=== PATIENT | female | born 1965 | race Hispanic/Latino ===

== ENCOUNTER 2019-03-12 04:26 | Observation (INO) | payer OTHER ==
[2019-03-12] MEDS ORDERED: FENTANYL CITR 100 MCG/2 ML ONE ×3 (04:48→07:13)
[2019-03-12] MEDS ORDERED: FAMOTIDINE 20 MG/2 ML VIAL IV ONE (04:48)
[2019-03-12] MEDS ORDERED: ONDANSETRON 4 MG/2 ML VIAL ONE ×2 (04:48→07:13)
[2019-03-12 05:12] LABS: Protime INR 1.07
[2019-03-12 05:14] LABS: Absolute Lymphocytes (CBC) 2.3 K/uL (0.7-4.9); Basophils % 0.4 % (0-1.3); Lymphocytes % 25.3 % (15.3-44.8); RBC Red Blood Cell Count 3.93 M/uL (3.86-4.86)
[2019-03-12 05:38] LABS: ALT/SGPT 29 U/L (12-78); AST/SGOT 14 U/L (15-37); Albumin 4.1 g/dL (3.4-5.0); Alkaline Phosphatase 94 U/L (45-117); BUN Blood Urea Nitrogen 16 mg/dL (7-18); Bicarbonate 20 mmol/L (21-32); Bilirubin Direct 0.1 mg/dL (0-0.2); Bilirubin Total 0.6 mg/dL (0.2-1.0); Glucose Level 133 mg/dL (74-106); Lipase 158 U/L (73-393); Magnesium 2.2 mg/dL (1.8-2.4); NT PRO-BNP 65 pg/mL (<125); Potassium 3.1 mmol/L (3.5-5.1); Protein, Total 8.6 g/dL (6.4-8.2); Sodium Level 138 mmol/L (136-145); Troponin (Emerg Dept Use Only) < 0.02 ng/mL (0.0-0.045)
[2019-03-12] MEDS ORDERED: NS KCL 20MEQ 1,000 ML IV ONE (06:25)
--- NOTE | 2019-03-12 07:12 | ER ---
Nurse's Notes [facility] Name: Ivonne Anderson Age: 53 yrs Sex: Female : 1965 Arrival Date: 03/12/2019 Time: 04:30 Bed 7 Private MD: Heriberto Dial Diagnosis: Abdominal tenderness;Chest pain, unspecified;Type 2 diabetes mellitus;Hypokalemia;Essential (primary) hypertension;Unspecified kidney failure Presentation: 03/12 04:39 Presenting complaint: Patient states: Abdominal pain, pointing to epigastric area, lp1 since yesterday morning, radiating to chest with nausea; Patient states numbness, tingling to arms; Some diarrhea. Transition of care: patient was not received from another setting of care. Onset of symptoms was March 11, 2019. Risk Assessment: Do you want to hurt yourself or someone else? Patient reports no desire to harm self or others. Initial Sepsis Screen: Does the patient meet any 2 criteria? No. Patient's initial sepsis screen is negative. Does the patient have a suspected source of infection? No. Patient's initial sepsis screen is negative. Care prior to arrival: None. 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 - Social history:: Smoking status: Patient/guardian denies using tobacco. - Ebola Screening: : No symptoms or risks identified at this time. Screenin:42 Abuse screen: Denies threats or abuse. Denies injuries from another. Nutritional lp1 screening: No deficits noted. Tuberculosis screening: No symptoms or risk factors identified. Fall Risk None identified. Assessment: 04:44 General: Appears uncomfortable, Behavior is anxious. Pain: Complains of pain in lp1 epigastric area, right upper quadrant and left upper quadrant Pain radiates to chest Pain at worst was 10 out of 10 on a pain scale. Pain began 1 day ago. Neuro: Level of Consciousness is awake, alert, obeys commands, Oriented to person, place, time, situation. Cardiovascular: Patient's skin is warm and dry. Respiratory: Respiratory effort is even. GI: Abdomen is non-distended, Bowel sounds present X 4 quads. Abdomen is tender to palpation X 4 quads. : No signs and/or symptoms were reported regarding the genitourinary system. EENT: No signs and/or symptoms were reported regarding the EENT system. Derm: Skin is pink, warm \T\ dry. Musculoskeletal: No deficits noted. 05:20 Reassessment: Patient completed oral contrast; CT notified. lp1 06:20 Reassessment: Patient states pain continued; Provider notified. lp1 06:20 Pain: Pain currently is 9 out of 10 on a pain scale. lp1 07:30 Reassessment: attempted to call report, nurse not assigned at this time. Will continue jl7 to monitor. Vital Signs: 04:40 BP 180 / 107; Pulse 120; Resp 18; Temp 98.2(O); Pulse Ox 100% on R/A; Weight 61.69 kg; lp1 Height 5 ft. 0 in. (152.40 cm); Pain 10/10; 05:15 BP 140 / 89; Pulse 71; Resp 15; Pulse Ox 99% on R/A; Pain 7/10; lp1 06:00 BP 135 / 89; Pulse 78; Resp 18; Pulse Ox 98% on R/A; lp1 06:30 BP 141 / 89; Pulse 79; Resp 16; Pulse Ox 98% on R/A; Pain 9/10; lp1 07:37 BP 131 / 88; Pulse 82; Resp 16 S; Temp 98.2; Pulse Ox 98% on R/A; Pain 6/10; hb 04:40 Body Mass Index 26.56 (61.69 kg, 152.40 cm) lp1 ED Course: 04:30 Patient arrived in ED. es 04:31 Heriberto Dial MD is Private Physician. es 04:33 Richie Marinelli RN is Primary Nurse. rr5 04:34 Waqas Edwards MD is Attending Physician. flaco 04:40 Triage completed. lp1 04:40 Inserted saline lock: 20 gauge in left antecubital area, using aseptic technique. Blood ds4 collected. 04:42 Arm band placed on. lp1 04:42 Patient has correct armband on for positive identification. Placed in gown. Bed in low lp1 position. monitoring tech on. Pulse ox on. NIBP on. 04:42 Patient maintains SpO2 saturation greater than 95% on room air. lp1 04:55 Ofelia Holly, REBEKAH is Primary Nurse. lp1 05:13 XRAY Chest (1 view) In Process Unspecified. EDMS 06:58 CT completed. Patient tolerated procedure well. Patient taken to ultrasound. vm2 07:00 CT Abd/Pelvis - PO and IV Contrast In Process Unspecified. EDMS 07:08 Man Kaur MD is Hospitalizing Provider. flaco 07:15 US Abdomen Limited In Process Unspecified. EDMS 07:42 No provider procedures requiring assistance completed. Patient admitted, IV remains in sg place. intact, No redness/swelling at site. Administered Medications: 04:56 Drug: fentaNYL (PF) 50 mcg {Note: RASS 2.} Route: IVP; Site: left antecubital; lp1 05:39 Follow up: Response: Pain is decreased; RASS: Alert and Calm (0) lp1 04:56 Drug: Zofran 4 mg Route: IVP; Site: left antecubital; lp1 05:39 Follow up: Response: Nausea is decreased lp1 04:56 Drug: Pepcid 20 mg Route: IVP; Site: left antecubital; lp1 05:40 Follow up: Response: No adverse reaction lp1 06:33 Drug: fentaNYL (PF) 25 mcg {Note: RASS 1.} Route: IVP; Site: left antecubital; lp1 07:10 Follow up: Response: No adverse reaction; Pain is unchanged, physician notified; RASS: sg Restless (+1) 06:34 Drug: NS 0.9% with KCl 20 mEq/L 1000 ml Route: IV; Rate: 125 ml/hr; Site: left lp1 antecubital; 07:50 Follow up: Response: No adverse reaction; IV Status: Infusion continued upon admission sg 07:19 Drug: Zofran 4 mg Route: IVP; Site: left antecubital; sg 07:40 Follow up: Response: No adverse reaction sg 07:20 Drug: fentaNYL (PF) 25 mcg Route: IVP; Site: left antecubital; sg 07:40 Follow up: Response: No adverse reaction; Pain is decreased; RASS: Restless (+1); 08/19 sg Intake: Outcome: 07:11 Decision to Hospitalize by Provider. flaco 07:42 Admitted to Med/surg accompanied by tech, family with patient, via stretcher, room 416, with chart, Report called to Shannon WELCH 07:42 Condition: stable 07:42 Instructed on the need for admit, safety practices, Demonstrated understanding of instructions, follow-up care. 07:50 Patient left the ED. em1 Signatures: Dispatcher [employer] Luis Carlos Troy, RN RN Waqas Palacios MD MD cha Salyer, Christian Arriola em1 Ofelia Holly RN RN lp1 Brad Nunez ds4 Nancy Soliz RN RN hb Leal, Jahala, RN RN jl7 Marcelina Cuevas [facility] Richie Marinelli RN RN rr5
--- NOTE | 2019-03-12 07:12 | EDPHYS ---
Physician Documentation [facility] Name: Ivonne Anderson Age: 53 yrs Sex: Female : 1965 Arrival Date: 03/12/2019 Time: 04:30 Bed 7 Private MD: Heriberto Dial ED Physician Waqas Edwards HPI: 03/12 04:48 This 53 yrs old Female presents to ER via Wheelchair with complaints of Chest flaco Pain, Abdominal Pain, Nausea, Numbness Of Arm, tingling. 04:48 The patient or guardian reports chest pain that is located primarily in the substernal flaco area, epigastric area. Onset: just prior to arrival, this morning. The pain radiates to Associated signs and symptoms: Pertinent positives: abdominal pain. The chest pain is described as a pressure. Duration: The patient or guardian reports a single episode, that is still ongoing. Modifying factors: The symptoms are alleviated by nothing. the symptoms are aggravated by nothing. Severity of pain: At its worst the pain was mild moderate in the emergency department the pain is unchanged. 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 - Social history:: Smoking status: Patient/guardian denies using tobacco. - Ebola Screening: : No symptoms or risks identified at this time. ROS: 04:49 Constitutional: Negative for fever, chills, and weight loss, Eyes: Negative for injury, flaco pain, redness, and discharge, ENT: Negative for injury, pain, and discharge, Neck: Negative for injury, pain, and swelling, Cardiovascular: Negative for chest pain, palpitations, and edema, Respiratory: Negative for shortness of breath, cough, wheezing, and pleuritic chest pain, Back: Negative for injury and pain, : Negative for injury, bleeding, discharge, and swelling, MS/Extremity: Negative for injury and deformity, Skin: Negative for injury, rash, and discoloration, Neuro: Negative for headache, weakness, numbness, tingling, and seizure, Psych: Negative for depression, anxiety, suicide ideation, homicidal ideation, and hallucinations, Allergy/Immunology: Negative for hives, rash, and allergies, Endocrine: Negative for neck swelling, polydipsia, polyuria, polyphagia, and marked weight changes, Hematologic/Lymphatic: Negative for swollen nodes, abnormal bleeding, and unusual bruising. 04:49 Abdomen/GI: Positive for abdominal pain, nausea, of the epigastric area, right upper quadrant, left upper quadrant, right lower quadrant and left lower quadrant. Exam: 04:49 Constitutional: This is a well developed, well nourished patient who is awake, alert, flaco and in no acute distress. Head/Face: Normocephalic, atraumatic. Eyes: Pupils equal round and reactive to light, extra-ocular motions intact. Lids and lashes normal. Conjunctiva and sclera are non-icteric and not injected. Cornea within normal limits. Periorbital areas with no swelling, redness, or edema. ENT: Nares patent. No nasal discharge, no septal abnormalities noted. Tympanic membranes are normal and external auditory canals are clear. Oropharynx with no redness, swelling, or masses, exudates, or evidence of obstruction, uvula midline. Mucous membranes moist. Neck: Trachea midline, no thyromegaly or masses palpated, and no cervical lymphadenopathy. Supple, full range of motion without nuchal rigidity, or vertebral point tenderness. No Meningismus. Chest/axilla: Normal chest wall appearance and motion. Nontender with no deformity. No lesions are appreciated. Cardiovascular: Regular rate and rhythm with a normal S1 and S2. No gallops, murmurs, or rubs. Normal PMI, no JVD. No pulse deficits. Respiratory: Lungs have equal breath sounds bilaterally, clear to auscultation and percussion. No rales, rhonchi or wheezes noted. No increased work of breathing, no retractions or nasal flaring. Back: No spinal tenderness. No costovertebral tenderness. Full range of motion. Female : Normal external genitalia. Skin: Warm, dry with normal turgor. Normal color with no rashes, no lesions, and no evidence of cellulitis. MS/ Extremity: Pulses equal, no cyanosis. Neurovascular intact. Full, normal range of motion. Neuro: Awake and alert, GCS 15, oriented to person, place, time, and situation. Cranial nerves II-XII grossly intact. Motor strength 5/5 in all extremities. Sensory grossly intact. Cerebellar exam normal. Normal gait. Psych: Awake, alert, with orientation to person, place and time. Behavior, mood, and affect are within normal limits. 04:49 Abdomen/GI: Inspection: abdomen appears normal, Bowel sounds: normal, Palpation: mild abdominal tenderness, in the right upper quadrant and left upper quadrant. 05:35 Musculoskeletal/extremity: DVT Exam: No signs of deep vein thrombosis. no pain, no flaco swelling, no tenderness, negative Homans' sign noted on exam, no appreciated bluish discoloration, no erythema, no increased warmth. Vital Signs: 04:40 BP 180 / 107; Pulse 120; Resp 18; Temp 98.2(O); Pulse Ox 100% on R/A; Weight 61.69 kg; lp1 Height 5 ft. 0 in. (152.40 cm); Pain 10/10; 05:15 BP 140 / 89; Pulse 71; Resp 15; Pulse Ox 99% on R/A; Pain 7/10; lp1 06:00 BP 135 / 89; Pulse 78; Resp 18; Pulse Ox 98% on R/A; lp1 06:30 BP 141 / 89; Pulse 79; Resp 16; Pulse Ox 98% on R/A; Pain 9/10; lp1 07:37 BP 131 / 88; Pulse 82; Resp 16 S; Temp 98.2; Pulse Ox 98% on R/A; Pain 6/10; hb 04:40 Body Mass Index 26.56 (61.69 kg, 152.40 cm) lp1 MDM: 04:34 Patient medically screened. [facility] 04:51 Data reviewed: vital signs, nurses notes, lab test result(s), EKG, radiologic studies, [facility] CT scan, plain films. 03/12 04:48 Order name: Basic Metabolic Panel; Complete Time: 05:43 [facility] 03/12 04:48 Order name: CBC with Diff; Complete Time: 05:31 [facility] 03/12 04:48 Order name: LFT's; Complete Time: 05:43 [facility] 03/12 04:48 Order name: Magnesium; Complete Time: 05:43 [facility] 03/12 04:48 Order name: NT PRO-BNP; Complete Time: 05:43 [facility] 03/12 04:48 Order name: PT-INR; Complete Time: 05:31 [facility] 03/12 04:48 Order name: Troponin (emerg Dept Use Only); Complete Time: 05:43 [facility] 03/12 04:48 Order name: XRAY Chest (1 view) [facility] 03/12 04:48 Order name: Lipase; Complete Time: 05:43 [facility] 03/12 04:48 Order name: Urine Culture [facility] 03/12 04:48 Order name: CT Abd/Pelvis - PO and IV Contrast [facility] 03/12 06:17 Order name: US Abdomen Limited [facility] 03/12 06:31 Order name: Urine Dipstick--Ancillary (enter results) ar5 03/12 04:48 Order name: EKG; Complete Time: 04:50 [facility] 03/12 04:48 Order name: Cardiac monitoring; Complete Time: 04:50 [facility] 03/12 04:48 Order name: EKG - Nurse/Tech; Complete Time: 04:50 [facility] 03/12 04:48 Order name: IV Saline Lock; Complete Time: 04:50 [facility] 03/12 04:48 Order name: Labs collected and sent; Complete Time: 04:50 [facility] 03/12 04:48 Order name: O2 Per Protocol; Complete Time: 04:50 [facility] 03/12 04:48 Order name: O2 Sat Monitoring; Complete Time: 04:50 [facility] 03/12 04:48 Order name: Urine Dipstick-Ancillary (obtain specimen); Complete Time: 06:25 [facility] 03/12 06:22 Order name: EKG; Complete Time: 06:22 [facility] 03/12 07:15 Order name: CONS Physician Consult [facility]IL 03/12 06:22 Order name: EKG - Nurse/Tech; Complete Time: 06:34 [facility] Administered Medications: 04:56 Drug: fentaNYL (PF) 50 mcg {Note: RASS 2.} Route: IVP; Site: left antecubital; lp1 05:39 Follow up: Response: Pain is decreased; RASS: Alert and Calm (0) lp1 04:56 Drug: Zofran 4 mg Route: IVP; Site: left antecubital; lp1 05:39 Follow up: Response: Nausea is decreased lp1 04:56 Drug: Pepcid 20 mg Route: IVP; Site: left antecubital; lp1 05:40 Follow up: Response: No adverse reaction lp1 06:33 Drug: fentaNYL (PF) 25 mcg {Note: RASS 1.} Route: IVP; Site: left antecubital; lp1 07:10 Follow up: Response: No adverse reaction; Pain is unchanged, physician notified; RASS: sg Restless (+1) 06:34 Drug: NS 0.9% with KCl 20 mEq/L 1000 ml Route: IV; Rate: 125 ml/hr; Site: left lp1 antecubital; 07:50 Follow up: Response: No adverse reaction; IV Status: Infusion continued upon admission sg 07:19 Drug: Zofran 4 mg Route: IVP; Site: left antecubital; sg 07:40 Follow up: Response: No adverse reaction sg 07:20 Drug: fentaNYL (PF) 25 mcg Route: IVP; Site: left antecubital; sg 07:40 Follow up: Response: No adverse reaction; Pain is decreased; RASS: Restless (+1); 08/19 sg Disposition: 03/12/19 07:11 Hospitalization ordered by Man Kaur for Inpatient Admission. Preliminary diagnosis are Abdominal tenderness, Chest pain, unspecified, Type 2 diabetes mellitus, Hypokalemia, Essential (primary) hypertension, Unspecified kidney failure. - Bed requested for Telemetry/MedSurg (Inpatient). - Status is Inpatient Admission. em1 - Condition is Fair. - Problem is new. - Symptoms have improved. UTI on Admission? No Signatures: Dispatcher [employer] EDMS Praveena Leon RN RN dw Luis Carlos Lino RN RN sg Waqas Edwards MD MD cha Martinez, Eric em1 Ofelia Holly, REBEKAH RN lp1 Corrections: (The following items were deleted from the chart) 07:28 07:11 Hospitalization Ordered by Man Kaur MD for Inpatient Admission. Preliminary dw diagnosis is Abdominal tenderness; Chest pain, unspecified; Type 2 diabetes mellitus; Hypokalemia; Essential (primary) hypertension; Unspecified kidney failure. Bed requested for Telemetry/MedSurg (Inpatient). Status is Inpatient Admission. Condition is Fair. Problem is new. Symptoms have improved. UTI on Admission? No. flaco 07:50 07:28 03/12/2019 07:11 Hospitalization Ordered by Man Kaur MD for Inpatient em1 Admission. Preliminary diagnosis is Abdominal tenderness; Chest pain, unspecified; Type 2 diabetes mellitus; Hypokalemia; Essential (primary) hypertension; Unspecified kidney failure. Bed requested for Telemetry/MedSurg (Inpatient). Status is Inpatient Admission. Condition is Fair. Problem is new. Symptoms have improved. UTI on Admission? No. dw
[2019-03-12] MEDS ORDERED: FENTANYL CITR 100 MCG/2 ML IV PRN (07:19)
--- NOTE | 2019-03-12 07:41 | EKG ---
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
--- NOTE | 2019-03-12 07:56 | RAD REPORT ---
EXAM DESCRIPTION: CT - Abdomen Pelvis W Contrast - 03/12/2019 6:59 am CLINICAL HISTORY: Abdominal pain. COMPARISON: None. TECHNIQUE: Computed axial tomography of the abdomen and pelvis was obtained. 100 cc Isovue-300 is ad ministered intravenously. Oral contrast was given. All CT scans are performed using dose optimization technique as appropriate and may include automated exposure control or mA/KV adjustment according to patient size. FINDINGS: Fatty liver Spleen, pancreas, adrenals and kidneys appear unremarkable. The appendix is normal caliber. There is no evidence of diverticulitis IMPRESSION: No acute abnormality displayed
--- NOTE | 2019-03-12 07:57 | RAD REPORT ---
EXAM DESCRIPTION: US - Abdomen Exam Limited - 03/12/2019 7:13 am CLINICAL HISTORY: Abdominal pain. COMPARISON: None. FINDINGS: The gallbladder wall is not thickened. A gallstone is not seen. The biliary tree is normal caliber. IMPRESSION: Unremarkable gallbladder ultrasound.
[2019-03-12] MEDS ORDERED: ACETAMINOPHEN 325 MG TABLET PO PRN (08:25)
[2019-03-12] MEDS ORDERED: D50W 25 GM/50 ML SYRINGE/VIAL IV PRN (08:25)
[2019-03-12] MEDS ORDERED: ONDANSETRON 4 MG/2 ML VIAL IV PRN (08:25)
[2019-03-12] MEDS ORDERED: GLUCAGON 1 MG/VIAL IM PRN (08:25)
[2019-03-12] MEDS: INSULIN -REGULAR HUMAN 50 UNIT/0.5 ML ML SQ SCH ×4 (08:25→21:00)
--- NOTE | 2019-03-12 08:29 | RAD REPORT ---
EXAM DESCRIPTION: Saad Single View03/12/2019 5:11 am CLINICAL HISTORY: Chest pain COMPARISON: January 2019 FINDINGS: The lungs appear clear of acute infiltrate. The heart is normal size IMPRESSION: No acute abnormalities displayed
[2019-03-12] MEDS ORDERED: FAMOTIDINE 20 MG/2 ML VIAL IV SCH (09:00)
[2019-03-12 09:10] LABS: Potassium 4.1 mmol/L (3.5-5.1); Troponin I < 0.02 ng/mL (0.0-0.045)
[2019-03-12] MEDS ORDERED: FENTANYL CITR 100 MCG/2 ML IV ONE (09:19)
[2019-03-12] MEDS: ASPIRIN EC 81 MG TAB PO SCH (09:38)
[2019-03-12] MEDS: NS KCL 20MEQ 20 MEQ/1,000 ML BAG IV SCH ×2 (09:46→16:51)
[2019-03-12 10:07] VITALS: BMI 26.5
[2019-03-12] MEDS ORDERED: INFLUENZA VACCINE (for 3y+) 0.5 ML DOSE IMVAC ONE (11:00)
--- NOTE | 2019-03-12 11:03 | EKG ---
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
[2019-03-12] MEDS ORDERED: SODIUM CHLORIDE 0.9% 10ML INJ IV PRN (11:41)
[2019-03-12] MEDS ORDERED: NITROGLYCERIN 0.4 MG/TAB SL ONE (11:44)
[2019-03-12] MEDS ORDERED: NITROGLYCERIN 0.4 MG/TAB SL PRN (11:48)
[2019-03-12 11:53] LABS: Urine Appearance CLEAR; Urine Bilirubin NEGATIVE (NEG); Urine Blood TRACE (NEG); Urine Color YELLOW; Urine Glucose 3+ (NEG); Urine Protein NEGATIVE (NEG); Urine Specific Gravity >=1.030 (1.005-1.030); Urine Urobilinogen 0.2 mg/dL (0.2-1.0)
[2019-03-12] MEDS: PANTOPRAZOLE 40 MG INJ IVP SCH (11:54)
[2019-03-12 11:55] LABS: Urine Microscopic Reflex ORDER UMIC
[2019-03-12 12:32] LABS: Urine Bacteria <20 /HPF (<20); Urine Culture Reflex Order NOT NEEDED; Urine RBC <5 /HPF (NONE SEEN)
[2019-03-12] MEDS ORDERED: KETOROLAC 30 MG/ML INJ IV ONE (16:31)
--- NOTE | 2019-03-12 17:42 | P.CNS ---
Date of Consult: 03/12/19 PC: I was asked to see this 53-year-old female regards to her abdominal pain. HPC: Patient denied feel we will yesterday, had an upset stomach. Ate at a [place] buffet. Later on that evening she began to experience severe upper abdominal pain She describes it as going straight through to her back. Up ulcer radiates up into the left side of her chest. Has nausea but no actual vomiting. PMH: Diabetes PSHx: Negative SOC: Allergic to morphine and dulaglutide SYS REVIEW: Prior to this setting with good health. No cough, wheeze, shortness of breath. No chest pain or palpitations. No urinary complaints O/E awake alert uncomfortable vital signs are stable HEENT: Not jaundice Chest: Air movement equal bilaterally ABD: Soft nontender no guarding or rebound LOCO: Intact DATA: Normal white cell count, no evidence of shift. CT scan is essentially normal IMPRESSION: Abdominal pain PLAN: This patient presented with abdominal pain. She says it has subsided somewhat. She is very tense at the moment. I will see were some clear liquids , make her NPO at midnight and reassess her lab work in the morning. She is on IV fluids. She is receiving pain medicine that she says is helping her. She does state that she feels improved this evening compared to when she initially came in. I do not believe that she will require any surgical intervention.
[2019-03-12] MEDS ORDERED: DIAZEPAM 5 MG TABLET PO ONE (18:06)
[2019-03-12] MEDS ORDERED: ATORVASTATIN 40 MG TAB PO SCH (21:00)
--- NOTE | 2019-03-12 22:55 | HP ---
Date of Admission: 03/12/2019 Chief Complaint: Abdominal pain and chest pain. Primary Care Physician: Heriberto Dial M.D. Consultants: Dr. Velásquez with General Surgery. History Of Present Illness: The patient is a 53-year-old female with past medical history of hypertension, diabetes, hyperlipidemia, apparent history of renal insufficiency, who was in her usual state of health until day prior to admission when the patient started having sudden onset of abdominal pain associated with some nausea. No episode of vomiting, but also had some diarrhea. Patient's pain was epigastric, radiating to the back with no alleviating factors, aggravated by food. Patient had a [place] buffet prior to the pain. Patient also now reports pain traveling up to her chest, which is left-sided. Patient became concerned and came into the ER for further evaluation. Her symptoms are constant, moderate, progressively worsening. In the ER, her vital signs showed sinus tachycardia. Blood pressure was significantly elevated at 180/107. She was afebrile. Her white blood cell count was normal. She had low potassium. CT scan of the abdomen did not show any acute abnormalities. Ultrasound of the abdomen was also unremarkable. The patient, however, continued to have pain. She is allergic to morphine. Patient was then referred for admission. Her initial cardiac enzymes and EKG were within normal limits. Patient did have some history of palpitations and has been seen by Cardiology in the past. When seen in the ER, she was awake, alert, and oriented x3, in moderate distress due to pain. Past Medical History: Hypertension, hyperlipidemia, diabetes, prerenal insufficiency. Surgical History: The patient has had a hysterectomy. She has also had a C- section and hernia repair. Allergies: TO MORPHINE AND TRULICITY. Medications: List reviewed. Social History: The patient used to smoke, quit about 6 years ago. Drinks alcohol socially. No illicit drug use. Family History: Patient states that mom has hypertension and diabetes. Review of Systems: Ten-point system reviewed, negative except as per HPI. Physical Examination: Vital Signs: Temperature 98.2, heart rate 120, blood pressure 180/107, respirations 18, O2 100% on room air. General: Awake, alert, oriented x3. Ill-appearing female, in moderate distress due to pain. HEENT: Normocephalic, atraumatic. PERRLA. EOMI. Dry mucous membranes. Oropharynx is clear. Conjunctivae are anicteric. Normal dentition. Neck: Supple. No JVD. Trachea midline. CV: S1, S2. Sinus tachycardia. Peripheral pulses present. No murmurs. RESPIRATORY: Moving air well bilaterally. No wheezing or stridor. No use of accessory muscles. Gastrointestinal: Abdomen is soft. Tenderness to palpation in the epigastric region. Some voluntary guarding is present. No rebound tenderness. No distention. Positive bowel sounds. Extremities: No clubbing, cyanosis, or edema. No calf tenderness. Neuro: Cranial nerves 2 through 12 intact grossly. No focal neurological deficit. Speech is normal. Skin: No rashes. Normal skin turgor. Psych: Mood is anxious. Affect is congruent with mood. Insight and judgment are fair. Laboratory Data: WBC 9.3, H and H 13 and 37, platelets 187, neutrophils 65%. INR 1.07. Sodium 138, potassium 3.1, chloride 105, CO2 20, BUN 16, creatinine 0.95, glucose 133, calcium 9, magnesium 2.2, AST 14, ALT 29, total bilirubin 0.6 , alkaline phosphatase 94. Troponin less than 0.02 x2. Albumin 4.1. Lipase is 158. UA is negative. Imaging Studies: Chest x-ray personally reviewed shows no acute abnormality. EKG shows normal sinus rhythm rate of 67. Ultrasound of the abdomen is unremarkable for gallbladder. CT scan of the abdomen is unremarkable. No acute abnormalities displayed. Appendix is normal caliber. No evidence of diverticulitis. Patient does have fatty liver disease. Assessment And Plan: A 53-year-old female with, 1. Epigastric abdominal pain. Patient has moderate pain and distress, not improved with IV morphine. In fact, the patient had reaction and therefore was switched to fentanyl, unclear etiology, may be related to viral gastroenteritis versus bacterial gastroenteritis. Patient has had episodes of nausea and diarrhea. We will obtain stool studies. CT scan of the abdomen is unremarkable for any acute issues. Ultrasound is also negative. Lipase is normal, doubt pancreatitis. No history of chronic alcohol use or acute binge episode, may also be referred pain from the chest as the patient is diabetic versus gastroesophageal reflux disease and ulcerations. We will start patient on PPI. Initial set of cardiac enzymes x2 have been negative. We will obtain third enzyme. Patient will need to follow up with Cardiology as outpatient. Case discussed with Dr. Connelly, recommends outpatient stress test. 2. Chest pain. Cardiac enzymes x2 negative. We will obtain third set. Serial EKGs. Nitroglycerin p.r.n. Cardiology recommends outpatient followup with stress test. 3. Fatty liver disease, counseled. 4. Hypokalemia, we will replace and monitor. 5. Diabetes mellitus type 2 with hyperglycemia. We will start on sliding scale insulin and monitor blood glucose levels. 6. Mixed hyperlipidemia, continue with statin. 7. History of renal insufficiency. Creatinine is normal. GFR is low. We will continue to monitor creatinine and avoid NSAIDs and nephrotoxins. 8. Deep vein thrombosis prophylaxis with Lovenox and SCDs. Plan: Admit patient to Med-Surg, place as observation. MINDY Voice ID: [id number] HOWIE
[2019-03-13] MEDS: NS KCL 20MEQ 20 MEQ/1,000 ML BAG IV SCH ×2 (00:25→08:25)
[2019-03-13 06:46] LABS: Absolute Lymphocytes (CBC) 1.7 K/uL (0.7-4.9); Basophils % 0.5 % (0-1.3); Hematocrit 33.2 % (36.0-45.0); MPV 8.8 fL (7.6-11.3); RBC Red Blood Cell Count 3.49 M/uL (3.86-4.86)
[2019-03-13] MEDS: INSULIN -REGULAR HUMAN 50 UNIT/0.5 ML ML SQ SCH (07:30)
[2019-03-13 07:46] LABS: Potassium 4.7 mmol/L (3.5-5.1)
[2019-03-13 08:28] VITALS: TEMP 98
[2019-03-13] MEDS: PANTOPRAZOLE 40 MG INJ IVP SCH (08:46)
[2019-03-13] MEDS: ASPIRIN EC 81 MG TAB PO SCH (08:46)
[2019-03-13 08:57] VITALS: O2SAT 98
[2019-03-13] MEDS ORDERED: HOME MED 1 EA UNK (Losartan/Hydrochlorothiazide [Losartan-Hctz 100-12.5 Mg Tab] 1 TAB) PO SCH (09:00)
[2019-03-13] MEDS ORDERED: hydroCHLOROthiazide 12.5 MG CAP PO SCH (09:00)
[2019-03-13] MEDS ORDERED: LOSARTAN POTASSIUM 50 MG TABLET PO SCH (09:00)
[2019-03-13] MEDS ORDERED: INSULIN -REGULAR HUMAN 50 UNIT/0.5 ML ML SQ SCH ×2 (11:30→12:00)
[2019-03-13 12:01] VITALS: BP 112/65
[2019-03-13 13:49] LABS: C.diff Antigen/Toxin Ag neg : Tox neg (NEG : NEG)
--- NOTE | 2019-03-13 22:40 | DS ---
Date of Discharge: 03/13/2019 Consultants: Dr. Velásquez with General Surgery. Procedures: None. Discharge Diagnoses: 1.Acute right upper quadrant and epigastric abdominal pain, resolved. 2.Diarrhea likely viral versus bacterial gastroenteritis, improved. 3.Chest pain. ACS ruled out. Patient will need outpatient cardiac workup. 4.Fatty liver disease, counseled. 5.Hypokalemia, replaced. 6.Diabetes mellitus type 2 with hyperglycemia, stable. 7.Mixed hyperlipidemia. 8.History of renal insufficiency. Hospital Course: Patient is a 53-year-old female, who comes into the hospital for abdominal pain and chest pain. Patient has multiple risk factors including hypertension, hyperlipidemia, diabetes, and has seen Dr. Rivera in the past for palpitations and Holter monitor study. Therefore, cardiac enzy mes were obtained and ACS was ruled out. Her chest pain was likely epigastric, radiating up to the c hest. Did discuss with Dr. Connelly, who recommends outpatient stress test. Regarding patient's abdominal pain was epigastric and right upper quadrant in location radiating to h er back. Patient's CAT scan and abdominal ultrasound were both negative. General Surgery was consul jet. Dr. Velásquez did not recommend any surgical intervention at this time. She will need an outpati ent HIDA scan. Her liver enzymes were within normal limits. No elevation of her bilirubin. There w ere no signs or symptoms of biliary obstruction. Her UA was negative. She did have some diarrhea an d stool studies were sent out, her urine including C difficile. Her urine cultures grew out mixed fl ora. Patient's pain improved significantly. She was able to tolerate a diet. She was no longer hav ing significant pain. No nausea or vomiting. Diarrhea was improving. Patient was then cleared for discharge and sent home in a stable condition. Activity: As tolerated. Medications: As per medication reconciliation list. Followup: Follow up with primary care physician in 2 to 3 days. Follow up with pipe recovery specialist, Dr. Ronald zuniga, who was the patient's primary pipe recovery specialist for outpatient stress test. Establish care with GI in the next 2 to 4 weeks. Return to ER for worsening condition. Diet: George. Physical Examination: General: Awake, alert, oriented x3. No acute distress. CV: S1, S2. Respiratory: Moving air well bilaterally. Gastrointestinal: Abdomen is soft, nontender, nondistended. Positive bowel sounds. Extremities: No clubbing, cyanosis, or edema. Neurologic: Nonfocal. SA/MODL Voice ID: [id number] Report ID: [id number]
--- OUTSIDE RECORDS SUMMARY | 2019-03-21 19:08 | XMS REPORT ---
:1965 [facility] Organization [facility] Address [address] [place] [address] [address] [place] [address] Care Team Providers Name Role Phone Unavailable Unavailable Unavailable Problems This patient has no known problems. Allergies, Adverse Reactions, Alerts This patient has no known allergies or adverse reactions. Medications This patient has no known medications.
== END 2019-03-13 15:31 | disposition home or self-care (01) ==
LOC: ER 04:26 → ERHOLD 07:12 → INTOOBSV 07:12 → 4TH 07:38
PROVIDERS: ADMIT Family Medicine; ATTEND Family Medicine
DX: R10.13 Epigastric pain (principal); I10 Essential (primary) hypertension; E11.9 Type 2 diabetes mellitus without complications; R07.9 Chest pain, unspecified; K76.0 Fatty (change of) liver, not elsewhere classified; E87.6 Hypokalemia; E11.65 Type 2 diabetes mellitus with hyperglycemia; E78.2 Mixed hyperlipidemia; R19.7 Diarrhea, unspecified; R10.11 Right upper quadrant pain; Z23 Encounter for immunization
CPT/HCPCS: 96361; 93005 ×2; 87088; 87045; 85025 ×2; 87086; 80048 ×2; 36415 ×2; 83735; 89055; 87177; 82274; 84132; 85610; 82947 ×5; 80076; 87046; 87209; 87324; 84484 ×3; 83690 ×2; 83631; 83880; 87449; 74177; 71045; 90471; 76705; 96375; 96374; 99285; Q9967; Q2035; C9113 ×2; J3010 ×4; J2405 ×2; G0378 ×3; 81003; 81015

== ENCOUNTER 2021-01-12 01:22 | Emergency (ER) | payer OTHER ==
--- OUTSIDE RECORDS SUMMARY | 2021-01-12 01:26 | XMS REPORT | Continuity of Care Document ---
:1965 Author Organization [facility] t Address [address] [place] [address] Care Team Providers Name Role Phone Heriberto Dial MD Primary Care Physician WARREN SIERRA Attending Clinician Unavailable Dmitriy NEWBY Attending Clinician Doctor Unassigned, Name Attending Clinician Unavailable Payers Payer Name Policy Type Policy Number Effective Date Expiration Date S ource Problems Condition Condition Condition Status Onset Resolution Last Treating Co mments Source Name Details Category Date Date Treatment Clinician Date No known No known Disease Metho di active active st problems problems Hospit a l Allergies, Adverse Reactions, Alerts Allergy Allergy Status Severity Reaction(s) Onset Inactive Treating Comm ents Source Name Type Date Date Clinician morphine DA Active SV 2019-05 [facility] 2-24 Clear 00:00: Guerrero 00 [facility] semaglut DA Active SV 2019-05 [facility] cristino 2- Clear 00:00: Guerrero 00 [facility] Family History Family Member Diagnosis Comments Start Date Stop Date Source Paternal grandmother Hypertension [facility] Natural sister Diabetes [facility] Natural brother Hypertension [facility] Natural father Early [facility] Maternal grandfather [facility] Maternal grandmother Meth [facility] Natural mother Diabetes [facility] Natural mother Stroke [facility] Natural mother Vision loss [facility] Paternal grandfather [facility] Social History Social Habit Start Date Stop Date Quantity Comments Source Tobacco use and 2017-11-06 2017-11-06 Never used [facility] 00:00[facility]00 00:00:00 Hospital Alcohol intake 2017-11-06 2017-11-06 Current drinker [facility] 00:00:00 00:00:00 of alcohol Hospital (finding) Sex Ass[birth year] At [birth year] [facility] 00:00[facility] 00[facility]00 [facility] Smoking Status Start Date Stop Date Source Former smoker 2017-11-06 00:00:00 2017-11-06 00:00:00 [facility] Medications Ordered Filled Start Stop Current Ordering Indication Dosage Frequency Signature Comments Components Source Medication Medication Date Date Medication? Clinician (SIG) Name Name topiramate 0 Yes 25mg Q.5D Take 25 mg M ethodi (TOPAMAX) 6-[address] 25 MG 16:34: (two) Hospita capsule 14 times a l day. JARDIANCE 0 Yes Methodi 10 mg 6-27 st tablet 00:00: Hospita tablet 00 l estradiol 0 Yes 1mg Take 1 mg Met hodi (ESTRACE) 1 6-[address] MG tablet 00:00: Hospita 00 l progesteron 2017-0 Yes 100mg Take 100 M ethodi e 6-[address] (PROMETRIUM 00:00: mouth. Hosp leroy ) 100 MG 00 l capsule estradiol 0 Yes Methodi (ESTRACE) 1 6-22 st MG tablet 00:00: Hospita 00 l atorvastati 20180 Yes 20mg Take 20 mg Methodi n (LIPITOR) 4-[address] 20 MG 00:00: Hospita tablet 00 l losartan 2018-0 Yes 50mg Take 50 mg Met hodi (COZAAR) 50 4-[address] MG tablet 00:00: Hospita 00 l metFORMIN 2018-0 Yes 1000mg Take 1,000 Method[facility] (GLUCOPHAGE 4-[address] ) 1,000 mg 00:00: mouth. Hospi ta tablet 00 l naproxen 2017-0 Yes 500mg Take 500 Meth lanie (NAPROSYN) 4-[address] 500 MG 00:00: mouth. Hospita tablet 00 l Procedures This patient has no known procedures. Plan of Care Planned Activity Planned Date Details Comments Source Future Scheduled Test COVID-19 VACCINE (1) [facility] [code = COVID-19 VACCINE (1)] Future Scheduled Test Screening for malignant [facility] neoplasm of cervix (procedure) [code = 866820748] Future Scheduled Test BREAST CANCER SCREENING [facility] [code = BREAST CANCER SCREENING] Future Scheduled Test COLONOSCOPY SCREENING [facility] [code = COLONOSCOPY SCREENING] Future Scheduled Test SHINGLES VACCINES (#1) [facility] [code = SHINGLES VACCINES (#1)] Future Scheduled Test INFLUENZA VACCINE [code [facility] = INFLUENZA VACCINE] Encounters Start End Encounter Admission Attending Care Care Encounter Source Date/Time Date/Time Type Type Clinicians Facility Department ID 2020-11-21 2020-11-21 Outpatient JAIDA SIERRA [id number] Jaida 13:30:00 13:30:00 EZIO ortega 2020-05-09 2020-05-09 Refill Dmitriy WYERENDIRA [id number] 00:00:00 00:00:00 Braxton Rowley [id number] [place] 4.2.7.2.686 [facility] [id number] [facility] 220 Building 2020-04-28 2020-04-28 Orders Doctor BHARGAV [id number] 00:00:00 00:00:00 Only Unassigned, JOSSELIN [id number] [place] [facility] [id number] [id number] 2020-04-26 2020-04-26 Telephone Dmitriy WYERENDIRA [id number] 00:00:00 00:00:00 Braxton Rowley [id number] [place] 4.2.7.2.686 [facility] [id number] [place] 220 Building Results Test Description Test Time Test Comments Results Result Comments Source GLUCOSE BEDSIDE TESTING 2020-05-07 08:47:00 Test Item Value Reference Range Interpretation Comme nts GLUCOSE BEDSIDE TESTING (test code = GLUBED) 175 mg/dL 70-110 H BASIC METABOLIC [id number] 07:29:00 Test Item Value Reference Range Interpretation Comments SODIUM (test code = NA) 140 mmol/L 134-147 N POTASSIUM (test code = 3.8 mmol/L 3.4-5.0 N K) CHLORIDE (test code = 111 mmol/L 100-108 H CL) CARBON DIOXIDE (test 24 mmol/L 21-32 N code = CO2) ANION GAP (test code = 5.0 GAP calc 4.0-15.0 N GAP) GLUCOSE (test code = 158 MG/DL 70-110 H GLU) BLOOD UREA NITROGEN 17 MG/DL 7-18 N (test code = BUN) GLOMERULAR FILTRATION >=60 max estimate >60 RATE (test code = GFR) estGFR CREATININE (test code = 0.9 MG/DL 0.6-1.0 N CREAT) CALCIUM (test code = CA) 9.0 MG/DL 8.5-10.1 N CBC W/AUTO [id number] 07:06:00 Test Item Value Reference Range Interpretation Comments WHITE BLOOD CELL (test code = 5.9 K/mm3 3.5-11.0 N WBC) RED BLOOD CELL (test code = 4.18 M/mm3 4.70-6.10 L RBC) HEMOGLOBIN (test code = HGB) 13.1 G/DL 10.4-14.9 N HEMATOCRIT (test code = HCT) 39.8 % 31.5-44.1 N MEAN CELL VOLUME (test code = 95.2 Fl 84.5-98.6 N MCV) MEAN CELL HGB (test code = MCH) 31.3 pg 27.0-34.2 N MEAN CELL HGB CONCETRATION 32.9 G/DL 31.5-34.0 N (test code = MCHC) RED CELL DISTRIBUTION WIDTH 13.2 SD 11.5-14.5 N (test code = RDW) PLATELET COUNT (test code = 199 K/mm3 150-450 N PLT) MEAN PLATELET VOLUME (test code 10.20 fL 7.0-10.5 N = MPV) NEUTROPHIL % (test code = NT%) 54.2 % 40-76 N IMMATURE GRANULOCYTE % (test 0.2 % 0.0-5.0 N code = IG%) LYMPHOCYTE % (test code = LY%) 36.4 % 20.5-51.1 N MONOCYTE % (test code = MO%) 6.1 % 1.7-9.3 N EOSINOPHIL % (test code = EO%) 2.6 % 0.0-6.0 N BASOPHIL % (test code = BA%) 0.5 % 0.0-2.0 N NUCLEATED RBC % (test code = 0.0 /100WBC% 0.0-1.0 N NRBC%) NEUTROPHIL # (test code = NT#) 3.2 K/mm3 1.8-7.6 N IMMATURE GRANULOCYTE # (test 0.01 x10 3/uL 0.00-0.03 N code = IG#) LYMPHOCYTE # (test code = LY#) 2.1 K/mm3 0.6-3.2 N MONOCYTE # (test code = MO#) 0.4 K/mm3 0.3-1.1 N EOSINOPHIL # (test code = EO#) 0.2 K/mm3 0.0-0.4 N BASOPHIL # (test code = BA#) 0.0 K/mm3 0.0-0.1 N NUCLEATED RBC # (test code = 0.0 K/mm3 0.0-0.1 N NRBC#) MANUAL DIFF REQUIRED (test code NO DIFF/SCN CRITERIA = MDIFF) GLUCOSE BEDSIDE [id number] 20:57:00 Test Item Value Reference Range Interpretation Comments GLUCOSE BEDSIDE TESTING (test code 208 mg/dL 70-110 H = GLUBED) GLUCOSE BEDSIDE [id number] 16:58:00 Test Item Value Reference Range Interpretation Comments GLUCOSE BEDSIDE TESTING (test code 269 mg/dL 70-110 H = GLUBED) GLUCOSE BEDSIDE [id number] 12:06:00 Test Item Value Reference Range Interpretation Comments GLUCOSE BEDSIDE TESTING (test code 204 mg/dL 70-110 H = GLUBED) GLUCOSE BEDSIDE [id number] 08:48:00 Test Item Value Reference Range Interpretation Comments GLUCOSE BEDSIDE TESTING (test code 148 mg/dL 70-110 H = GLUBED) BASIC METABOLIC [id number] 06:51:00 Test Item Value Reference Range Interpretation Comments SODIUM (test code = NA) 139 mmol/L 134-147 N POTASSIUM (test code = 4.2 mmol/L 3.4-5.0 N K) CHLORIDE (test code = 112 mmol/L 100-108 H CL) CARBON DIOXIDE (test 23 mmol/L 21-32 N code = CO2) ANION GAP (test code = 4.0 GAP calc 4.0-15.0 N GAP) GLUCOSE (test code = 137 MG/DL 70-110 H GLU) BLOOD UREA NITROGEN 16 MG/DL 7-18 N (test code = BUN) GLOMERULAR FILTRATION >=60 max estimate >60 RATE (test code = GFR) estGFR CREATININE (test code = 1.0 MG/DL 0.6-1.0 N CREAT) CALCIUM (test code = CA) 8.7 MG/DL 8.5-10.1 N CBC W/AUTO [id number] 06:30:00 Test Item Value Reference Range Interpretation Comments WHITE BLOOD CELL (test code = 6.3 K/mm3 3.5-11.0 N WBC) RED BLOOD CELL (test code = 3.96 M/mm3 4.70-6.10 L RBC) HEMOGLOBIN (test code = HGB) 12.4 G/DL 10.4-14.9 N HEMATOCRIT (test code = HCT) 37.7 % 31.5-44.1 N MEAN CELL VOLUME (test code = 95.2 Fl 84.5-98.6 N MCV) MEAN CELL HGB (test code = MCH) 31.3 pg 27.0-34.2 N MEAN CELL HGB CONCETRATION 32.9 G/DL 31.5-34.0 N (test code = MCHC) RED CELL DISTRIBUTION WIDTH 13.2 SD 11.5-14.5 N (test code = RDW) PLATELET COUNT (test code = 194 K/mm3 150-450 N PLT) MEAN PLATELET VOLUME (test code 10.20 fL 7.0-10.5 N = MPV) NEUTROPHIL % (test code = NT%) 53.3 % 40-76 IMMATURE GRANULOCYTE % (test 0.5 % 0.0-5.0 N code = IG%) LYMPHOCYTE % (test code = LY%) 37.0 % 20.5-51.1 N MONOCYTE % (test code = MO%) 6.0 % 1.7-9.3 N EOSINOPHIL % (test code = EO%) 2.9 % 0.0-6.0 N BASOPHIL % (test code = BA%) 0.3 % 0.0-2.0 N NUCLEATED RBC % (test code = 0.0 /100WBC% 0.0-1.0 N NRBC%) NEUTROPHIL # (test code = NT#) 3.4 K/mm3 1.8-7.6 N IMMATURE GRANULOCYTE # (test 0.03 x10 3/uL 0.00-0.03 N code = IG#) LYMPHOCYTE # (test code = LY#) 2.3 K/mm3 0.6-3.2 N MONOCYTE # (test code = MO#) 0.4 K/mm3 0.3-1.1 N EOSINOPHIL # (test code = EO#) 0.2 K/mm3 0.0-0.4 N BASOPHIL # (test code = BA#) 0.0 K/mm3 0.0-0.1 N NUCLEATED RBC # (test code = 0.0 K/mm3 0.0-0.1 N NRBC#) MANUAL DIFF REQUIRED (test code NO DIFF/SCN CRITERIA = MDIFF) LACTIC [id number] 23:28:00 Test Item Value Reference Range Interpretation Comments LACTIC ACID (test code = LACT) 1.5 mmol/L 0.4-2.0 N GLUCOSE BEDSIDE [id number] 21:02:00 Test Item Value Reference Range Interpretation Comments GLUCOSE BEDSIDE TESTING (test code 218 mg/dL 70-110 H = GLUBED) LACTIC [id number] 19:06:00 Test Item Value Reference Range Interpretation Comments LACTIC ACID (test code = LACT) 2.2 mmol/L 0.4-2.0 H ARTERIAL BLOOD [id number] 16:22:00 Test Item Value Reference Range Interpretation Comments ARTERIAL BLOOD GAS PH 7.43 pH units 7.35-7.45 N (test code = PHA) ARTERIAL BLOOD GAS PCO2 27 mmHg 35-45 L (test code = PCO2A) ARTERIAL BLOOD GAS PO2 77 mmHg 80-100 L (test code = PO2A) BICARBONATE TOTAL HCO3 17.6 mmol/L 22.0-26.0 L (test code = HCO3) BASE EXCESS (test code = -5.0 mmol/L -3.0-3.0 L SHAHRAM) ABG O2 SATURATION (test 96 % 90-100 N code = SATA) FIO2 (test code = FIO2A) 21 % (calc) 21-100 N ABG VENT MODE (test code Room Air Descript Vent Mode = MODEA) ABG SITE (test code = Right Radial ARTKIT DESCRIPTION SITEA) MODIFIED SALVATORE'S (test Yes Circ.CHK POSITIVE code = MODALL) [id number] 16:22:00 Test Item Value Reference Range Interpretation Comments PaO2/FiO2 (test code = [id number]) mm/Hg >200 ARTERIAL BLOOD [id number] 16:22:00 Test Item Value Reference Range Interpretation Comments ARTERIAL BLOOD GAS PH 7.43 pH units 7.35-7.45 N (test code = PHA) ARTERIAL BLOOD GAS PCO2 27 mmHg 35-45 L (test code = PCO2A) ARTERIAL BLOOD GAS PO2 77 mmHg 80-100 L (test code = PO2A) BICARBONATE TOTAL HCO3 17.6 mmol/L 22.0-26.0 L (test code = HCO3) BASE EXCESS (test code = -5.0 mmol/L -3.0-3.0 L SHAHRAM) ABG O2 SATURATION (test 96 % 90-100 N code = SATA) FIO2 (test code = FIO2A) 21 % (calc) 21-100 N ABG VENT MODE (test code Room Air Descript Vent Mode = MODEA) ABG SITE (test code = Right Radial ARTKIT DESCRIPTION SITEA) MODIFIED SALVATORE'S (test Yes Circ.CHK POSITIVE code = MODALL) [id number] 16:22:00 Test Item Value Reference Range Interpretation Comments PaO2/FiO2 (test code = [id number]) 366.7 mm/Hg >200 GLUCOSE BEDSIDE [id number] 15:47:00 Test Item Value Reference Range Interpretation Comments GLUCOSE BEDSIDE TESTING (test code 185 mg/dL 70-110 H = GLUBED) [id number] 15:22:00 Test Item Value Reference Range Interpretation Comments D-DIMER (test code = DDIMER) 567 ng/mLFEU 215-500 COMPREHENSIVE METABOLIC [id number] 15:22:00 Test Item Value Reference Range Interpretation Comments SODIUM (test code = NA) 134 mmol/L 134-147 N POTASSIUM (test code = K) 4.1 mmol/L 3.4-5.0 N CHLORIDE (test code = CL) 105 mmol/L 100-108 N CARBON DIOXIDE (test code = CO2) 24 mmol/L 21-32 N ANION GAP (test code = GAP) 5.0 GAP calc 4.0-15.0 N GLUCOSE (test code = GLU) 200 MG/DL 70-110 H BLOOD UREA NITROGEN (test code = 13 MG/DL 7-18 N BUN) GLOMERULAR FILTRATION RATE (test 49 estGFR >60 L code = GFR) CREATININE (test code = CREAT) 1.2 MG/DL 0.6-1.0 H TOTAL PROTEIN (test code = PROT) 7.3 G/DL 6.4-8.2 N ALBUMIN (test code = ALB) 3.5 G/DL 3.4-5.0 N GLOBULIN (test code = GLOB) 3.8 GM/dL ALBUMIN/GLOBULIN RATIO (test 0.9 RATIO 1.2-2.2 L code = A/G) CALCIUM (test code = CA) 8.4 MG/DL 8.5-10.1 L BILIRUBIN TOTAL (test code = 0.20 MG/DL 0.2-1.2 N BILT) SGOT/AST (test code = AST) 13 Unit/L 15-37 L SGPT/ALT (test code = ALT) 26 Unit/L 12-78 N ALKALINE PHOSPHATASE TOTAL (test 86 Unit/L 45-117 N code = ALKP) Completed by Nursing: [id number] 15:22:00 Test Item Value Reference Range Interpretation Comments PHOSPHOROUS (test code = PHOS) 2.7 MG/DL 2.5-4.9 N Completed by Nursing: [id number] 15:22:00 Test Item Value Reference Range Interpretation Comments MAGNESIUM (test code = MAG) 2.0 MG/DL 1.8-2.4 N Completed by Nursing: [id number] 15:22:00 Test Item Value Reference Range Interpretation Comments TROPONIN-I (test < 0.015 NG/ML 0.000-0.045 N Negative: </= 0.045 code = TROPI) Positive: >/= 0.046 Correlation wit h serial results, other cardiac markers, and cl inical findings is nec essary to determine the c linical significance of this result. Quantit ative results using d ifferent methodologies s hould not be compared to one another as nume rical results may odilon yby method. Completed by Nursing: NOCBC W/AUTO [id number] 14:54:00 Test Item Value Reference Range Interpretation Comments WHITE BLOOD CELL (test code = 5.1 K/mm3 3.5-11.0 N WBC) RED BLOOD CELL (test code = 4.04 M/mm3 4.70-6.10 L RBC) HEMOGLOBIN (test code = HGB) 12.8 G/DL 10.4-14.9 N HEMATOCRIT (test code = HCT) 38.4 % 31.5-44.1 N MEAN CELL VOLUME (test code = 95.0 Fl 84.5-98.6 N MCV) MEAN CELL HGB (test code = MCH) 31.7 pg 27.0-34.2 N MEAN CELL HGB CONCETRATION 33.3 G/DL 31.5-34.0 N (test code = MCHC) RED CELL DISTRIBUTION WIDTH 13.0 SD 11.5-14.5 N (test code = RDW) PLATELET COUNT (test code = 193 K/mm3 150-450 N PLT) MEAN PLATELET VOLUME (test code 10.30 fL 7.0-10.5 N = MPV) NEUTROPHIL % (test code = NT%) 62.6 % 40-76 IMMATURE GRANULOCYTE % (test 0.4 % 0.0-5.0 N code = IG%) LYMPHOCYTE % (test code = LY%) 28.2 % 20.5-51.1 N MONOCYTE % (test code = MO%) 5.5 % 1.7-9.3 N EOSINOPHIL % (test code = EO%) 2.9 % 0.0-6.0 N BASOPHIL % (test code = BA%) 0.4 % 0.0-2.0 N NUCLEATED RBC % (test code = 0.0 /100WBC% 0.0-1.0 N NRBC%) NEUTROPHIL # (test code = NT#) 3.2 K/mm3 1.8-7.6 N IMMATURE GRANULOCYTE # (test 0.02 x10 3/uL 0.00-0.03 N code = IG#) LYMPHOCYTE # (test code = LY#) 1.4 K/mm3 0.6-3.2 N MONOCYTE # (test code = MO#) 0.3 K/mm3 0.3-1.1 N EOSINOPHIL # (test code = EO#) 0.2 K/mm3 0.0-0.4 N BASOPHIL # (test code = BA#) 0.0 K/mm3 0.0-0.1 N NUCLEATED RBC # (test code = 0.0 K/mm3 0.0-0.1 N NRBC#) MANUAL DIFF REQUIRED (test code NO DIFF/SCN CRITERIA = MDIFF) - CTA CHEST FOR [id number] 14:33:00 [facility] 09/23/1959 Sex: F Name: ABBE CORONADO [facility] : 09/23/1959 Age/S: 60 / F [id number] [address] [place] Unit #: [id number] Loc: [place] [address] Phys: Claudette Asencio Acct: [id number] Dis Date: Status: ADM IN PHONE #: [phone] Exam Date: 05/05/2020 1425 FAX #: Reason: shortness of breath, tachycardia EXAMS: CPT: [id number] [place] [id number] EXAM:CTA CHEST WITH CONTRAST. INDICATION: SHORTNESS OF BREATH, TACHYCARDIA CO MPARISON: None available TECHNIQUE: Axial CTA imaging of the chest was obtained with administration of intravenous contrast. Coronal and sagittal MIP images were submitted for review. IV contrast: 100 mL of Isovue-370 DLP: 325.23 mGy-cm FINDINGS: No filling defect is identified within the pulmonary vasculature. The main pulmonary artery is normal in size. The thoracic aorta and great vessels are normal. The heart size is normal. No pericardial effusion. There is minimal bibasilar atelectasis. No suspicious pulmonary nodules are identified. The trachea and central airways are patent. No mediastinal, hilar, supraclavicular, or axillary adenopathy is identified. The thyroid gland is normal in appearance. The upper abdomen is unremarkable. No acute osseous abnormality of the thoracic spine. IMPRESSION: No pulmonary embolusis identified. Minimal bibasilar atelectasis. LOCATION: B2 This CT exam was performed according to our departmental dose optimization program, which includes automated exposure control, adjustment of the mA and or kV according to patient sizeand/or use of iterative reconstruction technique. at 1433 Reported and signed by: Connie Finley M.D. PAGE 1 Signed Report (CONTINUED) Name: ABBE CORONADO [facility] : 09/23/1959 Age/S: 60 / F [id number] [address] [place] Unit #: [id number]: Mel Gabriel [address] Phys: Claudette Asencio Acct: [id number] Dis Date: Status: ADM IN PHONE #: [phone] Exam Date: 05/05/2020 1425 FAX #: Reason: shortness of breath, tachycardia EXAMS: CPT: [id number] [place] [id number] <Continued> CC: Claudette GARDUNO; Florencio Tejeda MD Technologist:Bryce Moerno, RT(R)(CT); Kri CTDI: DLP: Trnscb Date/Time: 05/05/2020 (143) 16 Orig Print D/T: S: 05/05/2020 (4756) PAGE 2 Signed Report- CT HEAD/BRAIN W/O [id number] 14:23:00 [facility] 09/23/1959 Sex: F Name: ABBE CORONADO [facility] : 09/23/1959 Age/S: 60 / F [id number] [address] [place] Unit #: [id number] Loc: [place] [address] Phys: Claudette Asencio Acct: [id number] Dis Date: Status: ADM IN PHONE #: [phone] Exam Date: 05/05/2020 1410 FAX #: Reason: NUMBNESS EXAMS: CPT: [id number] CT HEAD/BRAIN W/O CONT [id number] EXAM:CT BRAIN WITHOUT CONTRAST INDICATION: NUMBNESS COMPARISON: MRI dated May 04, 2020 TECHNIQUE: Routine axial CT images of the brain were obtained without venous contrast. IV contrast: None DLP: 925.86 mGy-cm FINDINGS: No intra-axial or extra-axial fluid collections were identified. No acute intracranial hemorrhage. There is normal differentiation of the navarro-white matter. The ventricles and sulci are normal in size and shape with no midline shift or mass effect. The basal cisterns are patent. The posterior fossa and 4th ventricle are normal. No calvarial lesions are identified. The paranasal sinuses and mastoid air cells are clear. The orbits and globes are unremarkable. IMPRESSION: No acute intracranial abnormality. No intracranial hemorrhage. LOCATION: B2 This CT exam was performed according to our departmental dose optimization program, which includes automated exposure control, adjustment of the mA and or kV according to patient size and/or use of iterative reconstruction technique. at 1423 Reported and signed by: Connie Finley M.D. CC: Claudette GARDUNO; Florencio Tejeda MD Technologist:Yaritza Valle RT(R)(CT) CTDI: DLP: Trnscb Date/Time: 05/05/2020 (3840) 16 Orig Print D/T: S: 05/05/2020 (9089) PAGE 1 Signed ReportGLUCOSE BEDSIDE [id number] 12:01:00 Test Item Value Reference Range Interpretation Comments GLUCOSE BEDSIDE TESTING (test code 202 mg/dL 70-110 H = GLUBED) GLUCOSE BEDSIDE [id number] 12:01:00 Test Item Value Reference Range Interpretation Comments GLUCOSE BEDSIDE TESTING (test code 155 mg/dL 70-110 H = GLUBED) BASIC METABOLIC [id number] 07:35:00 Test Item Value Reference Range Interpretation Comments SODIUM (test code = NA) 138 mmol/L 134-147 N POTASSIUM (test code = 4.0 mmol/L 3.4-5.0 N K) CHLORIDE (test code = 108 mmol/L 100-108 N CL) CARBON DIOXIDE (test 26 mmol/L 21-32 N code = CO2) ANION GAP (test code = 4.0 GAP calc 4.0-15.0 N GAP) GLUCOSE (test code = 126 MG/DL 70-110 H GLU) BLOOD UREA NITROGEN 10 MG/DL 7-18 N (test code = BUN) GLOMERULAR FILTRATION >=60 max estimate >60 RATE (test code = GFR) estGFR CREATININE (test code = 0.9 MG/DL 0.6-1.0 N CREAT) CALCIUM (test code = CA) 8.7 MG/DL 8.5-10.1 N CBC W/AUTO [id number] 07:28:00 Test Item Value Reference Range Interpretation Comments WHITE BLOOD CELL (test code = 5.7 K/mm3 3.5-11.0 N WBC) RED BLOOD CELL (test code = 4.06 M/mm3 4.70-6.10 L RBC) HEMOGLOBIN (test code = HGB) 12.6 G/DL 10.4-14.9 N HEMATOCRIT (test code = HCT) 38.9 % 31.5-44.1 N MEAN CELL VOLUME (test code = 95.8 Fl 84.5-98.6 N MCV) MEAN CELL HGB (test code = MCH) 31.0 pg 27.0-34.2 N MEAN CELL HGB CONCETRATION 32.4 G/DL 31.5-34.0 N (test code = MCHC) RED CELL DISTRIBUTION WIDTH 13.2 SD 11.5-14.5 N (test code = RDW) PLATELET COUNT (test code = 209 K/mm3 150-450 N PLT) MEAN PLATELET VOLUME (test code 10.40 fL 7.0-10.5 N = MPV) NEUTROPHIL % (test code = NT%) 52.9 % 40-76 IMMATURE GRANULOCYTE % (test 0.3 % 0.0-5.0 N code = IG%) LYMPHOCYTE % (test code = LY%) 36.3 % 20.5-51.1 N MONOCYTE % (test code = MO%) 6.5 % 1.7-9.3 N EOSINOPHIL % (test code = EO%) 3.5 % 0.0-6.0 N BASOPHIL % (test code = BA%) 0.5 % 0.0-2.0 N NUCLEATED RBC % (test code = 0.0 /100WBC% 0.0-1.0 N NRBC%) NEUTROPHIL # (test code = NT#) 3.0 K/mm3 1.8-7.6 N IMMATURE GRANULOCYTE # (test 0.02 x10 3/uL 0.00-0.03 N code = IG#) LYMPHOCYTE # (test code = LY#) 2.1 K/mm3 0.6-3.2 N MONOCYTE # (test code = MO#) 0.4 K/mm3 0.3-1.1 N EOSINOPHIL # (test code = EO#) 0.2 K/mm3 0.0-0.4 N BASOPHIL # (test code = BA#) 0.0 K/mm3 0.0-0.1 N NUCLEATED RBC # (test code = 0.0 K/mm3 0.0-0.1 N NRBC#) MANUAL DIFF REQUIRED (test code NO DIFF/SCN CRITERIA = MDIFF) GLUCOSE BEDSIDE [id number] 20:39:00 Test Item Value Reference Range Interpretation Comments GLUCOSE BEDSIDE TESTING (test code 212 mg/dL 70-110 H = GLUBED) GLUCOSE BEDSIDE [id number] 15:41:00 Test Item Value Reference Range Interpretation Comments GLUCOSE BEDSIDE TESTING (test code 166 mg/dL 70-110 H = GLUBED) CREATINE KINASE (CK)2020-05-04 15:16:00 Test Item Value Reference Range Interpretation Comments CREATINE KINASE (CK) (test code = 94 Unit/L 26-192 N CK) Completed by Nursing: [id number] 15:16:00 Test Item Value Reference Range Interpretation Comments TROPONIN-I (test < 0.015 NG/ML 0.000-0.045 N Negative: </= 0.045 code = TROPI) Positive: >/= 0.046 Correlation wit h serial results, other cardiac markers, and cl inical findings is nec essary to determine the c linical significance of this result. Quantit ative results using d ifferent methodologies s hould not be compared to one another as nume rical results may odilon yby method. Completed by Nursing: NO- CT ANGIO [id number] 14:49:00 [facility] 09/23/1959 Sex: F Name: ABBE CORONADO [facility] : 09/23/1959 Age/S: 60 / F [id number] [address] [place] Unit #: [id number] Loc: [place] [address] Phys: Claudette Asencio Acct: [id number] Dis Date: Status: ADM IN PHONE #: [phone] Exam Date: 05/04/2020 1432 FAX #: Reason: severe headache, bilateral extremity numbness EXAMS: CPT: [id number] CT ANGIO NECK [id number] EXAM:CTA BRAIN EXAM: CTA NECK INDICATION: SEVERE HEADACHE, BILATERAL EXTREMITY NUMBNESS COMPARISON: MRI brain dated May 04, 2020 TECHNIQUE: Rapid acquisition spiral CT images of the brain and neck were obtained between the aortic arch and the cranial vertex during intravenous infusion of iodinated contrast for the purposes of CT angiography. Coronal and sagittal MIP reformatted images of the head and neck were submitted for review. The source images are also presented for interpretation. IV contrast: 100 mL of Isovue-370 DLP: 943.44 mGy-cm FINDINGS: NECK CTA: Aortic arch: Thegreat vessels originate from the aortic arch in the standard configuration. No origin stenosisis identified. The vertebral artery origins are patent bilaterally. Carotid arter ies: The common carotid arteries and cervical internal carotid arteries have normal course, caliber, and contour. The bilateral carotid bifurcations are normal. The external carotid arteries are normal. There is no evidence of vascular injury. Vertebral arteries: The vertebral arteries have a normal course, caliber and contour. The vertebral arteries are codominant. The soft tissues of the neck and other incidental structures are normal. BRAIN CTA: The cervical, petrous, cavernous and supraclinoid internal carotid arteries are widely patent. The middle and anterior cerebral arteries are normal with no focal stenosis. The anterior and posterior communicating arteries are patent. The vertebral arteries are normal. The vertebrobasilar junction and basilar artery are normal. The posterior cerebral and superior cerebellar arteries are patent. Both PICAs are opacified. PAGE 1 Signed Report (CONTINUED) Name[facility] : 09/23/1959 Age/S: 60 / F [id number] [address] [place] Unit #: [id number] Loc: [place] [address] Phys: Claudette Asencio Acct: [id number] Dis Date: Status: ADM IN PHONE #: [phone] Exam Date: 05/04/2020 1432 FAX #: Reason: severe headache, bilateral extremity numbness EXAMS: CPT: [id number] ANGIO NECK 58764 <Continued> There is no aneurysm or vascular malformation. The deep cerebral veins and major venous sinuses are normal. The brain parenchyma and other incidental structures are unremarkable. IMPRESSION: No focal stenosis, branch occlusion, aneurysm or vascular malformation is identified. (All qualitative and quantitative assessments of carotid bifurcation and proximal internal carotid artery stenosis are made referencing the distal internal carotid artery {NASCET criteria}.) LOCATION: B2 This CT exam was performed according to our departmental dose optimization program, which includes automated exposure control, adjustment of the mA and or kV according to patient size and/or use of iterative reconstruction technique. ElectronicallySigned by Stacia Finley on 05/04/2020 at 1449 Reported and signed by: Connie Finley M.D. CC: Claudette GARDUNO; Florencio Tejeda MD Technologist:Radha Herrera, RT(R)(CT)(MRI) CTDI: DLP: Trnscb Date/Time: 05/04/2020 (1449) t16 Orig Print D/T: S: 05/04/2020 (1453) PAGE 2 Signed Report- CT ANGIO [id number] 14:49:00 [facility] 09/23/1959 Sex: F Name: ABBE CORONADO [facility] : 09/23/1959 Age/S: 60 / F [id number] [address] [place] Unit #: [id number] Loc: [place] [address] Phys: Claudette Asencio Acct: [id number] Dis Date: Status: ADM IN PHONE #: [phone] Exam Date: 05/04/2020 2913 FAX #: Reason: severe headache, bilateral extremity numbness EXAMS: CPT: [id number] CT ANGIO HEAD [address] EXAM:CTA BRAIN EXAM: CTA NECK INDICATION: SEVERE HEADACHE, BILATERAL EXTREMITY NUMBNESS COMPARISON: MRI brain dated May 04, 2020 TECHNIQUE: Rapid acquisition spiral CT images of the brain and neck were obtained between the aortic arch and the cranial vertex during intravenous infusion of iodinated contrast for the purposes of CT angiography. Coronal and sagittal MIP reformatted images of the head and neck were submitted for review. The source images are also presented for interpretation. IV contrast: 100 mL of Isovue-370 DLP: 943.44 mGy-cm FINDINGS: NECK CTA: Aortic arch: Thegreat vessels originate from the aortic arch in the standard configuration. No origin stenosisis identified. The vertebral artery origins are patent bilaterally. Carotid arter ies: The common carotid arteries and cervical internal carotid arteries have normal course, caliber, and contour. The bilateral carotid bifurcations are normal. The external carotid arteries are normal. There is no evidence of vascular injury. Vertebral arteries: The vertebral arteries have a normal course, caliber and contour. The vertebral arteries are codominant. The soft tissues of the neck and other incidental structures are normal. BRAIN CTA: The cervical, petrous, cavernous and supraclinoid internal carotid arteries are widely patent. The middle and anterior cerebral arteries are normal with no focal stenosis. The anterior and posterior communicating arteries are patent. The vertebral arteries are normal. The vertebrobasilar junction and basilar artery are normal. The posterior cerebral and superior cerebellar arteries are patent. Both PICAs are opacified. PAGE 1 Signed Report (CONTINUED) Name: ABBE CORONADO : 09/23/1959 Age/S: 60 / F [id number] [address] [place] Unit #: [id number] Loc: [place] [address] Phys: Claudette Asencio Acct: [id number] Dis Date: Status: ADM IN PHONE #: [phone] Exam Date: 05/04/2020 1420 FAX #: Reason: severe headache, bilateral extremity numbness EXAMS: CPT: [id number] ANGIO HEAD 10968 <Continued> There is no aneurysm or vascular malformation. The deep cerebral veins and major venous sinuses are normal. The brain parenchyma and other incidental structures are unremarkable. IMPRESSION: No focal stenosis, branch occlusion, aneurysm or vascular malformation is identified. (All qualitative and quantitative assessments of carotid bifurcation and proximal internal carotid artery stenosis are made referencing the distal internal carotid artery {NASCET criteria}.) LOCATION: B2 This CT exam was performed according to our departmental dose optimization program, which includes automated exposure control, adjustment of the mA and or kV according to patient size and/or use of iterative reconstruction technique. ElectronicallySigned by Stacia Finley on 05/04/2020 at 1449 Reported and signed by: Connie Finley M.D. CC: Claudette GARDUNO; Florencio Tejeda MD Technologist:Radha Herrera, RT(R)(CT)(MRI) CTDI: DLP: Trnscb Date/Time: 05/04/2020 (1449) [id number] Orig Print D/T: S: 05/04/2020 (5764) PAGE 2 Signed Report- MRI BRAIN W WO [id number] 14:20:00 [facility] : 09/23/1959 Sex: F FAX: Claudette Asencio [phone] Camps: PM St: ADM FAX: Florencio Rubio MD Name: ABBE CORONADO [facility] : 09/23/1959 Age/S: 60/F [id number] [address] [place] Unit #: [id number] Loc: [place] [place] [address] Phys: Claudette Asencio Acct: [id number] Dis Date: Status: ADM IN PHONE #: [phone] Exam Date: 05/04/2020 1400 FAX #: Reason: severe headache, bilateral extremity numbness EXAMS: CPT: [id number] MRI BRAIN W WO CONT 50683 B2 - MRI BRAIN W WO CONT HISTORY: severe headache, bilateral extremity numbness TECHNIQUE: Multiplanar multisequence MR images of the brain were obtained before and after intravenous contrast. COMPARISON: None FINDINGS: Scattered hyperintense foci in the frontal white matter on FLAIR and T2-weighted images. There is no mass, mass effect or abnormal extra- axial fluid collection. Diffusion-weighted imagesshow no hyperacute, acute or early subacute infarction. The ventricles are normal in size, shape, and position. There are normal signal voids in the larger intracranial vessels. The paranasal sinuses and mastoid air cells are predominantly clear. The marrow signal pattern is within normal limits. No abnormal brain parenchymal orleptomeningeal enhancement. IMPRESSION: Minimal white matter microvascular disease. No significant intracranial abnormalities. at 1420 Reported and signed by: Jun Mendez M.D. CC: Claudette GARDUNO; Florencio Tejeda MD Technologist: RT Austin(R)(MR) Transcribed Date/Time/By: 05/04/2020 (6180) :[email or web address] Orig Print D/T: S: 05/04/2020 (8852) PAGE 1 Signed [id number] 12:18:00 Test Item Value Reference Range Interpretation Comments D-DIMER (test code = DDIMER) 958 ng/mLFEU 215-500 HH COMPREHENSIVE METABOLIC [id number] 12:11:00 Test Item Value Reference Range Interpretation Comments SODIUM (test code = NA) 137 mmol/L 134-147 N POTASSIUM (test code = 3.7 mmol/L 3.4-5.0 N K) CHLORIDE (test code = 107 mmol/L 100-108 N CL) CARBON DIOXIDE (test 25 mmol/L 21-32 N code = CO2) ANION GAP (test code = 5.0 GAP calc 4.0-15.0 N GAP) GLUCOSE (test code = 134 MG/DL 70-110 H GLU) BLOOD UREA NITROGEN 8 MG/DL 7-18 N (test code = BUN) GLOMERULAR FILTRATION >=60 max estimate >60 RATE (test code = GFR) estGFR CREATININE (test code = 0.9 MG/DL 0.6-1.0 N CREAT) TOTAL PROTEIN (test code 8.0 G/DL 6.4-8.2 N = PROT) ALBUMIN (test code = 3.9 G/DL 3.4-5.0 N ALB) GLOBULIN (test code = 4.1 GM/dL GLOB) ALBUMIN/GLOBULIN RATIO 1.0 RATIO 1.2-2.2 L (test code = A/G) CALCIUM (test code = CA) 8.5 MG/DL 8.5-10.1 N BILIRUBIN TOTAL (test 0.40 MG/DL 0.2-1.2 N code = BILT) SGOT/AST (test code = 11 Unit/L 15-37 L AST) SGPT/ALT (test code = 30 Unit/L 12-78 N ALT) ALKALINE PHOSPHATASE 84 Unit/L 45-117 N TOTAL (test code = ALKP) CREATINE KINASE (CK)2020-05-04 12:11:00 Test Item Value Reference Range Interpretation Comments CREATINE KINASE (CK) (test code = 106 Unit/L 26-192 N CK) NT PRO-BRAIN NATRIURETIC [id number] 12:11:00 Test Item Value Reference Range Interpretation Comments NT PRO-BRAIN NATRIURETIC PEPTI (test 54 PG/ML 0-100 N code = PROBNP) LIPID PROFILE (CORONARY RISK)2020-05-04 12:11:00 Test Item Value Reference Range Interpretation Comments TRIGLYCERIDES (test code = TRIG) 118 MG/DL 0-150 N CHOLESTEROL (test code = CHOL) 134 MG/DL 133-200 N CHOLESTEROL/HDL RATIO (test code = 3.62 RATIO >0 CHOLHDL) HDL CHOLESTEROL (test code = HDL) 37 MG/DL 40-59 L NON-HDL CHOLESTEROL (test code = 97 mg/dL <130 NHDL) LIPOPROTEIN LDL (test code = LDL) 83 MG/DL 0-129 N LDL/HDL (test code = LDL/HDL) 2.24 Ratio 1.48-3.22 Avg N Completed by Nursing: [id number] 12:11:00 Test Item Value Reference Range Interpretation Comments PHOSPHOROUS (test code = PHOS) 2.1 MG/DL 2.5-4.9 L Completed by Nursing: [id number] 12:11:00 Test Item Value Reference Range Interpretation Comments MAGNESIUM (test code = MAG) 2.1 MG/DL 1.8-2.4 N Completed by Nursing: NOTHYROID STIMULATING [id number] 12:11:00 Test Item Value Reference Range Interpretation Comments THYROID STIMULATING HORMONE 4.790 mcIU/ML 0.340-4.820 N (test code = TSH) Completed by Nursing: [id number] 12:11:00 Test Item Value Reference Range Interpretation Comments TROPONIN-I (test < 0.015 NG/ML 0.000-0.045 N Negative: </= 0.045 code = TROPI) Positive: >/= 0.046 Correlation wit h serial results, other cardiac markers, and cl inical findings is nec essary to determine the c linical significance of this result. Quantit ative results using d ifferent methodologies s hould not be compared to one another as nume rical results may odilon yby method. Completed by Nursing: NOGLYCOSYLATED HEMOGLOBIN [id number] 11:55:00 Test Item Value Reference Range Interpretation Comments GLYCOSYLATED HEMOGLOBIN (HA1C) 7.2 % A1C 0.0-5.7 H (test code = GLYHGB) ESTIMATED AVERAGE GLUCOSE (test 160 MG/DLest code = EAG) CBC W/AUTO [id number] 11:38:00 Test Item Value Reference Range Interpretation Comments WHITE BLOOD CELL (test code = 5.7 K/mm3 3.5-11.0 N WBC) RED BLOOD CELL (test code = 3.96 M/mm3 4.70-6.10 L RBC) HEMOGLOBIN (test code = HGB) 12.4 G/DL 10.4-14.9 N HEMATOCRIT (test code = HCT) 37.2 % 31.5-44.1 N MEAN CELL VOLUME (test code = 93.9 Fl 84.5-98.6 N MCV) MEAN CELL HGB (test code = MCH) 31.3 pg 27.0-34.2 N MEAN CELL HGB CONCETRATION 33.3 G/DL 31.5-34.0 N (test code = MCHC) RED CELL DISTRIBUTION WIDTH 13.1 SD 11.5-14.5 N (test code = RDW) PLATELET COUNT (test code = 192 K/mm3 150-450 N PLT) MEAN PLATELET VOLUME (test code 10.00 fL 7.0-10.5 N = MPV) NEUTROPHIL % (test code = NT%) 64.8 % 40-76 N IMMATURE GRANULOCYTE % (test 0.2 % 0.0-5.0 N code = IG%) LYMPHOCYTE % (test code = LY%) 25.9 % 20.5-51.1 N MONOCYTE % (test code = MO%) 6.9 % 1.7-9.3 N EOSINOPHIL % (test code = EO%) 1.8 % 0.0-6.0 N BASOPHIL % (test code = BA%) 0.4 % 0.0-2.0 N NUCLEATED RBC % (test code = 0.0 /100WBC% 0.0-1.0 N NRBC%) NEUTROPHIL # (test code = NT#) 3.7 K/mm3 1.8-7.6 N IMMATURE GRANULOCYTE # (test 0.01 x10 3/uL 0.00-0.03 N code = IG#) LYMPHOCYTE # (test code = LY#) 1.5 K/mm3 0.6-3.2 N MONOCYTE # (test code = MO#) 0.4 K/mm3 0.3-1.1 N EOSINOPHIL # (test code = EO#) 0.1 K/mm3 0.0-0.4 N BASOPHIL # (test code = BA#) 0.0 K/mm3 0.0-0.1 N NUCLEATED RBC # (test code = 0.0 K/mm3 0.0-0.1 N NRBC#) MANUAL DIFF REQUIRED (test code NO DIFF/SCN CRITERIA = MDIFF)
[2021-01-12] MEDS ORDERED: METOPROLOL TARTRATE 5 MG/5 ML INJ IV ONE (03:05)
[2021-01-12 03:10] LABS: Absolute Lymphocytes (CBC) 1.9 K/uL (0.7-4.9); Basophils % 0.7 % (0-1.3); Hematocrit 43.3 % (36.0-45.0); Lymphocytes % 33.8 % (15.3-44.8); MPV 8.5 fL (7.6-11.3); Protime INR 1.01; RBC Red Blood Cell Count 4.65 M/uL (3.86-4.86)
[2021-01-12 03:22] LABS: ALT/SGPT 49 U/L (12-78); AST/SGOT 19 U/L (15-37); Albumin 4.2 g/dL (3.4-5.0); Alkaline Phosphatase 105 U/L (45-117); BUN Blood Urea Nitrogen 22 mg/dL (7-18); Bicarbonate 24 mmol/L (21-32); Bilirubin Direct < 0.1 mg/dL (0-0.2); Bilirubin Total 0.3 mg/dL (0.2-1.0); Glucose Level 151 mg/dL (74-106); Magnesium 2.2 mg/dL (1.8-2.4); NT PRO-BNP 45 pg/mL (<125); Potassium 3.6 mmol/L (3.5-5.1); Protein, Total 8.3 g/dL (6.4-8.2); Sodium Level 140 mmol/L (136-145); Troponin (Emerg Dept Use Only) < 0.02 ng/mL (0.0-0.045)
[2021-01-12] MEDS ORDERED: MEPERIDINE HCL 50 MG/ML ONE (05:38)
[2021-01-12] MEDS ORDERED: PROMETHAZINE INJ 25 MG/ML AMP ONE (05:39)
--- NOTE | 2021-01-12 06:31 | ER ---
Nurse's Notes [facility] Name: Ivonne Anderson Age: 55 yrs Sex: Female : 1965 Arrival Date: 01/12/2021 Time: 01:26 Bed 17 Private MD: Diagnosis: Chest pain. Acute headache. Uncontrolled hypertension and diabetes Presentation: 01/12 02:10 Chief complaint: Patient states: she has had high blood pressure and high blood glucose bb all day with headache and chest pain. Coronavirus screen: At this time, the client does not indicate any symptoms associated with coronavirus-19. Ebola Screen: No symptoms or risks identified at this time. Initial Sepsis Screen: Does the patient meet any 2 criteria? No. Patient's initial sepsis screen is negative. Does the patient have a suspected source of infection? No. Patient's initial sepsis screen is negative. Risk Assessment: Do you want to hurt yourself or someone else? Patient reports no desire to harm self or others. Onset of symptoms was January 11, 2021. 02:10 Method Of Arrival: Ambulatory bb 02:10 Acuity: HANNA 3 bb Triage Assessment: 04:37 General: Appears in no apparent distress. distressed, comfortable. General: Behavior is kc4 calm, cooperative, appropriate for age, Reports feeling ill for 12-24 hours, fatigue for 12-24 hours. Pain: Complains of pain in generalized Quality of pain is described as dull, throbbing, Pain began 1 day ago. Is continuous, Alleviated by nothing. EENT: No deficits noted. Neuro: No deficits noted. Cardiovascular: Reports fatigue, Denies chest pain, diaphoresis, lightheadedness, nausea, palpitations, shortness of breath, syncope, vomiting, Capillary refill is > 3 seconds Pulses are all present. Chest pain is denied. Respiratory: No deficits noted. GI: No deficits noted. : No deficits noted. Derm: No deficits noted. Musculoskeletal: No deficits noted. 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 - Social history:: Smoking status: Patient denies any tobacco usage or history of. Screenin:13 Abuse screen: Denies threats or abuse. Nutritional screening: No deficits noted. kc4 Tuberculosis screening: No symptoms or risk factors identified. Fall Risk None identified. No fall in past 12 months (0 pts). IV access (20 points). Gait- Normal/Bed Rest/Wheelchair (0 pts) Mental Status- Oriented to own ability (0 pts). Assessment: 03:08 General: Appears in no apparent distress. comfortable, Behavior is calm, cooperative, kc4 appropriate for age, Smells of Reports feeling ill for Denies fever, chills. Pain: Complains of pain in generalized Quality of pain is described as dull, throbbing, Pain began 1 day ago. Is continuous, Alleviated by nothing. Aggravated by Noted to be. Neuro: No deficits noted. Cardiovascular: Reports fatigue. 03:08 Cardiovascular: Reports fatigue, Denies chest pain, diaphoresis, lightheadedness, kc4 nausea, palpitations, shortness of breath, syncope, vomiting, Capillary refill is > 3 seconds fingers Patient's skin is warm and dry. Pulses are all present. Rhythm is regular Chest pain is denied. Respiratory: No deficits noted. GI: No deficits noted. : No deficits noted. EENT: No deficits noted. Derm: No deficits noted. Musculoskeletal: No deficits noted. Vital Signs: 02:10 BP 180 / 95; Pulse 111; Resp 18 S; Temp 99.1(O); Pulse Ox 99% on R/A; Weight 66.68 kg bb (R); Height 5 ft. 0 in. (152.40 cm) (R); Pain 7/10; 02:30 BP 177 / 110; Pulse 80; Resp 18; Temp 98.9; Pulse Ox 100% ; kc4 02:56 BP 144 / 98; Pulse 70; Resp 18; Temp 98.8; Pulse Ox 100% ; Pain 0/10; kc4 03:14 BP 131 / 84; Pulse 72; Resp 18; kc4 05:53 BP 138 / 96; Pulse 76; Resp 18; Temp 98.7; Pulse Ox 100% on R/A; Pain 0/10; kc4 02:10 Body Mass Index 28.71 (66.68 kg, 152.40 cm) bb Vitals: 03:13 Cardiac Rhythm Assessment Regular. kc4 Jones Coma Score: 03:13 Eye Response: spontaneous(4). Verbal Response: oriented(5). Motor Response: obeys kc4 commands(6). Total: 15. ED Course: 01:26 Patient arrived in ED. wm 02:11 Triage completed. bb 02:11 Arm band placed on Patient placed in an exam room, on a stretcher, on pulse oximetry. bb 02:14 Woody Daily MD is Attending Physician. pkl 02:19 Judy Campos is Primary Nurse. kc4 02:40 Inserted saline lock: 20 gauge in right antecubital area, using aseptic technique. kc4 03:07 D-Dimer Sent. kc4 03:07 Basic Metabolic Panel Sent. kc4 03:07 CBC with Diff Sent. kc4 03:07 LFT's Sent. kc4 03:07 Magnesium Sent. kc4 03:07 NT PRO-BNP Sent. kc4 03:07 PT-INR Sent. kc4 03:07 Troponin (emerg Dept Use Only) Sent. kc4 03:13 Patient has correct armband on for positive identification. Fall risk band placed. kc4 Placed in gown. Bed in low position. Call light in reach. Side rails up X 1. athletic monitor on. Pulse ox on. NIBP on. 03:13 No provider procedures requiring assistance completed. kc4 04:11 XRAY Chest (1 view) In Process Unspecified. EDMS 05:11 CT Head Brain wo Cont In Process Unspecified. EDMS 05:31 COVID-19 : Document "Date of Symptom Onset" if Symptomatic. Sent. kc4 06:51 IV discontinued, intact, Pressure dressing applied. kc4 Administered Medications: 02:53 Drug: Lopressor (metoprolol) 5 mg Route: IVP; Site: right antecubital; kc4 03:06 Follow up: Response: No adverse reaction; Blood pressure is lowered kc4 03:14 Follow up: BP 131 / 84; Pulse 72 bpm; Resp 18 bpm kc4 05:30 Drug: Phenergan (promethazine) 12.5 mg Route: IVP; Site: right antecubital; kc4 06:13 Follow up: Response: No adverse reaction kc4 05:31 Drug: Demerol (meperidine) 50 mg Route: IVP; Site: right antecubital; kc4 06:13 Follow up: Response: No adverse reaction kc4 Output: 03:13 Urine: 400ml (Voided); Total: 400ml. kc4 Outcome: 06:15 Condition: stable kc4 06:31 Discharge ordered by . pkl 06:50 Discharged to home via wheelchair, with family. kc4 06:51 Discharged to [facility] 06:51 Discharge instructions given to patient, Instructed on discharge instructions, follow up and referral plans. medication usage, Demonstrated understanding of instructions, follow-up care, medications. 06:52 Patient left the ED. kc4 Signatures: Dispatcher [employer] EDMS Woody Daily MD MD pkl Ballard, Brenda, RN RN Lilibeth Richardson Kourtney kc4
--- NOTE | 2021-01-12 06:32 | EDPHYS ---
Physician Documentation [facility] Name: Ivonne Anderson Age: 55 yrs Sex: Female : 1965 Arrival Date: 01/12/2021 Time: 01:26 Bed 17 Private MD: ED Physician Woody Daily HPI: 01/12 02:29 This 55 yrs old Female presents to ER via Ambulatory with complaints of High pkl Blood Pressure, High Blood Sugar. 02:29 The patient or guardian reports chest pain that is located primarily in the substernal pkl area. Onset: today. The pain does not radiate. Associated signs and symptoms: Pertinent positives: headache, Elevated BP and blood sugar. 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 - Social history:: Smoking status: Patient denies any tobacco usage or history of. ROS: 02:29 Eyes: Negative for injury, pain, redness, and discharge, ENT: Negative for injury, pkl pain, and discharge, Neck: Negative for injury, pain, and swelling. 02:29 Cardiovascular: Positive for chest pain. 02:29 Respiratory: Negative for cough, shortness of breath. 02:29 Abdomen/GI: Negative for abdominal pain, nausea, vomiting, and diarrhea. 02:29 Back: Negative for acute changes. 02:29 : Negative for urinary symptoms. 02:29 MS/extremity: Negative for acute changes. 02:29 Skin: Negative for rash. 02:29 Neuro: Positive for headache, of the occipital region. Exam: 02:29 Head/Face: Normocephalic, atraumatic. Eyes: Pupils equal round and reactive to light, pkl extra-ocular motions intact. Lids and lashes normal. Conjunctiva and sclera are non-icteric and not injected. Cornea within normal limits. Periorbital areas with no swelling, redness, or edema. ENT: Nares patent. No nasal discharge, no septal abnormalities noted. Tympanic membranes are normal and external auditory canals are clear. Oropharynx with no redness, swelling, or masses, exudates, or evidence of obstruction, uvula midline. Mucous membranes moist. Neck: Trachea midline, no thyromegaly or masses palpated, and no cervical lymphadenopathy. Supple, full range of motion without nuchal rigidity, or vertebral point tenderness. No Meningismus. Chest/axilla: Normal chest wall appearance and motion. Nontender with no deformity. No lesions are appreciated. 02:29 Cardiovascular: Rate: tachycardic, actual rate is 111 bpm, Rhythm: regular. 02:29 Respiratory: the patient does not display signs of respiratory distress, Respirations: normal, Breath sounds: are clear throughout. 02:29 Abdomen/GI: Bowel sounds: normal, Palpation: abdomen is soft and non-tender, in all quadrants. 02:29 Back: Exam negative for acute changes. 02:29 : Exam negative for acute changes. 02:29 Musculoskeletal/extremity: Exam is negative for acute changes. 02:29 Skin: Exam negative for diaphoresis, rash. 02:29 Neuro: Orientation: is normal, Mentation: is normal, Memory: is normal, Cranial nerves: grossly normal, Cerebellar function: is grossly normal, Motor: is normal, Sensation: is normal, Gait: is steady. Vital Signs: 02:10 BP 180 / 95; Pulse 111; Resp 18 S; Temp 99.1(O); Pulse Ox 99% on R/A; Weight 66.68 kg bb (R); Height 5 ft. 0 in. (152.40 cm) (R); Pain 7/10; 02:30 BP 177 / 110; Pulse 80; Resp 18; Temp 98.9; Pulse Ox 100% ; kc4 02:56 BP 144 / 98; Pulse 70; Resp 18; Temp 98.8; Pulse Ox 100% ; Pain 0/10; kc4 03:14 BP 131 / 84; Pulse 72; Resp 18; kc4 05:53 BP 138 / 96; Pulse 76; Resp 18; Temp 98.7; Pulse Ox 100% on R/A; Pain 0/10; kc4 02:10 Body Mass Index 28.71 (66.68 kg, 152.40 cm) bb Jones Coma Score: 03:13 Eye Response: spontaneous(4). Verbal Response: oriented(5). Motor Response: obeys kc4 commands(6). Total: 15. MDM: 02:15 Patient medically screened. pkl 06:27 Data reviewed: vital signs, nurses notes, lab test result(s), EKG, radiologic studies, pkl CT scan, plain films. ED course: Patient feeling better. Discussed lab, EKG and imaging studies with patient. Advised to follow up with her PCP in 2 to 3 days. to return if necessary. Patient understood instructions. 01/12 02:23 Order name: Basic Metabolic Panel; Complete Time: 03:45 pkl 01/12 02:23 Order name: CBC with Diff; Complete Time: 03:45 pkl 01/12 02:23 Order name: LFT's; Complete Time: 03:45 pkl 01/12 02:23 Order name: Magnesium; Complete Time: 03:45 pkl 01/12 02:23 Order name: NT PRO-BNP; Complete Time: 03:45 pkl 01/12 02:23 Order name: PT-INR; Complete Time: 03:45 pkl 01/12 02:23 Order name: Troponin (emerg Dept Use Only); Complete Time: 03:45 pkl 01/12 02:23 Order name: XRAY Chest (1 view) pkl 01/12 02:23 Order name: D-Dimer; Complete Time: 03:45 pkl 01/12 02:27 Order name: COVID-19 : Document "Date of Symptom Onset" if Symptomatic. pkl 01/12 04:44 Order name: CT Head Brain wo Cont pkl 01/12 05:58 Order name: SARS-COV-2 RT PCR; Complete Time: 06:23 EDMS 01/12 02:23 Order name: Cardiac monitoring; Complete Time: 03:08 pkl 01/12 02:23 Order name: EKG - Nurse/Tech; Complete Time: 04:37 pkl 01/12 02:23 Order name: IV Saline Lock; Complete Time: 03:08 pkl 01/12 02:23 Order name: Labs collected and sent; Complete Time: 03:08 pkl 01/12 02:23 Order name: O2 Per Protocol; Complete Time: 03:08 pkl 01/12 02:23 Order name: O2 Sat Monitoring; Complete Time: 03:08 pkl Administered Medications: 02:53 Drug: Lopressor (metoprolol) 5 mg Route: IVP; Site: right antecubital; kc4 03:06 Follow up: Response: No adverse reaction; Blood pressure is lowered kc4 03:14 Follow up: BP 131 / 84; Pulse 72 bpm; Resp 18 bpm kc4 05:30 Drug: Phenergan (promethazine) 12.5 mg Route: IVP; Site: right antecubital; kc4 06:13 Follow up: Response: No adverse reaction kc4 05:31 Drug: Demerol (meperidine) 50 mg Route: IVP; Site: right antecubital; kc4 06:13 Follow up: Response: No adverse reaction kc4 Disposition Summary: 01/12/21 06:31 Discharge Ordered Location: Home pkl Problem: new pkl Symptoms: have improved pkl Condition: Stable pkl Diagnosis - Chest pain. Acute headache. Uncontrolled hypertension and diabetes pkl Followup: pkl - With: Private Physician - When: 2 - 3 days - Reason: Re-evaluation by your physician Discharge Instructions: - Discharge Summary Sheet pkl Forms: - Medication Reconciliation Form pkl - Thank You Letter pkl - Antibiotic Education pkl - Prescription Opioid Use pkl Signatures: Dispatcher [employer] EDWoody Mahoney MD MD pkl Nithya Guillen RN RN Judy Varma kc4 Corrections: (The following items were deleted from the chart) 02:27 02:27 HEMOGLOBIN A1C+CHEM A1C.LAB.BRZ ordered. EDMS EDMS 02:34 02:27 CORONAVIRUS ordered. EDMS EDMS
[2021-01-12 07:13] VITALS: O2SAT 100
[2021-01-12 07:18] VITALS: BP 138/96; TEMP 98.7
--- NOTE | 2021-01-12 08:30 | RAD REPORT ---
EXAM DESCRIPTION: RAD - Chest Single View - 01/12/2021 4:12 am CLINICAL HISTORY: CHEST PAIN Chest pain. COMPARISON: Chest Single View dated 03/12/2019 FINDINGS: Portable technique limits examination quality. The lungs are grossly clear. The heart is normal in size. No displaced fractures. IMPRESSION: No acute intrathoracic process suspected.
--- NOTE | 2021-01-12 10:24 | RAD REPORT ---
EXAM DESCRIPTION: CT Head/Brain Without Contrast CLINICAL HISTORY: Headache COMPARISON: None. TECHNIQUE: Head/brain axial images acquired without contrast. Coronal and sagittal reformats created . Exam performed according to departmental dose-optimization program which includes automated exposur e control, adjustment of mA and/or kV according to patient size, and/or use of iterative reconstructi on technique. FINDINGS: No midline shift, mass effect, intracranial hemorrhage, or hydrocephalus. Brain parenchyma unremarkable. Partial Empty Sella (likely normal variant). Paranasal sinuses clear. Mastoid air cells clear. No skull fracture or significant skull lesion. IMPRESSION: Unremarkable CT head/brain without contrast. Electronically signed by: Haresh Gastelum MD 01/12/2021 5:20 AM CDT Due to temporary technical issues with the PACS/Fluency reporting system, reports are being signed by the in house radiologist without review as a courtesy to ensure prompt reporting. The interpreting r adiologist is fully responsible for the content of the report.
== END 2021-01-12 06:52 | disposition home or self-care (01) ==
LOC: ER 01:22
DX: R51.9 Headache, unspecified (principal); I10 Essential (primary) hypertension; E11.9 Type 2 diabetes mellitus without complications; E78.5 Hyperlipidemia, unspecified; Z88.0 Allergy status to penicillin; Z88.5 Allergy status to narcotic agent; Z88.8 Allergy status to other drugs, medicaments and biological substances; Z20.822 Contact with and (suspected) exposure to COVID-19
CPT/HCPCS: 85025; 80048; 36415; 83735; 85610; 85379; 80076; 84484; 83880; 70450; 71045; 96375; 96374; 99284; U0003; J2550; J2175

== ENCOUNTER 2022-04-09 10:45 | Inpatient (IN) | payer OTHER ==
--- OUTSIDE RECORDS SUMMARY | 2022-04-09 10:51 | XMS REPORT | Continuity of Care Document ---
:1965 Author Organization [facility] t Address [address] [place] [address] Care Team Providers Name Role Phone Heriberto Dial MD Primary Care Physician [place] Bryan Attending Clinician Unavailable Florencio Tejeda Attending Clinician Unavailable Provider , Not In System Attending Clinician Unavailable Kolton Campa MD Attending Clinician EZIO SIERRA Attending Clinician Unavailable Evaristo Richard MD Attending Clinician KOLTON CAMPA Attending Clinician Unavailable Doctor Unassigned, [place] Attending Clinician Unavailable EVARISTO RICHARD Attending Clinician Unavailable Florencio Tejeda Admitting Clinician Unavailable KNOW, DOES_NOT Admitting Clinician Unavailable Payers Payer Name Policy Type Policy Number Effective Date Expiration Date S ource Problems Condition Condition Condition Status Onset Resolution Last Treating Co mments Source Name Details Category Date Date Treatment Clinician Date Intractabl Intractabl Disease Active U nivers e migraine e migraine 6-22 it y of without without 00:00: [place] aura and aura and 00 Medica l without without Branch status status migrainosu migrainosu s s Fatigue, Fatigue, Disease Active Unive rs unspecifie unspecifie 10-31 it y of d type d type 00:00: [place] [facility] On hormone On hormone Disease Active U nivers replacemen replacemen 09-10 it y of t therapy t therapy 00:[place] [facility] Abnormal Abnormal Disease Active Unive rs uterine uterine 4- ity of bleeding bleeding 00:00: [place] [facility] Type 2 Type 2 Disease Active Univers diabetes diabetes 4 ity of mellitus mellitus 00:00: [place] without without 00 Medical complicati complicati Br anch on, on, without without long-term long-term current current use of use of insulin insulin Hot Hot Disease Active Univers flashes flashes 4- ity of 00:00: [place] [facility] Hx of Hx of Disease Active Univers bilateral bilateral 08-20 ity of oophorecto [place] [facility] [place] Surgical Surgical Disease Active Unive rs menopause menopause 4 ity of 00:00: [place] [facility] No known No known Disease Metho di active active st problems problems Hospit [facility] Allergies, Adverse Reactions, Alerts Allergy Allergy Status Severity Reaction(s) Onset Inactive Treating Comm ents Source Name Type Date Date Clinician Morphine Propensi Active ty to 603 adverse 00:00: reaction 00 to drug morphine DA Active SV 2019-05 [facility] 2-24 Clear 00:00: [place] 00 [facility] semaglut DA Active SV 2019-05 [facility] michael 2-24 Clear 00:00: [place] 00 [facility] morphine DA Active SV ANAPHYLAXIS 2019-05 [facility] 2-24 Clear 00:00: [place] 00 [facility] semaglut DA Active SV ANAPHYLAXIS 2019-05 [facility] michael 2-24 Clear 00:00: [place] 00 [facility] SEMAGLUT DRUG Active Hives 2019-05 Univers MICHAEL INGREDI 2-18 ity of 00:00: [place] [facility] [place] Semaglut Propensi Active Hives 2019-05 Univer s michael ty to 2-18 ity of adverse 00:00: [place] reaction 00 Medical s Branch SITAGLIP DRUG Active High Hives 2017-05 Univers TIN INGREDI 0-08 ity of 00:00: [place] [address] Medical Branch INSULIN DRUG Active High Hives 2017-05 Univers GLARGINE INGREDI 0-08 ity of 00:00: [place] 00 Medical Branch [place] Propensi Active Hives 2017-05 Univer s tin ty to 0-08 ity of adverse 00:00: [place] reaction 00 [facility] Insulin Propensi Active Hives 2017-05 Univers Glargine ty to 0-08 ity of adverse 00:00: [place] reaction 00 [facility] s [place] Family History Family Member Diagnosis Comments Start Date Stop Date Source Natural brother Hypertension [facility] Natural sister Diabetes [facility] Natural father Early [facility] Maternal grandfather [facility] Maternal grandmother [facility] Natural mother Diabetes [facility] Natural mother Stroke [facility] Natural mother Vision loss [facility] Paternal grandfather [facility] Paternal grandmother Hypertension [facility] Social History Social Habit Start Date Stop Date Quantity Comments Source Exposure to Not sure [facility]-CoV-2 [place] [facility] (event) Branch History of Current smoker [facility] tobacco use Tobacco use and 2020-04-28 2020-04-28 Never used Universit y of exposure 00:00:00 00:00:00 [facility] Alcohol intake 2020-04-28 2020-04-28 Current drinker Unive rsity of 00:00:00 00:00:00 of alcohol [facility] (finding) [place] Alcohol Comment 2017-08-20 2017-08-20 occ Universit y of 00:00:00 00:00:00 [facility] Sex [birth year] Universit y of 00:00:00 00:00:00 [facility] Smoking Status Start Date Stop Date Source Never smoker [facility] Ex-smoker 2017-11-06 00:00:00 2017-11-06 00:00:00 [facility] Medications Ordered Filled Start Stop Current Ordering Indication Dosage Frequency Signature Comments Components Source Medication Medication Date Date Medication? Clinician (SIG) Name Name INSTILL 5 No DROPS INTO 8-22 LEFT EAR 00:00: TWICE 00 DAILY. INSTILL 5 2021-0 No DROPS INTO 8-22 LEFT EAR 00:00: TWICE 00 DAILY. INSTILL 5 2021-0 No 3 DROPS INTO 8-16 LEFT EAR 00:00: TWICE 00 DAILY. TAKE 1 2021- No 10 TABLET BY 8-16 MOUTH ONCE 00:00: DAILY AT 00 BEDTIME INSTILL 5 2022-0 No 3 DROPS INTO 8-16 LEFT EAR 00:00: TWICE 00 DAILY. TAKE 1 2022-0 No 10 TABLET BY 8-16 MOUTH ONCE 00:00: DAILY AT 00 BEDTIME INSTILL 5 2022-0 No 3 DROPS INTO 8-16 LEFT EAR 00:00: TWICE 00 DAILY. TAKE 1 2022-0 No TABLET BY 8-16 MOUTH ONCE 00:00: DAILY AT 00 BEDTIME TAKE 1 2022-0 No 10 TABLET BY 8-15 MOUTH ONCE 00:00: DAILY AT 00 BEDTIME TAKE 1 2022-0 No 10 TABLET BY 8-15 MOUTH ONCE 00:00: DAILY AT 00 BEDTIME TAKE 1 2022-0 No 10 TABLET BY 8-15 MOUTH ONCE 00:00: DAILY AT 00 BEDTIME TAKE 1 2022-0 No 200 TABLET 8-11 TWICE 00:00: DAILY. 00 &lt 2022-0 No 10 8 00:00: 00 &lt 2022-0 No 100 8 00:00: 00 TAKE 1 2022-0 No TABLET BY 8-11 MOUTH ONCE 00:00: DAILY 00 TAKE 1 2022-0 No 200 TABLET 8- TWICE 00:00: DAILY. 00 &lt 2022-0 No 10 8 00:00: 00 &lt 2022-0 No 100 8 00:00: 00 TAKE 1 2022-0 No TABLET BY 8-11 MOUTH ONCE 00:00: DAILY 00 TAKE 1 2022-0 No 200 TABLET 8- TWICE 00:00: DAILY. 00 &lt 2022-0 No 10 8 00:00: 00 &lt 2022-0 No 100 12-20 00:00: 00 TAKE 1 2022-0 No TABLET BY 8-11 MOUTH ONCE 00:00: DAILY 00 TAKE 1 2022-0 No 200 TABLET 8- TWICE 00:00: DAILY. 00 &lt 2022-0 No 10 12-20 00:00: 00 &lt 2022-0 No 100 8 00:00: 00 TAKE 1 2022-0 No TABLET BY 8-11 MOUTH ONCE 00:00: DAILY 00 &lt 2022-0 No 5 8 00:00: 00 TAKE 1 2022-0 No TABLET BY 8-10 MOUTH EVERY 00:00: DAY WITH A 00 MEAL FOR 90 DAYS &lt 2022-0 No 5 8-10 00:00: 00 TAKE 1 2022-0 No TABLET BY 8-10 MOUTH EVERY 00:00: DAY WITH A 00 MEAL FOR 90 DAYS &lt 2022-0 No 5 8-10 00:00: 00 TAKE 1 2022-0 No TABLET BY 8-10 MOUTH EVERY 00:00: DAY WITH A 00 MEAL FOR 90 DAYS &lt 2022-0 No 5 8-10 00:00: 00 TAKE 1 2022-0 No TABLET BY 8-10 MOUTH EVERY 00:00: DAY WITH A 00 MEAL FOR 90 DAYS &lt 2022-0 No 7-28 00:00: 00 &lt 2022-0 No 7-28 00:00: 00 &lt 2022-0 No 7-28 00:00: 00 &lt 2022-0 No 7-28 00:00: 00 &lt 2022-0 No 7-28 00:00: 00 &lt 2022-0 No 7-28 00:00: 00 &lt 2022-0 No 7-28 00:00: 00 &lt 2022-0 No 7-28 00:00: 00 &lt 2022-0 No 7-28 00:00: 00 &lt 2022-0 No 7-28 00:00: 00 PLEASE SEE 2-0 No ATTACHED 7-11 FOR 00:00: DETAILED 00 DIRECTIONS TAKE 1 2022-0 No TABLET BY 7-11 MOUTH ONCE 00:00: DAILY IN 00 THE MORNING ON AN EMPTY STOMACH PLEASE SEE 2-0 No ATTACHED 7-11 FOR 00:00: DETAILED 00 DIRECTIONS TAKE 1 2022-0 No TABLET BY 7-11 MOUTH ONCE 00:00: DAILY IN 00 THE MORNING ON AN EMPTY STOMACH PLEASE SEE 2-0 No ATTACHED 7-11 FOR 00:00: DETAILED 00 DIRECTIONS TAKE 1 2022-0 No TABLET BY 7-11 MOUTH ONCE 00:00: DAILY IN 00 THE MORNING ON AN EMPTY STOMACH PLEASE SEE 2-0 No ATTACHED 7-11 FOR 00:00: DETAILED 00 DIRECTIONS TAKE 1 2022-0 No TABLET BY 7-11 MOUTH ONCE 00:00: DAILY IN 00 THE MORNING ON AN EMPTY STOMACH PLEASE SEE 2-0 No ATTACHED 7-11 FOR 00:00: DETAILED 00 DIRECTIONS TAKE 1 2022-0 No TABLET BY 7-11 MOUTH ONCE 00:00: DAILY IN 00 THE MORNING ON AN EMPTY STOMACH Dose 2022-0 No Unknown 6 00:00: 00 Dose 2022-0 No Unknown 10-15 00:00: 00 Dose 2022-0 No Unknown 10-15 00:00: 00 Dose 2022-0 No Unknown 6 00:00: 00 Dose 2022-0 No Unknown 10-15 00:00: 00 TAKE 1 2022-0 No TABLET BY 6-03 MOUTH ONCE 00:00: DAILY AT 00 BEDTIME TAKE 1 2022-0 No TABLET BY 6-03 MOUTH ONCE 00:00: DAILY IN 00 THE MORNING ON AN EMPTY STOMACH TAKE 1 2022-0 No TABLET BY 6-03 MOUTH ONCE 00:00: DAILY IN 00 THE MORNING ON AN EMPTY STOMACH glyburide 5 2-0 No 1mg mg-metformi 6-03 n 500 mg 00:00: tablet 00 amlodipine 2022-0 No 1mg 10 mg 6-03 tablet 00:00: 00 PLEASE SEE 2022-0 No ATTACHED 6- FOR 00:00: DETAILED 00 DIRECTIONS TAKE 1 2-0 No TABLET BY 6-03 MOUTH WITH 00:00: BREAKFAST 00 OR THE MAIN MEAL OF THE DAY TWICE A DAY &lt 2022-0 No 6- 00:00: 00 &lt 2022-0 No 6-03 00:00: 00 TAKE 1 2022-0 No TABLET BY 6-03 MOUTH ONCE 00:00: DAILY AT 00 BEDTIME TAKE 1 2022-0 No TABLET BY 6-03 MOUTH ONCE 00:00: DAILY IN 00 THE MORNING ON AN EMPTY STOMACH glyburide 5 2-0 No 1mg mg-metformi 6-03 n 500 mg 00:00: tablet 00 amlodipine 2022-0 No 1mg 10 mg 6-03 tablet 00:00: 00 PLEASE SEE 2022-0 No ATTACHED 6-03 FOR 00:00: DETAILED 00 DIRECTIONS TAKE 1 2022-0 No TABLET BY 6-03 MOUTH WITH 00:00: BREAKFAST 00 OR THE MAIN MEAL OF THE DAY TWICE A DAY &lt 2022-0 No 6-03 00:00: 00 &lt 2022-0 No 6-03 00:00: 00 TAKE 1 2022-0 No TABLET BY 6-03 MOUTH ONCE 00:00: DAILY AT 00 BEDTIME TAKE 1 2022-0 No TABLET BY 6-03 MOUTH ONCE 00:00: DAILY IN 00 THE MORNING ON AN EMPTY STOMACH glyburide 5 2-0 No 1mg mg-metformi 6-03 n 500 mg 00:00: tablet 00 glyburide 5 2-0 No 1mg mg-metformi 6-03 n 500 mg 00:00: tablet 00 amlodipine 2022-0 No 1mg 10 mg 6-03 tablet 00:00: 00 amlodipine 2022-0 No 1mg 10 mg 6-03 tablet 00:00: 00 PLEASE SEE 2-0 No ATTACHED 6-03 FOR 00:00: DETAILED 00 DIRECTIONS TAKE 1 2021-0 No TABLET BY 6-03 MOUTH WITH 00:00: BREAKFAST 00 OR THE MAIN MEAL OF THE DAY TWICE A DAY &lt 2-0 No 6- 00:00: 00 &lt 2022-0 No 6-03 00:00: 00 TAKE 1 2021-0 No TABLET BY 6-03 MOUTH ONCE 00:00: DAILY AT 00 BEDTIME TAKE 1 2021-0 No TABLET BY 6-03 MOUTH ONCE 00:00: DAILY IN 00 THE MORNING ON AN EMPTY STOMACH PLEASE SEE 2021-0 No ATTACHED 6- FOR 00:00: DETAILED 00 DIRECTIONS TAKE 1 2021-0 No TABLET BY 6-03 MOUTH WITH 00:00: BREAKFAST 00 OR THE MAIN MEAL OF THE DAY TWICE A DAY &lt 2021-0 No 6- 00:00: 00 &lt 2-0 No 6-03 00:00: 00 glyburide 5 2-0 No 1mg mg-metformi 6-03 n 500 mg 00:00: tablet 00 amlodipine 2-0 No 1mg 10 mg 6-03 tablet 00:00: 00 PLEASE SEE 2021-0 No ATTACHED 6-03 FOR 00:00: DETAILED 00 DIRECTIONS TAKE 1 2021-0 No TABLET BY 6-03 MOUTH WITH 00:00: BREAKFAST 00 OR THE MAIN MEAL OF THE DAY TWICE A DAY &lt 2-0 No 6-03 00:00: 00 &lt 2022-0 No 6-03 00:00: 00 TAKE 1 2-0 No TABLET BY 6-03 MOUTH ONCE 00:00: DAILY AT 00 BEDTIME FREESTYLE 1-0 Yes [id number] APPLY 1 U nivers SHANI 2 7-23 PATCH TO ity of SENSOR Kit 00:00: SKIN EVERY [place] 00 14 DAYS Medical Branch Lancets Yes Use as Univers (MICROLET 1-05 directed, ity o f LANCET) 00:00: TID, [facility] 00 DX:E11.40 Medical Branch Lancets Yes Use as Univers (MICROLET 1-05 directed, ity o f LANCET) 00:00: TID, [facility] 00 DX:E11.40 [facility] Branch blood sugar 2019-05 Yes USE 1 Unive rs diagnostic 2-29 STRIP TO ity o f (FREESTYLE 00:00: CHECK [place] LITE 00 GLUCOSE Medical STRIPS) THREE Branch strip TIMES DAILY. DX:E11.40 blood sugar 2019-05 Yes USE 1 Unive rs diagnostic 2-29 STRIP TO ity o f (FREESTYLE 00:00: CHECK [place] LITE 00 GLUCOSE Medical STRIPS) THREE Branch strip TIMES DAILY. DX:E11.40 blood sugar 2019-05 Yes USE 1 Unive rs diagnostic 2-29 STRIP TO ity o f (FREESTYLE 00:00: CHECK [place] LITE 00 GLUCOSE Medical STRIPS) THREE Branch strip TIMES DAILY. DX:E11.40 amLODIPine 2019-05 Yes [id number] 5mg Take 5 mg Univers 5 mg tablet 2-18 by mouth ity of 21:03: daily. [address] amLODIPine 2019-05 Yes [id number] 5mg Take 5 mg Univers 5 mg tablet 2-18 by mouth ity of 21:03: daily. [address] amLODIPine 2019-05 Yes [id number] 5mg Take 5 mg Univers 5 mg tablet 2-18 by mouth ity of 21:03: daily. [address] amLODIPine 2019-05 Yes [id number] 5mg Take 5 mg Univers 5 mg tablet 2-18 by mouth ity of 21:03: daily. [address] amLODIPine 2019-05 Yes [id number] 5mg Take 5 mg Univers 5 mg tablet 2-18 by mouth ity of 21:03: daily. [address] amLODIPine 2019-05 Yes [id number] 5mg Take 5 mg Univers 5 mg tablet 2-18 by mouth ity of 21:03: daily. [address] glyBURIDE 5 2019-05 2020- No 5mg Take 5 mg Univers mg tablet 2-18 12-18 by mouth ity o f 21:02: 00:00 daily with [place] 39 :00 breakfast. Medical Branch glyBURIDE 5 2019-05 2020- No 5mg Take 5 mg Univers mg tablet 2-18 12-18 by mouth ity o f 21:02: 00:00 daily with [place] 39 :00 breakfast. Medical Branch glyBURIDE 5 2019-05 Yes [id number] 5mg Take 1 Univers mg tablet 2-18 tablet by ity o f 00:00: mouth 2 00 (two) Medical times Branch daily with meals. metFORMIN 2019-05 Yes [id number] 500mg Take 1 U nivers 500 mg 2-18 tablet by ity of tablet 00:00: mouth 3 00 (three) Medical times Branch daily before meals. flash 2019-05 Yes [id number] 1{each} 1 Each 3 U nivers glucose 2-18 (three) ity of scanning 00:00: times [place] reader 00 daily Medical (FREESTYLE before Branch SHANI 2 meals. READER) [facility] flash 2019-05 Yes [id number] 1{each} 1 Each Uni vers glucose 2-18 every 14 ity of sensor 00:00: (fourteen) [place] (FREESTYLE 00 days. Medical SHANI 2 Branch SENSOR) Kit glyBURIDE 5 2019-05 Yes [id number] 5mg Take 1 Univers mg tablet 2-18 tablet by ity o f 00:00: mouth 2 (two) Medical times Branch daily with meals. metFORMIN 2019-05 Yes [id number] 500mg Take 1 U nivers 500 mg 2-18 tablet by ity of tablet 00:00: mouth 3 (three) Medical times Branch daily before meals. flash 2019-05 Yes [id number] 1{each} 1 Each 3 U nivers glucose 2-18 (three) ity of scanning 00:00: times [place] reader 00 daily Medical (FREESTYLE before Branch SHANI 2 meals. READER) [facility] flash 2019-05 Yes [id number] 1{each} 1 Each Uni vers glucose 2-18 every 14 ity of sensor 00:00: (fourteen) [place] (FREESTYLE 00 days. Medical SHANI 2 Branch SENSOR) Kit glyBURIDE 5 2019-05 Yes [id number] 5mg Take 1 Univers mg tablet 2-18 tablet by ity o f 00:00: mouth 2 (two) Medical times Branch daily with meals. metFORMIN 2019-05 Yes [id number] 500mg Take 1 U nivers 500 mg 2-18 tablet by ity of tablet 00:00: mouth 3 00 (three) Medical times Branch daily before meals. flash 2019-05 Yes [id number] 1{each} 1 Each 3 U nivers glucose 2-18 (three) ity of scanning 00:00: times [place] reader 00 daily Medical (FREESTYLE before Branch SHANI 2 meals. READER) [facility] flash 2019-05 Yes [id number] 1{each} 1 Each Uni vers glucose 2-18 every 14 ity of sensor 00:00: (fourteen) [place] (FREESTYLE 00 days. Medical SHANI 2 Branch SENSOR) Kit glyBURIDE 5 2019-05 Yes [id number] 5mg Take 1 Univers mg tablet 2-18 tablet by ity o f 00:00: mouth 2 (two) Medical times Branch daily with meals. metFORMIN 2019-05 Yes [id number] 500mg Take 1 U nivers 500 mg 2-18 tablet by ity of tablet 00:00: mouth 3 (three) Medical times Branch daily before meals. flash 2019-05 Yes [id number] 1{each} 1 Each 3 U nivers glucose 2-18 (three) ity of scanning 00:00: times [place] reader 00 daily Medical (FREESTYLE before Branch SHANI 2 meals. READER) [facility] glyBURIDE 5 2019-05 Yes [id number] 5mg Take 1 Univers mg tablet 2-18 tablet by ity o f 00:00: mouth 2 00 (two) Medical times Branch daily with meals. metFORMIN 2019-05 Yes [id number] 500mg Take 1 U nivers 500 mg 2-18 tablet by ity of tablet 00:00: mouth 3 (three) Medical times Branch daily before meals. flash 2019-05 Yes [id number] 1{each} 1 Each 3 U nivers glucose 2-18 (three) ity of scanning 00:00: times [place] reader 00 daily Medical (FREESTYLE before Branch SHANI 2 meals. READER) [facility] flash 2019-05 Yes [id number] 1{each} 1 Each Uni vers glucose 2-18 every 14 ity of sensor 00:00: (fourteen) [place] (FREESTYLE 00 days. Medical SHANI 2 Branch SENSOR) Kit glyBURIDE 5 2019-05 Yes [id number] 5mg Take 1 Univers mg tablet 2-18 tablet by ity o f 00:00: mouth 2 (two) Medical times Branch daily with meals. metFORMIN 2019-05 Yes [id number] 500mg Take 1 U nivers 500 mg 2-18 tablet by ity of tablet 00:00: mouth 3 (three) Medical times Branch daily before meals. flash 2019-05 Yes [id number] 1{each} 1 Each 3 U nivers glucose 2-18 (three) ity of scanning 00:00: times [place] reader 00 daily Medical (FREESTYLE before Branch SHANI 2 meals. READER) Misc flash 2019-05 Yes [id number] 1{each} 1 Each Uni vers glucose 2-18 every 14 ity of sensor 00:00: (fourteen) [place] (FREESTYLE 00 days. Medical SHANI 2 Branch SENSOR) Kit flash 2019-05- No [id number] 1{each} 1 Each Un madhu glucose 2-18 07-23 every 14 ity of sensor 00:00: 00:00 (fourteen) [place] (FREEST[place] 00 :00 days. Medical SHANI 2 Branch SENSOR) Kit blood sugar 2018-05 Yes USE 1 Unive rs diagnostic 2-03 STRIP TO ity o f (FREESTYLE 00:00: CHECK [place] LITE 00 GLUCOSE Medical STRIPS) THREE Branch strip TIMES DAILY. DX: E11.40, E11.65 blood sugar 2018-05 Yes USE 1 Unive rs diagnostic 2-03 STRIP TO ity o f (FREESTYLE 00:00: CHECK [place] LITE 00 GLUCOSE Medical STRIPS) THREE Branch strip TIMES DAILY. DX: E11.40, E11.65 blood sugar 2018-05 2020- No USE 1 Univ ers diagnostic 2-03 12-29 STRIP TO ity of (FREESTYLE 00:00: 00:00 CHECK [place] LITE 00 :00 GLUCOSE Medical STRIPS) THREE Branch strip TIMES DAILY. DX: E11.40, E11.65 blood sugar 2018-05 2020- No USE 1 Univ ers diagnostic 2-03 12-29 STRIP TO ity of (FREESTYLE 00:00: 00:00 CHECK [place] LITE 00 :00 GLUCOSE Medical STRIPS) THREE Branch strip TIMES DAILY. DX: E11.40, E11.65 blood sugar 2018-05 2020- No USE 1 Univ ers diagnostic 2-03 12-29 STRIP TO ity of (FREESTYLE 00:00: 00:00 CHECK [place] LITE 00 :00 GLUCOSE Medical STRIPS) THREE Branch strip TIMES DAILY. DX: E11.40, E11.65 amoxicillin 2018- Yes [id number] 500mg Take 1 Univers 500 mg 3-13 capsule by ity of capsule 00:00: mouth 3 [place] 00 (three) Medical times Branch daily. amoxicillin 2018- Yes [id number] 500mg Take 1 Univers 500 mg 3-13 capsule by ity of capsule 00:00: mouth 3 (three) Medical times Branch daily. amoxicillin 2020- No [id number] 500mg Take 1 Univers 500 mg 3-13 12-18 capsule by ity of capsule 00:00: 00:00 mouth 3 [place] 00 :00 (three) Medical times Branch daily. amoxicillin 2020- No [id number] 500mg Take 1 Univers 500 mg 3-13 12-18 capsule by ity of capsule 00:00: 00:00 mouth 3 [place] 00 :00 (three) Medical times Branch daily. dulaglutide Yes [id number] .75mg inject Univers (TRULICITY) 2-25 0.75 mg ity o f 0.75 mg/0.5 00:00: under the [place] mL PnIj 00 skin Medical weekly. Branch flash Yes [id number] 1{each} 1 Each Uni vers glucose 2-25 daily. ity of scanning 00:00: [place] reader 00 Medical (FREESTYLE Branch SHANI 14 DAY READER) Misc flash Yes [id number] 1{each} 1 Each Uni vers glucose 2-25 every 14 ity of sensor 00:00: () [place] (FREESTYLE 00 . Medical SHANI 14 Branch DAY SENSOR) Kit dulaglutide Yes [id number] .75mg inject Univers (TRULICITY) 2-25 0.75 mg ity o f 0.75 mg/0.5 00:00: under the [place] mL PnIj 00 skin Medical weekly. Branch flash Yes [id number] 1{each} 1 Each Uni vers glucose 2-25 daily. ity of scanning 00:00: [place] reader 00 Medical (FREESTYLE Branch SHANI 14 DAY READER) Misc flash Yes [id number] 1{each} 1 Each Uni vers glucose 2-25 every 14 ity of sensor 00:00: (fourteen) [place] (FREESTYLE 00 days. Medical SHANI 14 Branch DAY SENSOR) Kit dulaglutide 2020- No [id number] .75mg inject Univers (TRULICITY) 2-25 12-18 0.75 mg ity of 0.75 mg/0.5 00:00: 00:00 under the [place] mL PnIj 00 :00 skin Medical weekly. Branch flash 2020- No [id number] 1{each} 1 Each Un madhu glucose 2-25 12-18 daily. ity of scanning 00:00: 00:00 [place] reader 00 :00 Medical (FREESTYLE Branch SHANI 14 DAY READER) Misc flash 2020- No [id number] 1{each} 1 Each Un madhu glucose 2-25 12-18 every 14 ity of sensor 00:00: 00:00 ([place]teen[place] (FREEST[place] 00 :00 days. Medical SHANI 14 Branch SENSOR) Kit dulaglutide 2019- No [id number] .75mg inject Univers (TRULICITY) 2-25 12-18 0.75 mg ity of 0.75 mg/0.5 00:00: 00:00 under the [place] mL PnIj 00 :00 skin Medical weekly. Branch flash 2020- No [id number] 1{each} 1 Each Un madhu glucose 2-25 12-18 daily. ity of scanning 00:00: 00:00 [place] reader 00 :00 Medical (FREESTYLE Branch SHANI 14 DAY READER) Misc flash 2020- No [id number] 1{each} 1 Each Un madhu glucose 2-25 12-18 every 14 ity of sensor 00:00: 00:00 (fourteen[place] (FREESTYLE 00 :00 days. Medical SHANI 14 Branch DAY SENSOR) Kit Blood-Gluco 2017- Yes Use as Univ ers se Meter 0-18 directed, ity of (CONTOUR 00:00: TID, [place] METER) Misc 00 DX:E11.9 [facility] Blood-Gluco 2017- Yes Use as Univ ers se Meter 0-18 directed, ity of (CONTOUR 00:00: TID, [place] METER) Misc 00 DX:E11.9 [facility] Blood-Gluco 2017- Yes Use as Univ ers se Meter 0-18 directed, ity of (CONTOUR 00:00: TID, [place] METER) Misc 00 DX:E11.9 Medi meg Branch Blood-Gluco 2018- Yes Use as Univ ers se Meter 0-18 directed, ity of (CONTOUR 00:00: TID, [place] METER) Misc 00 DX:E11.9 Medi meg Branch Lancets 2018- Yes Use as Univers (MICROLET 0-18 directed, ity o f LANCET) 00:00: TID, [place] Misc 00 DX:E11.9 Medical Branch Blood-Gluco 2018- Yes Use as Univ ers se Meter 0-18 directed, ity of (CONTOUR 00:00: TID, [place] METER) Mis 00 DX:E11.9 Medi meg Branch Lancets 2018- Yes Use as Univers (MICROLET 0-18 directed, ity o f LANCET) 00:00: [facility]ID, [place] [facility] 00 DX:E11.9 Medical Branch Blood-Gluco 2018- Yes Use as Univ ers se Meter 0-18 directed, ity of (CONTOUR 00:00: TID, [place] METER) [facility] 00 DX:E11.9 Medi meg Branch Lancets 2018- Yes Use as Univers (MICROLET 0-18 directed, ity o f LANCET) 00:00: TID, [place] [facility] 00 DX:E11.9 Medical Branch Blood-Gluco 2018- Yes Use as Univ ers se Meter 0-18 directed, ity of (CONTOUR 00:00: TID, [place] METER) [facility] 00 DX:E11.9 Medi meg Branch Blood-Gluco 2018- Yes Use as Univ ers se Meter 0-18 directed, ity of (CONTOUR 00:00: TID, [place] METER) [facility] 00 DX:E11.9 Medi meg Branch Lancets 2018-2020- No Use as Univers (MICROLET 0-18 01-05 directed, ity of LANCET) 00:00: 00:00 TID, [place] Misc 00 :00 DX:E11.9 Medical Branch Lancets 2018-2020- No Use as Univers (MICROLET 0-18 01-05 directed, ity of LANCET) 00:00: 00:00 TID, [place] Misc 00 :00 DX:E11.9 Medical Branch Lancets 2018-2020- No Use as Univers (MICROLET 0-18 01-05 directed, ity of LANCET) 00:00: 00:00 TID, [place] Misc 00 :00 DX:E11.9 Medical Branch atorvastati 2017-05 Yes 40mg Take 1 Univ ers n 40 mg 0-09 tablet by ity of tablet 00:00: mouth at [place] [address] bedtime. Medical Branch atorvastati 2017-05 Yes 40mg Take 1 Univ ers n 40 mg 0-09 tablet by ity of tablet 00:00: mouth at [place] [address] bedtime. Medical Branch atorvastati 2017-05 Yes 40mg Take 1 Univ ers n 40 mg 0-09 tablet by ity of tablet 00:00: mouth at [place] [address] bedtime. Medical Branch atorvastati 2017-05 Yes 40mg Take 1 Univ ers n 40 mg 0-09 tablet by ity of tablet 00:00: mouth at [place] [address] bedtime. Medical Branch atorvastati 2017-05 Yes 40mg Take 1 Univ ers n 40 mg 0-09 tablet by ity of tablet 00:00: mouth at [place] [address] bedtime. Medical Branch atorvastati 2017-05 Yes 40mg Take 1 Univ ers n 40 mg 0-09 tablet by ity of tablet 00:00: mouth at [place] [address] bedtime. Medical Branch atorvastati 2017-05 Yes 40mg Take 1 Univ ers n 40 mg 0-09 tablet by ity of tablet 00:00: mouth at [place] [address] bedtime. Medical Branch atorvastati 2017-05 Yes 40mg Take 1 Univ ers n 40 mg 0-09 tablet by ity of tablet 00:00: mouth at [place] [address] bedtime. Medical Branch metFORMIN 2017-05 Yes [id number] 500mg Take 1 U nivers 500 mg 0-08 tablet by ity of tablet 00:00: mouth 3 [place] 00 (three) Medical times Branch daily before meals. metFORMIN 2017-05 Yes [id number] 500mg Take 1 U nivers 500 mg 0-08 tablet by ity of tablet 00:00: mouth 3 [place] 00 (three) Medical times Branch daily before meals. metFORMIN 2017-05- No [id number] 500mg Take 1 Univers 500 mg 0-08 12-18 tablet by ity of tablet 00:00: 00:00 mouth 3 [place] 00 :00 (three) Medical times Branch daily before meals. metFORMIN 2017-05- No [id number] 500mg Take 1 Univers 500 mg 0-08 12-18 tablet by ity of tablet 00:00: 00:00 mouth 3 [place] 00 :00 (three) Medical times Branch daily before meals. estradiol 2 Yes [id number] 1mg Take 0.5 Univers mg tablet 9-19 tablets by ity of 00:00: mouth [place] 00 daily. Medical Branch estradiol 2 Yes [id number] 1mg Take 0.5 Univers mg tablet 9-19 tablets by ity of 00:00: mouth [place] 00 daily. Medical Branch estradiol 2 2020- No [id number] 1mg Take 0.5 Univers mg tablet 9-19 12-18 tablets by ity of 00:00: 00:00 mouth [place] 00 :00 daily. Medical Branch estradiol 2 2019- No [id number] 1mg Take 0.5 Univers mg tablet 9-19 12-18 tablets by ity of 00:00: 00:00 mouth [place] 00 :00 daily. Medical Branch Insulin Yes [id number] Use as Uni vers [place], 8 directed ity of Disposable, 00:00: [place] (JONATHAN PEN 00 Medical NEEDLE) 32 Branch gauge x 5/32" Ndle Insulin Yes [id number] Use as Uni vers [place], 8 directed ity of Disposable, 00:00: [place] (JONATHAN PEN 00 Medical NEEDLE) 32 Branch gauge x 5/32" Ndle Insulin Yes [id number] Use as Uni vers [place], 8 directed ity of Disposable, 00:00: [place] (JONATHAN PEN 00 Medical NEEDLE) 32 Branch gauge x 5/32" Ndle Insulin 2017- Yes [id number] Use as Uni vers [place], 8 directed ity of Disposable, 00:00: [place] (JONATHAN PEN 00 Medical NEEDLE) 32 Branch gauge x 5/32" Ndle gabapentin 2017- Yes [id number] 100mg Take 1 Univers 100 mg 8-27 capsule by ity of capsule 00:00: mouth at [place] [address] bedtime. Medical Branch Insulin Yes [id number] Use as Uni vers [place], 827 directed ity of Disposable, 00:00: [place] (JONATHAN PEN 00 Medical NEEDLE) 32 Branch gauge x 5/32" Ndle gabapentin 2017- Yes [id number] 100mg Take 1 Univers 100 mg 8-27 capsule by ity of capsule 00:00: mouth at [place] 00 bedtime. Medical Branch Insulin Yes [id number] Use as Uni vers [place], 827 directed ity of Disposable, 00:00: [place] (JONATHAN PEN 00 Medical NEEDLE) 32 Branch gauge x 5/32" Ndle Insulin Yes [id number] Use as Uni vers [place], 8 directed ity of Disposable, 00:00: [place] (JONATHAN PEN 00 Medical NEEDLE) 32 Branch gauge x 5/32" Ndle Insulin Yes [id number] Use as Uni vers [place], 8 directed ity of Disposable, 00:00: [place] (JONATHAN PEN 00 Medical NEEDLE) 32 Branch gauge x 5/32" Ndle gabapentin 2020- No [id number] 100mg Take 1 Univers 100 mg 8- 12-18 capsule by ity of capsule 00:00: 00:00 mouth at [place] 00 :00 bedtime. Medical Branch gabapentin 2020- No [id number] 100mg Take 1 Univers 100 mg 8- 12-18 capsule by ity of capsule 00:00: 00:00 mouth at [place] 00 :00 bedtime. Medical Branch topiramate 2017- Yes 25mg Q.5D Take 25 mg M ethodi (TOPAMAX) 6-[address] 25 MG 16:34: (two) Hospita capsule 14 times a l day. topiramate Yes 25mg Q.5D Take 25 mg M ethodi (TOPAMAX) 6-[address] 25 MG 11:34: (two) Hospita capsule 14 times a l day. JARDIANCE Yes Methodi 10 mg 6-27 st tablet 00:00: Hospita tablet 00 l JARDIANCE Yes Methodi 10 mg 6-27 st tablet 00:00: Hospita tablet 00 l estradiol Yes 1mg Take 1 mg Met hodi (ESTRACE) 1 6-[address] MG tablet 00:00: Hospita 00 l progesteron Yes 100mg Take 100 M ethodi e 6-[address] (PROMETRIUM 00:00: mouth. [facility]osp [facility] ) 100 MG 00 l capsule progesteron Yes [id number] 100mg Take 1 Univers e 100 mg 6-22 capsule by ity o f capsule 00:00: mouth [place] 00 daily. Medical Branch progesteron Yes [id number] 100mg Take 1 Univers e 100 mg 6-22 capsule by ity o f capsule 00:00: mouth [place] 00 daily. Medical Branch estradiol 2018-0 Yes Methodi (ESTRACE) 1 6-22 st MG tablet 00:00: Hospita 00 l estradiol 2018-0 Yes 1mg Take 1 mg Met hodi (ESTRACE) 1 6-[address] MG tablet 00:00: Hospita 00 l progesteron 2018-0 Yes 100mg Take 100 M ethodi e 6-[address] (PROMETRIUM 00:00: mouth. [facility]osp [facility] ) 100 MG 00 l capsule estradiol 0 Yes Methodi (ESTRACE) 1 6-22 st MG tablet 00:00: Hospita 00 l progesteron [id number] 2020- No [id number] 100mg Take 1 Univers e 100 mg 6-22 12-18 capsule by ity of capsule 00:00: 00:00 mouth [place] 00 :00 daily. Medical Branch progesteron 2017-0 2020- No [id number] 100mg Take 1 Univers e 100 mg 6-22 12-18 capsule by ity of capsule 00:00: 00:00 mouth [place] 00 :00 daily. Medical Branch losartan 50 2018-0 Yes [id number] 50mg Take 1 Univers mg tablet 4-30 tablet by ity o f 00:00: mouth [place] 00 daily. Medical Branch losartan 50 2018-0 Yes [id number] 50mg Take 1 Univers mg tablet 4-30 tablet by ity o f 00:00: mouth [place] 00 daily. Medical Branch atorvastati 2018-0 Yes 20mg Take 20 mg Methodi n (LIPITOR) 4-[address] 20 MG 00:00: Hospita tablet 00 l losartan 2018-0 Yes 50mg Take 50 mg Met hodi (COZAAR) 50 4-[address] MG tablet 00:00: Hospita 00 l metFORMIN 2018-0 Yes 1000mg Take 1,000 Methodi (GLUCOPHAGE 4-[address] ) 1,000 mg 00:00: mouth. Hospi ta tablet 00 l atorvastati 20180 Yes 20mg Take [...] 00:00: mouth. Hospi ta tablet 00 l losartan 50 0 2020- No [id number] 50mg Take 1 Univers mg tablet 4-30 12-18 tablet by ity of 00:00: 00:00 mouth [place] 00 :00 daily. [facility] Branch losartan 50 0 2020- No [id number] 50mg Take 1 Univers mg tablet 4-30 12-18 tablet by ity of 00:00: 00:00 mouth [place] 00 :00 daily. [facility] Branch naproxen 0 Yes 500mg Take 500 Meth lanie (NAPROSYN) 4-[address] 500 MG 00:00: mouth. Hospita tablet 00 l naproxen 0 Yes 500mg Take 500 Meth lanie (NAPROSYN) 4-[address] 500 MG 00:00: mouth. Hospita tablet 00 l Immunizations Ordered Filled Immunization Date Status Comments [facility] Immunization Name Name Tdap 2021-12-25 Completed 00:00:00 SHINGRIX VACCINE 2021-12-25 Completed 00:00:00 Tdap 2021-12-25 Completed 00:00:00 SHINGRIX VACCINE 2021-12-25 Completed 00:00:00 Tdap 2021-12-25 Completed 00:00:00 SHINGRIX VACCINE 2021-12-25 Completed 00:00:00 SARS-COV-2 COVID-19 2020-07-13 Completed Unive ity of PFIZER VACCINE 00:00:00 [facility] Influenza Virus 2020-04-14 Completed Universit y of Vaccine 00:00:00 [facility] Influenza Virus 2020-04-14 Completed Universit y of Vaccine 00:00:00 [facility] Influenza Virus 2020-04-14 Completed Universit y of Vaccine 00:00:00 [facility] Influenza Virus 2020-04-14 Completed Universit y of Vaccine 00:00:00 [facility] Influenza Virus 2020-04-14 Completed Universit y of Vaccine 00:00:00 [facility] Influenza Virus 2020-04-14 Completed Universit y of Vaccine 00:00:00 [facility] Influenza Virus 2018-07-06 Completed Universit y of Vaccine Quad IM 3+ 00:00:00 [facility] Influenza Virus 2018-07-06 Completed Universit y of Vaccine Quad IM 3+ 00:00:00 [facility] Influenza Virus 2018-07-06 Completed Universit y of Vaccine Quad IM 3+ 00:00:00 [facility] Influenza Virus 2018-07-06 Completed Universit y of Vaccine Quad IM 3+ 00:00:00 [facility] Influenza Virus 2018-07-06 Completed Universit y of Vaccine Quad IM 3+ 00:00:00 [facility] Influenza Virus 2018-07-06 Completed Universit y of Vaccine Quad IM 3+ 00:00:00 [facility] Influenza Virus 2018-07-06 Completed Universit y of Vaccine Quad IM 3+ 00:00:00 [facility] Influenza Virus 2018-07-06 Completed Universit y of Vaccine Quad IM 3+ 00:00:00 [facility] Vital Signs Vital Name Observation Time Observation Value Comments Source Systolic blood 2020-04-28 19:59:00 145 mm[Hg] Univer sity of pressure [facility] Diastolic blood 2020-04-28 19:59:00 92 mm[Hg] Unive rsity of pressure [facility] Heart rate 2020-04-28 19:59:00 105 /min [facility] Respiratory rate 2020-04-28 19:59:00 18 /min [facility] Body height 2020-04-28 19:59:00 152.4 cm [facility] Body weight 2020-04-28 19:59:00 65.59 kg [facility] BMI 2020-04-28 19:59:00 28.24 kg/m2 [facility] Oxygen saturation in 2020-04-28 19:59:00 97 /min [facility] Arterial blood by [facility] Pulse oximetry Branch BP Systolic 2022-04-03 08:03:00 120 mm[Hg] BP Diastolic 2022-04-03 08:03:00 91 mm[Hg] Weight Measured 2022-04-03 08:03:00 153.60 pounds Height Measured 2022-04-03 08:03:00 60.00 inches Body Temperature 2022-04-03 08:03:00 97.40 degrees Heart Rate 2022-04-03 08:03:00 75.00 /min Respiratory Rate 2022-04-03 08:03:00 20.00 /min BP Systolic 2021-12-31 15:08:00 120 mm[Hg] BP Diastolic 2021-12-31 15:08:00 84 mm[Hg] Weight Measured 2021-12-31 15:08:00 155.40 pounds Height Measured 2021-12-31 15:08:00 60.00 inches Body Temperature 2021-12-31 15:08:00 97.70 degrees Heart Rate 2021-12-31 15:08:00 88.00 /min Respiratory Rate 2021-12-31 15:08:00 BP Systolic 2021-12-25 08:12:00 132 mm[Hg] BP Diastolic 2021-12-25 08:12:00 82 mm[Hg] Weight Measured 2021-12-25 08:12:00 157.40 pounds Height Measured 2021-12-25 08:12:00 60.00 inches Body Temperature 2021-12-25 08:12:00 97.60 degrees Heart Rate 2021-12-25 08:12:00 70.00 /min Respiratory Rate 2021-12-25 08:12:00 BP Systolic 2021-12-20 16:13:00 130 mm[Hg] BP Diastolic 2021-12-20 16:13:00 89 mm[Hg] Weight Measured 2021-12-20 16:13:00 154.60 pounds Height Measured 2021-12-20 16:13:00 60.00 inches Body Temperature 2021-12-20 16:13:00 97.70 degrees Heart Rate 2021-12-20 16:13:00 86.00 /min Respiratory Rate 2021-12-20 16:13:00 BP Systolic 2021-12-06 14:47:00 137 mm[Hg] BP Diastolic 2021-12-06 14:47:00 93 mm[Hg] Weight Measured 2021-12-06 14:47:00 158.60 pounds Height Measured 2021-12-06 14:47:00 60.00 inches Body Temperature 2021-12-06 14:47:00 98.40 degrees Heart Rate 2021-12-06 14:47:00 74.00 /min Respiratory Rate 2021-12-06 14:47:00 21.00 /min BP Systolic 2021-10-12 09:01:00 143 mm[Hg] BP Diastolic 2021-10-12 09:01:00 85 mm[Hg] Weight Measured 2021-10-12 09:01:00 151.60 pounds Height Measured 2021-10-12 09:01:00 60.00 inches Body Temperature 2021-10-12 09:01:00 98.40 degrees Heart Rate 2021-10-12 09:01:00 73.00 /min Respiratory Rate 2021-10-12 09:01:00 21.00 /min BP Systolic 2021-10-12 08:24:00 143 mm[Hg] BP Diastolic 2021-10-12 08:24:00 85 mm[Hg] Weight Measured 2021-10-12 08:24:00 151.60 pounds Height Measured 2021-10-12 08:24:00 60.00 inches Body Temperature 2021-10-12 08:24:00 98.40 degrees Heart Rate 2021-10-12 08:24:00 73.00 /min Respiratory Rate 2021-10-12 08:24:00 21.00 /min Procedures Procedure Date / Time Performed Performing Clinician [facility] ASSIGNMENT OF BENEFITS 2020-04-28 19:27:34 Doctor Unassigned, No [facility] POCT HEMOGLOBIN A1C 2020-04-28 00:00:00 Kolton Campa [facility] Plan of Care Planned Activity Planned Date Details Comments Source Future Scheduled 2022-03-17 HEPATITIS B VACCINES Met [facility] Test 02:08:49 (1 of 3 - 3-dose series) [code = HEPATITIS B VACCINES (1 of 3 - 3-dose series)] Future Scheduled 2022-03-17 COVID-19 VACCINE (#1) [facility] Test 02:08:49 [code = COVID-19 VACCINE (#1)] Future Scheduled 2022-03-17 Screening for [facility] Test 02:08:49 malignant neoplasm of cervix (procedure) [code = 234960584] Future Scheduled 2022-03-17 BREAST CANCER [facility] Test 02:08:49 SCREENING [code = BREAST CANCER SCREENING] Future Scheduled 2022-03-17 COLONOSCOPY SCREENING [facility] Test 02:08:49 [code = COLONOSCOPY SCREENING] Future Scheduled 2022-03-17 SHINGLES VACCINES ([facility] 02:08:49 of 2) [code = SHINGLES VACCINES (1 of 2)] Future Scheduled 2022-03-17 INFLUENZA [facility]ACCINE [facility] 02:08:49 [code = INFLUENZA VACCINE] Future Scheduled COVID-19 VACCINE (1) [facility] [code = COVID-19 VACCINE (1)] Future Scheduled Screening for [facility] Test malignant neoplasm of cervix (procedure) [code = 331986130] Future Scheduled BREAST CANCER [facility] Test SCREENING [code = BREAST CANCER SCREENING] Future Scheduled COLONOSCOPY SCREENING [facility] Test [code = COLONOSCOPY SCREENING] Future Scheduled SH[facility]LES [facility]ACCINES [facility] (#1) [code = SHINGLES VACCINES (#1)] Future Scheduled INFLUENZA VACCINE [facility] [code = INFLUENZA VACCINE] Goal Plan of Care Note [code = 51033-9] Goal Plan of Care Note [code = 13003-8] Goal Plan of Care Note [code = 41150-0] Goal Plan of Care Note [code = 26418-3] Goal Plan of Care Note [code = 87071-2] Goal Plan of Care Note [code = 15253-2] Goal Plan of Care Note [code = 02744-5] Goal Plan of Care Note [code = 22135-4] Goal Plan of Care Note [code = 96782-1] Goal Plan of Care Note [code = 62131-7] Goal Plan of Care Note [code = 21934-5] Goal Plan of Care Note [code = 09229-2] Goal Plan of Care Note [code = 22832-7] Goal Plan of Care Note [code = 99476-0] Goal Plan of Care Note [code = 34490-2] Goal Plan of Care Note [code = 43656-5] Goal Plan of Care Note [code = 97160-8] Goal Plan of Care Note [code = 34194-5] Goal Plan of Care Note [code = 16485-9] Goal Plan of Care Note [code = 26145-1] Goal Plan of Care Note [code = 38615-9] Goal Plan of Care Note [code = 75034-4] Goal Plan of Care Note [code = 57951-6] Goal Plan of Care Note [code = 80684-3] Goal Plan of Care Note [code = 84029-9] Goal Plan of Care Note [code = 50550-4] Goal Plan of Care Note [code = 07135-5] Goal Plan of Care Note [code = 85916-2] Goal Plan of Care Note [code = 14159-2] Goal Plan of Care Note [code = 24932-8] Goal Plan of Care Note [code = 48613-0] Goal Plan of Care Note [code = 34002-0] Goal Plan of Care Note [code = 26654-1] Goal Plan of Care Note [code = 59396-8] Goal Plan of Care Note [code = 27225-4] Goal Plan of Care Note [code = 69254-2] Goal Plan of Care Note [code = 43820-9] Goal Plan of Care Note [code = 58672-6] Goal Plan of Care Note [code = 81762-5] Goal Plan of Care Note [code = 25116-2] Goal Plan of Care Note [code = 74745-6] Goal Plan of Care Note [code = 46256-3] Goal Plan of Care Note [code = 92016-0] Goal Plan of Care Note [code = 10455-7] Goal Plan of Care Note [code = 11922-9] Goal Plan of Care Note [code = 19042-4] Goal Plan of Care Note [code = 01419-2] Goal Plan of Care Note [code = 12401-6] Goal Plan of Care Note [code = 75940-2] Goal Plan of Care Note [code = 80245-7] Goal Plan of Care Note [code = 16646-2] Goal Plan of Care Note [code = 75077-3] Goal Plan of Care Note [code = 44916-7] Goal Plan of Care Note [code = 83674-8] Goal Plan of Care Note [code = 03119-5] Goal Plan of Care Note [code = 33815-3] Goal Plan of Care Note [code = 27301-4] Goal Plan of Care Note [code = 94939-3] Goal Plan of Care Note [code = 82635-7] Goal Plan of Care Note [code = 90533-4] Goal Plan of Care Note [code = 25299-4] Goal Plan of Care Note [code = 23669-5] Goal Plan of Care Note [code = 28529-8] Goal Plan of Care Note [code = 67997-6] Goal Plan of Care Note [code = 63156-7] Goal Plan of Care Note [code = 55489-3] Goal Plan of Care Note [code = 26285-3] Goal Plan of Care Note [code = 15117-1] Goal Plan of Care Note [code = 20159-0] Goal Plan of Care Note [code = 46350-2] Goal Plan of Care Note [code = 44127-9] Goal Plan of Care Note [code = 86697-6] Goal Plan of Care Note [code = 03642-1] Goal Plan of Care Note [code = 86715-1] Goal Plan of Care Note [code = 68161-5] Goal Plan of Care Note [code = 94440-2] Goal Plan of Care Note [code = 11454-9] Goal Plan of Care Note [code = 03488-9] Goal Plan of Care Note [code = 43952-5] Goal Plan of Care Note [code = 81418-6] Goal Plan of Care Note [code = 32662-8] Goal Plan of Care Note [code = 00658-6] Goal Plan of Care Note [code = 83989-6] Goal Plan of Care Note [code = 61480-4] Goal Plan of Care Note [code = 94957-3] Goal Plan of Care Note [code = 02930-4] Goal Plan of Care Note [code = 72771-4] Goal Plan of Care Note [code = 55277-1] Goal Plan of Care Note [code = 74498-4] Goal Plan of Care Note [code = 46610-8] Goal Plan of Care Note [code = 08459-8] Goal Plan of Care Note [code = 60644-8] Encounters Start End Encounter Admission Attending Care Care Encounter Source Date/Time Date/Time Type Type Clinicians Facility Department ID 2021-12-19 [facility] [place] [id number] Common 10:57:02 [facility] 2021-06-06 [facility] [place] [facility] [id number] 2 Common 14:38:55 [facility] 2021-06-06 Outpatient [place] BryanLC [facility] [id number] 2 Common 14:17:23 [id number] [facility] 2021-06-06 Outpatient [place] Bryan STANUPAM [facility] [id number] 2 Common 14:04:09 [id number] [facility] 2020-05-06 Inpatient JORDAN SimpsonPM INTE.02 [id number] [facility] 19:38:00 Oladipo 25 [facility] 2022-04-03 2022-04-03 Outpatient SFA SFA [id number] Bharat 08:00:49 08:00:49 [id number] F Magdy 2022-04-03 2022-04-03 Outpatient wl0sgry1- [id number] 6ozgb0-1 00:00:00 00:00:00 Visit 1142-48cc 142-48cc-b -a00b-f29 29e-x47646 [id number] 2021-12-31 2021-12-31 Outpatient [id number] [id number] 00:00:00 00:00:00 Visit 78i3-6p9v 4h8-2m3w-4 -8359-79a 359-79adb6 ew35pfff8 5ffdd5 2021-12-27 2021-12-27 Transcribe Provider, 1.2.840.1 [id number] Methodi 00:00:00 00:00:00 Orders [place] [address].1.[address] [facility] 3.430.2.7 Hospit a .3.615585 l .8 2021-12-25 2021-12-25 Outpatient [id number] 00:00:00 00:00:00 Visit 9ms2-18j1 da4-40c9-9 -7g37-qz5 c51-ku8u5x w9lo3k281 u0c488 2021-12-20 2021-12-20 Outpatient [id number] 00:00:00 00:00:00 Visit c938-75o8 690-43e5-b -kl77-5mt e90-3dqr34 g63hisy43 ceed60 2021-12-06 2021-12-06 Outpatient [id number]- [id number] 62oxn2-2 00:00:00 00:00:00 Visit 4y09-69pl a81-88bh-l -cn9q-5w6 w4g-1f6340 [id number] [id number] 2020-12-01 2020-12-01 [facility] 1.2.015.826 [id number] Univers 00:00:00 00:00:00 Kolton Rowley 350.1.13.10 i ty [place] [phone] Mt dic[address] 2020-11-21 2020-11-21 Outpatient JAIDA SIERRA [id number] Jaida 13:30:00 13:30:00 EZIO oretga 2020-08-03 2020-08-03 Outpatient [facility] [id number] Univers 15:00:00 15:00:00 [facility] 2020-07-13 2020-07-13 Outpatient [facility] [id number] Univers 16:10:00 16:10:00 [facility] 2020-05-16 2020-05-16 [facility] [id number] Univers 00:00:00 00:00:00 Kolton Row[place] 350.1.13.10 [place] [phone] [address] 2020-05-09 2020-05-09 Reffrancois [facility] 1.2.840.114 [id number] Univers 00:00:00 00:00:00 Evaristo Rowley 350.1.13.10 [place] [phone] Mt dical [address] 2020-05-09 2020-05-09 Reffrancois [facility] 1.2.840.114 [id number] 00 00:00:00 00:00:00 Evaristo Rowley [id number] [place] 4.2.7.2.686 Professio [phone] [facility] 220 [facility] 2020-05-08 2020-05-08 Telephone [facility] 1.2.840.114 [id number] [facility] 00:00:00 00:00:00 Kolton [facility] [id number] it y of [place] 4.2.7.2.686 Noah as Professio [phone] Mt dical [facility] 044 [place] Office [facility] One 2020-05-04 2020-05-04 Outpatient MK Tejeda LABO [id number] [facility] 23:41:00 23:41:00 Oladipo 40 [facility] 2020-04-28 2020-04-28 [facility] [id number] [id number] [facility] 13:28:27 15:11:34 Visit Kolton Mason Amrik 350.1.13.10 i ty [place] [phone] Mt dical [facility] 220 [facility] 2020-04-28 2020-04-28 [facility] [id number] Univers 13:30:00 13:30:00 [place] [facility] 2020-04-28 2020-04-28 Orders Doctor BHARGAV 1.2.840.114 [id number] Univers 00:00:00 00:00:00 Only Unassigned, JOSSELIN 350.1.13.10 ity of [facility] 4.2.7.2.686 Noah as [phone] [address] 2020-04-28 2020-04-28 Orders Doctor DURANT 1.2.840.114 [id number] 00:00:00 00:00:00 Only Unassigned, JOSSELIN 350.1.13.10 [facility] 4.2.7.2.686 [phone] [facility] 2020-04-26 2020-04-26 Telephone [facility] [id number] Univers 00:00:00 00:00:00 Evaristo Amrik 350.1.13.10 i [place] [phone] Mt dical [facility] 220 [facility] 2020-04-26 2020-04-26 Telephone [facility] [id number] 00:00:00 00:00:00 Evaristo Rowley 350.1.13.10 [place] 4.2.7.2.686 Professio [phone] [address] 2019-12-29 2019-12-29 [facility] [id number] Univers 15:30:00 [facility]:30:[facility]-10-[facility] 2019-10-[address] [facility] [id number] Univers 13:30:00 13:30:00 [facility] Results Test Description Test Time Test Comments Results Result Comments Source VAGINAL PATHOGENS DNA PANEL 2022-01-01 14:45:16 Test Item Value Reference Range Interpretation Comme nts SYD SPECIES (test code = NEGATIVE NEGATIVE ) G. VAGINALIS (test code = POSITIVE NEGATIVE A ) T. VAGINALIS (test code = NEGATIVE NEGATIVE U NLESS OTHERWISE INDICATED, ALL ) TESTING PERFORM ED ATCLINICAL PATHOLOGY [facility]. [address] [place] [address] LABORATORY DIRE CTOR: MEHDI HARDWICK M.D. CLIA NUMBER [id number] [facility] [place] [id number] VAGINAL PATHOGENS DNA [id number] 00:00:00 Test Item Value Reference Range Interpretation Comments SYD SPECIES (test code = ) NEGATIVE G. VAGINALIS (test code = ) POSITIVE T. VAGINALIS (test code = ) NEGATIVE VAGINAL PATHOGENS DNA [id number] 00:00:00 Test Item Value Reference Range Interpretation Comments SYD SPECIES (test code = ) NEGATIVE G. VAGINALIS (test code = 78696) POSITIVE T. VAGINALIS (test code = 04532) NEGATIVE VAGINAL PATHOGENS DNA [id number] 10:29:25 Test Item Value Reference Range Interpretation Comments SYD SPECIES TEST NOT PERFORMED NEGATIVE NO SP ECIMEN (test code = ) RECEIVED FOR TESTING. CHARGE S DELETED. G. VAGINALIS (test TEST NOT PERFORMED NEGATIVE N O SPECIMEN code = ) RECEIVED FOR TESTING. CHARGE S DELETED. T. VAGINALIS (test TEST NOT PERFORMED NEGATIVE NO SPECIMEN code = 45764) RECEIVED FOR TESTING. CHARGE S DELETED. HEMOGLOBIN [id number] 05:36:58 Test Item Value Reference Range Interpretation Comments HEMOGLOBIN A1c (test 7.2 % 4.2-5.6 H [employer] AN DIABETES code = 77984) ASSOCIATION IDELINES FOR HGB A1C: PREDIABETES/INC REASED RISK . . . . . . . 5.7 -6.4% DIAGNOSIS OF DI ABETES . . . . . . . . . >=6 .5% WITH CONFIRMATION OR APPROPRIATE SYMPTOMS NOTE: ASSAY MAY BE AFFECTED BY HEMOGLOBINOPATH IES (SICKLE CELL ANEMIA, S- C DISEASE, OTHERS) OR GINO FICIALLY LOWERED BY DECR EASED RED CELL SURVIVAL ( HEMOLYTIC ANEMIAS, BLOOD LOSS, ETC.). CONSIDER ALTERN ATE TESTING OR LABORATORY C ONSULTATION. TSH, THIRD [id number] 05:29:05 Test Item Value Reference Range Interpretation Comments TSH, THIRD GENERATION (test code 2.930 UIU/ML 0.400-4.100 = 2821) CBC W/AUTO DIFF WITH [id number] 05:22:43 Test Item Value Reference Range Interpretation Comments WBC (test code = 5.3 K/UL 3.5-11.0 1001) RBC (test code = 4.15 M/UL 3.80-5.40 1002) HEMOGLOBIN (test 13.5 G/DL 11.5-15.5 code = 1003) HEMATOCRIT (test 39.6 % 34.0-45.0 code = 1004) MCV (test code = 95.4 fL 80.0-99.0 1005) MCH (test code = 32.5 PG 25.0-33.0 1006) MCHC (test code = 34.1 G/DL 31.0-36.0 1007) RDW (test code = 13.6 % 11.5-15.0 1038) NEUTROPHILS (test 54.3 % code = 1008) LYMPHOCYTES (test 34.9 % code = 1010) MONOCYTES (test code 7.7 % = 1011) EOSINOPHILS (test 2.3 % code = 1012) BASOPHILS (test code 0.6 % = 1013) IMMATURE 0.2 % GRANULOCYTES (test code = 1036) NUCLEATED RBCS (test 0.0 /100 See_Comment [Autom ated message] code = 1065) WBC'S The system [employer] generated this result transmitted ref erence range: 0.0. The reference range was not used to int erpret this result as normal/abnormal . PLATELET COUNT (test 205 K/UL 130-400 code = 1015) ABSOLUTE NEUTROPHILS 2.88 K/UL 1.50-7.50 (test code = 1066) ABSOLUTE LYMPHOCYTES 1.85 K/UL 1.00-4.00 (test code = 1067) ABSOLUTE MONOCYTES 0.41 K/UL 0.20-1.00 (test code = 1068) ABSOLUTE EOSINOPHILS 0.12 K/UL 0.00-0.50 (test code = 1040) ABSOLUTE BASOPHILS 0.03 K/UL 0.00-0.20 (test code = 1069) ABS IMMATURE 0.01 K/UL 0.00-0.10 GRANULOCYTES (test code = 1020) ABS NUCLEATED RBCS 0.00 K/UL 0.00-0.11 UNLESS O THERWISE (test code = 58822) INDICATE D, ALL TESTING PERFORM ED [facility]IES[place]. [address] [place] [id number] [place] [address] DIRECTOR: MEHDI HARDWICK M.D. CLIA NUMBER [id number] CAP ACCREDITATION N O. [id number] COMPREHENSIVE METABOLIC [id number] 04:13:37 Test Item Value Reference Range Interpretation Comments GLUCOSE (test code = 151 MG/DL 70-99 H 2216) BUN (test code = 16 MG/DL 6-20 2207) CREATININE (test 0.84 MG/DL 0.60-1.30 code = 2214) eGFR (2020 CKD-EPI) 83 ML/MIN/1.73 >60 (test code = 41803) CALC BUN/CREAT (test 19 RATIO 6-28 code = 2235) SODIUM (test code = 140 MEQ/L 448-052 5368) POTASSIUM (test code 4.7 MEQ/L 3.5-5.4 = 2227) CHLORIDE (test code 104 MEQ/L 95-107 = 221) CARBON DIOXIDE (test 23 MEQ/L 19-31 code = 2206) CALCIUM (test code = 9.3 MG/DL 8.5-10.5 2208) PROTEIN, TOTAL (test 7.1 G/DL 6.1-8.3 code = 2229) ALBUMIN (test code = 4.5 G/DL 3.5-5.2 2200) CALC GLOBULIN (test 2.6 G/DL 1.9-3.7 code = 2240) CALC A/G RATIO (test 1.7 RATIO 1.0-2.6 code = 2234) BILIRUBIN, TOTAL 0.3 MG/DL See_Comment [Automated message] (test code = 2207) The syste m which generated this result transmit jet reference range : <=1.2. The refe rence range was not u sed to interpret th is result as normal/abnormal . ALKALINE PHOSPHATASE 71 U/L 40-133 (test code = 2204) AST (test code = 15 U/L 9-40 2217) ALT (test code = 16 U/L 5-40 2218) LIPID [id number] 04:13:37 Test Item Value Reference Range Interpretation Comments CHOLESTEROL (test 177 MG/DL <200 code = 2210) TRIGLYCERIDES (test 179 MG/DL <150 H code = 2232) HDL CHOLESTEROL (test 36 MG/DL >39 L code = 2220) CALC LDL CHOL (test 111 MG/DL <100 H NOTE: C ALCULATED LDL code = 2237) IS BASED ON TANYA-WILLINGH[place] METHOD WHICHINCLUDES ADJUSTABLE TRIGLYCERIDE:VL DL CHOLESTEROL RAT IO.THIS FACTOR VARIES B Y MEASURED TRIGLY CERIDE AND NON-HDLCHOL ESTEROL CONCENTRATIONS WITH INCREASED CALCU LATED LDL SEENIN HIGH ER TRIGLYCERIDE OR LOWER NON-HDL SPECIME NS. FOR MOREINFORMATION , SEE CLIENT ANNOUNCE MENT AT [email or web address] [email or web address] RATIO LDL/HDL 3.08 RATIO <3.22 (test code = 2238) COMPREHENSIVE METABOLIC [id number] 00:00:00 Test Item Value Reference Range Interpretation Comments GLUCOSE (test code = 2217) 151 MG/DL BUN (test code = 2208) 16 MG/DL CREATININE (test code = 2214) 0.84 MG/DL eGFR (2020 CKD-EPI) (test code 83 ML/MIN/1.73 = 55518) CALC BUN/CREAT (test code = 19 RATIO 2235) SODIUM (test code = 2231) 140 MEQ/L POTASSIUM (test code = 2228) 4.7 MEQ/L CHLORIDE (test code = 2215) 104 MEQ/L CARBON DIOXIDE (test code = 23 MEQ/L 2206) CALCIUM (test code = 2209) 9.3 MG/DL PROTEIN, TOTAL (test code = 7.1 G/DL 2229) ALBUMIN (test code = 2201) 4.5 G/DL CALC GLOBULIN (test code = 2.6 G/DL 2240) CALC A/G RATIO (test code = 1.7 RATIO 2234) BILIRUBIN, TOTAL (test code = 0.3 MG/DL 2206) ALKALINE PHOSPHATASE (test 71 U/L code = 2204) AST (test code = 2218) 15 U/L ALT (test code = 2219) 16 U/L COMPREHENSIVE METABOLIC [id number] 00:00:00 Test Item Value Reference Range Interpretation Comments GLUCOSE (test code = 2217) 151 MG/DL BUN (test code = 2208) 16 MG/DL CREATININE (test code = 2214) 0.84 MG/DL eGFR (2020 CKD-EPI) (test code 83 ML/MIN/1.73 = 17013) CALC BUN/CREAT (test code = 19 RATIO 2235) SODIUM (test code = 2231) 140 MEQ/L POTASSIUM (test code = 2228) 4.7 MEQ/L CHLORIDE (test code = 2215) 104 MEQ/L CARBON DIOXIDE (test code = 23 MEQ/L 2206) CALCIUM (test code = 2209) 9.3 MG/DL PROTEIN, TOTAL (test code = 7.1 G/DL 9) ALBUMIN (test code = 2201) 4.5 G/DL CALC GLOBULIN (test code = 2.6 G/DL 2240) CALC A/G RATIO (test code = 1.7 RATIO 2234) BILIRUBIN, TOTAL (test code = 0.3 MG/DL 7) ALKALINE PHOSPHATASE (test 71 U/L code = 2204) AST (test code = 2218) 15 U/L ALT (test code = 2219) 16 U/L VAGINAL PATHOGENS DNA [id number] 00:00:00 Test Item Value Reference Range Interpretation Comments SYD SPECIES (test code TEST NOT PERFORMED = ) G. VAGINALIS (test code = TEST NOT PERFORMED ) T. VAGINALIS (test code = TEST NOT PERFORMED ) VAGINAL PATHOGENS DNA [id number] 00:00:00 Test Item Value Reference Range Interpretation Comments SYD SPECIES (test code TEST NOT PERFORMED = ) G. VAGINALIS (test code = TEST NOT PERFORMED ) T. VAGINALIS (test code = TEST NOT PERFORMED ) LIPID [id number] 00:00:00 Test Item Value Reference Range Interpretation Comments CHOLESTEROL (test code = 2210) 177 MG/DL TRIGLYCERIDES (test code = 2232) 179 MG/DL HDL CHOLESTEROL (test code = 2220) 36 MG/DL CALC LDL CHOL (test code = 2237) 111 MG/DL RISK RATIO LDL/HDL (test code = 3.08 RATIO 2238) LIPID [id number] 00:00:00 Test Item Value Reference Range Interpretation Comments CHOLESTEROL (test code = 2210) 177 MG/DL TRIGLYCERIDES (test code = 2232) 179 MG/DL HDL CHOLESTEROL (test code = 2220) 36 MG/DL CALC LDL CHOL (test code = 2237) 111 MG/DL RISK RATIO LDL/HDL (test code = 3.08 RATIO 2238) TSH, THIRD [id number] 00:00:00 Test Item Value Reference Range Interpretation Comments TSH, THIRD GENERATION (test code 2.930 UIU/ML = 2821) TSH, THIRD [id number] 00:00:00 Test Item Value Reference Range Interpretation Comments TSH, THIRD GENERATION (test code 2.930 UIU/ML = 2821) TSH, THIRD [id number] 00:00:00 Test Item Value Reference Range Interpretation Comments TSH, THIRD GENERATION (test code 2.930 UIU/ML = 2821) HEMOGLOBIN [id number] 00:00:00 Test Item Value Reference Range Interpretation Comments HEMOGLOBIN A1c (test code = 34327) 7.2 % HEMOGLOBIN [id number] 00:00:00 Test Item Value Reference Range Interpretation Comments HEMOGLOBIN A1c (test code = 29294) 7.2 % HEMOGLOBIN [id number] 00:00:00 Test Item Value Reference Range Interpretation Comments HEMOGLOBIN A1c (test code = 30537) 7.2 % CBC W/AUTO [id number] 00:00:00 Test Item Value Reference Range Interpretation Comments WBC (test code = 1001) 5.3 K/UL RBC (test code = 1002) 4.15 M/UL HEMOGLOBIN (test code = 1003) 13.5 G/DL HEMATOCRIT (test code = 1004) 39.6 % MCV (test code = 1005) 95.4 fL MCH (test code = 1006) 32.5 PG MCHC (test code = 1007) 34.1 G/DL RDW (test code = 1038) 13.6 % NEUTROPHILS (test code = 1008) 54.3 % LYMPHOCYTES (test code = 1010) 34.9 % MONOCYTES (test code = 1011) 7.7 % EOSINOPHILS (test code = 1012) 2.3 % BASOPHILS (test code = 1013) 0.6 % IMMATURE GRANULOCYTES (test 0.2 % code = 1036) NUCLEATED RBCS (test code = 0.0 /100WBC'S 1065) PLATELET COUNT (test code = 205 K/UL 1015) ABSOLUTE NEUTROPHILS (test code 2.88 K/UL = 1066) ABSOLUTE LYMPHOCYTES (test code 1.85 K/UL = 1067) ABSOLUTE MONOCYTES (test code = 0.41 K/UL 1068) ABSOLUTE EOSINOPHILS (test code 0.12 K/UL = 1040) ABSOLUTE BASOPHILS (test code = 0.03 K/UL 1069) ABS IMMATURE GRANULOCYTES (test 0.01 K/UL code = 1020) ABS NUCLEATED RBCS (test code = 0.00 K/UL 63529) CBC W/AUTO [id number] 00:00:00 Test Item Value Reference Range Interpretation Comments WBC (test code = 1001) 5.3 K/UL RBC (test code = 1002) 4.15 M/UL HEMOGLOBIN (test code = 1003) 13.5 G/DL HEMATOCRIT (test code = 1004) 39.6 % MCV (test code = 1005) 95.4 fL MCH (test code = 1006) 32.5 PG MCHC (test code = 1007) 34.1 G/DL RDW (test code = 1038) 13.6 % NEUTROPHILS (test code = 1008) 54.3 % LYMPHOCYTES (test code = 1010) 34.9 % MONOCYTES (test code = 1011) 7.7 % EOSINOPHILS (test code = 1012) 2.3 % BASOPHILS (test code = 1013) 0.6 % IMMATURE GRANULOCYTES (test 0.2 % code = 1036) NUCLEATED RBCS (test code = 0.0 /100WBC'S 1065) PLATELET COUNT (test code = 205 K/UL 1015) ABSOLUTE NEUTROPHILS (test code 2.88 K/UL = 1066) ABSOLUTE LYMPHOCYTES (test code 1.85 K/UL = 1067) ABSOLUTE MONOCYTES (test code = 0.41 K/UL 1068) ABSOLUTE EOSINOPHILS (test code 0.12 K/UL = 1040) ABSOLUTE BASOPHILS (test code = 0.03 K/UL 1069) ABS IMMATURE GRANULOCYTES (test 0.01 K/UL code = 1020) ABS NUCLEATED RBCS (test code = 0.00 K/UL 85923) CBC W/AUTO [id number] 00:00:00 Test Item Value Reference Range Interpretation Comments WBC (test code = 1001) 5.3 K/UL RBC (test code = 1002) 4.15 M/UL HEMOGLOBIN (test code = 1003) 13.5 G/DL HEMATOCRIT (test code = 1004) 39.6 % MCV (test code = 1005) 95.4 fL MCH (test code = 1006) 32.5 PG MCHC (test code = 1007) 34.1 G/DL RDW (test code = 1038) 13.6 % NEUTROPHILS (test code = 1008) 54.3 % LYMPHOCYTES (test code = 1010) 34.9 % MONOCYTES (test code = 1011) 7.7 % EOSINOPHILS (test code = 1012) 2.3 % BASOPHILS (test code = 1013) 0.6 % IMMATURE GRANULOCYTES (test 0.2 % code = 1036) NUCLEATED RBCS (test code = 0.0 /100WBC'S 1065) PLATELET COUNT (test code = 205 K/UL 1015) ABSOLUTE NEUTROPHILS (test code 2.88 K/UL = 1066) ABSOLUTE LYMPHOCYTES (test code 1.85 K/UL = 1067) ABSOLUTE MONOCYTES (test code = 0.41 K/UL 1068) ABSOLUTE EOSINOPHILS (test code 0.12 K/UL = 1040) ABSOLUTE BASOPHILS (test code = 0.03 K/UL 1069) ABS IMMATURE GRANULOCYTES (test 0.01 K/UL code = 1020) ABS NUCLEATED RBCS (test code = 0.00 K/UL 88431) VAGINAL PATHOGENS DNA [id number] 00:00:00 Test Item Value Reference Range Interpretation Comments SYD SPECIES (test code TEST NOT PERFORMED = ) G. VAGINALIS (test code = TEST NOT PERFORMED ) T. VAGINALIS (test code = TEST NOT PERFORMED ) COMPREHENSIVE METABOLIC [id number] 00:00:00 Test Item Value Reference Range Interpretation Comments GLUCOSE (test code = 2217) 151 MG/DL BUN (test code = 2208) 16 MG/DL CREATININE (test code = 2214) 0.84 MG/DL eGFR (2020 CKD-EPI) (test code 83 ML/MIN/1.73 = 29281) CALC BUN/CREAT (test code = 19 RATIO 2235) SODIUM (test code = 2231) 140 MEQ/L POTASSIUM (test code = 2228) 4.7 MEQ/L CHLORIDE (test code = 2215) 104 MEQ/L CARBON DIOXIDE (test code = 23 MEQ/L 2205) CALCIUM (test code = 2209) 9.3 MG/DL PROTEIN, TOTAL (test code = 7.1 G/DL 2228) ALBUMIN (test code = 2201) 4.5 G/DL CALC GLOBULIN (test code = 2.6 G/DL 2240) CALC A/G RATIO (test code = 1.7 RATIO 2234) BILIRUBIN, TOTAL (test code = 0.3 MG/DL 2206) ALKALINE PHOSPHATASE (test 71 U/L code = 2204) AST (test code = 2218) 15 U/L ALT (test code = 2219) 16 U/L VAGINAL PATHOGENS DNA [id number] 00:00:00 Test Item Value Reference Range Interpretation Comments SYD SPECIES (test code TEST NOT PERFORMED = ) G. VAGINALIS (test code = TEST NOT PERFORMED ) T. VAGINALIS (test code = TEST NOT PERFORMED ) COMPREHENSIVE METABOLIC [id number] 00:00:00 Test Item Value Reference Range Interpretation Comments GLUCOSE (test code = 2217) 151 MG/DL BUN (test code = 2208) 16 MG/DL CREATININE (test code = 2214) 0.84 MG/DL eGFR (2020 CKD-EPI) (test code 83 ML/MIN/1.73 = 11583) CALC BUN/CREAT (test code = 19 RATIO 2235) SODIUM (test code = 2231) 140 MEQ/L POTASSIUM (test code = 2228) 4.7 MEQ/L CHLORIDE (test code = 2215) 104 MEQ/L CARBON DIOXIDE (test code = 23 MEQ/L 2205) CALCIUM (test code = 2209) 9.3 MG/DL PROTEIN, TOTAL (test code = 7.1 G/DL 2228) ALBUMIN (test code = 2201) 4.5 G/DL CALC GLOBULIN (test code = 2.6 G/DL 2240) CALC A/G RATIO (test code = 1.7 RATIO 2234) BILIRUBIN, TOTAL (test code = 0.3 MG/DL 2206) ALKALINE PHOSPHATASE (test 71 U/L code = 2204) AST (test code = 2218) 15 U/L ALT (test code = 2219) 16 U/L LIPID [id number] 00:00:00 Test Item Value Reference Range Interpretation Comments CHOLESTEROL (test code = 2210) 177 MG/DL TRIGLYCERIDES (test code = 2232) 179 MG/DL HDL CHOLESTEROL (test code = 2220) 36 MG/DL CALC LDL CHOL (test code = 2237) 111 MG/DL RISK RATIO LDL/HDL (test code = 3.08 RATIO 2238) LIPID [id number] 00:00:00 Test Item Value Reference Range Interpretation Comments CHOLESTEROL (test code = 2210) 177 MG/DL TRIGLYCERIDES (test code = 2232) 179 MG/DL HDL CHOLESTEROL (test code = 2220) 36 MG/DL CALC LDL CHOL (test code = 2237) 111 MG/DL RISK RATIO LDL/HDL (test code = 3.08 RATIO 2238) TSH, THIRD [id number] 00:00:00 Test Item Value Reference Range Interpretation Comments TSH, THIRD GENERATION (test code 2.930 UIU/ML = 2821) TSH, THIRD [id number] 00:00:00 Test Item Value Reference Range Interpretation Comments TSH, THIRD GENERATION (test code 2.930 UIU/ML = 2821) TSH, THIRD [id number] 00:00:00 Test Item Value Reference Range Interpretation Comments TSH, THIRD GENERATION (test code 2.930 UIU/ML = 2821) HEMOGLOBIN [id number] 00:00:00 Test Item Value Reference Range Interpretation Comments HEMOGLOBIN A1c (test code = 86151) 7.2 % HEMOGLOBIN [id number] 00:00:00 Test Item Value Reference Range Interpretation Comments HEMOGLOBIN A1c (test code = 79683) 7.2 % HEMOGLOBIN [id number] 00:00:00 Test Item Value Reference Range Interpretation Comments HEMOGLOBIN A1c (test code = 25937) 7.2 % CBC W/AUTO [id number] 00:00:00 Test Item Value Reference Range Interpretation Comments WBC (test code = 1001) 5.3 K/UL RBC (test code = 1002) 4.15 M/UL HEMOGLOBIN (test code = 1003) 13.5 G/DL HEMATOCRIT (test code = 1004) 39.6 % MCV (test code = 1005) 95.4 fL MCH (test code = 1006) 32.5 PG MCHC (test code = 1007) 34.1 G/DL RDW (test code = 1038) 13.6 % NEUTROPHILS (test code = 1008) 54.3 % LYMPHOCYTES (test code = 1010) 34.9 % MONOCYTES (test code = 1011) 7.7 % EOSINOPHILS (test code = 1012) 2.3 % BASOPHILS (test code = 1013) 0.6 % IMMATURE GRANULOCYTES (test 0.2 % code = 1036) NUCLEATED RBCS (test code = 0.0 /100WBC'S 1065) PLATELET COUNT (test code = 205 K/UL 1015) ABSOLUTE NEUTROPHILS (test code 2.88 K/UL = 1066) ABSOLUTE LYMPHOCYTES (test code 1.85 K/UL = 1067) ABSOLUTE MONOCYTES (test code = 0.41 K/UL 1068) ABSOLUTE EOSINOPHILS (test code 0.12 K/UL = 1040) ABSOLUTE BASOPHILS (test code = 0.03 K/UL 1069) ABS IMMATURE GRANULOCYTES (test 0.01 K/UL code = 1020) ABS NUCLEATED RBCS (test code = 0.00 K/UL 08815) CBC W/AUTO [id number] 00:00:00 Test Item Value Reference Range Interpretation Comments WBC (test code = 1001) 5.3 K/UL RBC (test code = 1002) 4.15 M/UL HEMOGLOBIN (test code = 1003) 13.5 G/DL HEMATOCRIT (test code = 1004) 39.6 % MCV (test code = 1005) 95.4 fL MCH (test code = 1006) 32.5 PG MCHC (test code = 1007) 34.1 G/DL RDW (test code = 1038) 13.6 % NEUTROPHILS (test code = 1008) 54.3 % LYMPHOCYTES (test code = 1010) 34.9 % MONOCYTES (test code = 1011) 7.7 % EOSINOPHILS (test code = 1012) 2.3 % BASOPHILS (test code = 1013) 0.6 % IMMATURE GRANULOCYTES (test 0.2 % code = 1036) NUCLEATED RBCS (test code = 0.0 /100WBC'S 1065) PLATELET COUNT (test code = 205 K/UL 1015) ABSOLUTE NEUTROPHILS (test code 2.88 K/UL = 1066) ABSOLUTE LYMPHOCYTES (test code 1.85 K/UL = 1067) ABSOLUTE MONOCYTES (test code = 0.41 K/UL 1068) ABSOLUTE EOSINOPHILS (test code 0.12 K/UL = 1040) ABSOLUTE BASOPHILS (test code = 0.03 K/UL 1069) ABS IMMATURE GRANULOCYTES (test 0.01 K/UL code = 1020) ABS NUCLEATED RBCS (test code = 0.00 K/UL 94052) CBC W/AUTO [id number] 00:00:00 Test Item Value Reference Range Interpretation Comments WBC (test code = 1001) 5.3 K/UL RBC (test code = 1002) 4.15 M/UL HEMOGLOBIN (test code = 1003) 13.5 G/DL HEMATOCRIT (test code = 1004) 39.6 % MCV (test code = 1005) 95.4 fL MCH (test code = 1006) 32.5 PG MCHC (test code = 1007) 34.1 G/DL RDW (test code = 1038) 13.6 % NEUTROPHILS (test code = 1008) 54.3 % LYMPHOCYTES (test code = 1010) 34.9 % MONOCYTES (test code = 1011) 7.7 % EOSINOPHILS (test code = 1012) 2.3 % BASOPHILS (test code = 1013) 0.6 % IMMATURE GRANULOCYTES (test 0.2 % code = 1036) NUCLEATED RBCS (test code = 0.0 /100WBC'S 1065) PLATELET COUNT (test code = 205 K/UL 1015) ABSOLUTE NEUTROPHILS (test code 2.88 K/UL = 1066) ABSOLUTE LYMPHOCYTES (test code 1.85 K/UL = 1067) ABSOLUTE MONOCYTES (test code = 0.41 K/UL 1068) ABSOLUTE EOSINOPHILS (test code 0.12 K/UL = 1040) ABSOLUTE BASOPHILS (test code = 0.03 K/UL 1069) ABS IMMATURE GRANULOCYTES (test 0.01 K/UL code = 1020) ABS NUCLEATED RBCS (test code = 0.00 K/UL 31224) PAP TEST, THINPREP, [id number] 09:17:47 Test Item Value Reference Range Interpretation Comments SOURCE: (test Cervical/Endo code = 8001) cervical SLIDES: (test 1 code = 8011) LMP: (test code = 09/09/2021 8021) SPECIMEN (NOTE) Satisfactory f or ADEQUACY: (test evaluation. Endocervical code = 44929) cells/transfor mation zone component present. INTERPRETATION: NILM/NO (test code = EPITH. --------- 30625) ABNORMALITY;S -------- EE BELOW NEGATIVE FO R INTRAEPITHELIAL LESION OR MALIGNANCY ( NILM) --------- --------- --------- - OTHER COMMENTS: (NOTE) Partially ob scuring (test code = inflammation is present. 8081) TEST ENGINEERING INTERN: Joey (test code = DENILSON Miranda( 8101) CP) IAC LOCATION: (test (NOTE) Specimens pr ocessed and code = 88480) interpreted at [facility], [address] [place] [address], , CLIA: [id number] CPT: (test code = (NOTE) 63402 UNL ESS OTHERWISE 8140) INDICATED, COMP UTER AIDED AND CYTOTECHNOLOGIS T SCREENING PERFO RMED. The Pap test is a s creening test with an in herent, but low probabi lity of error. Your pat ient should be remin ded to consult you imm ediately if she experien sanju any suspicious sign s or symptoms, regar dless of her Pap test re sult. An alternate repor t format containing imag es or consolidated pr ior Pap history is noman chaudahri as applicable. HPV HIGH RISK WITH GENOTYPE, [id number] 09:09:37 Test Item Value Reference Range Interpretation Comments HPV HIGH RISK INTERP NEGATIVE NEGATIVE (test code = 49286) HPV 16 (test code = NEGATIVE 43476) HPV 18 (test code = NEGATIVE 23890) HPV, HR, OTHER NEGATIVE Testing meth odology is GENOTYPES (test code real-ti me PCR utilizing = 34251) hydrolysis prob es with the [employer] 4800 system. The marilyn t individually de tects genotypes 16 an d 18, as well as the oth er 12 high risk types (31,33,35,39,45 ,51,52,56 ,58,59,66,68). The expected result is negative. A neg ative result does not rule out the presence of HPV not included in the genotype set, a low leve l of infection or sp ecimen sampling error. UNLESS OTHERWISE INDIC ATED, ALL TESTING PERFORM ED AT[facility]ICAL PATH [facility], [facility]. [address] [place] [id number] [address] DIRE CTOR: MEHDI GUERIN M.D. CLIA NUMBER [id number] [place] [id number] CT/NG, TMA, [id number] 07:43:15 Test Item Value Reference Range Interpretation Comments GONORRHEA, TMA NEGATIVE NEGATIVE Assay method ology is (test code = nucleic acid am plification 99743) by transcriptio n mediated amplification ( TMA) utilizing the A ptima Combo 2 Assay. CHLAMYDIA, TMA NEGATIVE NEGATIVE Assay method ology is (test code = nucleic acid am plification 99522) by transcriptio n mediated amplification ( TMA) utilizing the A ptima Combo 2 Assay. GC AND CHLAMYDIA AMPLIFIED, [id number] 00:00:00 Test Item Value Reference Range Interpretation Comments GONORRHEA, TMA (test code = 95282) NEGATIVE CHLAMYDIA, TMA (test code = 80396) NEGATIVE GC AND CHLAMYDIA AMPLIFIED, [id number] 00:00:00 Test Item Value Reference Range Interpretation Comments GONORRHEA, TMA (test code = 80220) NEGATIVE CHLAMYDIA, TMA (test code = 15306) NEGATIVE PAP TEST, THINPREP, [id number] 00:00:00 Test Item Value Reference Range Interpretation Comments SOURCE: (test code = Cervical/Endocervical 8001) SLIDES: (test code = 1 8011) LMP: (test code = 8021) 09/09/2021 SPECIMEN ADEQUACY: (test (NOTE) code = 97817) INTERPRETATION: (test NILM/NO EPITH. code = 90291) ABNORMALITY;SEE BELOW OTHER COMMENTS: (test (NOTE) code = 8081) TEST ENGINEERING INTERN: (test Malek code = 8101) RuthCT(ASCP) IAC LOCATION: (test code = (NOTE) 28556) CPT: (test code = 8140) (NOTE) PAP TEST, THINPREP, [id number] 00:00:00 Test Item Value Reference Range Interpretation Comments SOURCE: (test code = Cervical/Endocervical 8001) SLIDES: (test code = 1 8011) LMP: (test code = 8021) 09/09/2021 SPECIMEN ADEQUACY: (test (NOTE) code = 69009) INTERPRETATION: (test NILM/NO EPITH. code = 92249) ABNORMALITY;SEE BELOW OTHER COMMENTS: (test (NOTE) code = 8081) TEST ENGINEERING INTERN: (test Malek code = 8101) RuthCT(ASCP) IAC LOCATION: (test code = (NOTE) 89295) CPT: (test code = 8140) (NOTE) HPV HIGH RISK WITH GENOTYPE, [id number] 00:00:00 Test Item Value Reference Range Interpretation Comments HPV HIGH RISK INTERP (test code = NEGATIVE 83162) HPV 16 (test code = 62841) NEGATIVE HPV 18 (test code = 34009) NEGATIVE HPV, HR, OTHER GENOTYPES (test code NEGATIVE = 56483) HPV HIGH RISK WITH GENOTYPE, [id number] 00:00:00 Test Item Value Reference Range Interpretation Comments HPV HIGH RISK INTERP (test code = NEGATIVE 54350) HPV 16 (test code = 14519) NEGATIVE HPV 18 (test code = 80074) NEGATIVE HPV, HR, OTHER GENOTYPES (test code NEGATIVE = 96953) GC AND CHLAMYDIA AMPLIFIED, [id number] 00:00:00 Test Item Value Reference Range Interpretation Comments GONORRHEA, TMA (test code = 75636) NEGATIVE CHLAMYDIA, TMA (test code = 06826) NEGATIVE GC AND CHLAMYDIA AMPLIFIED, [id number] 00:00:00 Test Item Value Reference Range Interpretation Comments GONORRHEA, TMA (test code = 11032) NEGATIVE CHLAMYDIA, TMA (test code = 39597) NEGATIVE PAP TEST, THINPREP, [id number] 00:00:00 Test Item Value Reference Range Interpretation Comments SOURCE: (test code = Cervical/Endocervical 8001) SLIDES: (test code = 1 8011) LMP: (test code = 8021) 09/09/2021 SPECIMEN ADEQUACY: (test (NOTE) code = 51848) INTERPRETATION: (test NILM/NO EPITH. code = 03765) ABNORMALITY;SEE BELOW OTHER COMMENTS: (test (NOTE) code = 8081) TEST ENGINEERING INTERN: (test Malek code = 8101) RosemarieDENILSON(ASCP) IAC LOCATION: (test code = (NOTE) 92808) CPT: (test code = 8140) (NOTE) PAP TEST, THINPREP, [id number] 00:00:00 Test Item Value Reference Range Interpretation Comments SOURCE: (test code = Cervical/Endocervical 8001) SLIDES: (test code = 1 8011) LMP: (test code = 8021) 09/09/2021 SPECIMEN ADEQUACY: (test (NOTE) code = 87720) INTERPRETATION: (test NILM/NO EPITH. code = 19643) ABNORMALITY;SEE BELOW OTHER COMMENTS: (test (NOTE) code = 8081) TEST ENGINEERING INTERN: (test Malek code = 8101) DENILSON Miranda(ASCP) IAC LOCATION: (test code = (NOTE) 87488) CPT: (test code = 8140) (NOTE) HPV HIGH RISK WITH GENOTYPE, [id number] 00:00:00 Test Item Value Reference Range Interpretation Comments HPV HIGH RISK INTERP (test code = NEGATIVE 60723) HPV 16 (test code = 28402) NEGATIVE HPV 18 (test code = 79985) NEGATIVE HPV, HR, OTHER GENOTYPES (test code NEGATIVE = 87345) HPV HIGH RISK WITH GENOTYPE, [id number] 00:00:00 Test Item Value Reference Range Interpretation Comments HPV HIGH RISK INTERP (test code = NEGATIVE 46526) HPV 16 (test code = 42399) NEGATIVE HPV 18 (test code = 64020) NEGATIVE HPV, HR, OTHER GENOTYPES (test code NEGATIVE = 37569) GC AND CHLAMYDIA AMPLIFIED, [id number] 00:00:00 Test Item Value Reference Range Interpretation Comments GONORRHEA, TMA (test code = 89132) NEGATIVE CHLAMYDIA, TMA (test code = 65782) NEGATIVE GC AND CHLAMYDIA AMPLIFIED, [id number] 00:00:00 Test Item Value Reference Range Interpretation Comments GONORRHEA, TMA (test code = [address]) NEGATIVE CHLAMYDIA, TMA (test code = 03238) NEGATIVE PAP TEST, THINPREP, [id number] 00:00:00 Test Item Value Reference Range Interpretation Comments SOURCE: (test code = Cervical/Endocervical 8001) SLIDES: (test code = 1 8011) LMP: (test code = 8021) 09/09/2021 SPECIMEN ADEQUACY: (test (NOTE) code = 94149) INTERPRETATION: (test NILM/NO EPITH. code = 13818) ABNORMALITY;SEE BELOW OTHER COMMENTS: (test (NOTE) code = 8081) TEST ENGINEERING INTERN: (test Malek code = 8101) RuthCT(ASCP) IAC LOCATION: (test code = (NOTE) 63810) CPT: (test code = 8140) (NOTE) PAP TEST, THINPREP, [id number] 00:00:00 Test Item Value Reference Range Interpretation Comments SOURCE: (test code = Cervical/Endocervical 8001) SLIDES: (test code = 1 8011) LMP: (test code = 8021) 09/09/2021 SPECIMEN ADEQUACY: (test (NOTE) code = 64483) INTERPRETATION: (test NILM/NO EPITH. code = 95215) ABNORMALITY;SEE BELOW OTHER COMMENTS: (test (NOTE) code = 8081) TEST ENGINEERING INTERN: (test Malek code = 8101) Karinyechristin,CT(ASCP) IAC LOCATION: (test code = (NOTE) 21914) CPT: (test code = 8140) (NOTE) HPV HIGH RISK WITH GENOTYPE, [id number] 00:00:00 Test Item Value Reference Range Interpretation Comments HPV HIGH RISK INTERP (test code = NEGATIVE 85472) HPV 16 (test code = 08557) NEGATIVE HPV 18 (test code = 11886) NEGATIVE HPV, HR, OTHER GENOTYPES (test code NEGATIVE = 22908) HPV HIGH RISK WITH GENOTYPE, [id number] 00:00:00 Test Item Value Reference Range Interpretation Comments HPV HIGH RISK INTERP (test code = NEGATIVE 66451) HPV 16 (test code = 52503) NEGATIVE HPV 18 (test code = 04500) NEGATIVE HPV, HR, OTHER GENOTYPES (test code NEGATIVE = 82861) [id number] 22:56:31 Test Item Value Reference Range Interpretation Comments RPR RESULT (test NON-REACTIVE NON-REACTIVE code = 3501) RPR TITER (test NOT INDIC. NOT INDIC. UNLESS OTHE RWISE code = 3500) TITER INDICATED, ALL TESTING PERFORMED [facility] [address] [place] [address] 4 LABORATORY DIRE CTOR: MEHDI GUERIN M.D. CLIA NUMBER [id number] [facility] [id number] 00:00:00 Test Item Value Reference Range Interpretation Comments RPR RESULT (test code = NON-REACTIVE 3501) RPR TITER (test code = 3500) NOT INDIC. TITER [id number] 00:00:00 Test Item Value Reference Range Interpretation Comments RPR RESULT (test code = NON-REACTIVE 3501) RPR TITER (test code = 3500) NOT INDIC. TITER [id number] 00:00:00 Test Item Value Reference Range Interpretation Comments RPR RESULT (test code = NON-REACTIVE 3501) RPR TITER (test code = 3500) NOT INDIC. TITER [id number] 00:00:00 Test Item Value Reference Range Interpretation Comments RPR RESULT (test code = NON-REACTIVE 3501) RPR TITER (test code = 3500) NOT INDIC. TITER [id number] 00:00:00 Test Item Value Reference Range Interpretation Comments RPR RESULT (test code = NON-REACTIVE 3501) RPR TITER (test code = 3500) NOT INDIC. TITER [id number] 00:00:00 Test Item Value Reference Range Interpretation Comments RPR RESULT (test code = NON-REACTIVE 3501) RPR TITER (test code = 3500) NOT INDIC. TITER HIV 1/2 4TH GEN, RFLX [id number] 06:04:15 Test Item Value Reference Range Interpretation Comments HIV 1/2 4TH GEN, RFLX CONF (test NON-REACTIVE NON-REACTIVE code = 3514) HEPATITIS PANEL, [id number] 06:04:15 Test Item Value Reference Range Interpretation Comments HEPATITIS A IgM (test NON-REACTIVE NON-REACTIVE code = 29797) HEPATITIS B CORE IgM NON-REACTIVE NON-REACTIVE (test code = 4644) HEPATITIS B SURF AG NON-REACTIVE NON-REACTIVE (test code = 2739) HEPATITIS C ANTIBODY NON-REACTIVE NON-REACTIVE (test code = 4675) INTERPRETATION (NOTE) Hepatitis A HEPATITIS A: (test code sero logy shows no = 2552) evidence of acu te hepatitis A. INTERPRETATION (NOTE) Hepatitis B HEPATITIS B: (test code sero logy shows no = 16171) evidence of acu te hepatitis B and no indication of exposure to hepatitis B vir us in the previous ashley eight months. INTERPRETATION (NOTE) Hepatitis C HEPATITIS C: (test code sero logy shows no = 36226) evidence of exposure to hepatitisC viru s at this time. I t can take up to 12 months after exposure tothe hepatitis C vir us for antibodies to become detectab le in the blood in certain patient s. HIV 1/2 4TH GEN, RFLX [id number] 00:00:00 Test Item Value Reference Range Interpretation Comments HIV 1/2 4TH GEN, RFLX CONF (test NON-REACTIVE code = 3514) HIV 1/2 4TH GEN, RFLX [id number] 00:00:00 Test Item Value Reference Range Interpretation Comments HIV 1/2 4TH GEN, RFLX CONF (test NON-REACTIVE code = 3514) ACUTE HEPATITIS [id number] 00:00:00 Test Item Value Reference Range Interpretation Comments HEPATITIS A IgM (test code = NON-REACTIVE 96176) HEPATITIS B CORE IgM (test code NON-REACTIVE = 4644) HEPATITIS B SURF AG (test code = NON-REACTIVE 2739) HEPATITIS C ANTIBODY (test code NON-REACTIVE = 4675) INTERPRETATION HEPATITIS A: (NOTE) (test code = 2552) INTERPRETATION HEPATITIS B: (NOTE) (test code = 75659) INTERPRETATION HEPATITIS C: (NOTE) (test code = 69408) ACUTE HEPATITIS [id number] 00:00:00 Test Item Value Reference Range Interpretation Comments HEPATITIS A IgM (test code = NON-REACTIVE 58690) HEPATITIS B CORE IgM (test code NON-REACTIVE = 4644) HEPATITIS B SURF AG (test code = NON-REACTIVE 2739) HEPATITIS C ANTIBODY (test code NON-REACTIVE = 4675) INTERPRETATION HEPATITIS A: (NOTE) (test code = 2552) INTERPRETATION HEPATITIS B: (NOTE) (test code = 20013) INTERPRETATION HEPATITIS C: (NOTE) (test code = 11965) HIV 1/2 4TH GEN, RFLX [id number] 00:00:00 Test Item Value Reference Range Interpretation Comments HIV 1/2 4TH GEN, RFLX CONF (test NON-REACTIVE code = 3514) HIV 1/2 4TH GEN, RFLX [id number] 00:00:00 Test Item Value Reference Range Interpretation Comments HIV 1/2 4TH GEN, RFLX CONF (test NON-REACTIVE code = 3514) ACUTE HEPATITIS [id number] 00:00:00 Test Item Value Reference Range Interpretation Comments HEPATITIS A IgM (test code = NON-REACTIVE 52972) HEPATITIS B CORE IgM (test code NON-REACTIVE = 4644) HEPATITIS B SURF AG (test code = NON-REACTIVE 2739) HEPATITIS C ANTIBODY (test code NON-REACTIVE = 4675) INTERPRETATION HEPATITIS A: (NOTE) (test code = 2552) INTERPRETATION HEPATITIS B: (NOTE) (test code = 30167) INTERPRETATION HEPATITIS C: (NOTE) (test code = 45697) ACUTE HEPATITIS [id number] 00:00:00 Test Item Value Reference Range Interpretation Comments HEPATITIS A IgM (test code = NON-REACTIVE 71149) HEPATITIS B CORE IgM (test code NON-REACTIVE = 4644) HEPATITIS B SURF AG (test code = NON-REACTIVE 2739) HEPATITIS C ANTIBODY (test code NON-REACTIVE = 4675) INTERPRETATION HEPATITIS A: (NOTE) (test code = 2552) INTERPRETATION HEPATITIS B: (NOTE) (test code = 56149) INTERPRETATION HEPATITIS C: (NOTE) (test code = 70653) GLUCOSE BEDSIDE [id number] 08:47:00 Test Item Value Reference Range Interpretation Comments GLUCOSE BEDSIDE TESTING (test code 175 mg/dL 70-110 H = GLUBED) BASIC METABOLIC [id number] 07:29:00 Test Item Value Reference Range Interpretation [...] CA) 9.0 MG/DL 8.5-10.1 N CBC W/AUTO [id number] 07:06:00 Test Item Value Reference Range Interpretation [...] NO DIFF/SCN CRITERIA = MDIFF) GLUCOSE BEDSIDE [id number] 20:57:00 Test Item Value Reference Range Interpretation Comments GLUCOSE BEDSIDE TESTING (test code 208 mg/dL 70-110 H = GLUBED) GLUCOSE BEDSIDE [id number] 16:58:00 Test Item Value Reference Range Interpretation Comments GLUCOSE BEDSIDE TESTING (test code 269 mg/dL 70-110 H = GLUBED) GLUCOSE BEDSIDE [id number] 12:06:00 Test Item Value Reference Range Interpretation Comments GLUCOSE BEDSIDE TESTING (test code 204 mg/dL 70-110 H = GLUBED) GLUCOSE BEDSIDE [id number] 08:48:00 Test Item Value Reference Range Interpretation Comments GLUCOSE BEDSIDE TESTING (test code 148 mg/dL 70-110 H = GLUBED) BASIC METABOLIC [id number] 06:51:00 Test Item Value Reference Range Interpretation [...] CA) 8.7 MG/DL 8.5-10.1 N CBC W/AUTO [id number] 06:30:00 Test Item Value Reference Range Interpretation [...] code NO DIFF/SCN CRITERIA = MDIFF) LACTIC [id number] 23:28:00 Test Item Value Reference Range Interpretation Comments LACTIC ACID (test code = LACT) 1.5 mmol/L 0.4-2.0 N GLUCOSE BEDSIDE [id number] 21:02:00 Test Item Value Reference Range Interpretation Comments GLUCOSE BEDSIDE TESTING (test code 218 mg/dL 70-110 H = GLUBED) LACTIC [id number] 19:06:00 Test Item Value Reference Range Interpretation Comments LACTIC ACID (test code = LACT) 2.2 mmol/L 0.4-2.0 H ARTERIAL BLOOD [id number] 16:22:00 Test Item Value Reference Range Interpretation [...] (test Yes Circ.CHK POSITIVE code = MODALL) PaO2/[id number] 16:22:00 Test Item Value Reference Range Interpretation Comments PaO2/FiO2 (test code = PRD0GEW8) mm/Hg >200 ARTERIAL BLOOD [id number] 16:22:00 Test Item Value Reference Range Interpretation [...] (test Yes Circ.CHK POSITIVE code = MODALL) PaO2/[id number] 16:22:00 Test Item Value Reference Range Interpretation Comments PaO2/FiO2 (test code = BFK0NVI8) 366.7 mm/Hg >200 GLUCOSE BEDSIDE [id number] 15:47:00 Test Item Value Reference Range Interpretation Comments GLUCOSE BEDSIDE TESTING (test code 185 mg/dL 70-110 H = GLUBED) [id number] 15:22:00 Test Item Value Reference Range Interpretation Comments D-DIMER (test code = DDIMER) 567 ng/mLFEU 215-500 HH COMPREHENSIVE METABOLIC [id number] 15:22:00 Test Item Value Reference Range Interpretation [...] N code = ALKP) Completed by Nursing: [id number] 15:22:00 Test Item Value Reference Range Interpretation Comments PHOSPHOROUS (test code = PHOS) 2.7 MG/DL 2.5-4.9 N Completed by Nursing: [id number] 15:22:00 Test Item Value Reference Range Interpretation Comments MAGNESIUM (test code = MAG) 2.0 MG/DL 1.8-2.4 N Completed by Nursing: [id number] 15:22:00 Test Item Value Reference Range Interpretation [...] yby method. Completed by Nursing: NOCBC W/AUTO [id number] 14:54:00 Test Item Value Reference Range Interpretation [...] CRITERIA = MDIFF) - CTA CHEST FOR [id number] 14:33:00 [facility] 09/23/1959 Sex: F Name: ABBE CORONADO [facility] : 09/23/1959 Age/S: 60 / F [id number] [address] [address] [place] Unit #: [id number] Loc: [place] [address] Phys: Claudette Asencio Acct: [id number] Dis Date: Status: ADM IN PHONE #: [phone] Exam Date: 05/05/2020 1425 FAX #: Reason: shortness of breath, tachycardia EXAMS: CPT: [id number] [address] EXAM: CTA CHEST WITH CONTRAST. INDICATION: SHORTNESS OF BREATH, TACHYCARDIA COMPARISON: None available TECHNIQUE: Axial CTA imaging of the chest was obtained with administrationof intravenous contrast. Coronal and sagittal MIP images were submitted for review. IV contrast: 100mL of Isovue-370 DLP: 325.23 mGy-cm FINDINGS: No [...] of the thoracic spine. IMPRESSION: No pulmonary embolus is identified. Minimal bibasilar atelectasis. LOCATION: B2 This CT exam was performed according to our departmental dose optimization program, which includes automated exposure control, adjustment of the mA and or kV according to patient size and/or use of iterative reconstruction technique. at 1433 Reported and signed by: Connie Finley M.D. PAGE 1 Signed Report (CONTINUED) Name: ABBE CORONADO [facility] : 09/23/1959 Age/S: 60 / F [id number] [address] [place] Unit #: [id number] Loc: [place] [address] Phys: Claudette Asencio Acct: [id number] Dis Date: Status: ADM IN PHONE #: [phone] Exam Date: 05/05/2020 1425 FAX #: Reason: shortness of breath, tachycardia EXAMS: CPT: [id number] [place] [address] (Continued) CC: Claudette GARDUNO; Florecnio Tejeda MD Technologist:Bryce Moreno, RT(R)(CT); Adam CTDI: DLP: Trnscb Date/Time: 05/05/2020 (1433) [email or web address] Orig Print D/T: S: 05/05/2020 (1436) PAGE 2 Signed Report- CT HEAD/BRAIN W/O CONT 2020-05-05 14:23:00 [facility] 09/23/1959 Sex: F Name: ABBE CORONADO [place] : 09/23/1959 Age/S: 60 / F [address] [address] [place] [address] [place] Unit #: [id number] Loc: [place] [address] Phys: Claudette Asencio Acct: [id number] Dis Date: Status: ADM IN PHONE #: [phone] Exam Date: 05/05/2020 1410 FAX #: Reason: NUMBNESS EXAMS: CPT: [id number] CT HEAD/BRAIN W/O [id number] EXAM: CT BRAIN WITHOUT CONTRAST INDICATION: NUMBNESS COMPARISON: MRI [...] of iterative reconstruction technique. at 1423 Reported andsigned by: Connie Finley M.D. CC: Claudette GARDUNO; Florencio Tejeda MD Technologist:Yaritza Valle RT(R)(CT) CTDI: DLP: Trnscb Date/Time: 05/05/2020 (1423) 16 Orig Print D/T: S: 05/05/2020 (2907) PAGE 1 Signed Report GLUCOSE BEDSIDE [id number] 12:01:00 Test Item Value Reference Range Interpretation Comments GLUCOSE BEDSIDE TESTING (test code 202 mg/dL 70-110 H = GLUBED) GLUCOSE BEDSIDE [id number] 12:01:00 Test Item Value Reference Range Interpretation Comments GLUCOSE BEDSIDE TESTING (test code 155 mg/dL 70-110 H = GLUBED) BASIC METABOLIC [id number] 07:35:00 Test Item Value Reference Range Interpretation [...] CA) 8.7 MG/DL 8.5-10.1 N CBC W/AUTO [id number] 07:28:00 Test Item Value Reference Range Interpretation [...] NO DIFF/SCN CRITERIA = MDIFF) GLUCOSE BEDSIDE [id number] 20:39:00 Test Item Value Reference Range Interpretation Comments GLUCOSE BEDSIDE TESTING (test code 212 mg/dL 70-110 H = GLUBED) GLUCOSE BEDSIDE [id number] 15:41:00 Test Item Value Reference Range Interpretation Comments GLUCOSE BEDSIDE TESTING (test code 166 mg/dL 70-110 H = GLUBED) CREATINE KINASE (CK)2020-05-04 15:16:00 Test Item Value Reference Range Interpretation Comments CREATINE KINASE (CK) (test code = 94 Unit/L 26-192 N CK) Completed by Nursing: [id number] 15:16:00 Test Item Value Reference Range Interpretation [...] method. Completed by Nursing: NO- CT ANGIO [id number] 14:49:00 [facility] 09/23/1959 Sex: F Name: ABBE CORONADO [facility] : 09/23/1959 Age/S: 60 / F [address] [address] [place] Unit #: [id number] Loc: [place] [address] Phys: Claudette Asencio PA Acct: [id number] Dis Date: Status: ADM IN PHONE #: [phone] Exam Date: 05/04/2020 1432 FAX #: Reason: severe headache, bilateral extremity numbness EXAMS: CPT: [id number] CT ANGIO NECK [address]322 EXAM: CTA BRAIN EXAM: CTA NECK INDICATION: SEVERE HEADACHE, BILATERAL EXTREMITY NUMBNESS COMPARISON: MRI brain dated May 04, 2020 TECHNIQUE: Rapid acquisition spiral CT images of the brain and neck were obtained between the aortic arch and the cranial vertex duringintravenous infusion of iodinated contrast for the purposes of CT angiography. Coronal and sagittal MIP reformatted images of the head and neck were submitted for review. The source images are also presented for interpretation. IV contrast: 100 mL of Isovue-370 DLP: 943.44 mGy-cm FINDINGS: NECK CTA: Aortic arch: The great vessels originate from the aortic arch in the standard configuration. No originstenosis is identified. The vertebral artery origins are patent bilaterally. Carotid arteries: The common carotid arteries and cervical internal [...] PAGE 1 Signed Report (CONTINUED) Name: ABBE SWAIN : 09/23/1959 Age/S: 60 / F [address] [address] [place] Unit #: [id number] Loc: [place] [address] Phys: Claudette Asencio Acct: [id number] Dis Date: Status: ADM IN PHONE #: [phone] Exam Date: 05/04/2020 1432 FAX #: Reason: severe headache, bilateral extremity numbness EXAMS: CPT: [id number] CT ANGIO NECK 15315 (Continued) There is no aneurysm or vascular malformation. [...] and/or use of iterative reconstruction technique. at 1449 Reported and signed by: Connie Finley M.D. CC: Claudette GARDUNO; Florencio Tejeda MD Technologist:Radha Herrera, RT(R)(CT)(MRI) CTDI: DLP: Trnscb Date/Time: 05/04/2020 (1449) 16 Orig Print D/T: S: 05/04/2020 (1451) PAGE 2 Signed Report- CT ANGIO [id number] 14:49:00 [facility] 09/23/1959 Sex: F Name: ABBE CORONADO [facility] : 09/23/1959 Age/S: 60 / F [address] [address] [place] Unit #: [id number] Loc: [place] [address] Phys: Claudette Asencio Acct: [id number] Dis Date: Status: ADM IN PHONE #: [phone] Exam Date: 05/04/2020 1425 FAX #: Reason: severe headache, bilateral extremity numbness EXAMS: CPT: [id number] CT ANGIO HEAD [address]408 EXAM: CTA BRAIN EXAM: CTA NECK INDICATION: SEVERE HEADACHE, BILATERAL EXTREMITY NUMBNESS COMPARISON: MRI brain dated May 04, 2020 TECHNIQUE: Rapid acquisition spiral CT images of the brain and neck were obtained between the aortic arch and the cranial vertex during intravenous infusion of iodinated contrast for the purposes of CT angiography. Coronal and sagittalMIP reformatted images of the head and neck were submitted for review. The source images are also presented for interpretation. IV contrast: 100 mL of Isovue-370 DLP: 943.44 mGy-cm FINDINGS: NECK CTA: Aortic arch: The great vessels originate from the aortic arch in the standard configuration. No origin stenosis is identified. The vertebral artery origins are patent bilaterally. Carotid arteries: The common carotid arteries and cervical internal carotid arteries have normal course, caliber, and contour. The bilateral carotid bifurcations are normal. The external carotid arteries are normal. There isno evidence of vascular injury. Vertebral arteries: The vertebral arteries have a normal course, caliber and contour. The vertebral arteries are codominant. The soft tissues of the neck and other incidental structures are normal. BRAIN CTA: The cervical, petrous, cavernous and supraclinoid internal carotid arteries are widely patent. The middle and anterior cerebral arteries are normal with no focalstenosis. The anterior and posterior communicating arteries are patent. The vertebral arteries are normal. The vertebrobasilar junction and basilar artery are normal. The posterior cerebral and superior cerebellar arteries are patent. Both PICAs are opacified. PAGE 1 Signed Report (CONTINUED) Name: ABBE CORONADO : 09/23/1959 Age/S: 60 / F [address] [address] [place] Unit #: [id number] Loc: [place] [address] Phys: Claudette Asencio Acct: [id number] Dis Date: Status: ADM IN PHONE #: [phone] Exam Date: 05/04/2020 1423 FAX #: Reason: severe headache, bilateral extremity numbness EXAMS: CPT: [id number] CT ANGIO HEAD [address]887 (Continued) There is no aneurysm or vascular malformation. [...] and/or use of iterative reconstruction technique. at 1449 Reported and signed by: Connie Finley M.D. CC: Claudette GARDUNO; Florencio Tejeda MD Technologist:Radha Herrera, RT(R)(CT)(MRI) CTDI: DLP: Trnscb Date/Time: 05/04/2020 (1449) [email or web address] Orig Print D/T: S: 05/04/2020 (5181) PAGE 2 Signed Report- MRI BRAIN W WO [id number] 14:20:00 [facility] 09/23/1959 Sex: F FAX: Claudette Asencio [phone] Camps: PM St: ADM FAX: Florencio Rubio MD Name: ABBE CORONADO [facility] : 09/23/1959 Age/S: 60/F [address] [address] [place] Unit #: [id number] Loc: L.[place] [place] [address] Phys: Claudette Asencio Acct: [id number] Dis Date: Status: ADM IN PHONE #: [phone] Exam Date: 05/04/2020 1400 FAX #: Reason: severe headache, bilateral extremity numbness EXAMS: CPT: [id number] MRI BRAIN W WO CONT 17081 B2 - MRI BRAIN W WO CONT HISTORY: severe headache, bilateral extremity numbness TECHNIQUE: Multiplanar multisequence MR images of the brain were obtained before and after intravenous contrast. COMPARISON: None FINDINGS: Scattered hyperintense foci in the frontal white matter on FLAIR and T2-weighted images. There is no mass, mass effect or abnormal extra-axial fluid collection. Diffusion-weighted images show no hyperacute, acute or early subacute infarction. The ventricles are normal in size, shape, and position. There are normal signal voids in the larger intracranial vessels. The paranasal sinuses and mastoid air cells are predominantly clear. The marrow signal pattern is within normal limits. No a bnormal brain parenchymal or leptomeningeal enhancement. IMPRESSION: Minimal white matter microvascular disease. No significant intracranial abnormalities. Electronically Signed by Stacia Marc 05/04/2020 at 1420 Reported and signed by: Jun Mendez M.D. CC: Claudette GARDUNO; Florencio Tejeda MD Technologist: Asa Lora RT(R)(MR) Transcribed Date/Time/By: 05/04/2020 (4910) :[email or web address] Orig Print D/T: S: 05/04/2020 (4191) PAGE 1 Signed Report [id number] 12:18:00 Test Item Value Reference Range Interpretation Comments D-DIMER (test code = DDIMER) 958 ng/mLFEU 215-500 HH COMPREHENSIVE METABOLIC [id number] 12:11:00 Test Item Value Reference Range Interpretation [...] Unit/L 26-192 N CK) NT PRO-BRAIN NATRIURETIC [id number] 12:11:00 Test Item Value Reference Range Interpretation [...] Ratio 1.48-3.22 Avg N Completed by Nursing: [id number] 12:11:00 Test Item Value Reference Range Interpretation Comments PHOSPHOROUS (test code = PHOS) 2.1 MG/DL 2.5-4.9 L Completed by Nursing: [id number] 12:11:00 Test Item Value Reference Range Interpretation Comments MAGNESIUM (test code = MAG) 2.1 MG/DL 1.8-2.4 N Completed by Nursing: NOTHYROID STIMULATING [id number] 12:11:00 Test Item Value Reference Range Interpretation Comments THYROID STIMULATING HORMONE 4.790 mcIU/ML 0.340-4.820 N (test code = TSH) Completed by Nursing: [id number] 12:11:00 Test Item Value Reference Range Interpretation [...] yby method. Completed by Nursing: NOGLYCOSYLATED HEMOGLOBIN [id number] 11:55:00 Test Item Value Reference Range Interpretation Comments GLYCOSYLATED HEMOGLOBIN (HA1C) 7.2 % A1C 0.0-5.7 H (test code = GLYHGB) ESTIMATED AVERAGE GLUCOSE (test 160 MG/DLest code = EAG) CBC W/AUTO [id number] 11:38:00 Test Item Value Reference Range Interpretation [...] (test code NO DIFF/SCN CRITERIA = MDIFF) POCT HEMOGLOBIN A1C [id number] 18:00:00 Test Item Value Reference Range Interpretation Comments POCT HBA1C (test code = 4548-4) 7.4 % 4-6 A Lab Interpretation (test code = Abnormal 08574-9) [facility] [id number] 18:00:00 Test Item Value Reference Range Interpretation Comments POCT HBA1C (test code = 4548-4) 7.4 % 4-6 A Lab Interpretation (test code = Abnormal 30886-0) [facility]
[2022-04-09] MEDS ORDERED: MAGNES/ALUMIN/SIMET 30ML UCUP ONE (11:15)
[2022-04-09] MEDS ORDERED: LIDOCAINE VISCOUS 2% SOLN 15 ML UDC ONE (11:15)
[2022-04-09 11:21] LABS: Absolute Lymphocytes (CBC) 1.1 K/uL (0.7-4.9); Hematocrit 41.3 % (36.0-45.0); Lymphocytes % 22.3 % (15.3-44.8); MCV 95.1 fL (80-100); MPV 8.3 fL (7.6-11.3); RBC Red Blood Cell Count 4.35 M/uL (3.86-4.86)
[2022-04-09 11:31] LABS: Protime INR 1.05
[2022-04-09 11:48] LABS: ALT/SGPT 29 U/L (12-78); AST/SGOT 13 U/L (15-37); Albumin 3.7 g/dL (3.4-5.0); Alkaline Phosphatase 78 U/L (45-117); BUN Blood Urea Nitrogen 17 mg/dL (7-18); Bicarbonate 23 mmol/L (21-32); Bilirubin Total 0.4 mg/dL (0.2-1.0); Glomerular Filtration Rate 62 ml/min (=/>90); Glucose Level 315 mg/dL (74-106); Magnesium 2.2 mg/dL (1.8-2.4); NT PRO-BNP 197 pg/mL (<125); Potassium 3.2 mmol/L (3.5-5.1); Protein, Total 7.7 g/dL (6.4-8.2); Sodium Level 133 mmol/L (136-145)
[2022-04-09 11:49] LABS: Bilirubin Direct < 0.1 mg/dL (0-0.2)
--- NOTE | 2022-04-09 11:49 | RAD REPORT ---
EXAM DESCRIPTION: RAD - Chest Single View - 04/09/2022 11:28 am CLINICAL HISTORY: CHEST PAIN COMPARISON: Portable 01/12/2021 TECHNIQUE: AP portable chest image was obtained 04/09/2022 11:28 am . FINDINGS: Lung volumes are low. No peripheral mass, consolidation or failure finding. Heart and vasc ulature are normal. No measurable pleural effusion and no pneumothorax. No acute bony abnormality see n. No acute aortic findings suspected. No significant change from comparison study. IMPRESSION: Limited portable study without acute cardiopulmonary finding.
[2022-04-09 11:51] LABS: Troponin High Sensitivity 127.5 pg/mL (<58.9)
[2022-04-09] MEDS ORDERED: ASPIRIN 81 MG CHEWABLE TABLET ONE (11:54)
[2022-04-09 11:58] LABS: SARS-COV-2 RT PCR NEGATIVE (NEGATIVE)
--- NOTE | 2022-04-09 11:58 | ER ---
[facility] Name: Ivonne Anderson Age: 56 yrs Sex: Female : 1965 Arrival Date: 04/09/2022 Time: 10:46 Bed 13 Private MD: Diagnosis: Non ST elevation ND Presentation: 04/09 10:51 Chief complaint: Patient states: Chest pain that began last night that radiates to Left vg1 arm and SANDRO side of Jaw. States SOB, dizziness, severe headache, and blurred vision. Coronavirus screen: Vaccine status: Patient reports receiving the 2nd dose of the covid vaccine. Client denies travel out of the [place] in the last 14 days. Ebola Screen: Patient negative for fever greater than or equal to 101.5 degrees Fahrenheit, and additional compatible Ebola Virus Disease symptoms. Initial Sepsis Screen: Does the patient meet any 2 criteria? No. Patient's initial sepsis screen is negative. Does the patient have a suspected source of infection? No. Patient's initial sepsis screen is negative. Risk Assessment: Do you want to hurt yourself or someone else? Patient reports no desire to harm self or others. Onset of symptoms was April 08, 2022. 10:51 Method Of Arrival: Ambulatory vg1 10:51 Acuity: HANNA 2 vg1 Triage Assessment: 10:53 General: Appears uncomfortable, Behavior is cooperative. Pain: Complains of pain in vg1 chest and head Pain currently is 10 out of 10 on a pain scale. Pain began 1 day ago. Neuro: Level of Consciousness is awake, alert, obeys commands, Oriented to person, place, time, situation, Reports blurred vision dizziness, headache. Cardiovascular: Patient's skin is warm and dry. 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 - Social history:: Smoking status: Patient denies any tobacco usage or history of. Screenin:28 Abuse screen: Denies threats or abuse. Denies injuries from another. Nutritional tp1 screening: No deficits noted. Tuberculosis screening: No symptoms or risk factors identified. Fall Risk None identified. Assessment: 11:00 General: Appears in no apparent distress. uncomfortable, Behavior is cooperative, tp1 anxious. Pain: Complains of pain in chest Pain radiates to left arm and jaw Pain currently is 10 out of 10 on a pain scale. Quality of pain is described as sharp, Pain began 1 day ago. Neuro: Level of Consciousness is awake, alert, obeys commands, Oriented to person, place, time, situation, Reports blurred vision headache. Neuro: Reports dizziness. Cardiovascular: Reports diaphoresis, Capillary refill < 3 seconds in bilateral fingers Patient's skin is warm and dry. Respiratory: Reports shortness of breath Airway is patent Respiratory effort is even, unlabored, Denies pain with respiration. GI: Abdomen is obese. : No signs and/or symptoms were reported regarding the genitourinary system. EENT: Reports burning pain in throat. Derm: Skin is pink, warm \T\ dry. Musculoskeletal: Circulation, motion, and sensation intact. 11:51 Reassessment: SHAAN Penn notified of critical lab value- troponin. ss 12:00 Reassessment: Patient appears in no apparent distress at this time. No changes from tp1 previously documented assessment. Patient and/or family updated on plan of care and expected duration. Pain level reassessed. Patient is alert, oriented x 3, equal unlabored respirations, skin warm/dry/pink. Continues to CO chest pain and headache. states throat feels better. provider notified. 12:50 Reassessment: Patient appears in no apparent distress at this time. Patient is alert, tp1 oriented x 3, equal unlabored respirations, skin warm/dry/pink. states chest pain has decreased slightly. 13:30 Reassessment: Patient appears in no apparent distress at this time. No changes from tp1 previously documented assessment. Patient is alert, oriented x 3, equal unlabored respirations, skin warm/dry/pink. 14:45 Reassessment: Report given to Maricruz WELCH. tp1 Vital Signs: 10:51 BP 159 / 95; Pulse 125; Resp 22; Temp 99.0; Pulse Ox 100% on R/A; Weight 69.4 kg; vg1 Height 5 ft. 0 in. (152.40 cm); Pain 10/10; 11:28 BP 140 / 92; Pulse 101; Resp 24; Pulse Ox 99% on R/A; tp1 11:35 BP 125 / 87; Pulse 87; Resp 18; Pulse Ox 98% on R/A; tp1 12:10 BP 130 / 95; Pulse 109; Resp 15; Pulse Ox 100% ; tp1 13:03 BP 144 / 90; Pulse 77; Resp 18; Pulse Ox 100% on R/A; tp1 14:45 BP 144 / 93; Pulse 77; Resp 14; Pulse Ox 100% ; tp1 10:51 Body Mass Index 29.88 (69.40 kg, 152.40 cm) vg1 ED Course: 10:46 Patient arrived in ED. mr 10:51 Fili Steward PA is PHCP. jmm 10:51 Keven Mendez MD is Attending Physician. jmm 10:53 Triage completed. vg1 10:53 Arm band placed on. vg1 11:00 Patient has correct armband on for positive identification. Bed in low position. Call tp1 light in reach. Side rails up X 1. Client placed on continuous cardiac and pulse oximetry monitoring. NIBP monitoring applied. 11:06 No provider procedures requiring assistance completed. EKG done. Inserted saline lock: tp1 20 gauge in right antecubital area, using aseptic technique. Blood collected. Patient maintains SpO2 saturation greater than 95% on room air. 11:27 Ivana Hernandez, RN is Primary Nurse. tp1 11:30 XRAY Chest (1 view) In Process Unspecified. EDMS 11:57 Giovanny Murcia MD is Hospitalizing Provider. m 14:46 Patient admitted, IV remains in place. tp1 Administered Medications: 11:18 Drug: GI Cocktail without - (Maalox Suspension 30 ml, Lidocaine Liquid 2 % 15 tp1 ml) Route: PO; 12:12 Follow up: Response: Pain is decreased tp1 11:55 Drug: Aspirin Chewable Tablet 324 mg Route: PO; tp1 12:50 Follow up: Response: Pain is decreased tp1 12:08 Drug: Nitroglycerin 0.4 mg Route: Sublingual; tp1 12:51 Follow up: Response: Pain is decreased tp1 12:08 Drug: NS 0.9% 500 ml Route: IV; Rate: bolus; Site: right antecubital; tp1 12:51 Follow up: IV Status: Completed infusion; IV Intake: 500ml tp1 Medication: 11:32 VIS not applicable for this client. tp1 Intake: 12:51 IV: 500ml; Total: 500ml. tp1 Outcome: 11:58 Decision to Hospitalize by Provider. 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 tp1 14:46 Condition: good 14:46 Discharge instructions given to patient, Instructed on the need for admit, Demonstrated understanding of instructions. 15:03 Patient left the ED. tp1 Signatures: Dispatcher [employer] EDMS Fili Steward PA PA jmm Howard, Kimberli mr Mena Neal, RN RN ss Marcelina Lugo RN RN vg1 Ivana Hernandez RN RN tp1
--- NOTE | 2022-04-09 11:58 | EDPHYS ---
Physician Documentation [facility] Name: Ivonne Anderson Age: 56 yrs Sex: Female : 1965 Arrival Date: 04/09/2022 Time: 10:46 Bed 13 Private MD: ED Physician Keven Mendez HPI: 04/09 10:52 This 56 yrs old Female presents to ER via Ambulatory with complaints of Chest jmm Pain, Arm Pain, Headache. 10:52 The patient or guardian reports chest pain that is located primarily in the substernal jmm area. Onset: gradually, last night. The pain radiates to jaw. Associated signs and symptoms: Pertinent positives: dizziness, lightheadedness. The chest pain is described as burning. Duration: The patient or guardian reports a single episode, that is still ongoing. This is a 56 year old female with a history of dm, hlp, htn that presents to the ED with complaints of substernal chest pain which the patient stated began last night. Patient states pain intensified this morning with radiation into her jaw and left arm. Denies history of CAD. . 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 - Social history:: Smoking status: Patient denies any tobacco usage or history of. ROS: 10:52 Constitutional: Negative for fever, chills, and weight loss. jmm 10:52 Cardiovascular: Positive for chest pain. 10:52 Neuro: Positive for dizziness, headache. 10:52 All other systems are negative. Exam: 10:52 Head/Face: atraumatic. Eyes: EOMI, no conjunctival erythema appreciated ENT: Moist jmm Mucus Membranes Neck: Trachea midline, Supple Chest/axilla: Normal chest wall appearance and motion. Cardiovascular: Regular rate and rhythm. No edema appreciated Respiratory: Normal respirations, no respiratory distress appreciated Abdomen/GI: Non distended Back: Normal ROM 10:52 Constitutional: The patient appears in no acute distress, alert, awake. 10:52 Skin: Appearance: Color: normal in color. 10:52 Neuro: Motor: is normal. 10:52 Psych: Behavior/mood is pleasant, cooperative, anxious. Vital Signs: 10:51 BP 159 / 95; Pulse 125; Resp 22; Temp 99.0; Pulse Ox 100% on R/A; Weight 69.4 kg; vg1 Height 5 ft. 0 in. (152.40 cm); Pain 10/10; 11:28 BP 140 / 92; Pulse 101; Resp 24; Pulse Ox 99% on R/A; tp1 11:35 BP 125 / 87; Pulse 87; Resp 18; Pulse Ox 98% on R/A; tp1 12:10 BP 130 / 95; Pulse 109; Resp 15; Pulse Ox 100% ; tp1 13:03 BP 144 / 90; Pulse 77; Resp 18; Pulse Ox 100% on R/A; tp1 14:45 BP 144 / 93; Pulse 77; Resp 14; Pulse Ox 100% ; tp1 10:51 Body Mass Index 29.88 (69.40 kg, 152.40 cm) vg1 MDM: 10:56 Patient medically screened. [facility] 11:57 Data reviewed: vital signs, nurses notes. Counseling: I had a detailed discussion with tila the patient and/or guardian regarding: the historical points, exam findings, and any diagnostic results supporting the discharge/admit diagnosis, lab results, the need for further work-up and treatment in the hospital. ED course: I discussed the patient with Paula whom accepted the patient to Dr. Murcia's service. . 04/09 10:52 Order name: Basic Metabolic Panel; Complete Time: 11:53 [facility] 04/09 10:52 Order name: CBC with Diff; Complete Time: 11:35 [facility] 04/09 10:52 Order name: LFT's; Complete Time: 11:53 [facility] 04/09 10:52 Order name: Magnesium; Complete Time: 11:53 [facility] 04/09 10:52 Order name: NT PRO-BNP; Complete Time: 11:53 [facility] 04/09 10:52 Order name: PT-INR; Complete Time: 11:35 [facility] 04/09 10:52 Order name: Troponin HS; Complete Time: 11:53 [facility] 04/09 10:52 Order name: COVID-19/FLU A+B; Complete Time: 11:59 [facility] 04/09 10:54 Order name: TSH; Complete Time: 11:53 [facility] 04/09 10:54 Order name: D-Dimer; Complete Time: 11:44 [facility] 04/09 13:24 Order name: Lipid Profile; Complete Time: 13:25 [facility] 04/09 13:24 Order name: Hemoglobin A1c; Complete Time: 13:25 [facility] 04/09 13:31 Order name: Phosphorus; Complete Time: 13:36 [facility] 04/09 13:31 Order name: NT PRO-BNP; Complete Time: 13:36 [facility] 04/09 10:52 Order name: XRAY Chest (1 view); Complete Time: 11:50 [facility] 04/09 10:52 Order name: EKG; Complete Time: 10:53 [facility] 04/09 10:52 Order name: Cardiac monitoring; Complete Time: 11:13 [facility] 04/09 10:52 Order name: EKG - Nurse/Tech; Complete Time: 11:13 [facility] 04/09 10:52 Order name: IV Saline Lock; Complete Time: 11:13 [facility] 04/09 10:52 Order name: Labs collected and sent; Complete Time: 11:13 [facility] 04/09 10:52 Order name: O2 Per Protocol; Complete Time: 11:13 [facility] 04/09 13:06 Order name: CT Head Brain wo Cont [facility] 04/09 13:31 Order name: T4 Free; Complete Time: 13:36 [facility] 04/09 13:31 Order name: Magnesium; Complete Time: 13:36 [facility] 04/09 13:31 Order name: Thyroid Stimulating Hormone; Complete Time: 13:36 [facility] 04/09 13:51 Order name: CT; Complete Time: 13:52 [facility] 04/09 10:52 Order name: O2 Sat Monitoring; Complete Time: 11:13 [facility] Administered Medications: 11:18 Drug: GI Cocktail without - (Maalox Suspension 30 ml, Lidocaine Liquid 2 % 15 tp1 ml) Route: PO; 12:12 Follow up: Response: Pain is decreased tp1 11:55 Drug: Aspirin Chewable Tablet 324 mg Route: PO; tp1 12:50 Follow up: Response: Pain is decreased tp1 12:08 Drug: Nitroglycerin 0.4 mg Route: Sublingual; tp1 12:51 Follow up: Response: Pain is decreased tp1 12:08 Drug: NS 0.9% 500 ml Route: IV; Rate: bolus; Site: right antecubital; tp1 12:51 Follow up: IV Status: Completed infusion; IV Intake: 500ml tp1 Disposition: 18:03 I agree with the assessment and plan of care. Attestation: The patient's history, exam [id number] findings, diagnostics, and a summary of any interventions or procedures was reviewed in detail with Fili GARDUNO. Disposition Summary: 04/09/22 11:58 Hospitalization Ordered Hospitalization Status: Inpatient Admission [facility] Provider: Giovanny Murcia Location: Telemetry/MedSurg (Inpatient) [facility] Condition: Stable [facility] Problem: new [facility] Symptoms: are unchanged [facility] Bed/Room Type: Standard [facility] Room Assignment: 204(04/09/22 14:37) bd Diagnosis - Non ST elevation AL [facility] Forms: - Medication Reconciliation Form [facility] - SBAR form [facility] Signatures: Dispatcher [employer] EDMS Shirley Jones Joel, PA PA jmm Garcia, Victoria, RN RN vg1 Ivana Hernandez RN RN tp1 Keven Mendez MD MD [id number] Corrections: (The following items were deleted from the chart) 13:25 10:52 This is a 56 year old female with a history of dm, hlp, htn that presents to the [facility] ED with complaints of substernal chest pain which the patient stated began last night. Patient states pain intensified this morning with radiation into her jaw. Denies history of CAD. . [facility] 14:37 11:58 [facility] bd
[2022-04-09] MEDS ORDERED: NITROGLYCERIN 0.4 MG/TAB SL ONE ×2 (12:02→12:04)
[2022-04-09] MEDS ORDERED: NA CHLORIDE 0.9% 500 ML ONE ×2 (12:04→15:10)
[2022-04-09] MEDS ORDERED: ACETAMINOPHEN 325 MG TABLET PO PRN (12:33)
[2022-04-09] MEDS ORDERED: HYDROCODONE/APAP 5/325 MG TAB PO PRN (12:33)
[2022-04-09] MEDS ORDERED: POTASSIUM CL SA 10 MEQ TAB PO ONE (12:39)
[2022-04-09] MEDS ORDERED: ONDANSETRON 4 MG/2 ML VIAL IV PRN (12:42)
[2022-04-09] MEDS ORDERED: LABETALOL 20 MG/4ML SYRINGE IV PRN (12:44)
--- NOTE | 2022-04-09 12:49 | P.HP ---
Certification for Inpatient Patient admitted to: Inpatient With expected LOS: >2 Midnights Patient will require the following post-hospital care: None Practitioner: I am a practitioner with admitting privileges, knowledge of patient current condition, hospital course, and medical plan of care. Services: Services provided to patient in accordance with Admission requirements found in Title 42 Section 412.3 of the Code of Federal Regulations Patient History Date of Service: 04/09/22 Reason for admission: Chest pain History of Present Illness: Patient is a 56-year-old female with a past medical history significant for DM 2, hypertension, osteoarthritis who presents with complaint of chest pain that has been ongoing for the past 2 days. Patient reported that she initially started having a burning sensation in the throat area for the past 3 days and 2 days later patient started experiencing pain in the substernal chest area. Patient reported that yesterday pain started radiating to all over her chest wall as well as to her back, neck, jaw bilateral cheeks as well as her left arm. Patient rated chest pain as 10/10 in severity and described pain as pressure in quality. Patient also reported numbness to left arm and bilateral cheeks. Patient reported associated signs and symptoms of diaphoresis, shortness of breath, dizziness, lightheadedness and blurry vision. Patient denies any other signs and symptoms. Symptoms are aggravated or relieved by nothing. Patient decided to present to the hospital due to worsening symptoms. 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 - Social History Smoking Status: Former smoker Alcohol use: Yes CD- Drugs: No Caffeine use: Yes Place of Residence: Home Review of Systems General: Sweats Eyes: Other (Blurry vision.) ENT: Throat Pain Respiratory: Shortness of Breath Cardiovascular: Chest Pain, Light Headedness, Other (Dizziness.) Gastrointestinal: Unremarkable Genitourinary: Unremarkable Musculoskeletal: Neck Pain, Arm Pain, Back Pain, Other (Jaw pain, bilatera cheeks ) Integumentary: Unremarkable Neurological: Other (Dizziness.) Lymphatics: Unremarkable Physical Examination - Physical Exam General: Alert, Oriented x3, Cooperative, Mild distress HEENT: Atraumatic, PERRLA, Mucous membr. moist/pink, EOMI, Sclerae nonicteric Neck: Supple, 2+ carotid pulse no bruit, No LAD, Without JVD or thyroid abnormality Respiratory: Clear to auscultation bilaterally, Normal air movement Cardiovascular: No edema, Normal S1 S2 Capillary refill: <2 Seconds Gastrointestinal: Normal bowel sounds, No tenderness Musculoskeletal: No clubbing, No swelling, No tenderness Integumentary: No rashes, No breakdown, No significant lesion, No tendern ess/swelling Neurological: Normal gait, Normal speech, Normal strength at 5/5 x4 extr, Normal tone, Normal affect Lymphatics: No axilla or inguinal lymphadenopathy - Studies Laboratory Data (last 24 hrs) 04/09/22 11:07: PT 11.5, INR 1.05 04/09/22 11:07: WBC 4.80, Hgb 13.7, Hct 41.3, Plt Count 198 04/09/22 11:07: Sodium 133 L, Potassium 3.2 L, BUN 17, Creatinine 1.07, Glucose 315 H, Magnesium 2.2, Total Bilirubin 0.4, AST 13 L, ALT 29, Alkaline Phosphatase 78 Assessment and Plan - Plan -- NSTEMI. Serial troponins elevated. We will continue to trend troponin levels. Cardiology consulted. Echocardiogram pending to assess LV\valvular function and wall motion. Telemetry to monitor for any significant arrhythmia. We will await further recommendation from coding quality coordinator. -- DM2. BS monitoring with sliding scale insulin. --Hypertension. Poorly controlled. Continue home medications and labetalol as needed. -- Osteoarthritis. We will manage pain with current pain medication regimen. -- Class I obesity. Likely secondary to excess calories intake. Patient counseled on weight reduction, diet and exercise therapy. -- CKD 2. Stable. We will continue to monitor renal functions. --Hypokalemia. Replete as needed. --DVT prophylaxis with heparin subQ. Discharge Plan: Home Plan to discharge in: Greater than 2 days - Advance Directives Does patient have a Living Will: No Does patient have a Durable POA for Healthcare: No - Code Status/Comfort Care Code Status Assessed: Yes Physician Review: Patient Assessed, Agree with Above Assessment and Plan Critical Care: No
[2022-04-09 13:31] LABS: Magnesium 2.3 mg/dL (1.8-2.4); Thyroid Stimulating Hormone 2.51 uIU/mL (0.360-3.740)
--- NOTE | 2022-04-09 13:50 | RAD REPORT ---
EXAM DESCRIPTION: CT - Head Brain Wo Cont - 04/09/2022 1:45 pm CLINICAL HISTORY: dizziness, headache Headache, hypertension COMPARISON: Head Brain Wo Cont dated 01/12/2021 TECHNIQUE: All CT scans are performed using dose optimization technique as appropriate and may inclu de automated exposure control or mA/KV adjustment according to patient size. FINDINGS: No intracranial hemorrhage, hydrocephalus or extra-axial fluid collection.No areas of brai n edema or evidence of midline shift. The paranasal sinuses and mastoids are clear. The calvarium is intact. IMPRESSION: No acute intracranial abnormality.
[2022-04-09] MEDS ORDERED: HEPA 1000U/500MLS 1,000 UNIT/500 ML BAG IV ONE ×2 (14:41→16:04)
[2022-04-09] MEDS ORDERED: LIDOCAINE 1% 20 ML MDV ONE ×2 (14:41→16:37)
[2022-04-09] MEDS ORDERED: FENTANYL CITR 100 MCG/2 ML ONE ×3 (14:42→16:43)
[2022-04-09] MEDS ORDERED: HEPARIN 5000 UNIT/ML 1 ML VIAL ONE (14:42)
[2022-04-09] MEDS ORDERED: VERAPAMIL HCL 10 MG/4 ML VIAL IV ONE (14:42)
[2022-04-09] MEDS ORDERED: CLOPIDOGREL 75 MG TABLET ONE (14:42)
[2022-04-09] MEDS ORDERED: MIDAZOLAM HCL 2 MG/2 ML INJ ONE ×2 (14:42→16:26)
[2022-04-09] MEDS ORDERED: HEPARIN 10,000 UNIT/10 ML VIAL IV ONE (14:42)
[2022-04-09] MEDS ORDERED: TICAGRELOR 90 MG TABLET PO ONE (14:43)
[2022-04-09] MEDS ORDERED: ATROPINE SULF 1 MG/10 ML SYR IV ONE (14:43)
[2022-04-09 15:10] VITALS: TEMP 99
[2022-04-09 15:13] VITALS: BP 144/93
[2022-04-09] MEDS ORDERED: REGADENOSON 0.4 MG/5 ML SYR IV ONE (15:35)
--- NOTE | 2022-04-09 15:39 | CON ---
Date of Consultation: 04/09/2022 Reason For Consultation: Chest pain. History Of Present Illness: This is a 56-year-old female with past medical history of type 2 diabete s, hypertension, dyslipidemia, presented to the emergency room with chest pain, started earlier today , left side, pressure like, radiates to the left shoulder, jaw and left upper extremity, comes and go es along with nausea. No diaphoresis. No vomiting. The patient is not known to have any history of cardiac disease. First troponin was slightly elevated. Past Medical History: As outlined above in HPI. Medications: Refer to reconciliation sheet for detailed list. Allergies: MORPHINE AND DILAUDID. Family History: No premature coronary artery disease or cancer. Social History: She does not smoke or drink. Does not use any drugs. Review of Systems: All systems reviewed and they were negative except what mentioned in HPI. Physical Examination: Vital Signs: Reviewed. Head and Neck: Pupils are equal, reactive to light. Intact eye movements. No JVD. No cervical lym phadenopathy. Neck is supple. Thyroid is not enlarged. Lungs: Clear to auscultation bilaterally. No rhonchi, wheezing, or crackles. No accessory muscle u se. Heart: Regular rate and rhythm. No extra sounds. Abdomen: Soft, nontender. Bowel sounds positive. No organomegaly. No masses or hernia. No rigidi ty or rebound. Extremities: No edema, clubbing, or cyanosis. Intact pulses. Skin: No rash. Neurologic: Alert, awake, oriented x3. No acute focal deficits appreciated. Investigations: BUN 17, creatinine 1.07. Troponin 127. NT-proBNP is 197. Her LDL cholesterol is 8 8 and hemoglobin is 13.7. EKG without acute specific abnormalities. Assessment And Recommendations: 1.Non-ST elevation myocardial infarction, typical chest pain with positive troponin. The patient di d not have any food except a very small breakfast at 7 o'clock in the morning. Keep her n.p.o. We w ill take her urgently to the cardiac catheterization laboratory and plan for coronary angiogram and p ercutaneous coronary intervention if indicated. For chest pain, can use nitroglycerin patch 1 inch e very 8 hours as needed. 2.Dyslipidemia. Continue statin. 3.Hypertension. Blood pressure is controlled. Continue current medications. SR/MODL Voice ID: [id number] Report ID: [id number]
[2022-04-09] MEDS ORDERED: METOPROLOL TARTRATE 5 MG/5 ML INJ IV ONE (15:44)
[2022-04-09] MEDS ORDERED: ONDANSETRON 4 MG/2 ML VIAL ONE ×2 (15:48→17:40)
[2022-04-09 16:15] VITALS: O2SAT 98
[2022-04-09] MEDS ORDERED: NA CHLORIDE 0.9% 1,000 ML ONE ×2 (16:42→17:03)
[2022-04-09] MEDS ORDERED: NOREPINEPHRINE BITARTRATE/D5W 4 MG/250 ML BAG IV ONE (16:45)
[2022-04-09] MEDS ORDERED: NALOXONE 0.4 MG/ML VIAL ONE (16:52)
[2022-04-09] MEDS ORDERED: EPINEPHrine 1 MG/10 ML SYR ONE (16:53)
[2022-04-09] MEDS ORDERED: HEPA 1000U/500MLS 2,000 UNIT/1,000 ML BAG IV ONE (17:25)
[2022-04-09] MEDS ORDERED: GLUCAGON 1 MG/VIAL IM PRN (18:11)
[2022-04-09] MEDS ORDERED: D50W 25 GM/50 ML SYRINGE IV PRN (18:11)
[2022-04-09] MEDS ORDERED: DEXTROSE 10%-WATER 125 ML IV PRN (18:16)
[2022-04-09] MEDS ORDERED: HEPARIN 5000 UNIT/ML 1 ML VIAL SQ SCH (21:00)
[2022-04-09] MEDS ORDERED: INSULIN -REGULAR HUMAN 50 UNIT/0.5 ML ML SQ SCH (21:00)
[2022-04-09] MEDS ORDERED: ATORVASTATIN 40 MG TAB PO SCH (21:00)
[2022-04-10] MEDS ORDERED: ASPIRIN 81 MG CHEWABLE TABLET PO SCH (09:00)
[2022-04-10] MEDS ORDERED: HOME MED 1 EA UNK (Losartan/Hydrochlorothiazide [Losartan-Hctz 100-12.5 Mg Tab] 1 EACH Tab PO SCH (09:00)
[2022-04-10] MEDS ORDERED: hydroCHLOROthiazide 12.5 MG CAP PO SCH (09:00)
[2022-04-10] MEDS ORDERED: LOSARTAN POTASSIUM 50 MG TABLET PO SCH (09:00)
--- NOTE | 2022-04-10 15:33 | CON ---
Date of Consultation: 04/09/2022 This report is based on my interaction during the process of transferring this patient to a higher level of care. The patient is a 56-year-old female, who was undergoing an emergency cath procedure in the engineering lab technician. Patient had a coronary artery perforation during the procedure. A balloon was inflated to keep the perforation sealed but the patient had a moderate pericardial effusion on Ultrasound. Rapid Response was called. Pericardiocentesis was performed with minimal success. The ER doctors and house sitter were present with Dr. Licona in the [facility]. There had been 4 attempts to transfer the patient to [facility], [facility], [facility]. All were unsuccessful. Dr. Licona spoke with a CV doctor at [facility], Dr. Echeverria, who accepted the patient and we were awaiting administrative approval. When I got there, our facility was on hold with [facility]. EMS had just arrived. The patient was clinically awake and not intubated at this time. Patient had slight hypotension and tachycardia at this time, it was determined that the best course of action is to get the patient to a higher level of care as soon as possible because time is of the essence in this clinical scenario. The patient is on Brilinta as well as heparin and risk of bleeding was high. So, the patient was placed in the ambulance on route to [facility]. The credit control administrator finally came to the phone. I spoke with the credit control administrator directly. He was a doctor, a cardiothoracic surgeon and I believe his last name was Ryan. We spoke in detail. He stated that their hospital was at capacity and they did not have room for our patient. I explained to him in detail that we have no way of taking care of this patient over here. We tried for other hospitals and were denied by all of the other hospitals. Dr. Licona had spoken to Dr. Echeverria. Dr. Echeverria was going to meet the patient in the ER. After further discussion with the credit control administrator, he stated that he would not turn the patient away, but he would say clearly that the hospital was at capacity. At this point, all the documents--MOT, Test results, notes and labs were faxed over to the [facility] Hospital. Our nurse gave report to the accepting nurse in the [facility] ER. I was notified by Dr. Bailey as soon as the patient arrived at [facility]. The patient was admitted without any incidence and underwent emergency surgery. Then, I was contacted by Dr. Licona. He had followed the ambulance to [facility]. After the surgery was done, the patient was in critical, but stable condition. /JULIETA Voice ID: [id number] Report ID: [id number]
--- NOTE | 2022-04-10 16:28 | EKG ---
Test Date: 2022-04-09 Test Time: 11:02:48 English As A Second Language Instructor: ISAI MEASUREMENT RESULTS: Intervals: Rate: 103 ME: 126 QRSD: 84 QT: 358 QTc: 468 [place]: P: 58 ME: 126 QRS: 85 T: 58 INTERPRETIVE STATEMENTS: Sinus tachycardia Nonspecific ST abnormality Abnormal ECG Compared to ECG 03/12/2019 06:24:49 ST (T wave) deviation now present Sinus rhythm no longer present Electronically Signed On 04-10-22 16:23:14 ELECTRICAL AND ELECTRONIC ASSEMBLER by Oscar Rivera
--- NOTE | 2022-04-11 23:02 | OP ---
Date of Procedure: 04/09/2022 Surgeon: CHRISTEL MENDEZ Procedures Performed: 1.Selective coronary angiogram. 2.Fractional flow reserve of the mid left anterior descending, which was positive at 0.78. 3.Percutaneous coronary intervention of the diagonal 1 branch with severe stenosis, which is the cul prit. I used 2.5 x 38 mm Synergy drug-eluting stent. Indication: Non-ST elevation myocardial infarction. Access: 1.Right femoral artery 6-Indian closed with manual pressure. 2.Right radial artery 6-Indian closed with TR band. Complication: Perforation of the diagonal 1 branch with cardiac tamponade status post pericardiocent esis. Indication: Non-ST elevation myocardial infarction. Description Of Procedure: After risks, benefits, and alternatives were explained, patient agreed to proceed and signed informed consent. The patient was brought into the cardiac catheterization labora tory and prepped and draped in usual sterile fashion. Then I accessed right radial artery using pedi atric micropuncture and placed 6-Indian Slender sheath and took a 5-Indian [place] 4 catheter into aort ic root and engaged the left main and right coronary artery, and took standard views. However, she h ad significant spasm of radial artery, so I obtained an access to the right femoral artery and placed 6-Indian Cha[place] sheath using ultrasound guidance and fluoroscopy and then I took a 6-Indian EBU 3. 5 guide into the aortic root, engaged left main and took an FFR wire into the aortic root and pressur es were equalized. I gave systemic heparin to assure ACT level above 250 and she was loaded with 180 mg of Brilinta and then the pressure wire was advanced into the LAD, placed distally, and FFR was ob tained and it was positive at 0.78 and pullback did not show any drift. Then, I took a Runthrough wi re into the diagonal 1 branch. Lesions were pre-dilated successfully and then placed a 2.5 x 38 mm S ynergy drug-eluting stent. The distal edge of the stent collapsed so I dilated that with an NC ballo on and used a 2.75 balloon to low pressure; however, postdilation a perforation happened and did prol onged balloon inflation at the site of perforation, but the pericardial effusion happened quickly and the patient had tamponade features. A pericardiocentesis was done and I was able to aspirate a smal l amount of blood; however, due to the lack of presence of pericardiocentesis tray and a large needle and large catheter, I could not do an efficient pericardiocentesis. At this point, after prolonged inflation of the balloon in the diagonal branch, the perforation is sealed. The patient was hemodyna mically stable enough for a transfer. I then called CT surgeon at [facility] after we w ere turned down by the [facility] and transferred the patient urgently and I went with the patient to perform pericardial window. Air ambulance was dispatched; however, helicopter was not abl e to fly due to weather. So I put the patient in ground ambulance and went with the patient to [facility] for an immediate surgical intervention and Surgery Team was waiting. Upon arrival , the patient was taken to the OR and as soon as pericardial window was performed by CT surgery over there, the blood pressure went up to 180s and then opened the perforation again. I had to do a cedeno otomy and then patching the diagonal branch. At the end of the procedure, patient had a normal eject ion fraction. Findings: 1.Left main is large and normal. 2.LAD: Proximal segment is normal. In the mid segment, there is diffuse 70% stenosis and then mid- to-distal also 70% to 80% diffuse stenosis. FFR positive 0.78 and this will be treated later. 3.Severe diagonal branch stenosis above 90%, which is the culprit for the WA, status post PCI as abo ve with a complication as noted above. 4.Left circumflex: Moderate size and with luminal regularities. 5.RCA: Large and dominant with 50% stenosis of proximal and then mid 60% and distal 40%, and then l uminal irregularities of the PDA and PLB. Conclusion: 1.Severe coronary artery disease involving diagonal 1 branch, which was the culprit, status post PCI . 2.Severe mid LAD stenosis by FFR 0.78. 3.Moderate disease of the RCA. Plan: Transferred immediately and emergently to [facility] for pericardial window and p atching of the diagonal branch and then we will plan to treat the LAD at a later time with PCI at a [facility] level of care facility. SR/MODL Voice ID: [id number] Report ID: [id number]
== END 2022-04-09 17:45 | disposition short-term general hospital (02) | DRG 247 ==
LOC: ER 10:45 → ERHOLD 12:23
PROVIDERS: ADMIT Hospitalist; ATTEND Hospitalist
PROC: 027034Z Dilation of Coronary Artery, One Artery with Drug-eluting Intraluminal Device, Percutaneous Approach (ICD-10-PCS; principal; 2022-04-09)
PROC: 4A023N7 Measurement of Cardiac Sampling and Pressure, Left Heart, Percutaneous Approach (ICD-10-PCS; 2022-04-09)
PROC: B2111ZZ Fluoroscopy of Multiple Coronary Arteries using Low Osmolar Contrast (ICD-10-PCS; 2022-04-09)
DX: I21.4 Non-ST elevation (NSTEMI) myocardial infarction (principal); E78.5 Hyperlipidemia, unspecified; E87.6 Hypokalemia; I95.9 Hypotension, unspecified; I12.9 Hypertensive chronic kidney disease with stage 1 through stage 4 chronic kidney disease, or unspecified chronic kidney disease; N18.2 Chronic kidney disease, stage 2 (mild); E11.22 Type 2 diabetes mellitus with diabetic chronic kidney disease; M19.90 Unspecified osteoarthritis, unspecified site; E66.09 Other obesity due to excess calories; R00.0 Tachycardia, unspecified; Z88.5 Allergy status to narcotic agent; Z88.0 Allergy status to penicillin; Z79.4 Long term (current) use of insulin; Z68.29 Body mass index [BMI] 29.0-29.9, adult; Z90.710 Acquired absence of both cervix and uterus; Z87.891 Personal history of nicotine dependence; Z20.822 Contact with and (suspected) exposure to COVID-19
CPT/HCPCS: 0240U; 36415; 70450; 71045; 76937; 80048; 80061; 80076; 82947; 83036; 83735; 83880; 84100; 84439; 84443; 84484; 85025; 85379; 85610; 92928; 93005; 93458; 93571; 96360; 99285; C1725; C1893; J0171; J0461; J1644; J2250; J2310; J2370; J2405; J2785; J3010; J7030; J7040; J7060; P9016; Q9967

== ENCOUNTER 2022-04-27 12:23 | Emergency (ER) | payer OTHER ==
--- OUTSIDE RECORDS SUMMARY | 2022-04-27 12:39 | XMS REPORT | Continuity of Care Document ---
:1965 Author Organization [facility] t Address [address] [place] [address] [address] [place] [address] Care Team Providers Name Role Phone Heriberto Dial MD Primary Care Physician Marko Pena MD Attending Clinician [phone] [place] Bryan Attending Clinician Unavailable Florencio Tejeda Attending Clinician Unavailable Meredith Zamarripa Attending Clinician Unavailable Provider , Not In System Attending Clinician Unavailable Kolton Campa MD Attending Clinician EZIO SIERRA Attending Clinician Unavailable Evaristo Richard MD Attending Clinician KOLTON CAMPA Attending Clinician Unavailable Doctor Unassigned, [place] Attending Clinician Unavailable EVARISTO RICHARD Attending Clinician Unavailable Nikhil Oladinoah Admitting Clinician Unavailable Meredith Zamarripa Admitting Clinician Unavailable KNOW, DOES_NOT Admitting Clinician Unavailable Payers Payer Name Policy Type Policy Number Effective Date Expiration Date S ource Problems Condition Condition Condition Status Onset Resolution Last Treating Co mments Source Name Details Category Date Date Treatment Clinician Date Intractabl Intractabl Disease Active U nivers e migraine e migraine 10-31 it y of without without 00:00: [place] aura and aura and 00 Medica l without without Branch status status migrainosu migrainosu s s Fatigue, Fatigue, Disease Active Unive rs unspecifie unspecifie 10-31 it y of d type d type 00:00: [place] [facility] On hormone On hormone Disease Active U nivers replacemen replacemen 09-10 it y of t therapy t therapy 00:00: [place] [facility] Abnormal Abnormal Disease Active Unive rs uterine uterine - ity of bleeding bleeding 00:00: [place] [facility] Type 2 Type 2 Disease Active Univers diabetes diabetes 11 ity of mellitus mellitus 00:00: [place] without without 00 Medical complicati complicati Br anch on, on, without without long-term long-term current current use of use of insulin insulin Hot Hot Disease Active Univers flashes flashes -11 ity of 00:00: [place] [facility] Branch Hx of Hx of Disease Active Univers bilateral bilateral 11 ity of oophorecto o[place]o [place] [facility] Surgical Surgical Disease Active Unive rs menopause menopause - ity of 00:00: [place] [facility] Branch No known No known Disease Metho di active active st problems problems Hospit a l Allergies, Adverse Reactions, Alerts Allergy Allergy Status Severity Reaction(s) Onset Inactive Treating Comm ents Source Name Type Date Date Clinician Penicill DA Active U UNKNOWN 2021-05 [facility] ins 06-09 Clear 00:00: [place] 00 [facility] morphine DA Active U UNKNOWN 2021-05 [facility] 06-09 Clear 00:00: [place] 00 [facility] dulaglut DA Active U UNKNOWN 2021-05 [facility] cristino 06-09 Clear 00:00: [place] 00 [facility] Morphine Propensi Active ty to 6-03 adverse 00:00: reaction 00 to drug morphine DA Active SV 2020- [facility] 2-24 Clear 00:00: [place] 00 [facility] semaglut DA Active SV 2020- [facility] cristino 2-24 Clear 00:00: [place] 00 [facility] morphine DA Active SV ANAPHYLAXIS 2020- [facility] 2-24 Clear 00:00: [place] 00 [facility] semaglut DA Active SV ANAPHYLAXIS 2020- [facility] cristino 2-24 Clear 00:00: [place] 00 [facility] SEMAGLUT DRUG Active Hives 2020- Univers CRISTINO INGREDI 2-18 ity of 00:00: [place] 00 [facility] Semaglut Propensi Active Hives 2019- Univer s cristino ty to 2-18 ity of adverse 00:00: [place] reaction 00 [facility] SITAGLIP DRUG Active High Hives 2018- Univers TIN INGREDI 0-08 ity of 00:00: [place] 00 [facility] INSULIN DRUG Active High Hives 2018- Univers GLARGINE INGREDI 0-08 ity of 00:00: [place] 00 [facility] Sitag[place] Propensi Active Hives 2018- Univer s tin ty to 0-08 ity of adverse 00:00: [place] reaction 00 [facility] Insulin Propensi Active Hives 2018- Univers Glargine ty to 0-08 ity of adverse 00:00: [place] reaction 00 [facility] Family History Family Member Diagnosis Comments Start Date Stop Date Source Natural mother Vision loss [facility] Natural mother Diabetes [facility] Natural mother Stroke [facility] Paternal grandfather [facility] Paternal grandmother Hypertension [facility] Natural sister Diabetes [facility] Natural brother Hypertension [facility] Natural father Early [facility] Maternal grandfather [facility] Maternal grandmother [facility] Social History Social Habit Start Date Stop Date Quantity Comments Source Exposure to Not sure [facility] SARS-CoV-2 [place] [facility] (event) Branch History of Current smoker [facility] tobacco use Tobacco use and 2020-04-28 2020-04-28 Never used Universit y of exposure 00:00:00 00:00:00 [facility] Branch Alcohol intake 2017-11-06 2017-11-06 Current drinker [facility] 00:00:00 00:00:00 of alcohol (finding) Alcohol Comment 2017-08-20 2017-08-20 occ Universit y of 00:00:00 00:00:00 [facility] Sex [birth year] [facility] 00:00:00 00:00:00 Smoking Status Start Date Stop Date Source Never smoker [facility] Ex-smoker 2017-11-06 00:00:00 2017-11-06 00:00:00 [facility] Medications Ordered Filled Start Stop Current Ordering Indication Dosage Frequency Signature Comments Components Source Medication Medication Date Date Medication? Clinician (SIG) Name Name TAKE 2021-05 No TABLET 2-15 DAILY. 00:00: 00 TAKE 2021-05 No TABLET 2-15 DAILY. 00:00: 00 TAKE 2021-05 No TABLET 2-15 TWICE 00:00: DAILY. 00 Dose 2021-05 No Unknown 2-15 00:00: 00 GLYBURIDE-M 2021-05 No ETFORMIN 2-15 5-500 MG 00:00: 00 Dose 2021-05 No Unknown 2-15 00:00: 00 Dose 2021-05 No Unknown 2-15 00:00: 00 Dose 2021-05 No Unknown 2-15 00:00: 00 Dose 2021-05 No Unknown 2-15 00:00: 00 Dose 2021-05 No Unknown 2-15 00:00: 00 TAKE 2021-05 No TABLET BY 2-15 MOUTH EVERY 00:00: DAY WITH A 00 MEAL FOR 90 DAYS Dose 2021-05 No Unknown 2-15 00:00: 00 Dose 2021-05 No Unknown 2-15 00:00: 00 PLEASE SEE 2021-05 No ATTACHED 2-15 FOR 00:00: DETAILED 00 DIRECTIONS TAKE 2021-05 No CAPSULE BY 2-15 MOUTH ONCE 00:00: A WEEK 00 TAKE 2021-05 No CAPSULE BY 2-15 MOUTH EVERY 00:00: DAY 00 Dose 2021-05 No Unknown 2-15 00:00: 00 Dose 2021-05 No Unknown 2-15 00:00: 00 Dose 2021-05 No Unknown 2-15 00:00: 00 Dose 2021-05 No Unknown 2-15 00:00: 00 TAKE 2021-05 No TABLET BY 2-15 MOUTH EVERY 00:00: DAY 00 TAKE 2021-05 No TABLET BY 2-15 MOUTH EVERY 00:00: DAY 00 Dose 2022-1 No Unknown 2-15 00:00: 00 TAKE 1 2-1 No TABLET BY 2-15 MOUTH TWICE 00:00: A DAY 00 TAKE 1 2021-1 No TABLET BY 2-15 MOUTH ONCE 00:00: DAILY IN 00 THE MORNING ON AN EMPTY STOMACH TAKE 1 2021-1 No TABLET BY 2-15 MOUTH ONCE 00:00: DAILY IN 00 THE MORNING ON AN EMPTY STOMACH EVA 100 2021-1 No MG TABLET 2-15 00:00: 00 Dose 2021-1 No Unknown 2-15 00:00: 00 Dose 2-1 No Unknown 2-15 00:00: 00 INSTILL 5 2-0 No DROPS INTO 8-22 LEFT EAR 00:00: TWICE 00 DAILY. INSTILL 5 2022-0 No DROPS INTO 8-22 LEFT EAR 00:00: TWICE 00 DAILY. INSTILL 5 2022-0 No DROPS INTO 8-22 LEFT EAR 00:00: TWICE 00 DAILY. INSTILL 5 2-0 No 3 DROPS INTO 8-16 LEFT EAR 00:00: TWICE 00 DAILY. TAKE 1 2021-0 No 10 TABLET BY 8-16 MOUTH ONCE 00:00: DAILY AT 00 BEDTIME INSTILL 5 2022-0 No 3 DROPS INTO 8-16 LEFT EAR 00:00: TWICE 00 DAILY. TAKE 1 2-0 No TABLET BY 8-16 MOUTH ONCE 00:00: DAILY AT 00 BEDTIME INSTILL 5 2022-0 No 3 DROPS INTO 8-16 LEFT EAR 00:00: TWICE 00 DAILY. TAKE 1 2-0 No TABLET BY 8-16 MOUTH ONCE 00:00: DAILY AT 00 BEDTIME INSTILL 5 2022-0 No 3 DROPS INTO 8-16 LEFT EAR 00:00: TWICE 00 DAILY. TAKE 1 2-0 No 10 TABLET BY 8-16 MOUTH ONCE 00:00: DAILY AT 00 BEDTIME TAKE 1 2-0 No 10 TABLET BY 8-15 MOUTH ONCE 00:00: DAILY AT 00 BEDTIME TAKE 1 2022-0 No 10 TABLET BY 8-15 MOUTH ONCE 00:00: DAILY AT 00 BEDTIME TAKE 1 2-0 No 10 TABLET BY 8-15 MOUTH ONCE 00:00: DAILY AT 00 BEDTIME TAKE 1 2-0 No 10 TABLET BY 8-15 MOUTH ONCE 00:00: DAILY AT 00 BEDTIME TAKE 1 2-0 No 200 TABLET 8-11 TWICE 00:00: DAILY. [...] 00 TAKE 1 2022-0 No 200 TABLET 8 TWICE 00:00: DAILY. 00 &lt 2022-0 No 10 12-20 00:00: 00 &lt 2022-0 No 100 12-20 00:00: 00 TAKE 1 2022-0 No TABLET BY 8-11 MOUTH ONCE 00:00: DAILY 00 TAKE 1 2022-0 No 200 TABLET 8 TWICE 00:00: DAILY. 00 &lt 2022-0 No 10 12-20 00:00: 00 &lt 2022-0 No 100 12-20 00:00: 00 TAKE 1 2022-0 No TABLET BY 8-11 MOUTH ONCE 00:00: DAILY 00 TAKE 1 2022-0 No 200 TABLET 12-20 TWICE 00:00: DAILY. 00 &lt 2022-0 No 10 12-20 00:00: 00 &lt 2022-0 No 100 12-20 00:00: 00 TAKE 1 2022-0 No TABLET BY 8-11 MOUTH ONCE 00:00: DAILY 00 &lt 2022-0 No 5 12-19 00:00: 00 TAKE 1 2022-0 No TABLET BY 8-10 MOUTH EVERY 00:00: DAY WITH A 00 MEAL FOR 90 DAYS &lt 2022-0 No 5 8 00:00: 00 TAKE 1 2022-0 No TABLET BY 8-10 MOUTH EVERY 00:00: DAY WITH A 00 MEAL FOR 90 DAYS &lt 2022-0 No 5 8 00:00: 00 TAKE 1 2022-0 No TABLET BY 8-10 MOUTH EVERY 00:00: DAY WITH A 00 MEAL FOR 90 DAYS &lt 2022-0 No 5 8 00:00: 00 [...] 2022-0 No 7-28 00:00: 00 PLEASE SEE 2022-0 No ATTACHED 7-11 FOR 00:00: DETAILED 00 [...] 6 00:00: 00 Dose 2022-0 No Unknown 6 00:00: 00 Dose 2022-0 No Unknown 6 00:00: 00 Dose 2022-0 No Unknown 6 00:00: 00 Dose 2022-0 No Unknown 6 [...] EMPTY STOMACH TAKE 1 2022-0 No TABLET 6-03 TWICE 00:00: DAILY. 00 Dose 2022-0 No Unknown 6- 00:00: 00 PLEASE SEE 2022-0 No ATTACHED [...] MORNING ON AN EMPTY STOMACH glyburide 5 2022-0 No 1mg mg-metformi 6-03 n 500 mg 00:00: tablet 00 glyburide 5 2022-0 No 1mg mg-metformi 6-03 n 500 mg [...] MORNING ON AN EMPTY STOMACH PLEASE SEE 2022-0 No ATTACHED 6- FOR 00:00: DETAILED 00 DIRECTIONS TAKE 1 2022-0 No TABLET BY 6-03 MOUTH WITH 00:00: BREAKFAST 00 OR THE MAIN MEAL OF THE DAY TWICE A DAY &lt 2022-0 No 6-03 00:00: 00 &lt 2022-0 No 6-03 00:00: 00 glyburide 5 0 No 1mg mg-metformi - n 500 mg 00:00: tablet 00 amlodipine No 1mg 10 mg 10-12 tablet 00:00: 00 PLEASE SEE 2021-0 No ATTACHED 6- FOR 00:00: DETAILED 00 DIRECTIONS TAKE 1 2021-0 No TABLET BY 6-03 MOUTH WITH 00:00: BREAKFAST 00 OR THE MAIN MEAL OF THE DAY TWICE A DAY &lt 2021-0 No 6-03 00:00: 00 &lt 2021-0 No 6-03 00:00: 00 TAKE 1 0 No TABLET BY 6-03 MOUTH ONCE 00:00: DAILY AT 00 BEDTIME FREESTYLE Yes [id number] APPLY 1 U nivers SHANI 2 7-23 PATCH TO ity of SENSOR Kit 00:00: SKIN EVERY [place] 00 14 DAYS Medical Branch Lancets Yes Use as Univers (MICROLET 1-05 directed, ity o f LANCET) [facility] Branch Lancets Yes Use as Univers (MICROLET 1-05 directed, ity o f LANCET) 00:00: TID, [facility] 00 DX:E11.40 [facility] blood sugar 2019-05 Yes USE 1 Unive [...] strip TIMES DAILY. DX:E11.40 amLODIPine 2019-05 Yes [id number] 5mg Take 5 mg Univers 5 mg tablet 2-18 by mouth ity of 21:03: daily. [address] amLODIPine 2019-05 Yes [id number] 5mg Take 5 mg Univers 5 mg tablet 2-18 by mouth ity of 21:03: daily. [place] 06 Medical Branch amLODIPine 2019-05 Yes [id number] 5mg Take 5 mg Univers 5 mg tablet 2-18 by mouth ity of 21:03: daily. [place] [address] Medical Branch amLODIPine 2019-05 Yes [id number] 5mg Take 5 mg Univers 5 mg tablet 2-18 by mouth ity of 21:03: daily. [place] [address] Medical Branch amLODIPine 2019-05 Yes [id number] 5mg Take 5 mg Univers 5 mg tablet 2-18 by mouth ity of 21:03: daily. [place] [address] Medical Branch amLODIPine 2019-05 Yes [id number] 5mg Take 5 mg Univers 5 mg tablet 2-18 by mouth ity of 21:03: daily. [place] [address] Medical Branch glyBURIDE 5 2019-05 2020- No 5mg Take 5 mg Univers mg tablet 2-18 12-18 by mouth ity o f 21:02: 00:00 daily with [place] 39 :00 breakfast. Medical Branch glyBURIDE 5 2019-05 2020- No 5mg Take 5 mg Univers mg tablet 2-18 12-18 by mouth ity o f 21:02: 00:00 daily with [place] 39 :00 breakfast. Medical Branch glyBURIDE 5 2019-05 Yes [id number] 5mg Take 1 Univers mg tablet 2-18 tablet by ity o f 00:00: mouth 2 (two) Medical times Branch daily with meals. metFORMIN 2019-05 Yes [id number] 500mg Take 1 U nivers 500 mg 2-18 tablet by ity of tablet 00:00: mouth 3 (three) Medical times Branch daily before meals. flash 2019-05 Yes [id number] 1{each} 1 Each 3 U nivers glucose 2-18 (three) ity of scanning 00:00: times [place] reader 00 daily Medical (FREESTYLE before Branch SHANI 2 meals. READER) Misc flash 2019-05 Yes [id number] 1{each} 1 Each Uni vers glucose 2-18 every 14 ity of sensor 00:00: (fourteen) [place] (FREESTYLE 00 days. Medical SHANI 2 Branch SENSOR) Kit glyBURIDE 5 2019-05 Yes [id number] 5mg Take 1 Univers mg tablet 2-18 tablet by ity o f 00:00: mouth 2 00 (two) Medical times Branch daily with meals. metFORMIN 2019-05 Yes [id number] 500mg Take 1 U nivers 500 mg 2-18 tablet by ity of tablet 00:00: mouth 3 (three) Medical times Branch daily before meals. flash 2019-05 Yes [id number] 1{each} 1 Each 3 U nivers glucose 2-18 (three) ity of scanning 00:00: times [place] reader 00 daily Medical (FREESTYLE before Branch SHANI 2 meals. READER) [facility] flash 2019-05 Yes [id number] 1{each} 1 Each Uni vers glucose 2-18 every 14 ity of sensor 00:00: (fourteen) [place] (FREESTYLE 00 days. Medical SHANI 2 Branch SENSOR) Kit glyBURIDE 5 2019-05 Yes [id number] 5mg Take 1 Univers mg tablet 2-18 tablet by ity o f 00:00: mouth 2 (two) Medical times Branch daily with meals. metFORMIN 2019-05 Yes [id number] 500mg Take 1 U nivers 500 mg 2-18 tablet by ity of tablet 00:00: mouth 3 (three) Medical times Branch daily before meals. flash 2019-05 Yes [id number] 1{each} 1 Each 3 U nivers glucose 2-18 (three) ity of scanning 00:00: times [place] reader 00 daily Medical (FREESTYLE before Branch SHANI 2 meals. READER) [facility] flash 2019-05 Yes [id number] 1{each} 1 Each Uni vers glucose 2-18 every 14 ity of sensor 00:00: (fourteen) [place] (FREESTYLE 00 days. Medical SHANI 2 Branch SENSOR) Kit glyBURIDE 5 2019-05 Yes [id number] 5mg Take 1 Univers mg tablet 2-18 tablet by ity o f 00:00: mouth 2 (two) Medical times Branch daily with meals. metFORMIN 2019-05 Yes [id number] 500mg Take 1 U nivers 500 mg 2-18 tablet by ity of tablet 00:00: mouth 3 (three) Medical times Branch daily before meals. flash 2019-05 Yes [id number] 1{each} 1 Each 3 U nivers glucose 2-18 (three) ity of scanning 00:00: times [place] reader 00 daily Medical (FREESTYLE before Branch SHANI 2 meals. READER) [facility] glyBURIDE 5 2019-05 Yes [id number] 5mg Take 1 Univers mg tablet 2-18 tablet by ity o f 00:00: mouth 2 (two) Medical times Branch daily with meals. metFORMIN 2019-05 Yes [id number] 500mg Take 1 U nivers 500 mg 2-18 tablet by ity of tablet 00:00: mouth 3 00 (three) Medical times Branch daily before meals. flash 2019-05 Yes [id number] 1{each} 1 Each 3 U nivers glucose 2-18 (three) ity of scanning 00:00: times [place] reader 00 daily Medical (FREESTYLE before Branch SHANI 2 meals. READER) [facility] flash 2019-05 Yes [id number] 1{each} 1 Each Uni vers glucose 2-18 every 14 ity of sensor 00:00: (fourteen) [place] (FREESTYLE 00 days. Medical SHANI 2 Branch SENSOR) Kit glyBURIDE 5 2019-05 Yes [id number] 5mg Take 1 Univers mg tablet 2-18 tablet by ity o f 00:00: mouth 2 00 (two) Medical times Branch daily with meals. metFORMIN 2019-05 Yes [id number] 500mg Take 1 U nivers 500 mg 2-18 tablet by ity of tablet 00:00: mouth 3 (three) Medical times Branch daily before meals. flash 2019-05 Yes [id number] 1{each} 1 Each 3 U nivers glucose 2-18 (three) ity of scanning 00:00: times [place] reader 00 daily Medical (FREESTYLE before Branch SHANI 2 meals. READER) [facility] flash 2019-05 Yes [id number] 1{each} 1 Each Uni vers glucose 2-18 every 14 ity of sensor 00:00: (fourteen) [place] (FREESTYLE 00 days. Medical SHANI 2 Branch SENSOR) Kit flash 2019-05- No [id number] 1{each} 1 Each Un madhu glucose 2-18 [...] 2020- No USE 1 Univ ers diagnostic 2-05-09 STRIP TO ity of (FREESTYLE 00:00: 00:00 CHECK [place] LITE 00 :00 GLUCOSE Medical STRIPS) THREE Branch strip TIMES DAILY. DX: E11.40, E11.65 blood sugar 2018-05 2020- No USE 1 Univ ers diagnostic 2-05-09 STRIP TO ity of (FREESTYLE 00:00: 00:00 CHECK [place] LITE 00 :00 GLUCOSE Medical STRIPS) THREE Branch strip TIMES DAILY. DX: E11.40, E11.65 blood sugar 2018-05 2020- No USE 1 Univ ers diagnostic 2-05-09 STRIP TO ity of (FREESTYLE 00:00: 00:00 CHECK [place] LITE 00 :00 GLUCOSE Medical STRIPS) THREE Branch strip TIMES DAILY. DX: E11.40, E11.65 amoxicillin 2018- Yes [id number] 500mg Take 1 Univers 500 mg 3-13 capsule by ity of capsule 00:00: mouth 3 [place] 00 (three) Medical times Branch daily. amoxicillin Yes [id number] 500mg Take 1 Univers 500 mg 3-13 capsule by ity of capsule 00:00: mouth 3 [place] 00 (three) Medical times Branch daily. amoxicillin 2020- No [id number] 500mg Take 1 Univers 500 mg 3-13 12-18 capsule by ity of capsule 00:00: 00:00 mouth 3 [place] 00 :00 (three) Medical times Branch daily. amoxicillin 2020- No [id number] 500mg Take 1 Univers 500 mg 3-13 12-18 capsule by ity of capsule 00:00: 00:00 mouth 3 [place] 00 :00 (three) Medical times Branch daily. dulaglutide Yes [id number] .75mg inject Univers (TRULICITY) 2-25 0.75 mg ity o f 0.75 mg/0.5 00:00: under the [place] mL PnIj 00 skin Medical weekly. Branch flash 2018- Yes [id number] 1{each} 1 Each Uni vers glucose 2-25 daily. ity of scanning 00:00: [place] reader 00 Medical (FREESTYLE Branch SHANI 14 DAY READER) Misc flash 2018- Yes [id number] 1{each} 1 Each Uni vers glucose 2-25 every 14 ity of sensor 00:00: (fourteen) [place] (FREESTYLE 00 days. Medical SHANI 14 Branch DAY SENSOR) Kit dulaglutide Yes [id number] .75mg inject Univers (TRULICITY) 2-25 0.75 mg ity o f 0.75 mg/0.5 00:00: under the [place] mL PnIj 00 skin Medical weekly. Branch flash 2019- Yes [id number] 1{each} 1 Each Uni vers glucose 2-25 daily. ity of scanning 00:00: [place] reader 00 Medical (FREESTYLE Branch SHANI 14 DAY READER) Misc flash 2018- Yes [id number] 1{each} 1 Each Uni vers glucose 2-25 every 14 ity of sensor 00:00: (fourteen) [place] (FREESTYLE 00 days. Medical SHANI 14 Branch DAY SENSOR) Kit dulaglutide 2020- No [id number] .75mg inject Univers (TRULICITY) 2-25 12-18 0.75 mg ity of 0.75 mg/0.5 00:00: 00:00 under the [place] mL PnIj 00 :00 skin Medical weekly. Branch flash 2018- 2020- No [id number] 1{each} 1 Each Un madhu glucose 2-25 12-18 daily. ity of scanning 00:00: 00:00 [place] reader 00 :00 Medical (FREESTYLE Branch SHANI 14 DAY READER) Misc flash 2018- 2020- No [id number] 1{each} 1 Each Un madhu glucose 2-25 12-18 every 14 ity of sensor 00:00: 00:00 (fourteen[place] (FREEST[place] 00 :00 days. Medical SHANI 14 Branch DAY SENSOR) Kit dulaglutide 2020- No [id number] .75mg inject Univers (TRULICITY) 2-25 12-18 0.75 mg ity of 0.75 mg/0.5 00:00: 00:00 under the [place] mL PnIj 00 :00 skin Medical weekly. Branch flash 2019- 2020- No [id number] 1{each} 1 Each Un madhu glucose 2-25 12-18 daily. ity of scanning 00:00: 00:00 [place] reader 00 :00 Medical (FREESTYLE Branch SHANI 14 DAY READER) Misc flash 2018- 2020- No [id number] 1{each} 1 Each Un madhu glucose 2-25 12-18 every 14 ity of sensor 00:00: 00:00 (fourteen) [place] (FREESTYLE 00 :00 days. Medical SHANI 14 Branch DAY SENSOR) Kit Blood-Gluco 2017-05 Yes Use as Univ ers se Meter 0-18 directed, ity of (CONTOUR 00:00: TID, [place] METER) Misc 00 DX:E11.9 Medi meg Branch Blood-Gluco 2017-05 Yes Use as Univ ers se Meter 0-18 directed, ity of (CONTOUR 00:00: TID, [place] METER) Misc 00 DX:E11.9 Medi meg Branch Blood-Gluco 2017-05 Yes Use as Univ ers se Meter 0-18 directed, ity of (CONTOUR 00:00: TID, [place] METER) Misc 00 DX:E11.9 Medi meg Branch Blood-Gluco 2017-05 Yes Use as Univ ers se Meter 0-18 directed, ity of (CONTOUR 00:00: TID, [place] METER) Misc 00 DX:E11.9 Medi meg Branch Lancets 2017-05 Yes Use as Univers (MICROLET 0-18 directed, ity o f LANCET) 00:00: TID, [place] Misc 00 DX:E11.9 Medical Branch Blood-Gluco 2017-05 Yes Use as Univ ers se Meter 0-18 directed, ity of (CONTOUR 00:00: TID, [place] METER) Misc 00 DX:E11.9 Medi meg Branch Lancets 2018- Yes Use as Univers (MICROLET 0-18 directed, ity o f LANCET) 00:00: TID, [place] Misc 00 DX:E11.9 Medical Branch Blood-Gluco 2017-05 Yes Use as Univ ers se Meter 0-18 directed, ity of (CONTOUR 00:00: TID, [place] METER) Misc 00 DX:E11.9 Medi meg Branch Lancets 2018- Yes Use as Univers (MICROLET 0-18 directed, ity o f LANCET) 00:00: TID, [place] Misc 00 DX:E11.9 Medical Branch Blood-Gluco 2017-05 Yes Use as Univ ers se Meter 0-18 directed, ity of (CONTOUR 00:00: TID, [place] METER) Misc 00 DX:E11.9 Medi meg Branch Blood-Gluco 2017-05 Yes Use as Univ ers se Meter 0-18 directed, ity of (CONTOUR 00:00: TID, [place] METER) Misc 00 DX:E11.9 Medi meg Branch Lancets 2017-05- No Use as Univers (MICROLET 0-18 01-05 directed, ity of LANCET) 00:00: 00:00 TID, [place] Misc 00 :00 DX:E11.9 Medical Branch Lancets 2017-05- No Use as Univers (MICROLET 0-18 01-05 directed, ity of LANCET) 00:00: 00:00 TID, [place] Misc 00 :00 DX:E11.9 Medical Branch Lancets 2017-05- No Use as Univers (MICROLET 0-18 01-05 directed, ity of LANCET) 00:00: 00:00 TID, [place] Misc 00 :00 DX:E11.9 Medical Branch atorvastati 2017-05 Yes 40mg Take 1 Univ ers n 40 mg 0-09 tablet by ity of tablet 00:00: mouth at [place] [address] bedtime. Medical Branch atorvastati 2017-05 Yes 40mg Take 1 Univ ers n 40 mg 0-09 tablet by ity of tablet 00:00: mouth at [place] [address] bedtime. Medical Branch atorvastati 2017-05 Yes 40mg Take 1 Univ ers n 40 mg 0-09 tablet by ity of tablet 00:00: mouth at [place] [address] bedtime. Medical Branch atorvastati 2017-05 Yes 40mg Take 1 Univ ers n 40 mg 0-09 tablet by ity of tablet 00:00: mouth at [place] [address] bedtime. Medical Branch atorvastati 2017-05 Yes 40mg Take 1 Univ ers n 40 mg 0-09 tablet by ity of tablet 00:00: mouth at [place] [address] bedtime. Medical Branch atorvastati 2017-05 Yes 40mg Take 1 Univ ers n 40 mg 0-09 tablet by ity of tablet 00:00: mouth at [place] 00 bedtime. Medical Branch atorvastati 2017-05 Yes 40mg Take 1 Univ ers n 40 mg 0-09 tablet by ity of tablet 00:00: mouth at [place] [address] bedtime. Medical Branch atorvastati 2017-05 Yes 40mg Take 1 Univ ers n 40 mg 0-09 tablet by ity of tablet 00:00: mouth at [place] [address] bedtime. Medical Branch metFORMIN 2017-05 Yes [id number] 500mg Take 1 U nivers 500 mg 0-08 tablet by ity of tablet 00:00: mouth 3 [place] 00 (three) Medical times Branch daily before meals. metFORMIN 2017-05 Yes [id number] 500mg Take 1 U nivers 500 mg 0-08 tablet by ity of tablet 00:00: mouth 3 [place] 00 (three) Medical times Branch daily before meals. metFORMIN 2017-05- No [id number] 500mg Take 1 Univers 500 mg 0-08 12-18 tablet by ity of tablet 00:00: 00:00 mouth 3 [place] 00 :00 (three) Medical times Branch daily before meals. metFORMIN 2017-05- No [id number] 500mg Take 1 Univers 500 mg 0-08 12-18 tablet by ity of tablet 00:00: 00:00 mouth 3 [place] 00 :00 (three) Medical times Branch daily before meals. estradiol 2 Yes [id number] 1mg Take 0.5 Univers mg tablet 9-19 tablets by ity of 00:00: mouth [place] 00 daily. Medical Branch estradiol 2 Yes [id number] 1mg Take 0.5 Univers mg tablet 9-19 tablets by ity of 00:00: mouth [place] 00 daily. [facility] Branch estradiol 2 2020- No [id number] 1mg Take 0.5 Univers mg tablet 9-19 12-18 tablets by ity of 00:00: 00:00 mouth [place] 00 :00 daily. [facility] Branch estradiol 2 2020- No [id number] 1mg Take 0.5 Univers mg tablet 9-19 12-18 tablets by ity of 00:00: 00:00 mouth [place] 00 :00 daily. Medical Branch Insulin Yes [id number] Use as Uni vers [place], 8-27 directed ity of Disposable, 00:00: [place] (JONATHAN PEN 00 Medical NEEDLE) 32 Branch gauge x 5/32" Ndle Insulin Yes [id number] Use as Uni vers [place], 8-27 directed ity of Disposable, 00:00: [place] (JONATHAN PEN 00 Medical NEEDLE) 32 Branch gauge x 5/32" Ndle Insulin Yes [id number] Use as [facility] vers [place], 8-27 directed ity of Disposable, 00:00: [place] (JONATHAN PEN 00 Medical NEEDLE) 32 Branch gauge x 5/32" Ndle Insulin 2017-0 Yes [id number] Use as [facility] [place], 8-27 directed ity of Disposable, 00:00: [place] (JONATHAN PEN 00 Medical NEEDLE) 32 Branch gauge x 5/32" Ndle gabapentin 2018-0 Yes [id number] 100mg Take 1 Univers 100 mg 8-27 capsule by ity of capsule 00:00: mouth at [place] 00 bedtime. Medical Branch Insulin 2018-0 Yes [id number] Use as Uni vers [place], 8- directed ity of Disposable, 00:00: [place] (JONATHAN PEN 00 Medical NEEDLE) 32 Branch gauge x 5/32" Ndle gabapentin 2018-0 Yes [id number] 100mg Take 1 Univers 100 mg 8-27 capsule by ity of capsule 00:00: mouth at [place] 00 bedtime. Medical Branch Insulin 2017-0 Yes [id number] Use as [facility] [place], 8 directed ity of Disposable, 00:00: [place] (JONATHAN PEN 00 Medical NEEDLE) 32 Branch gauge x 5/32" Ndle Insulin 2018-0 Yes [id number] Use as [facility] [place], 8 directed ity of Disposable, 00:00: [place] (JONATHAN PEN 00 Medical NEEDLE) 32 Branch gauge x 5/32" Ndle Insulin 2018-0 Yes [id number] Use as [facility] [place], 8- directed ity of Disposable, 00:00: [place] (JONATHAN PEN 00 Medical NEEDLE) 32 Branch gauge x 5/32" Ndle gabapentin 2018-0 2020- No [id number] 100mg Take 1 Univers 100 mg 8-27 12-18 capsule by ity of capsule 00:00: 00:00 mouth at [place] 00 :00 bedtime. Medical Branch gabapentin 2018-0 2020- No [id number] 100mg Take 1 Univers 100 mg 8-27 12-18 capsule by ity of capsule 00:00: 00:00 mouth at [place] 00 :00 bedtime. Medical Branch topiramate 2018-0 Yes 25mg Q.5D Take 25 mg M ethodi (TOPAMAX) 6-[address] 25 MG 16:34: (two) Hospita capsule 14 times a l day. topiramate 2018-0 Yes 25mg Q.5D Take 25 mg M ethodi (TOPAMAX) 6-[address] 25 MG 11:34: (two) Hospita capsule 14 times a l day. topiramate 2018-0 Yes 25mg Q.5D Take 25 mg M ethodi (TOPAMAX) 6-[address] 25 MG 11:34: (two) Hospita capsule 14 times a l day. topiramate 2018-0 Yes 25mg Q.5D Take 25 mg M ethodi (TOPAMAX) 6-[address] 25 MG 11:34: (two) Hospita capsule 14 times a l day. JARDIANCE 2018-0 Yes Methodi 10 mg 6-27 st tablet 00:00: Hospita tablet 00 l JARDIANCE 2018-0 Yes Methodi 10 mg 6-27 st tablet 00:00: Hospita tablet 00 l JARDIANCE 2018-0 Yes Methodi 10 mg 6-27 st tablet 00:00: Hospita tablet 00 l JARDIANCE 2018-0 Yes Methodi 10 mg 6-27 st tablet 00:00: Hospita tablet 00 l estradiol 2018-0 Yes 1mg Take 1 mg Met hodi (ESTRACE) 1 6-[address] MG tablet 00:00: Hospita 00 l progesteron 2018-0 Yes 100mg Take 100 M ethodi e 6-[address] (PROMETRIUM 00:00: mouth. [facility]osp [facility] ) 100 MG 00 l capsule estradiol 2018-0 Yes Methodi (ESTRACE) 1 6-22 st MG tablet 00:00: Hospita 00 l progesteron 2018-0 Yes [id number] 100mg Take 1 Univers e 100 mg 6-22 capsule by ity o f capsule 00:00: mouth [place] 00 daily. Medical Branch progesteron 2018-0 Yes [id number] 100mg Take 1 Univers e 100 mg 6-22 capsule by ity o f capsule 00:00: mouth [place] 00 daily. Medical Branch estradiol 2018-0 Yes 1mg Take 1 mg Met hodi (ESTRACE) 1 6-[address] MG tablet 00:00: Hospita 00 l progesteron 2018-0 Yes 100mg Take 100 M ethodi e 6-[address] (PROMETRIUM 00:00: mouth. [facility]osp [facility] ) 100 MG 00 l capsule estradiol 2018-0 Yes Methodi (ESTRACE) 1 6-22 st MG tablet 00:00: Hospita 00 l estradiol 2018-0 Yes 1mg Take 1 mg Met hodi (ESTRACE) 1 6-[address] MG tablet 00:00: Hospita 00 l progesteron 2018-0 Yes 100mg Take 100 M ethodi e 6-[address] (PROMETRIUM 00:00: mouth. [facility]osp [facility] ) 100 MG 00 l capsule estradiol 2018-0 Yes Methodi (ESTRACE) 1 6-22 st MG tablet 00:00: Hospita 00 l estradiol 2018-0 Yes 1mg Take 1 mg Met hodi (ESTRACE) 1 6-[address] MG tablet 00:00: Hospita 00 l progesteron 2018-0 Yes 100mg Take 100 M ethodi e 6-[address] (PROMETRIUM 00:00: mouth. [facility] ) 100 MG 00 l capsule estradiol 2018-0 Yes Methodi (ESTRACE) 1 6-22 st MG tablet 00:00: Hospita 00 l progesteron 20180 2020- No [id number] 100mg Take 1 Univers e 100 mg 6-22 12-18 capsule by ity of capsule 00:00: 00:00 mouth [place] 00 :00 daily. Medical Branch progesteron 2018-0 2020- No [id number] 100mg Take 1 Univers e 100 mg 6-22 12-18 capsule by ity of capsule 00:00: 00:00 mouth [place] 00 :00 daily. Medical Branch atorvastati 2018-0 Yes 20mg [...] Hospi ta tablet 00 l losartan 50 2018-0 Yes [id number] 50mg Take 1 Univers mg tablet 4-30 tablet by ity o f 00:00: mouth [place] 00 daily. Medical Branch losartan 50 2018-0 Yes [id number] 50mg Take 1 Univers mg tablet 4-30 [...] mouth. Hospi ta tablet 00 l atorvastati 2018-0 Yes 20mg Take 20 mg [...] mouth. Hospi ta tablet 00 l atorvastati 2018-0 Yes 20mg Take 20 mg [...] Hospi ta tablet 00 l losartan 50 2018-0 2020- No [id number] 50mg Take 1 Univers mg tablet 4-30 12-18 tablet by ity of 00:00: 00:00 mouth [place] 00 :00 daily. Medical Branch losartan 50 2018-0 2020- No [id number] 50mg Take 1 Univers mg tablet 4-30 12-18 tablet by ity of 00:00: 00:00 mouth [place] 00 :00 daily. Medical Branch naproxen 2018-0 Yes 500mg Take 500 Meth lanie (NAPROSYN) 4-[address] 500 MG 00:00: mouth. Hospita tablet 00 l naproxen 2018-0 Yes 500mg Take 500 Meth lanie (NAPROSYN) 4-[address] 500 MG 00:00: mouth. Hospita tablet 00 l naproxen 2018-0 Yes 500mg Take 500 Meth lanie (NAPROSYN) 4-[address] 500 MG 00:00: mouth. Hospita tablet 00 l naproxen 2018-0 Yes 500mg Take 500 Meth lanie (NAPROSYN) 4-[address] 500 MG 00:00: mouth. Hospita tablet 00 l Immunizations Ordered Filled Immunization Date Status Comments [facility] e Immunization Name Name Tdap 2021-12-25 Completed 00:00:00 SHINGRIX VACCINE 2021-12-25 Completed 00:00:00 Tdap 2021-12-25 Completed 00:00:00 SHINGRIX VACCINE 2021-12-25 Completed 00:00:00 Tdap 2021-12-25 Completed 00:00:00 SHINGRIX VACCINE 2021-12-25 Completed 00:00:00 Tdap 2021-12-25 Completed 00:00:00 SHINGRIX VACCINE 2021-12-25 Completed 00:00:00 SARS-COV-2 COVID-19 2020-07-13 Completed Unive rsity of PFIZER VACCINE 00:00:00 [facility] Influenza Virus 2020-04-14 Completed Universit y of Vaccine 00:00:00 [facility] Influenza Virus 2020-04-14 Completed Universit y of Vaccine 00:00:00 [facility] Influenza Virus 2020-04-14 Completed Universit y of Vaccine 00:00:00 [facility] Influenza Virus 2020-04-14 Completed Universit y of Vaccine 00:00:00 [facility] Influenza Virus 2020-04-14 Completed Universit y of Vaccine 00:00:00 [facility] Influenza Virus 2020-04-14 Completed Universit y of Vaccine 00:00:00 [facility] Influenza Virus 2018-07-06 Completed Universit y of Vaccine Quad IM 3+ 00:00:00 [facility] Influenza Virus 2018-07-06 Completed Universit y of Vaccine Quad IM 3+ 00:00:00 [facility] Influenza Virus 2018-07-06 Completed Universit y of Vaccine Quad IM 3+ 00:00:00 [facility] Influenza Virus 2018-07-06 Completed Universit y of Vaccine Quad IM 3+ 00:00:00 [facility] Influenza Virus 2018-07-06 Completed Universit y of Vaccine Quad IM 3+ 00:00:00 [facility] Influenza Virus 2018-07-06 Completed Universit y of Vaccine Quad IM 3+ 00:00:00 [facility] Influenza Virus 2018-07-06 Completed Universit y of Vaccine Quad IM 3+ 00:00:00 [facility] Influenza Virus 2018-07-06 Completed Universit y of Vaccine Quad IM 3+ 00:00:00 [facility] Vital Signs Vital Name Observation Time Observation Value Comments Source Systolic blood 2020-04-28 19:59:00 145 mm[Hg] Univer sity of pressure [facility] Diastolic blood 2020-04-28 19:59:00 92 mm[Hg] Unive rsity of pressure [facility] Heart rate 2020-04-28 19:59:00 105 /min Universi ty of [facility] Respiratory rate 2020-04-28 19:59:00 18 /min Univ ersity of [facility] Body height 2020-04-28 19:59:00 152.4 cm Universi ty [facility] Body weight 2020-04-28 19:59:00 65.59 kg Universi ty [facility] BMI 2020-04-28 19:59:00 28.24 kg/m2 Universi ty [facility] Oxygen saturation in 2020-04-28 19:59:00 97 /min [facility] Arterial blood by [facility] Pulse oximetry Branch BP Systolic 2022-04-25 17:03:00 107 mm[Hg] BP Diastolic 2022-04-25 17:03:00 72 mm[Hg] Weight Measured 2022-04-25 17:03:00 149.80 pounds Height Measured 2022-04-25 17:03:00 60.00 inches Body Temperature 2022-04-25 17:03:00 97.30 degrees Heart Rate 2022-04-25 17:03:00 97.00 /min Respiratory Rate 2022-04-25 17:03:00 26.00 /min BP Systolic 2022-04-03 08:03:00 120 mm[Hg] BP [...] Procedure Date / Time Performed Performing Clinician Sour e [id number] 2022-04-11 00:00:00 ALDMO [facility] [id number] 2022-04-11 00:00:00 ALDMO [facility] [id number] 2022-04-11 00:00:00 ALDMO [facility] [id number] 2022-04-11 00:00:00 HYDSH [facility] [id number] 2022-04-11 00:00:00 [facility] [id number] 2022-04-10 00:00:00 CHAAB.01 [facility] [id number] 2022-04-10 00:00:00 CHAAB.01 [facility] [id number] 2022-04-10 00:00:00 CHAAB.01 [facility] ASSIGNMENT OF BENEFITS 2020-04-28 19:27:34 Doctor Unassigned, No [facility] POCT HEMOGLOBIN A1C 2020-04-28 00:00:00 Kolton [facility] [place] TEST Medical Branch Plan of Care Planned Activity Planned Date Details Comments Source Future Scheduled 2022-04-09 HEPATITIS B VACCINES Met [facility] Test 17:44:29 (1 of 3 - 3-dose series) [code = HEPATITIS B VACCINES (1 of 3 - 3-dose series)] Future Scheduled 2022-04-09 COVID-19 VACCINE (#1) [facility] Test 17:44:29 [code = COVID-19 VACCINE (#1)] Future Scheduled 2022-04-09 Screening for [facility] Test 17:44:29 malignant neoplasm of cervix (procedure) [code = 733571639] Future Scheduled 2022-04-09 BREAST CANCER [facility] Test 17:44:29 SCREENING [code = BREAST CANCER SCREENING] Future Scheduled 2022-04-[address] [facility] Test 17:44:29 [code = COLONOSCOPY SCREENING] Future Scheduled 2022-04-09 SHINGLES VACCINES (1 Met [facility] Test 17:44:29 of 2) [code = SHINGLES VACCINES (1 of 2)] Future Scheduled 2022-04-09 INFLUENZA VACCINE [facility] Test 17:44:29 [code = INFLUENZA VACCINE] Future Scheduled 2022-04-09 HEPATITIS B VACCINES Met [facility] Test 17:44:29 (1 of 3 - 3-dose series) [code = HEPATITIS B VACCINES (1 of 3 - 3-dose series)] Future Scheduled 2022-04-09 COVID-19 VACCINE (#1) [facility] Test 17:44:29 [code = COVID-19 VACCINE (#1)] Future Scheduled 2022-04-09 Screening for [facility] Test 17:44:29 malignant neoplasm of cervix (procedure) [code = 438394395] Future Scheduled 2022-04-09 BREAST CANCER [facility] Test 17:44:29 SCREENING [code = BREAST CANCER SCREENING] Future Scheduled 2022-04-[address] [facility] Test 17:44:29 [code = COLONOSCOPY SCREENING] Future Scheduled 2022-04-09 SHINGLES VACCINES (1 Met [facility] Test 17:44:29 of 2) [code = SHINGLES VACCINES (1 of 2)] Future Scheduled 2022-04-09 INFLUENZA VACCINE [facility] Test 17:44:29 [code = INFLUENZA VACCINE] Future Scheduled 2022-03-17 HEPATITIS B VACCINES Met [facility] Hospital Test 02:08:49 (1 of 3 - 3-dose series) [code = HEPATITIS B VACCINES (1 of 3 - 3-dose series)] Future Scheduled 2022-03-17 COVID-19 VACCINE (#1) Me [facility] Test 02:08:49 [code = COVID-19 VACCINE (#1)] Future Scheduled 2022-03-17 Screening for [facility] Hospital Test 02:08:49 malignant neoplasm of cervix (procedure) [code = 753997006] Future Scheduled 2022-03-17 BREAST CANCER [facility] Hospital Test 02:08:49 SCREENING [code = BREAST CANCER SCREENING] Future Scheduled 2022-03-[address] [facility] Test 02:08:49 [code = COLONOSCOPY SCREENING] Future Scheduled 2022-03-17 SHINGLES VACCINES (1 Met [facility] Test 02:08:49 of 2) [code = SHINGLES VACCINES (1 of 2)] Future Scheduled 2022-03-17 INFLUENZA VACCINE [facility] Test 02:08:49 [code = INFLUENZA VACCINE] Future Scheduled COVID-19 VACCINE (1) Met [facility] Hospital Test [code = COVID-19 VACCINE (1)] Future Scheduled Screening for [facility] Hospital Test malignant neoplasm of cervix (procedure) [code = [id number]] Future Scheduled BREAST CANCER [facility] Hospital Test SCREENING [code = BREAST CANCER SCREENING] Future Scheduled COLONOSCOPY SCREENING [facility] Test [code = COLONOSCOPY SCREENING] Future Scheduled SHINGLES VACCINES Method [facility] Hospital Test (#1) [code = SHINGLES VACCINES (#1)] Future Scheduled INFLUENZA VACCINE [facility] Test [code = INFLUENZA VACCINE] Goal Plan of Care Note [code = 12860-0] Goal Plan of Care Note [code = 05934-9] Goal Plan of Care Note [code = 07213-4] Goal Plan of Care Note [code = 96430-7] Goal Plan of Care Note [code = 57502-2] Goal Plan of Care Note [code = 28911-3] Goal Plan of Care Note [code = 92757-4] Goal Plan of Care Note [code = 57539-8] Goal Plan of Care Note [code = 52179-7] Goal Plan of Care Note [code = 57589-9] Goal Plan of Care Note [code = 63161-0] Goal Plan of Care Note [code = 44334-2] Goal Plan of Care Note [code = 03058-2] Goal Plan of Care Note [code = 02178-2] Goal Plan of Care Note [code = 59747-0] Goal Plan of Care Note [code = 68311-1] Goal Plan of Care Note [code = 12219-7] Goal Plan of Care Note [code = 29859-0] Goal Plan of Care Note [code = 87224-0] Goal Plan of Care Note [code = 41834-4] Goal Plan of Care Note [code = 71538-9] Goal Plan of Care Note [code = 67691-7] Goal Plan of Care Note [code = 76726-0] Goal Plan of Care Note [code = 43529-3] Goal Plan of Care Note [code = 59939-7] Goal Plan of Care Note [code = 21182-7] Goal Plan of Care Note [code = 64524-0] Goal Plan of Care Note [code = 28815-8] Goal Plan of Care Note [code = 67979-3] Goal Plan of Care Note [code = 37337-7] Goal Plan of Care Note [code = 62754-0] Goal Plan of Care Note [code = 15667-1] Goal Plan of Care Note [code = 20390-0] Goal Plan of Care Note [code = 45514-9] Goal Plan of Care Note [code = 04630-9] Goal Plan of Care Note [code = 71854-0] Goal Plan of Care Note [code = 81372-4] Goal Plan of Care Note [code = 34849-1] Goal Plan of Care Note [code = 53536-9] Goal Plan of Care Note [code = 56804-7] Goal Plan of Care Note [code = 54833-4] Goal Plan of Care Note [code = 63844-5] Goal Plan of Care Note [code = 94008-4] Goal Plan of Care Note [code = 18828-1] Goal Plan of Care Note [code = 86923-0] Goal Plan of Care Note [code = 76353-3] Goal Plan of Care Note [code = 17167-9] Goal Plan of Care Note [code = 23337-3] Goal Plan of Care Note [code = 84342-3] Goal Plan of Care Note [code = 37351-7] Goal Plan of Care Note [code = 36671-3] Goal Plan of Care Note [code = 97700-4] Goal Plan of Care Note [code = 52972-2] Goal Plan of Care Note [code = 99247-6] Goal Plan of Care Note [code = 03941-7] Goal Plan of Care Note [code = 36155-6] Goal Plan of Care Note [code = 92845-3] Goal Plan of Care Note [code = 74332-0] Goal Plan of Care Note [code = 12935-5] Goal Plan of Care Note [code = 99421-9] Goal Plan of Care Note [code = 81734-2] Goal Plan of Care Note [code = 12878-6] Goal Plan of Care Note [code = 74490-0] Goal Plan of Care Note [code = 62164-4] Goal Plan of Care Note [code = 50332-0] Goal Plan of Care Note [code = 98966-6] Goal Plan of Care Note [code = 51248-7] Goal Plan of Care Note [code = 78804-4] Goal Plan of Care Note [code = 18660-8] Goal Plan of Care Note [code = 98018-7] Goal Plan of Care Note [code = 02460-4] Goal Plan of Care Note [code = 01890-7] Goal Plan of Care Note [code = 18815-4] Goal Plan of Care Note [code = 66253-7] Goal Plan of Care Note [code = 09132-6] Goal Plan of Care Note [code = 17219-1] Goal Plan of Care Note [code = 69319-1] Goal Plan of Care Note [code = 51481-4] Goal Plan of Care Note [code = 57964-6] Goal Plan of Care Note [code = 69569-1] Goal Plan of Care Note [code = 56484-3] Goal Plan of Care Note [code = 74847-0] Goal Plan of Care Note [code = 93363-8] Goal Plan of Care Note [code = 23252-5] Goal Plan of Care Note [code = 00056-6] Goal Plan of Care Note [code = 46253-8] Goal Plan of Care Note [code = 06034-4] Goal Plan of Care Note [code = 07715-7] Goal Plan of Care Note [code = 84755-3] Goal Plan of Care Note [code = 42035-0] Goal Plan of Care Note [code = 91631-9] Goal Plan of Care Note [code = 69014-9] Goal Plan of Care Note [code = 77493-7] Goal Plan of Care Note [code = 20361-2] Goal Plan of Care Note [code = 48406-5] Goal Plan of Care Note [code = 52054-6] Goal Plan of Care Note [code = 72156-2] Goal Plan of Care Note [code = 77441-8] Goal Plan of Care Note [code = 26135-9] Goal Plan of Care Note [code = 10216-9] Goal Plan of Care Note [code = 66888-0] Goal Plan of Care Note [code = 66366-9] Goal Plan of Care Note [code = 09213-6] Goal Plan of Care Note [code = 88687-3] Goal Plan of Care Note [code = 25362-6] Goal Plan of Care Note [code = 52663-1] Goal Plan of Care Note [code = 49052-8] Goal Plan of Care Note [code = 36838-3] Goal Plan of Care Note [code = 65048-8] Goal Plan of Care Note [code = 66376-2] Goal Plan of Care Note [code = 28532-9] Goal Plan of Care Note [code = 79136-3] Goal Plan of Care Note [code = 56009-1] Goal Plan of Care Note [code = 50063-1] Goal Plan of Care Note [code = 86628-4] Goal Plan of Care Note [code = 72790-0] Goal Plan of Care Note [code = 97070-3] Goal Plan of Care Note [code = 04572-6] Goal Plan of Care Note [code = 65759-8] Goal Plan of Care Note [code = 31254-9] Encounters Start End Encounter Admission Attending Care Care Encounter Source Date/Time Date/Time Type Type Clinicians Facility Department ID 2022-04-09 [facility] 1.2.840.1 [id number] Methodi 00:00:00 Encounter Marko 52192.1.1 623 Alejandro 3.430.2.7 Hospit a .3.106791 l .8 2022-04-09 [facility], .2.840.1 [id number] Methodi 00:00:00 Encounter Marko 96115.1.[address] [place] 3.430.2.7 Hospit a .3.702098 l .8 2021-12-19 Outpatient Bryan, Na STLMLC STLMLC 794215-11 2 Common 10:57:02 [facility] 2021-06-06 Outpatient Bryan, Na STLMLC STLC 180189-12 2 Common 14:38:55 [facility] 2021-06-06 Outpatient Bryan, Na STLMLC STLC [id number] 2 Common 14:17:23 [id number] [facility] 2021-06-06 Outpatient Bryan, Na STLMLC STLC [id number] 2 Common 14:04:09 [id number] [facility] 2020-05-06 Inpatient UR Nikhil, JORDANPM INTE.02 [id number] [facility] 19:38:[address] [place] [address] 2022-04-25 2022-04-25 Outpatient [facility] [id number] Bharat 16:55:40 16:55:40 [id number] [facility] 2022-04-25 2022-04-25 Outpatient [id number]- [id number] hdm5wg-9 00:00:00 00:00:00 Visit 1bfe-4917 bfe-4917-8 -827d-11d 27d-11d7bd [id number] [id number] 2022-04-09 2022-04-17 Inpatient EM Marilou, JORDANCL INTE.02 [id number] [facility] 19:06:00 18:33:00 Alaina 36 [facility] 2022-04-03 2022-04-03 Outpatient [facility] [id number] Bharat 08:00:49 08:00:49 [id number] F Magdy 2022-04-03 2022-04-03 Outpatient ir4npka6- [id number] 00:00:00 00:00:00 Visit 1142-48cc 142-48cc-b -i10h-f89 29e-z89590 [id number] 19445i 2021-12-31 2021-12-31 Outpatient [id number]- [id number] 1ky785-7 00:00:00 00:00:00 Visit 53j3-1b9j 7s1-5c5d-0 -8359-79a 359-79adb6 il66wkny7 5ffdd5 2021-12-27 2021-12-27 Transcribe Provider, 1.2.840.1 [id number] Methodi 00:00:00 00:00:00 Orders Not In [address]34.1.[address] [facility] 3.430.2.7 Hospit a .3.280041 l .8 2021-12-27 2021-12-27 Transcribe Provider, 1.2.840.1 [id number] Methodi 00:00:00 00:00:00 Orders Not In 96900.1.[address] 3.430.2.7 Hospit a .3.228899 l .8 2021-12-25 2021-12-25 Outpatient [id number] 00:00:00 00:00:00 Visit 1gi4-34d6 da4-40c9-9 -1e28-ww6 s31-ul5y3b z1be0l901 y5u407 2021-12-20 2021-12-20 Outpatient [id number] f1 [id number] 00:00:00 00:00:00 Visit j482-22d7 690-43e5-b -yr42-8mp y80-9pvh10 o25idgk03 ceed60 2021-12-06 2021-12-06 Outpatient [id number]- [id number] 40cdu4-8 00:00:00 00:00:00 Visit 6i57-17re s89-52st-k -ji5w-0m2 e1x-4m3986 [id number] [id number] 2020-12-01 2020-12-01 CANDIE Gerard 1.2.812.954 [id number] Univers 00:00:00 00:00:00 Kolton Rowley 350.1.13.10 [phone] [address] 2020-11-21 2020-11-21 Outpatient JENNA SIERRASEY JAIDA [id number] Jaida 13:30:00 13:30:00 EZIO kacey ortega 2020-08-03 2020-08-03 Outpatient [facility] [id number] Univers 15:00:00 15:00:00 ity [facility] 2020-07-13 2020-07-13 Outpatient [facility] [id number] Univers 16:10:00 16:10:00 [facility] 2020-05-16 2020-05-[address] [facility] 1.2.660.357 [id number] Univers 00:00:00 00:00:00 Kolton Rowley 350.1.13.10 [place] [phone] [address] 2020-05-09 2020-05-[address] [facility] 1.2.840.114 [id number] Univers 00:00:00 00:00:00 Evaristo [place] 350.1.13.10 [place] [phone] [address] 2020-05-09 2020-05-[address] [facility] 1.2.840.114 [id number] 00:00:00 00:00:00 Rovertojovani [place] 350.1.13.10 [place] 4.2.7.2.686 Professio [phone] [address] 2020-05-08 2020-05-08 Telephone [facility] 1.2.840.114 [id number] Univers 00:00:00 00:00:00 Kolton Mason [facility] 350.1.13.10 it y of [place] 4.2.7.2.686 Noah as Professio [phone] Ar dical nal [address] [place] [address] 2020-05-04 2020-05-04 Outpatient MK Tejeda [id number] [facility] 23:41:00 23:41:00 Oladipo 40 [facility] 2020-04-28 2020-04-28 Office [facility] 1.2.795.024 [id number] Univers 13:28:27 15:11:34 Visit Kolton Rowley 350.1.13.10 [place] [phone] Ar dical nal [address] [facility] 2020-04-28 2020-04-28 [facility] [id number] Univers 13:30:00 13:30:00 [place] [facility] 2020-04-28 2020-04-28 Orders Doctor BHARGAV 1.2.840.114 [id number] Univers 00:00:00 00:00:00 Only Unassigned, JOSSELIN 350.1.13.10 ity of [place] [facility] 4.2.7.2.686 Noah as [phone] [address] 2020-04-28 2020-04-28 Orders Doctor BHARGAV 1.2.840.114 [id number] 00:00:00 00:00:00 Only Unassigned, JOSSELIN 350.1.13.10 [place] [facility] 4.2.7.2.686 [id number] [id number] 2020-04-26 2020-04-26 Telephone [facility] 1.2.864.567 [id number] Univers 00:00:00 00:00:00 Evaristo Row[place] 350.1.13.10 [place] [phone] Ar dical nal 220 [facility] 2020-04-26 2020-04-26 [facility] [id number] [id number] 00:00:00 00:00:00 Evaristo [place] [id number] [place] [id number] Professio [phone] [facility] 220 [facility] 2019-12-29 2019-12-29 Outpatient R DMITRIY [facility] [id number] Univers 15:30:00 15:30:00 [facility] 2019-10-20 2019-10-20 Outpatient R DMITRIY [facility] [id number] [facility] 13:30:00 13:30:00 [facility] Results Test Description Test Time Test Comments Results Result Comments Source GLUCOSE BEDSIDE 2022-04-17 17:48:00 Test Item Value Reference Range Interpretation Comme nts GLUCOSE BEDSIDE (test code = 145 MG/DL 70-110 H Performed by certified 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 [facility]) [facility] THYROID STIMULATING [id number] 15:09:00 Test Item Value Reference Range Interpretation Comments THYROID STIMULATING 6.96 0.42-5.47 H Results in HORMONE (test code = TSH) mi lli-International Units/mL GLUCOSE [id number] 11:23:00 Test Item Value Reference Range Interpretation Comments GLUCOSE BEDSIDE (test 264 MG/DL 70-110 H Perfor med by certified code = GLUBED) 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 [facility] GLUCOSE [id number] 09:07:00 Test Item Value Reference Range Interpretation Comments GLUCOSE BEDSIDE (test 193 MG/DL 70-110 H Perfor med by certified code = GLUBED) 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 [facility] CBC W/AUTO [id number] 04:27:00 Test Item Value Reference Range Interpretation Comments WHITE BLOOD CELL 7.5 x10 3/uL 4.5-11.0 N (test code = WBC) RED BLOOD CELL (test 4.05 x10 6/uL 3.54-5.02 N code = RBC) HEMOGLOBIN (test code 11.9 g/dL 11.0-15.0 N = HGB) HEMATOCRIT (test code 34.9 % 33.0-45.0 N = HCT) MEAN CELL VOLUME 86.2 fL 81.0-99.0 (test code = MCV) MEAN CELL HGB (test 29.4 pg 27.0-33.0 N code = MCH) MEAN CELL HGB 34.1 g/dL 33.0-37.0 N CONCETRATION (test code = MCHC) RED CELL DISTRIBUTION 15.7 % 11.5-14.5 H WIDTH CV (test code = RDW) RED CELL DISTRIBUTION 48.7 fL 37.0-54.0 N WIDTH SD (test code = RDW-SD) PLATELET COUNT (test 197 x10 3/uL 150-400 N code = PLT) MEAN PLATELET VOLUME 10.1 fL 7.0-9.0 H (test code = MPV) NEUTROPHIL % (test 58.5 % 56.0-77.0 N code = NT%) LYMPHOCYTE % (test 28.5 % 14.0-32.0 N code = LY%) NEUTROPHIL # (test 4.39 x10 3/uL 2.0-7.6 N code = NT#) LYMPHOCYTE # (test 2.14 x10 3/uL 1.0-3.8 N code = LY#) MANUAL DIFF REQUIRED NO SLIDE R EVIEWED, (test code = MDIFF) CONSISTE NT WITH AUTO DIFF. IMMATURE GRANULOCYTE 2.3 % 0.0-2.0 H % (test code = IG%) MONOCYTE % (test code 6.7 % 4.8-9.0 N = MO%) EOSINOPHIL % (test 3.6 % 0.3-3.7 N code = EO%) BASOPHIL % (test code 0.4 % 0.0-2.0 N = BA%) NUCLEATED RBC % (test 0.0 % 0-0 N code = NRBC%) IMMATURE GRANULOCYTE 0.17 x10 3/uL 0.00-0.03 H # (test code = IG#) MONOCYTE # (test code 0.50 x10 3/uL 0.1-0.8 N = MO#) EOSINOPHIL # (test 0.27 x10 3/uL 0.0-0.2 H code = EO#) BASOPHIL # (test code 0.03 x10 3/uL 0.0-0.2 N = BA#) NUCLEATED RBC # (test 0.00 x10 3/uL 0.0-0.1 N code = NRBC#) BASIC METABOLIC [id number] 03:52:00 Test Item Value Reference Range Interpretation Comments SODIUM (test code = 134 mEq/L 134-147 N NA) POTASSIUM (test code 3.9 mEq/L 3.4-5.0 N = K) CHLORIDE (test code 107 mEq/L 100-108 N = CL) CARBON DIOXIDE (test 21 mEq/l 21-33 N code = CO2) ANION GAP (test code 10 0-20 N = GAP) GLUCOSE (test code = 167 mg/dL 70-110 H GLU) BLOOD UREA NITROGEN 11 mg/dL 7-18 N (test code = BUN) GLOMERULAR 106.6 90-95 H The Glomerular FILTRATION RATE Filtration R ate is a (test code = GFR) calculated parameterbased on serum Creatinine, pat ient age and sex. GFR va luesless than 60 mL/min/ 1.73 square meters a re indicative ofCh ronic Kidney Disease. Values less than 15 mL/min/1.73squa re meters indicate Kidney failure. The calculation forGFR is based on the CKD-EPI (2020) calculat ion. This formulais race indifferent and is the recommended for jerel for GFRby the [facility] on for Adults.The GFR will not calculate if th e sex is unknown or if thepatient's ag e is <18 years. CREATININE (test 0.6 mg/dL 0.6-1.3 N code = CREAT) CALCIUM (test code = 8.2 mg/dL 8.0-10.5 N CA) [id number] 03:52:00 Test Item Value Reference Range Interpretation Comments MAGNESIUM (test code = MAG) 1.90 mg/dL 1.80-2.40 N GLUCOSE [id number] 20:36:00 Test Item Value Reference Range Interpretation Comments GLUCOSE BEDSIDE (test 105 MG/DL 70-110 N Perfor med by certified code = GLUBED) 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 [facility] GLUCOSE [id number] 17:06:00 Test Item Value Reference Range Interpretation Comments GLUCOSE BEDSIDE (test 173 MG/DL 70-110 H Perfor med by certified code = GLUBED) 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 [facility] POC ARTERIAL BLOOD [id number] 15:13:00 Test Item Value Reference Range Interpretation Comments POC ARTERIAL BLOOD GAS PH (test 7.506 7.35-7.45 HH code = POCPHA) POC ARTERIAL BLOOD GAS PCO2 (test 23.1 mmHg 35.0-45 LL code = [id number]) POC TCO2 ARTERIAL (test code = 19.0 POCTCO2) POC ARTERIAL BLOOD GAS PO2 (test 72.4 mmHg 80-100.0 L code = NGMJW1P) POC HCO3 ARTERIAL (test code = 18.3 MMOL/L 22.0-26.0 L QFHWCQ2R) POC BASE EXCESS (test code = -4.8 MMOL/L -4.0-4.0 L POCBEA) POC O2 SATURATION (test code = 96.2 % 90-100 N POCO2S) ABG DELIVERY (test code = GRAEME) Room Air ABG SITE (test code = SITEA) L Radial SALVATORE'S TEST (test code = ALLENS) Positive BASIC METABOLIC [id number] 15:13:00 Test Item Value Reference Range Interpretation Comments SODIUM (test code = NA/ABG) 135 mmol/L 134-147 N POTASSIUM (test code = K/ABG) 3.8 mmol/L 3.4-5.0 N CHLORIDE (test code = CL/ABG) 103 mmol/L 100-108 N CREATININE ABG (test code = 0.6 mg/dL 0.6-1.0 N CREAABG) POC IONIZED CALCIUM (test code = 1.13 MMOL/L 1.12-1.32 N POCCA) POC GLUCOSE (test code = POCGLU) 216 MG/DL 70-110 H HEMOGLOBIN [id number] 15:13:00 Test Item Value Reference Range Interpretation Comments HEMOGLOBIN ABG (test code = 11.2 G/DL 11.0-15.0 N HGB/ABG) [id number] 15:13:00 Test Item Value Reference Range Interpretation Comments HEMATOCRIT (test code = HCT/ABG) 33 % 33.0-45.0 N POC LACTIC [id number] 15:13:00 Test Item Value Reference Range Interpretation Comments POC LACTIC ACID (test code = 1.4 mmol/l 0.9-1.7 N POCLAC) GLUCOSE [id number] 14:42:00 Test Item Value Reference Range Interpretation Comments GLUCOSE BEDSIDE (test 193 MG/DL 70-110 H Perfor med by certified code = GLUBED) 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 [facility] GLUCOSE [id number] 12:18:00 Test Item Value Reference Range Interpretation Comments GLUCOSE BEDSIDE (test 231 MG/DL 70-110 H Perfor med by certified code = GLUBED) 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 [facility] GLUCOSE [id number] 11:42:00 Test Item Value Reference Range Interpretation Comments GLUCOSE BEDSIDE (test 175 MG/DL 70-110 H Perfor med by certified code = GLUBED) 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 [facility] BASIC METABOLIC [id number] 06:14:00 Test Item Value Reference Range Interpretation Comments SODIUM (test code = 137 mEq/L 134-147 N NA) POTASSIUM (test code 3.9 mEq/L 3.4-5.0 N = K) CHLORIDE (test code 106 mEq/L 100-108 N = CL) CARBON DIOXIDE (test 21 mEq/l 21-33 N code = CO2) ANION GAP (test code 14 0-20 N = GAP) GLUCOSE (test code = 161 mg/dL 70-110 H GLU) BLOOD UREA NITROGEN 14 mg/dL 7-18 N (test code = BUN) GLOMERULAR 102.7 90-95 H The Glomerular FILTRATION RATE Filtration R ate is a (test code = GFR) calculated parameterbased on serum Creatinine, pat ient age and sex. GFR va luesless than 60 mL/min/ 1.73 square meters a re indicative ofCh ronic Kidney Disease. Values less than 15 mL/min/1.73squa re meters indicate Kidney failure. The calculation forGFR is based on the CKD-EPI (2020) calculat ion. This formulais race indifferent and is the recommended for jerel for GFRby the Nat nal Kidney Foundati on for Adults.The GFR will not calculate if th e sex is unknown or if thepatient's ag e is <18 years. CREATININE (test 0.7 mg/dL 0.6-1.3 N code = CREAT) CALCIUM (test code = 8.3 mg/dL 8.0-10.5 N CA) [id number] 06:14:00 Test Item Value Reference Range Interpretation Comments PHOSPHOROUS (test code = PHOS) 2.7 MG/DL 2.5-4.9 N [id number] 06:14:00 Test Item Value Reference Range Interpretation Comments MAGNESIUM (test code = MAG) 2.04 mg/dL 1.80-2.40 N CALCIUM [id number] 06:14:00 Test Item Value Reference Range Interpretation Comments CALCIUM IONIZED (test code = HOLLI) 1.12 MMOL/L 1.09-1.30 N CBC W/AUTO [id number] 06:07:00 Test Item Value Reference Range Interpretation Comments WHITE BLOOD CELL 5.7 x10 3/uL 4.5-11.0 N (test code = WBC) RED BLOOD CELL (test 4.74 x10 6/uL 3.54-5.02 N code = RBC) HEMOGLOBIN (test code 13.9 g/dL 11.0-15.0 N = HGB) HEMATOCRIT (test code 43.6 % 33.0-45.0 = HCT) MEAN CELL VOLUME 92.0 fL 81.0-99.0 (test code = MCV) MEAN CELL HGB (test 29.3 pg 27.0-33.0 N code = MCH) MEAN CELL HGB 31.9 g/dL 33.0-37.0 L CONCETRATION (test code = MCHC) RED CELL DISTRIBUTION 16.3 % 11.5-14.5 H WIDTH CV (test code = RDW) RED CELL DISTRIBUTION 54.6 fL 37.0-54.0 H WIDTH SD (test code = RDW-SD) PLATELET COUNT (test 150 x10 3/uL 150-400 N code = PLT) MEAN PLATELET VOLUME 10.2 fL 7.0-9.0 H (test code = MPV) NEUTROPHIL % (test 57.7 % 56.0-77.0 N code = NT%) LYMPHOCYTE % (test 27.9 % 14.0-32.0 N code = LY%) NEUTROPHIL # (test 3.29 x10 3/uL 2.0-7.6 N code = NT#) LYMPHOCYTE # (test 1.59 x10 3/uL 1.0-3.8 N code = LY#) MANUAL DIFF REQUIRED NO SLIDE R EVIEWED, (test code = MDIFF) CONSISTE NT WITH AUTO DIFF. IMMATURE GRANULOCYTE 1.8 % 0.0-2.0 N % (test code = IG%) MONOCYTE % (test code 7.2 % 4.8-9.0 N = MO%) EOSINOPHIL % (test 4.0 % 0.3-3.7 H code = EO%) BASOPHIL % (test code 1.4 % 0.0-2.0 N = BA%) NUCLEATED RBC % (test 0.0 % 0-0 N code = NRBC%) IMMATURE GRANULOCYTE 0.10 x10 3/uL 0.00-0.03 H # (test code = IG#) MONOCYTE # (test code 0.41 x10 3/uL 0.1-0.8 N = MO#) EOSINOPHIL # (test 0.23 x10 3/uL 0.0-0.2 H code = EO#) BASOPHIL # (test code 0.08 x10 3/uL 0.0-0.2 N = BA#) NUCLEATED RBC # (test 0.00 x10 3/uL 0.0-0.1 N code = NRBC#) - XR CHEST 1 [id number] 00:00:00 [facility] 1965 Sex: F FAX: Latricia Gonzales [place]: St: ADM FAX: Meredith Pozo [phone] FAX: Yakov Nagy Name: ISAIAHBRENDAABBE [facility] : 1965 Age/S: 56/F [address] [place] [address] Unit #: [id number] Loc: G.[address] [place] [address] Phys: Latricia Stanton APRNNP Acct: [id number] Dis Date: Status: ADM IN PHONE #: [phone] Exam Date: 04/16/2022 0809 FAX #: [phone] Reason: POST OP EXAMS: CPT CODE: [id number] XR CHEST 1 V [id number] PROCEDURE INFORMATION: Exam: XR Chest Exam date and time: 04/16/2022 8:09 AM Age: 56 years old Clinical indication: Other: Post op TECHNIQUE: Imaging protocol: Radiologic exam of the chest. Views: 1 view. COMPARISON: CR XR CHEST 1V 04/15/2022 5:35 AM FINDINGS: Lungs: Low lung volumes. Stable bilateral perihilar opacities and left basilar consolidative opacity. Pleural spaces: No pneumothorax. Small bilateral pleural effusions. Heart/Mediastinum: Cardiomediastinal silhouette is stable. Bones/joints: There are sternotomy wires. IMPRESSION: Stable findings. at 1107 Reported and signed by: Yady Bianchi M.D. CC: Latricia Stanton; Meredith Zamarripa MD; Yakov Poon MD Technologist: RT Avery(Yesi) Trnscrd Date/Time/By: 04/16/2022 (110) : By: [email or web address] Orig Print D/T: S: 04/16/2022 (110) PAGE 1 Signed ReportGLUCOSE [id number] 20:52:00 Test Item Value Reference Range Interpretation Comments GLUCOSE BEDSIDE (test 239 MG/DL 70-110 H Perfor med by certified code = GLUBED) 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 [facility] GLUCOSE [id number] 17:56:00 Test Item Value Reference Range Interpretation Comments GLUCOSE BEDSIDE (test 146 MG/DL 70-110 H Perfor med by certified code = GLUBED) 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 [facility] POC IONIZED [id number] 14:21:00 Test Item Value Reference Range Interpretation Comments POC IONIZED CALCIUM (test code = 1.05 MMOL/L 1.12-1.32 L POCCA) GLUCOSE [id number] 14:13:00 Test Item Value Reference Range Interpretation Comments GLUCOSE BEDSIDE (test 168 MG/DL 70-110 H Perfor med by certified code = GLUBED) 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 [facility] [id number] 13:12:00 Test Item Value Reference Range Interpretation Comments PHOSPHOROUS (test code = PHOS) 2.6 MG/DL 2.5-4.9 N TROP-I HIGH [id number] 05:38:00 Test Item Value Reference Range Interpretation Comments TROP-I HIGH 564 ng/L 0-34 HH CAUTION: Units of the SENSITIVITY (test current te st methodology code = TROPIHS) (ng/L) diffe rfrom the prior test meth odology (ng/mL) by a fa ctor of 1000. 99t h Percentile Uppe r Reference Limit (URL): Fe males: 34 ng/LMales: 54 n g/L In order to distin guish acute elevations of h igh sensitivitytrop onin from other clinical conditions, the FourthUnive rsal Definition of M yocardial Infarction stressesclinica l assessment and the demonstration o f a rise and/orfall in s erial troponin result s above the URL. These resu lts were obtained using Siemens Atellica IM TnI Hreagent. Results from di fferent methodologies s hould not becompared to o ne another as quantitative results and URLs mayvar y by method. BASIC METABOLIC [id number] 05:38:00 Test Item Value Reference Range Interpretation Comments SODIUM (test code = 136 mEq/L 134-147 N NA) POTASSIUM (test code 3.5 mEq/L 3.4-5.0 N = K) CHLORIDE (test code 104 mEq/L 100-108 N = CL) CARBON DIOXIDE (test 23 mEq/l 21-33 N code = CO2) ANION GAP (test code 13 0-20 N = GAP) GLUCOSE (test code = 142 mg/dL 70-110 H GLU) BLOOD UREA NITROGEN 14 mg/dL 7-18 (test code = BUN) GLOMERULAR 102.7 90-95 H The Glomerular FILTRATION RATE Filtration R ate is a (test code = GFR) calculated parameterbased on serum Creatinine, pat ient age and sex. GFR va luesless than 60 mL/min/ 1.73 square meters a re indicative ofCh ronic Kidney Disease. Values less than 15 mL/min/1.73squa re meters indicate Kidney failure. The calculation forGFR is based on the CKD-EPI (2020) calculat ion. This formulais race indifferent and is the recommended for jerel for GFRby the [facility] Kidney Foundati on for Adults.The GFR will not calculate if th e sex is unknown or if thepatient's ag e is <18 years. CREATININE (test 0.7 mg/dL 0.6-1.3 N code = CREAT) CALCIUM (test code = 8.4 mg/dL 8.0-10.5 N CA) [id number] 05:38:00 Test Item Value Reference Range Interpretation Comments MAGNESIUM (test code = MAG) 2.01 mg/dL 1.80-2.40 N CBC W/AUTO [id number] 05:20:00 Test Item Value Reference Range Interpretation Comments WHITE BLOOD CELL (test code = 6.0 x10 3/uL 4.5-11.0 N WBC) RED BLOOD CELL (test code = 4.17 x10 6/uL 3.54-5.02 N RBC) HEMOGLOBIN (test code = HGB) 12.3 g/dL 11.0-15.0 N HEMATOCRIT (test code = HCT) 36.0 % 33.0-45.0 N MEAN CELL VOLUME (test code = 86.3 fL 81.0-99.0 N MCV) MEAN CELL HGB (test code = MCH) 29.5 pg 27.0-33.0 N MEAN CELL HGB CONCETRATION 34.2 g/dL 33.0-37.0 N (test code = MCHC) RED CELL DISTRIBUTION WIDTH CV 16.2 % 11.5-14.5 H (test code = RDW) RED CELL DISTRIBUTION WIDTH SD 50.4 fL 37.0-54.0 N (test code = RDW-SD) PLATELET COUNT (test code = 146 x10 3/uL 150-400 L PLT) MEAN PLATELET VOLUME (test code 10.2 fL 7.0-9.0 H = MPV) NEUTROPHIL % (test code = NT%) 66.1 % 56.0-77.0 N IMMATURE GRANULOCYTE % (test 1.5 % 0.0-2.0 N code = IG%) LYMPHOCYTE % (test code = LY%) 19.9 % 14.0-32.0 N MONOCYTE % (test code = MO%) 8.2 % 4.8-9.0 N EOSINOPHIL % (test code = EO%) 4.0 % 0.3-3.7 H BASOPHIL % (test code = BA%) 0.3 % 0.0-2.0 N NUCLEATED RBC % (test code = 0.0 % 0-0 N NRBC%) NEUTROPHIL # (test code = NT#) 3.95 x10 3/uL 2.0-7.6 N IMMATURE GRANULOCYTE # (test 0.09 x10 3/uL 0.00-0.03 H code = IG#) LYMPHOCYTE # (test code = LY#) 1.19 x10 3/uL 1.0-3.8 N MONOCYTE # (test code = MO#) 0.49 x10 3/uL 0.1-0.8 N EOSINOPHIL # (test code = EO#) 0.24 x10 3/uL 0.0-0.2 H BASOPHIL # (test code = BA#) 0.02 x10 3/uL 0.0-0.2 N NUCLEATED RBC # (test code = 0.00 x10 3/uL 0.0-0.1 N NRBC#) MANUAL DIFF REQUIRED (test code NO = MDIFF) - XR CHEST 1 [id number] 00:00:00 [facility] : 1965 Sex: F FAX: Meredith Pozo [phone] [place]: St: [facility] FAX: Yakov Nagy Name: [facility]ONADO [facility] 1965 Age/S: 56/F [address] [place] [address] Unit #: [id number] Loc: G.[address] [place] [address] Phys: Meredith Zamarripa MD Acct: [id number] Dis Date: Status: ADM IN PHONE #: [phone] Exam Date: 04/15/2022726 FAX #: [phone] Reason: Cardiac Surgery Post Op EXAMS: CPT CODE: [id number] XRCHEST 1 V [id number] PROCEDURE INFORMATION: Exam: XR Chest Exam date and time: 04/15/2022 5:35 AM Age: 56 years old Clinical indication: Other: Cardiac surgery post op TECHNIQUE: Imaging protocol: Radiologicexam of the chest. Views: 1 view. COMPARISON: CR XR CHEST 1V 04/14/2022 5:29 AM FINDINGS: Lungs: Patchy hazy consolidation in the left lung base similar to prior study. No other focal infiltrates within the lungs and no edema. Decreased lung volumes. Pleural spaces: Unremarkable. No pleural effusion. No pneumothorax. Heart/Mediastinum: See "Bones/joints" finding. Bones/joints: Patient is status post median sternotomy. Enlarged cardiac silhouette and mediastinal structures are stable. Degenerative changes are seen about the thoracic spine. IMPRESSION: Patchy hazy consolidation in the left lung base similar to prior study. No other focal infiltrates within the lungs and no edema. at 0836 Reported and signed by: Jamal Anderson M.D. CC: Meredith Zamarripa MD; Yakov Poon MD Technologist: Xiomara Snyder, RT(R) Trnscrd Date/Time/By: 04/15/2022 (0836) : By: [email or web address] Orig Print D/T: S: 04/15/2022 (0836) PAGE 1 Signed ReportGLUCOSE [id number] 20:35:00 Test Item Value Reference Range Interpretation Comments GLUCOSE BEDSIDE (test 202 MG/DL 70-110 H Perfor med by certified code = GLUBED) 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 [facility] GLUCOSE [id number] 17:15:00 Test Item Value Reference Range Interpretation Comments GLUCOSE BEDSIDE (test 198 MG/DL 70-110 H Perfor med by certified code = GLUBED) 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 [facility] LIPOPROTEIN [id number] 13:40:00 Test Item Value Reference Range Interpretation Comments LIPOPROTEIN LDL 59.9 mg/dL 0-100 N <100 OPTIMAL 100-129 NEAR (test code = LDL) OPTIMAL/AB OVE [id number] HIGH>OB=981 CHARIS Y HIGH*Guidelines provided by the National Cholesterol EducationProgra m Adult Treatment Panel III TROP-I HIGH [id number] 13:20:00 Test Item Value Reference Range Interpretation Comments TROP-I HIGH 684 ng/L 0-34 HH Critical result called to SENSITIVITY (test ALICE GONG RNby code = TROPIHS) [id number] at 1315 04/14/22Nurse r ead back result and tech confirmed it's correct? Y ESCAUTION: Units of the cu rrent test methodology (ng /L) differfrom the prior test methodology (ng /mL) by a factor of 1000. 99t h Percentile Uppe r Reference Limit (URL): Fe males: 34 ng/LMales: 54 n g/L In order to distin guish acute elevations of h igh sensitivitytrop onin from other clinical conditions, the FourthUnive rsal Definition of M yocardial Infarction stressesclinica l assessment and the demonstration o f a rise and/orfall in s erial troponin result s above the URL. These resu lts were obtained using Siemens Atellica IM TnI Hreagent. Results from di fferent methodologies s hould not becompared to o ne another as quantitative results and URLs mayvar y by method. GLUCOSE [id number] 12:13:00 Test Item Value Reference Range Interpretation Comments GLUCOSE BEDSIDE (test 208 MG/DL 70-110 H Perfor med by certified code = GLUBED) 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 [facility] POC ARTERIAL BLOOD [id number] 10:45:00 Test Item Value Reference Range Interpretation Comments POC ARTERIAL BLOOD GAS PH (test 7.458 7.35-7.45 H code = POCPHA) POC ARTERIAL BLOOD GAS PCO2 (test 25.0 mmHg 35.0-45 LL code = [id number]) POC TCO2 ARTERIAL (test code = 18.4 POCTCO2) POC ARTERIAL BLOOD GAS PO2 (test 131.9 mmHg 80-100.0 H code = ECUXC2B) POC HCO3 ARTERIAL (test code = 17.7 MMOL/L 22.0-26.0 LL [id number]) POC BASE EXCESS (test code = -6.2 MMOL/L -4.0-4.0 L POCBEA) POC O2 SATURATION (test code = 99.2 % 90-100 N POCO2S) ABG DELIVERY (test code = GRAEME) CPAP ABG SITE (test code = SITEA) Art Line BASIC METABOLIC [id number] 05:14:00 Test Item Value Reference Range Interpretation Comments SODIUM (test code = 136 mEq/L 134-147 N NA) POTASSIUM (test code 3.8 mEq/L 3.4-5.0 = K) CHLORIDE (test code 106 mEq/L 100-108 N = CL) CARBON DIOXIDE (test 19 mEq/l 21-33 L code = CO2) ANION GAP (test code 15 0-20 N = GAP) GLUCOSE (test code = 142 mg/dL 70-110 H GLU) BLOOD UREA NITROGEN 20 mg/dL 7-18 H (test code = BUN) GLOMERULAR 102.7 90-95 H The Glomerular FILTRATION RATE Filtration R ate is a (test code = GFR) calculated parameterbased on serum Creatinine, pat ient age and sex. GFR va luesless than 60 mL/min/ 1.73 square meters a re indicative ofCh ronic Kidney Disease. Values less than 15 mL/min/1.73squa re meters indicate Kidney failure. The calculation forGFR is based on the CKD-EPI (2020) calculat ion. This formulais race indifferent and is the recommended for jerel for GFRby the Natio nal Kidney Foundati on for Adults.The GFR will not calculate if th e sex is unknown or if thepatient's ag e is <18 years. CREATININE (test 0.7 mg/dL 0.6-1.3 N code = CREAT) CALCIUM (test code = 8.6 mg/dL 8.0-10.5 N CA) [id number] 05:14:00 Test Item Value Reference Range Interpretation Comments MAGNESIUM (test code = MAG) 2.06 mg/dL 1.80-2.40 N CBC W/AUTO [id number] 04:59:00 Test Item Value Reference Range Interpretation Comments WHITE BLOOD CELL (test code = 7.7 x10 3/uL 4.5-11.0 N WBC) RED BLOOD CELL (test code = 4.01 x10 6/uL 3.54-5.02 N RBC) HEMOGLOBIN (test code = HGB) 11.9 g/dL 11.0-15.0 N HEMATOCRIT (test code = HCT) 34.1 % 33.0-45.0 N MEAN CELL VOLUME (test code = 85.0 fL 81.0-99.0 N MCV) MEAN CELL HGB (test code = MCH) 29.7 pg 27.0-33.0 N MEAN CELL HGB CONCETRATION 34.9 g/dL 33.0-37.0 N (test code = MCHC) RED CELL DISTRIBUTION WIDTH CV 16.1 % 11.5-14.5 H (test code = RDW) RED CELL DISTRIBUTION WIDTH SD 49.2 fL 37.0-54.0 N (test code = RDW-SD) PLATELET COUNT (test code = 124 x10 3/uL 150-400 L PLT) MEAN PLATELET VOLUME (test code 9.9 fL 7.0-9.0 H = MPV) NEUTROPHIL % (test code = NT%) 74.4 % 56.0-77.0 N IMMATURE GRANULOCYTE % (test 1.0 % 0.0-2.0 N code = IG%) LYMPHOCYTE % (test code = LY%) 11.6 % 14.0-32.0 L MONOCYTE % (test code = MO%) 9.1 % 4.8-9.0 H EOSINOPHIL % (test code = EO%) 3.6 % 0.3-3.7 N BASOPHIL % (test code = BA%) 0.3 % 0.0-2.0 N NUCLEATED RBC % (test code = 0.0 % 0-0 N NRBC%) NEUTROPHIL # (test code = NT#) 5.72 x10 3/uL 2.0-7.6 N IMMATURE GRANULOCYTE # (test 0.08 x10 3/uL 0.00-0.03 H code = IG#) LYMPHOCYTE # (test code = LY#) 0.89 x10 3/uL 1.0-3.8 L MONOCYTE # (test code = MO#) 0.70 x10 3/uL 0.1-0.8 N EOSINOPHIL # (test code = EO#) 0.28 x10 3/uL 0.0-0.2 H BASOPHIL # (test code = BA#) 0.02 x10 3/uL 0.0-0.2 N NUCLEATED RBC # (test code = 0.00 x10 3/uL 0.0-0.1 N NRBC#) MANUAL DIFF REQUIRED (test code NO = MDIFF) POC ARTERIAL BLOOD [id number] 04:32:00 Test Item Value Reference Range Interpretation Comments POC ARTERIAL BLOOD GAS PH (test 7.441 7.35-7.45 N code = POCPHA) POC ARTERIAL BLOOD GAS PCO2 29.7 mmHg 35.0-45 LL (test code = [id number]) POC TCO2 ARTERIAL (test code = 21.1 POCTCO2) POC ARTERIAL BLOOD GAS PO2 (test 72.7 mmHg 80-100.0 L code = [id number]) POC HCO3 ARTERIAL (test code = 20.2 MMOL/L 22.0-26.0 L [id number]) POC BASE EXCESS (test code = -3.9 MMOL/L -4.0-4.0 N POCBEA) POC O2 SATURATION (test code = 95.1 % 90-100 N POCO2S) FIO2 (test code = FIO2A) 70 % PaO2/FiO2 (test code = [id number]) 103.85 mm/Hg ABG VENT RESP RATE (test code = 24 /MIN RRA) ABG TEMPERATURE (test code = 99 F TEMPA) ABG SITE (test code = SITEA) Art Line BASIC METABOLIC [id number] 04:32:00 Test Item Value Reference Range Interpretation Comments SODIUM (test code = NA/ABG) 135 mmol/L 134-147 N POTASSIUM (test code = K/ABG) 3.7 mmol/L 3.4-5.0 N CHLORIDE (test code = CL/ABG) 105 mmol/L 100-108 N CREATININE ABG (test code = 0.6 mg/dL 0.6-1.0 CREAABG) POC IONIZED CALCIUM (test code = 1.17 MMOL/L 1.12-1.32 N POCCA) POC GLUCOSE (test code = POCGLU) 150 MG/DL 70-110 H HEMOGLOBIN [id number] 04:32:00 Test Item Value Reference Range Interpretation Comments HEMOGLOBIN ABG (test code = 12.5 G/DL 11.0-15.0 N HGB/ABG) [id number] 04:32:00 Test Item Value Reference Range Interpretation Comments HEMATOCRIT (test code = HCT/ABG) 37 % 33.0-45.0 N POC LACTIC [id number] 04:32:00 Test Item Value Reference Range Interpretation Comments POC LACTIC ACID (test code = 0.8 mmol/l 0.9-1.7 L POCLAC) - XR CHEST 1 [id number] 00:00:00 [facility] : 1965 Sex: F FAX: Meredith Pozo [phone] [place]: St: [facility] FAX: Yakov Nagy Name: ABBE CORONADO [facility] [place] : 1965 Age/S: 56/F [address] [place] [address] Blvd Unit #: [id number] Loc: [place] [address] Phys:Meredith Zamarripa MD Acct: [id number] Dis Date: Status: ADM IN PHONE #: [phone] Exam Date:04/14/2022 0632 FAX #: [phone] Reason: Cardiac Surgery Post Op EXAMS: CPT CODE: [id number] XR CHEST 1 V 40341 PROCEDURE INFORMATION: Exam: XR Chest Exam date and time: 04/14/2022 5:29 AM Age: 56 years old Clinical indication: Other: Cardiac surgery post op TECHNIQUE: Imaging protocol: Radiologic exam of the chest. Views: 1 view. COMPARISON: CR XR CHEST 1V 04/13/2022 6:40 AM FINDINGS: Lungs: Bilateral lung opacities have improved. Pleural spaces: No pneumothorax. No large pleural effusion. Heart/Mediastinum: The heart size is stable. Bones/joints: Stable. IMPRESSION: Improved appearance of the lungs. at 0831 Reported and signed by:Boubacar Soliz M.D. CC: Meredith Zamarripa MD; Yakov Poon MD Technologist: Melvin Henao, RT(R); Catrachita Torres RT(R) Trnscrd Date/Time/By: 04/14/2022 (830) : By: [email or web address] Orig Print D/T: S: 04/14/2022 (31) PAGE 1 Signed ReportUA RFLX MICR CULT IF [id number] 21:55:00 Test Item Value Reference Range Interpretation Comments UA COLOR (test code = COLU) YELLOW YEL/STRAW UA APPEARANCE (test code = SL CLOUDY CLEAR APPU) UA GLUCOSE DIPSTICK (test code 2+ NEGATIVE A = DGLUU) UA BILIRUBIN DIPSTICK (test NEGATIVE NEGATIVE code = BILU) UA KETONE DIPSTICK (test code = TRACE NEGATIVE A KETU) UA SPECIFIC GRAVITY (test code 1.021 1.005-1.030 N = SGU) UA BLOOD DIPSTICK (test code = 3+ NEGATIVE A SANDRINE) UA PH DIPSTICK (test code = 5.0 5.0-7.0 N ASHLEY) UA PROTEIN DIPSTICK (test code 2+ NEGATIVE A = PROU) UA UROBILINIOGEN DIPSTICK (test 2.0 mg/dL 0.2-1.0 A code = URO) UA NITRITE DIPSTICK (test code NEGATIVE NEGATIVE = BISMARK) UA LEUKOCYTE ESTERASE DIPSTICK 2+ NEGATIVE A (test code = LEUU) UA WBC (test code = WBCU) 10-20 WBC/HPF 0-3 A UA RBC (test code = RBCU) >50 RBC/HPF 0-3 A UA WBC NO REFLEX (test code = 10-20 WBC/HPF 0-3 A WBCUCL) UA BACTERIA (test code = BACU) TRACE /HPF NONE SEEN UA SQUAMOUS CELLS (test code = 0-5 /HPF NONE SEEN SQU) UA MUCUS (test code = MUCU) 1+ /LPF NONE SEEN Cath type: Temporary/indwellingIN date: 04/09/22IN time: 2124Elapse time: 87 Hrs 29 MinsIndication for culture: RiskForSepsis-no oth srcSpecimen Description: BLADDER URINEGLUCOSE [id number] 21:31:00 Test Item Value Reference Range Interpretation Comments GLUCOSE BEDSIDE (test 232 MG/DL 70-110 H Perfor med by certified code = GLUBED) 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 [facility] GLUCOSE [id number] 19:57:00 Test Item Value Reference Range Interpretation Comments GLUCOSE BEDSIDE (test 224 MG/DL 70-110 H Perfor med by certified code = GLUBED) 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 [facility] GLUCOSE [id number] 17:31:00 Test Item Value Reference Range Interpretation Comments GLUCOSE BEDSIDE (test 198 MG/DL 70-110 H Perfor med by certified code = GLUBED) 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 [facility] POC ARTERIAL BLOOD [id number] 14:18:00 Test Item Value Reference Range Interpretation Comments POC ARTERIAL BLOOD GAS PH (test 7.433 7.35-7.45 N code = POCPHA) POC ARTERIAL BLOOD GAS PCO2 25.8 mmHg 35.0-45 LL (test code = ZLDHRY2Z) POC TCO2 ARTERIAL (test code = 18.1 POCTCO2) POC ARTERIAL BLOOD GAS PO2 (test 69.7 mmHg 80-100.0 L code = OOKWL9J) POC HCO3 ARTERIAL (test code = 17.3 MMOL/L 22.0-26.0 LL VQEVUL1A) POC BASE EXCESS (test code = -7.0 MMOL/L -4.0-4.0 L POCBEA) POC O2 SATURATION (test code = 94.9 % 90-100 N POCO2S) FIO2 (test code = FIO2A) 64 % PaO2/FiO2 (test code = [id number]) 108.90 mm/Hg ABG DELIVERY (test code = GRAEME) HFNC ABG TEMPERATURE (test code = 98 F TEMPA) ABG SITE (test code = SITEA) Art Line SALVATORE'S TEST (test code = N/A ALLENS) BASIC METABOLIC [id number] 14:18:00 Test Item Value Reference Range Interpretation Comments SODIUM (test code = NA/ABG) 135 mmol/L 134-147 N POTASSIUM (test code = K/ABG) 4.2 mmol/L 3.4-5.0 N CHLORIDE (test code = CL/ABG) 104 mmol/L 100-108 N CREATININE ABG (test code = 0.9 mg/dL 0.6-1.0 N CREAABG) POC IONIZED CALCIUM (test code = 1.20 MMOL/L 1.12-1.32 N POCCA) POC GLUCOSE (test code = POCGLU) 199 MG/DL 70-110 H HEMOGLOBIN [id number] 14:18:00 Test Item Value Reference Range Interpretation Comments HEMOGLOBIN ABG (test code = 13.6 G/DL 11.0-15.0 N HGB/ABG) [id number] 14:18:00 Test Item Value Reference Range Interpretation Comments HEMATOCRIT (test code = HCT/ABG) 40 % 33.0-45.0 N POC LACTIC [id number] 14:18:00 Test Item Value Reference Range Interpretation Comments POC LACTIC ACID (test code = 1.1 mmol/l 0.9-1.7 N POCLAC) POC ARTERIAL BLOOD [id number] 12:52:00 Test Item Value Reference Range Interpretation Comments POC ARTERIAL BLOOD GAS PH (test 7.420 7.35-7.45 N code = POCPHA) POC ARTERIAL BLOOD GAS PCO2 19.7 mmHg 35.0-45 LL (test code = DDKSFG2L) POC TCO2 ARTERIAL (test code = 13.5 POCTCO2) POC ARTERIAL BLOOD GAS PO2 (test 83.1 mmHg 80-100.0 N code = NDBEI9N) POC HCO3 ARTERIAL (test code = 12.8 MMOL/L 22.0-26.0 LL VEKWQV5D) POC BASE EXCESS (test code = -11.7 MMOL/L -4.0-4.0 L POCBEA) POC O2 SATURATION (test code = 96.9 % 90-100 N POCO2S) FIO2 (test code = FIO2A) 60 % PaO2/FiO2 (test code = FIW9PAR3) 138.50 mm/Hg ABG DELIVERY (test code = GRAEME) HFNC ABG TEMPERATURE (test code = 98 F TEMPA) ABG SITE (test code = SITEA) Art Line SALVATORE'S TEST (test code = N/A ALLENS) BASIC METABOLIC [id number] 12:52:00 Test Item Value Reference Range Interpretation Comments SODIUM (test code = NA/ABG) 132 mmol/L 134-147 L POTASSIUM (test code = K/ABG) 4.3 mmol/L 3.4-5.0 N CHLORIDE (test code = CL/ABG) 107 mmol/L 100-108 N CREATININE ABG (test code = 0.8 mg/dL 0.6-1.0 N CREAABG) POC IONIZED CALCIUM (test code = 1.19 MMOL/L 1.12-1.32 N POCCA) POC GLUCOSE (test code = POCGLU) 226 MG/DL 70-110 H HEMOGLOBIN [id number] 12:52:00 Test Item Value Reference Range Interpretation Comments HEMOGLOBIN ABG (test code = 13.2 G/DL 11.0-15.0 N HGB/ABG) [id number] 12:52:00 Test Item Value Reference Range Interpretation Comments HEMATOCRIT (test code = HCT/ABG) 39 % 33.0-45.0 N POC LACTIC [id number] 12:52:00 Test Item Value Reference Range Interpretation Comments POC LACTIC ACID (test code = 1.5 mmol/l 0.9-1.7 N POCLAC) GLUCOSE [id number] 11:45:00 Test Item Value Reference Range Interpretation Comments GLUCOSE BEDSIDE (test 209 MG/DL 70-110 H [facility] med by certified code = GLUBED) 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 [facility] BASIC METABOLIC [id number] 05:21:00 Test Item Value Reference Range Interpretation Comments SODIUM (test code = 134 mEq/L 134-147 N NA) POTASSIUM (test code 4.8 mEq/L 3.4-5.0 = K) CHLORIDE (test code 106 mEq/L 100-108 N = CL) CARBON DIOXIDE (test 17 mEq/l 21-33 L code = CO2) ANION GAP (test code 16 0-20 N = GAP) GLUCOSE (test code = 144 mg/dL 70-110 H GLU) BLOOD UREA NITROGEN 12 mg/dL 7-18 N (test code = BUN) GLOMERULAR 76.0 90-95 L The Glomerular FILTRATION RATE Filtration R ate is a (test code = GFR) calculated parameterbased on serum Creatinine, pat ient age and sex. GFR va luesless than 60 mL/min/ 1.73 square meters a re indicative ofCh ronic Kidney Disease. Values less than 15 mL/min/1.73squa re meters indicate Kidney failure. The calculation forGFR is based on the CKD-EPI (2020) calculat ion. This formulais race indifferent and is the recommended for jerel for GFRby the [facility] Kidney Foundati on for Adults.The GFR will not calculate if th e sex is unknown or if thepatient's ag e is <18 years. CREATININE (test 0.9 mg/dL 0.6-1.3 code = CREAT) CALCIUM (test code = 8.8 mg/dL 8.0-10.5 N CA) [id number] 05:21:00 Test Item Value Reference Range Interpretation Comments MAGNESIUM (test code = MAG) 2.25 mg/dL 1.80-2.40 CALCIUM [id number] 05:16:00 Test Item Value Reference Range Interpretation Comments CALCIUM IONIZED (test code = HOLLI) 1.13 MMOL/L 1.09-1.30 N CBC W/AUTO [id number] 04:48:00 Test Item Value Reference Range Interpretation Comments WHITE BLOOD CELL (test code = 9.3 x10 3/uL 4.5-11.0 N WBC) RED BLOOD CELL (test code = 4.10 x10 6/uL 3.54-5.02 N RBC) HEMOGLOBIN (test code = HGB) 12.2 g/dL 11.0-15.0 N HEMATOCRIT (test code = HCT) 35.7 % 33.0-45.0 N MEAN CELL VOLUME (test code = 87.1 fL 81.0-99.0 N MCV) MEAN CELL HGB (test code = MCH) 29.8 pg 27.0-33.0 N MEAN CELL HGB CONCETRATION 34.2 g/dL 33.0-37.0 N (test code = MCHC) RED CELL DISTRIBUTION WIDTH CV 16.6 % 11.5-14.5 H (test code = RDW) RED CELL DISTRIBUTION WIDTH SD 51.1 fL 37.0-54.0 N (test code = RDW-SD) PLATELET COUNT (test code = 126 x10 3/uL 150-400 L PLT) MEAN PLATELET VOLUME (test code 10.3 fL 7.0-9.0 H = MPV) NEUTROPHIL % (test code = NT%) 81.9 % 56.0-77.0 H IMMATURE GRANULOCYTE % (test 0.6 % 0.0-2.0 N code = IG%) LYMPHOCYTE % (test code = LY%) 8.5 % 14.0-32.0 L MONOCYTE % (test code = MO%) 7.3 % 4.8-9.0 N EOSINOPHIL % (test code = EO%) 1.4 % 0.3-3.7 N BASOPHIL % (test code = BA%) 0.3 % 0.0-2.0 N NUCLEATED RBC % (test code = 0.2 % 0-0 H NRBC%) NEUTROPHIL # (test code = NT#) 7.59 x10 3/uL 2.0-7.6 N IMMATURE GRANULOCYTE # (test 0.06 x10 3/uL 0.00-0.03 H code = IG#) LYMPHOCYTE # (test code = LY#) 0.79 x10 3/uL 1.0-3.8 L MONOCYTE # (test code = MO#) 0.68 x10 3/uL 0.1-0.8 N EOSINOPHIL # (test code = EO#) 0.13 x10 3/uL 0.0-0.2 N BASOPHIL # (test code = BA#) 0.03 x10 3/uL 0.0-0.2 N NUCLEATED RBC # (test code = 0.02 x10 3/uL 0.0-0.1 N NRBC#) MANUAL DIFF REQUIRED (test code NO = MDIFF) POC ARTERIAL BLOOD [id number] 04:15:00 Test Item Value Reference Range Interpretation Comments POC ARTERIAL BLOOD GAS PH (test 7.429 7.35-7.45 N code = POCPHA) POC ARTERIAL BLOOD GAS PCO2 24.5 mmHg 35.0-45 LL (test code = [id number]) POC TCO2 ARTERIAL (test code = 17.0 POCTCO2) POC ARTERIAL BLOOD GAS PO2 (test 125.7 mmHg 80-100.0 H code = EPKOW7E) POC HCO3 ARTERIAL (test code = 16.2 MMOL/L 22.0-26.0 LL OUQALP6J) POC BASE EXCESS (test code = -8.1 MMOL/L -4.0-4.0 L POCBEA) POC O2 SATURATION (test code = 99.0 % 90-100 N POCO2S) FIO2 (test code = FIO2A) 80 % PaO2/FiO2 (test code = EAA0LLO1) 157.12 mm/Hg ABG DELIVERY (test code = GRAEME) HFNC ABG VENT RESP RATE (test code = 26 /MIN RRA) ABG TEMPERATURE (test code = 98.6 F TEMPA) ABG SITE (test code = SITEA) L Fem SALVATORE'S TEST (test code = N/A ALLENS) BASIC METABOLIC [id number] 04:15:00 Test Item Value Reference Range Interpretation Comments SODIUM (test code = NA/ABG) 133 mmol/L 134-147 L POTASSIUM (test code = K/ABG) 4.7 mmol/L 3.4-5.0 N CHLORIDE (test code = CL/ABG) 106 mmol/L 100-108 N CREATININE ABG (test code = 0.9 mg/dL 0.6-1.0 CREAABG) POC IONIZED CALCIUM (test code = 1.15 MMOL/L 1.12-1.32 N POCCA) POC GLUCOSE (test code = POCGLU) 153 MG/DL 70-110 H HEMOGLOBIN [id number] 04:15:00 Test Item Value Reference Range Interpretation Comments HEMOGLOBIN ABG (test code = 13.0 G/DL 11.0-15.0 N HGB/ABG) [id number] 04:15:00 Test Item Value Reference Range Interpretation Comments HEMATOCRIT (test code = HCT/ABG) 38 % 33.0-45.0 N POC LACTIC [id number] 04:15:00 Test Item Value Reference Range Interpretation Comments POC LACTIC ACID (test code = 1.0 mmol/l 0.9-1.7 N POCLAC) - XR CHEST 1 [id number] 00:00:00 [facility] 1965 Sex: F FAX: Meredith Pozo [phone] [place]: St: ADM FAX: Yakov Nagy Name: ABBE CROONADO [facility] : 1965 Age/S: 56/F [address] [place] [address] Unit #: [id number] Loc: G.6434 [place] [address] Phys: Meredith Zamarripa MD Acct: [id number] Dis Date: Status: ADM IN PHONE #: [phone] Exam Date: 04/13/2022 0740 FAX #: [phone] Reason: Cardiac Surgery Post Op EXAMS: CPT CODE: [id number] XRCHEST 1 V [id number] PROCEDURE INFORMATION: Exam: XR Chest Exam date and time: 04/13/2022 6:40 AM Age: 56 years old Clinical indication: Other: Cardiac surgery post op TECHNIQUE: Imaging protocol: Radiologicexam of the chest. Views: 1 view. COMPARISON: CR XR CHEST 1V 04/12/2022 6:16 AM FINDINGS: Tubes, catheters and devices: Stable right IJ central line. Lungs: Bilateral lung opacities have mildly improved. Pleural spaces: No pleural effusion. No pneumothorax. Heart/Mediastinum: Stable heart size. Bones/joints: Stable. Median sternotomy wires. IMPRESSION: Mildly improved lung opacities. ElectronicallySigned by Stacia Gudino on 04/13/2022 at 0931 Reported and signed by: Bharat Gudino M.D. CC: Meredith Zamarripa MD; Yakov Poon MD Technologist: Catrachita Torres, RT(R); Bell Hoffman RT(R) Trnscrd Date/Time/By: 04/13/2022 (31) : By: [email or web address] Orig Print D/T: S: 04/13/2022 (32) PAGE 1 Signed ReportGLUCOSE [id number] 21:21:00 Test Item Value Reference Range Interpretation Comments GLUCOSE BEDSIDE (test 143 MG/DL 70-110 H [facility] med by certified code = GLUBED) 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 [facility] POC ARTERIAL BLOOD [id number] 16:44:00 Test Item Value Reference Range Interpretation Comments POC ARTERIAL BLOOD GAS PH (test 7.464 7.35-7.45 H code = POCPHA) POC ARTERIAL BLOOD GAS PCO2 (test 24.7 mmHg 35.0-45 LL code = FHHDRR4U) POC TCO2 ARTERIAL (test code = 18.5 POCTCO2) POC ARTERIAL BLOOD GAS PO2 (test 73.1 mmHg 80-100.0 L code = RMVLX3V) POC HCO3 ARTERIAL (test code = 17.8 MMOL/L 22.0-26.0 LL WXKEEJ1C) POC BASE EXCESS (test code = -6.1 MMOL/L -4.0-4.0 L POCBEA) POC O2 SATURATION (test code = 95.9 % 90-100 N POCO2S) FIO2 (test code = FIO2A) 80 % PaO2/FiO2 (test code = GBO5HOF7) 91.37 mm/Hg ABG DELIVERY (test code = GRAEME) HFNC ABG TEMPERATURE (test code = 98 F TEMPA) ABG SITE (test code = SITEA) Art Line SALVATORE'S TEST (test code = ALLENS) N/A BASIC METABOLIC [id number] 16:44:00 Test Item Value Reference Range Interpretation Comments SODIUM (test code = NA/ABG) 136 mmol/L 134-147 N POTASSIUM (test code = K/ABG) 3.1 mmol/L 3.4-5.0 L CHLORIDE (test code = CL/ABG) 103 mmol/L 100-108 N CREATININE ABG (test code = 0.7 mg/dL 0.6-1.0 N CREAABG) POC IONIZED CALCIUM (test code = 1.01 MMOL/L 1.12-1.32 L POCCA) POC GLUCOSE (test code = POCGLU) 145 MG/DL 70-110 H HEMOGLOBIN [id number] 16:44:00 Test Item Value Reference Range Interpretation Comments HEMOGLOBIN ABG (test code = 12.8 G/DL 11.0-15.0 N HGB/ABG) [id number] 16:44:00 Test Item Value Reference Range Interpretation Comments HEMATOCRIT (test code = HCT/ABG) 38 % 33.0-45.0 N POC LACTIC [id number] 16:44:00 Test Item Value Reference Range Interpretation Comments POC LACTIC ACID (test code = 1.0 mmol/l 0.9-1.7 N POCLAC) GLUCOSE [id number] 16:31:00 Test Item Value Reference Range Interpretation Comments GLUCOSE BEDSIDE (test 235 MG/DL 70-110 H Perfor med by certified code = GLUBED) 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 [facility] BASIC METABOLIC [id number] 16:30:00 Test Item Value Reference Range Interpretation Comments SODIUM (test code = 134 mEq/L 134-147 N NA) POTASSIUM (test code 3.4 mEq/L 3.4-5.0 N = K) CHLORIDE (test code 104 mEq/L 100-108 N = CL) CARBON DIOXIDE (test 20 mEq/l 21-33 L code = CO2) ANION GAP (test code 13 0-20 N = GAP) GLUCOSE (test code = 142 mg/dL 70-110 H GLU) BLOOD UREA NITROGEN 11 mg/dL 7-18 N (test code = BUN) GLOMERULAR 106.6 90-95 H The Glomerular FILTRATION RATE Filtration R ate is a (test code = GFR) calculated parameterbased on serum Creatinine, pat ient age and sex. GFR va luesless than 60 mL/min/ 1.73 square meters a re indicative ofCh ronic Kidney Disease. Values less than 15 mL/min/1.73squa re meters indicate Kidney failure. The calculatio n forGFR is based on the CKD-EPI (2020) calculat ion. This formulais race indifferent and is the recommended for jerel for GFRby the Natio nal Kidney Foundati on for Adults.The GFR will not calculate if th e sex is unknown or if thepatient's ag e is <18 years. CREATININE (test 0.6 mg/dL 0.6-1.3 N code = CREAT) CALCIUM (test code = 8.1 mg/dL 8.0-10.5 N CA) POC ARTERIAL BLOOD [id number] 11:43:00 Test Item Value Reference Range Interpretation Comments POC ARTERIAL BLOOD GAS PH (test 7.477 7.35-7.45 H code = POCPHA) POC ARTERIAL BLOOD GAS PCO2 (test 28.6 mmHg 35.0-45 LL code = LWASFK1H) POC TCO2 ARTERIAL (test code = 22.1 POCTCO2) POC ARTERIAL BLOOD GAS PO2 (test 68.3 mmHg 80-100.0 L code = UGETE1V) POC HCO3 ARTERIAL (test code = 21.2 MMOL/L 22.0-26.0 L JSYAIJ3B) POC BASE EXCESS (test code = -2.4 MMOL/L -4.0-4.0 N POCBEA) POC O2 SATURATION (test code = 95.2 % 90-100 N POCO2S) FIO2 (test code = FIO2A) 80 % PaO2/FiO2 (test code = ASD3KUN0) 85.37 mm/Hg ABG DELIVERY (test code = GRAEME) HFNC ABG TEMPERATURE (test code = 98 F TEMPA) ABG SITE (test code = SITEA) Art Line SALVATORE'S TEST (test code = ALLENS) N/A BASIC METABOLIC [id number] 11:43:00 Test Item Value Reference Range Interpretation Comments SODIUM (test code = NA/ABG) 134 mmol/L 134-147 N POTASSIUM (test code = K/ABG) 3.7 mmol/L 3.4-5.0 N CHLORIDE (test code = CL/ABG) 100 mmol/L 100-108 N CREATININE ABG (test code = 0.6 mg/dL 0.6-1.0 N CREAABG) POC IONIZED CALCIUM (test code = 1.04 MMOL/L 1.12-1.32 L POCCA) POC GLUCOSE (test code = POCGLU) 227 MG/DL 70-110 H HEMOGLOBIN [id number] 11:43:00 Test Item Value Reference Range Interpretation Comments HEMOGLOBIN ABG (test code = 11.4 G/DL 11.0-15.0 N HGB/ABG) [id number] 11:43:00 Test Item Value Reference Range Interpretation Comments HEMATOCRIT (test code = HCT/ABG) 34 % 33.0-45.0 N POC LACTIC [id number] 11:43:00 Test Item Value Reference Range Interpretation Comments POC LACTIC ACID (test code = 1.5 mmol/l 0.9-1.7 N POCLAC) POC ARTERIAL BLOOD [id number] 07:54:00 Test Item Value Reference Range Interpretation Comments POC ARTERIAL BLOOD GAS PH (test 7.459 7.35-7.45 H code = POCPHA) POC ARTERIAL BLOOD GAS PCO2 31.5 mmHg 35.0-45 L (test code = AVVGBW1W) POC TCO2 ARTERIAL (test code = 23.3 POCTCO2) POC ARTERIAL BLOOD GAS PO2 (test 123.5 mmHg 80-100.0 H code = GKONX7L) POC HCO3 ARTERIAL (test code = 22.3 MMOL/L 22.0-26.0 N XPMIIQ7V) POC BASE EXCESS (test code = -1.5 MMOL/L -4.0-4.0 N POCBEA) POC O2 SATURATION (test code = 99.0 % 90-100 N POCO2S) FIO2 (test code = FIO2A) 80 % PaO2/FiO2 (test code = MSN8ERQ2) 154.37 mm/Hg ABG DELIVERY (test code = GRAEME) BiPAP ABG VENT MODE (test code = CPAP/PS MODEA) ABG TEMPERATURE (test code = 98.9 F TEMPA) ABG SITE (test code = SITEA) Art Line BASIC METABOLIC [id number] 07:54:00 Test Item Value Reference Range Interpretation Comments SODIUM (test code = NA/ABG) 139 mmol/L 134-147 N POTASSIUM (test code = K/ABG) 3.6 mmol/L 3.4-5.0 N CHLORIDE (test code = CL/ABG) 104 mmol/L 100-108 N CREATININE ABG (test code = 0.6 mg/dL 0.6-1.0 CREAABG) POC IONIZED CALCIUM (test code = 1.05 MMOL/L 1.12-1.32 L POCCA) POC GLUCOSE (test code = POCGLU) 152 MG/DL 70-110 H HEMOGLOBIN [id number] 07:54:00 Test Item Value Reference Range Interpretation Comments HEMOGLOBIN ABG (test code = 11.4 G/DL 11.0-15.0 N HGB/ABG) [id number] 07:54:00 Test Item Value Reference Range Interpretation Comments HEMATOCRIT (test code = HCT/ABG) 34 % 33.0-45.0 N POC LACTIC [id number] 07:54:00 Test Item Value Reference Range Interpretation Comments POC LACTIC ACID (test code = 1.2 mmol/l 0.9-1.7 N POCLAC) BASIC METABOLIC [id number] 04:33:00 Test Item Value Reference Range Interpretation Comments SODIUM (test code = 138 mEq/L 134-147 N NA) POTASSIUM (test code 3.7 mEq/L 3.4-5.0 N = K) CHLORIDE (test code 102 mEq/L 100-108 N = CL) CARBON DIOXIDE (test 25 mEq/l 21-33 N code = CO2) ANION GAP (test code 14 0-20 N = GAP) GLUCOSE (test code = 155 mg/dL 70-110 H GLU) BLOOD UREA NITROGEN 14 mg/dL 7-18 N (test code = BUN) GLOMERULAR 102.7 90-95 H The Glomerular FILTRATION RATE Filtration R ate is a (test code = GFR) calculated parameterbased on serum Creatinine, pat ient age and sex. GFR va luesless than 60 mL/min/ 1.73 square meters a re indicative ofCh ronic Kidney Disease. Values less than 15 mL/min/1.73squa re meters indicate Kidney failure. The calculation forGFR is based on the CKD-EPI (2020) calculat ion. This formulais race indifferent and is the recommended for jerel for GFRby the Natio nal Kidney Foundati on for Adults.The GFR will not calculate if th e sex is unknown or if thepatient's ag e is <18 years. CREATININE (test 0.7 mg/dL 0.6-1.3 N code = CREAT) CALCIUM (test code = 8.1 mg/dL 8.0-10.5 N CA) COMMENTS: POD #1HEPATIC FUNCTION [id number] 04:33:00 Test Item Value Reference Range Interpretation Comments TOTAL PROTEIN (test code = PROT) 6.5 g/dL 6.4-8.2 N ALBUMIN (test code = ALB) 3.60 g/dL 3.4-5.0 N BILIRUBIN TOTAL (test code = BILT) 1.20 mg/dL 0.0-1.0 H BILIRUBIN DIRECT (test code = 0.40 MG/DL 0.0-0.30 H BILD) BILIRUBIN INDIRECT (test code = 0.80 MG/DL BILIND) SGOT/AST (test code = AST) 32 IUnit/L 15-37 N SGPT/ALT (test code = ALT) 24 IUnit/L 30-65 L ALKALINE PHOSPHATASE TOTAL (test 53 IUnit/L 20-125 N code = ALKP) COMMENTS: POD #[id number] 04:33:00 Test Item Value Reference Range Interpretation Comments MAGNESIUM (test code = MAG) 1.90 mg/dL 1.80-2.40 N COMMENTS: POD #1CBC W/AUTO [id number] 04:11:00 Test Item Value Reference Range Interpretation Comments WHITE BLOOD CELL (test code = 9.6 x10 3/uL 4.5-11.0 N WBC) RED BLOOD CELL (test code = 3.82 x10 6/uL 3.54-5.02 N RBC) HEMOGLOBIN (test code = HGB) 11.4 g/dL 11.0-15.0 N HEMATOCRIT (test code = HCT) 32.3 % 33.0-45.0 L MEAN CELL VOLUME (test code = 84.6 fL 81.0-99.0 N MCV) MEAN CELL HGB (test code = MCH) 29.8 pg 27.0-33.0 N MEAN CELL HGB CONCETRATION 35.3 g/dL 33.0-37.0 N (test code = MCHC) RED CELL DISTRIBUTION WIDTH CV 16.7 % 11.5-14.5 H (test code = RDW) RED CELL DISTRIBUTION WIDTH SD 51.1 fL 37.0-54.0 N (test code = RDW-SD) PLATELET COUNT (test code = 114 x10 3/uL 150-400 L PLT) MEAN PLATELET VOLUME (test code 10.2 fL 7.0-9.0 H = MPV) NEUTROPHIL % (test code = NT%) 85.3 % 56.0-77.0 H IMMATURE GRANULOCYTE % (test 0.6 % 0.0-2.0 N code = IG%) LYMPHOCYTE % (test code = LY%) 8.9 % 14.0-32.0 L MONOCYTE % (test code = MO%) 4.5 % 4.8-9.0 L EOSINOPHIL % (test code = EO%) 0.5 % 0.3-3.7 N BASOPHIL % (test code = BA%) 0.2 % 0.0-2.0 N NUCLEATED RBC % (test code = 0.3 % 0-0 H NRBC%) NEUTROPHIL # (test code = NT#) 8.15 x10 3/uL 2.0-7.6 H IMMATURE GRANULOCYTE # (test 0.06 x10 3/uL 0.00-0.03 H code = IG#) LYMPHOCYTE # (test code = LY#) 0.85 x10 3/uL 1.0-3.8 L MONOCYTE # (test code = MO#) 0.43 x10 3/uL 0.1-0.8 N EOSINOPHIL # (test code = EO#) 0.05 x10 3/uL 0.0-0.2 N BASOPHIL # (test code = BA#) 0.02 x10 3/uL 0.0-0.2 N NUCLEATED RBC # (test code = 0.03 x10 3/uL 0.0-0.1 N NRBC#) MANUAL DIFF REQUIRED (test code NO = MDIFF) BASIC METABOLIC [id number] 00:05:00 Test Item Value Reference Range Interpretation Comments SODIUM (test code = 138 mEq/L 134-147 N NA) POTASSIUM (test code 3.4 mEq/L 3.4-5.0 N = K) CHLORIDE (test code 104 mEq/L 100-108 N = CL) CARBON DIOXIDE (test 24 mEq/l 21-33 N code = CO2) ANION GAP (test code 13 0-20 N = GAP) GLUCOSE (test code = 150 mg/dL 70-110 H GLU) BLOOD UREA NITROGEN 15 mg/dL 7-18 N (test code = BUN) GLOMERULAR 102.7 90-95 H The Glomerular FILTRATION RATE Filtration R ate is a (test code = GFR) calculated parameterbased on serum Creatinine, pat ient age and sex. GFR va luesless than 60 mL/min/ 1.73 square meters a re indicative ofCh ronic Kidney Disease. Values less than 15 mL/min/1.73squa re meters indicate Kidney failure. The calculation forGFR is based on the CKD-EPI (2020) calculat ion. This formulais race indifferent and is the recommended for jerel for [facility]by the [facility].The GFR will not calculate if th e sex is unknown or if thepatient's ag e is <18 years. CREATININE (test 0.7 mg/dL 0.6-1.3 N code = CREAT) CALCIUM (test code = 8.5 mg/dL 8.0-10.5 N CA) - XR CHEST 1 [id number] 00:00:00 [facility] : 1965 Sex: F FAX: Meredith Pozo [phone] [place]: St: ADM FAX: Yakov Nagy Name: ABBE CORONADO [facility] :1965 Age/S: 56/F [address] [place] [address] Unit #: [id number] Loc: G.3304 [place] [address] Phys: Meredith Zamarripa MD Acct: [id number] Dis Date: Status: ADM IN PHONE #: [phone] Exam Date: 04/12/202248 FAX #: [phone] Reason: Cardiac Surgery Post Op EXAMS: CPT CODE: [id number] XR CHEST 1 V [id number] PROCEDURE INFORMATION: Exam: XR Chest Exam date and time: 04/12/2022 6:16 AM Age: 56 years old Clinical indication: Other: Cardiac surgery post op TECHNIQUE: Imaging protocol: Radiologic exam of the chest. Views: 1 view. COMPARISON: CR XR CHEST 1V 04/11/2022 5:42 AM FINDINGS: Tubes, catheters and devices: Stable lines and tubes. Lungs: The bilateral lung opacities are grossly stable. Low lung volumes. Pleural spaces: No pleural effusion. No pneumothorax. Heart/Mediastinum: The heart size is stable. Bones/joints: Stable. Median sternotomy wires. IMPRESSION: Grossly stable exam. at 1007 Reported and signed by: Bharat Gudino M.D. 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 [facility] GLUCOSE [id number] 17:49:00 Test Item Value Reference Range Interpretation Comments GLUCOSE BEDSIDE (test 156 MG/DL 70-110 H Perfor med by certified code = GLUBED) 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 [facility] BASIC METABOLIC [id number] 15:12:00 Test Item Value Reference Range Interpretation Comments SODIUM (test code = 141 mEq/L 134-147 N NA) POTASSIUM (test code 3.5 mEq/L 3.4-5.0 N = K) CHLORIDE (test code 105 mEq/L 100-108 N = CL) CARBON DIOXIDE (test 27 mEq/l 21-33 N code = CO2) ANION GAP (test code 12 0-20 N = GAP) GLUCOSE (test code = 210 mg/dL 70-110 H GLU) BLOOD UREA NITROGEN 16 mg/dL 7-18 N (test code = BUN) GLOMERULAR 87.5 90-95 L The Glomerular FILTRATION RATE Filtration R ate is a (test code = GFR) calculated parameterbased on serum Creatinine, pat ient age and sex. GFR va luesless than 60 mL/min/ 1.73 square meters a re indicative ofCh ronic Kidney Disease. Values less than 15 mL/min/1.73squa re meters indicate Kidney failure. The calculation forGFR is based on the CKD-EPI (2020) calculat ion. This formulais race indifferent and is the recommended for jerel for GFRby the Natio nal Kidney Foundati on for Adults.The GFR will not calculate if th e sex is unknown or if thepatient's ag e is <18 years. CREATININE (test 0.8 mg/dL 0.6-1.3 N code = CREAT) CALCIUM (test code = 7.7 mg/dL 8.0-10.5 L CA) [id number] 15:12:00 Test Item Value Reference Range Interpretation Comments PHOSPHOROUS (test code = PHOS) 2.4 MG/DL 2.5-4.9 L [id number] 15:12:00 Test Item Value Reference Range Interpretation Comments MAGNESIUM (test code = MAG) 2.16 mg/dL 1.80-2.40 N CALCIUM [id number] 15:12:00 Test Item Value Reference Range Interpretation Comments CALCIUM IONIZED (test code = HOLLI) 1.03 MMOL/L 1.09-1.30 L CBC W/AUTO [id number] 14:37:00 Test Item Value Reference Range Interpretation Comments WHITE BLOOD CELL (test code = 9.6 x10 3/uL 4.5-11.0 N WBC) RED BLOOD CELL (test code = 3.64 x10 6/uL 3.54-5.02 N RBC) HEMOGLOBIN (test code = HGB) 11.0 g/dL 11.0-15.0 N HEMATOCRIT (test code = HCT) 30.5 % 33.0-45.0 L MEAN CELL VOLUME (test code = 83.8 fL 81.0-99.0 N MCV) MEAN CELL HGB (test code = MCH) 30.2 pg 27.0-33.0 N MEAN CELL HGB CONCETRATION 36.1 g/dL 33.0-37.0 N (test code = MCHC) RED CELL DISTRIBUTION WIDTH CV 16.9 % 11.5-14.5 H (test code = RDW) RED CELL DISTRIBUTION WIDTH SD 50.4 fL 37.0-54.0 N (test code = RDW-SD) PLATELET COUNT (test code = 121 x10 3/uL 150-400 L PLT) MEAN PLATELET VOLUME (test code 10.4 fL 7.0-9.0 H = MPV) NEUTROPHIL % (test code = NT%) 85.9 % 56.0-77.0 H IMMATURE GRANULOCYTE % (test 0.3 % 0.0-2.0 N code = IG%) LYMPHOCYTE % (test code = LY%) 9.7 % 14.0-32.0 L MONOCYTE % (test code = MO%) 3.5 % 4.8-9.0 L EOSINOPHIL % (test code = EO%) 0.4 % 0.3-3.7 N BASOPHIL % (test code = BA%) 0.2 % 0.0-2.0 N NUCLEATED RBC % (test code = 0.2 % 0-0 H NRBC%) NEUTROPHIL # (test code = NT#) 8.23 x10 3/uL 2.0-7.6 H IMMATURE GRANULOCYTE # (test 0.03 x10 3/uL 0.00-0.03 N code = IG#) LYMPHOCYTE # (test code = LY#) 0.93 x10 3/uL 1.0-3.8 L MONOCYTE # (test code = MO#) 0.34 x10 3/uL 0.1-0.8 N EOSINOPHIL # (test code = EO#) 0.04 x10 3/uL 0.0-0.2 N BASOPHIL # (test code = BA#) 0.02 x10 3/uL 0.0-0.2 N NUCLEATED RBC # (test code = 0.02 x10 3/uL 0.0-0.1 N NRBC#) MANUAL DIFF REQUIRED (test code NO = MDIFF) POC ARTERIAL BLOOD [id number] 14:28:00 Test Item Value Reference Range Interpretation Comments POC ARTERIAL BLOOD GAS PH (test 7.474 7.35-7.45 H code = POCPHA) POC ARTERIAL BLOOD GAS PCO2 (test 34.7 mmHg 35.0-45 L code = [id number]) POC TCO2 ARTERIAL (test code = 26.7 POCTCO2) POC ARTERIAL BLOOD GAS PO2 (test 62.2 mmHg 80-100.0 L code = HMTXB5C) POC HCO3 ARTERIAL (test code = 25.6 MMOL/L 22.0-26.0 N [id number]) POC BASE EXCESS (test code = 1.9 MMOL/L -4.0-4.0 N POCBEA) POC O2 SATURATION (test code = 93.4 % 90-100 N POCO2S) FIO2 (test code = FIO2A) 100 % PaO2/FiO2 (test code = [id number]) 62.20 mm/Hg ABG VENT MODE (test code = MODEA) CPAP/PS ABG PEEP (test code = PEEPA) 10 cmH2O ABG TEMPERATURE (test code = 98 F TEMPA) GLUCOSE [id number] 12:08:00 Test Item Value Reference Range Interpretation Comments GLUCOSE BEDSIDE (test 224 MG/DL 70-110 H Perfor med by certified code = GLUBED) 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 Prophylax is of venous thrombos is 2.0 - 3.0 (orthoped ic surgery), Proph ylaxis of venous throm bosis (other than hig h-risk surgery), Treat ment of Deep Vein Thrombosis/Pulm onary Embolism, Preve ntion of systemic emb olism - Tissue heart va lves, Acute Myocardia l Infarction (to prevent systemic emboli sm), Valvular heart disease, Atrial Fibrillation, Bileaflet mecha nical valve in aortic position.2. Mec hanical prosthetic valv es (high risk), 2. 5 - 3.5 Presence of Lup us Anticoagulant o r Antiphospholipi d Antibodies, Pre vention of systemic emb olism - Acute Myocardia l Infarction (to prevent recurrent infar ct). POC ARTERIAL BLOOD [id number] 09:01:00 Test Item Value Reference Range Interpretation Comments POC ARTERIAL BLOOD GAS PH (test 7.442 7.35-7.45 N code = POCPHA) POC ARTERIAL BLOOD GAS PCO2 (test 35.6 mmHg 35.0-45 N code = AKSLVR3P) POC TCO2 ARTERIAL (test code = 25.5 POCTCO2) POC ARTERIAL BLOOD GAS PO2 (test 70.2 mmHg 80-100.0 L code = PQJPX6K) POC HCO3 ARTERIAL (test code = 24.4 MMOL/L 22.0-26.0 N [id number]) POC BASE EXCESS (test code = 0.2 MMOL/L -4.0-4.0 N POCBEA) POC O2 SATURATION (test code = 94.9 % 90-100 N POCO2S) FIO2 (test code = FIO2A) 100 % PaO2/FiO2 (test code = CHG5UNS3) 70.20 mm/Hg ABG VENT MODE (test code = MODEA) CPAP/PS ABG VENT RESP RATE (test code = 14 /MIN RRA) ABG PEEP (test code = PEEPA) 6 cmH2O ABG PRESSURE SUPPORT (test code = 12 cmH2O PSABG) ABG TEMPERATURE (test code = 98 F TEMPA) ABG SITE (test code = SITEA) Art Line BASIC METABOLIC [id number] 05:10:00 Test Item Value Reference Range Interpretation Comments SODIUM (test code = 142 mEq/L 134-147 N NA) POTASSIUM (test code 3.9 mEq/L 3.4-5.0 N = K) CHLORIDE (test code 107 mEq/L 100-108 N = CL) CARBON DIOXIDE (test 25 mEq/l 21-33 N code = CO2) ANION GAP (test code 14 0-20 N = GAP) GLUCOSE (test code = 188 mg/dL 70-110 H GLU) BLOOD UREA NITROGEN 13 mg/dL 7-18 N (test code = BUN) GLOMERULAR 76.0 90-95 L The Glomerular FILTRATION RATE Filtration R ate is a (test code = GFR) calculated parameterbased on serum Creatinine, pat ient age and sex. GFR va luesless than 60 mL/min/ 1.73 square meters a re indicative ofCh ronic Kidney Disease. Values less than 15 mL/min/1.73squa re meters indicate Kidney failure. The calculation forGFR is based on the CKD-EPI (2020) calculat ion. This formulais race indifferent and is the recommended for jerel for GFRby the Natio nal Kidney Foundati on for Adults.The GFR will not calculate if th e sex is unknown or if thepatient's ag e is <18 years. CREATININE (test 0.9 mg/dL 0.6-1.3 N code = CREAT) CALCIUM (test code = 8.9 mg/dL 8.0-10.5 N CA) COMMENTS: POD #1HEPATIC FUNCTION [id number] 05:10:00 Test Item Value Reference Range Interpretation Comments TOTAL PROTEIN (test code = PROT) 6.8 g/dL 6.4-8.2 ALBUMIN (test code = ALB) 4.30 g/dL 3.4-5.0 N BILIRUBIN TOTAL (test code = BILT) 2.90 mg/dL 0.0-1.0 H BILIRUBIN DIRECT (test code = 1.00 MG/DL 0.0-0.30 H BILD) BILIRUBIN INDIRECT (test code = 1.90 MG/DL BILIND) SGOT/AST (test code = AST) 46 IUnit/L 15-37 H SGPT/ALT (test code = ALT) 30 IUnit/L 30-65 N ALKALINE PHOSPHATASE TOTAL (test 53 IUnit/L 20-125 code = ALKP) COMMENTS: POD #[id number] 05:10:00 Test Item Value Reference Range Interpretation Comments MAGNESIUM (test code = MAG) 2.34 mg/dL 1.80-2.40 COMMENTS: POD #1CBC W/AUTO [id number] 04:53:00 Test Item Value Reference Range Interpretation Comments WHITE BLOOD CELL (test code = 10.1 x10 3/uL 4.5-11.0 N WBC) RED BLOOD CELL (test code = 4.07 x10 6/uL 3.54-5.02 N RBC) HEMOGLOBIN (test code = HGB) 12.2 g/dL 11.0-15.0 N HEMATOCRIT (test code = HCT) 33.8 % 33.0-45.0 N MEAN CELL VOLUME (test code = 83.0 fL 81.0-99.0 N MCV) MEAN CELL HGB (test code = MCH) 30.0 pg 27.0-33.0 N MEAN CELL HGB CONCETRATION 36.1 g/dL 33.0-37.0 N (test code = MCHC) RED CELL DISTRIBUTION WIDTH CV 16.6 % 11.5-14.5 H (test code = RDW) RED CELL DISTRIBUTION WIDTH SD 48.9 fL 37.0-54.0 N (test code = RDW-SD) PLATELET COUNT (test code = 133 x10 3/uL 150-400 L PLT) MEAN PLATELET VOLUME (test code 9.9 fL 7.0-9.0 H = MPV) NEUTROPHIL % (test code = NT%) 81.8 % 56.0-77.0 H IMMATURE GRANULOCYTE % (test 0.5 % 0.0-2.0 N code = IG%) LYMPHOCYTE % (test code = LY%) 12.2 % 14.0-32.0 L MONOCYTE % (test code = MO%) 5.1 % 4.8-9.0 N EOSINOPHIL % (test code = EO%) 0.2 % 0.3-3.7 L BASOPHIL % (test code = BA%) 0.2 % 0.0-2.0 N NUCLEATED RBC % (test code = 0.3 % 0-0 H NRBC%) NEUTROPHIL # (test code = NT#) 8.23 x10 3/uL 2.0-7.6 H IMMATURE GRANULOCYTE # (test 0.05 x10 3/uL 0.00-0.03 H code = IG#) LYMPHOCYTE # (test code = LY#) 1.23 x10 3/uL 1.0-3.8 N MONOCYTE # (test code = MO#) 0.51 x10 3/uL 0.1-0.8 N EOSINOPHIL # (test code = EO#) 0.02 x10 3/uL 0.0-0.2 N BASOPHIL # (test code = BA#) 0.02 x10 3/uL 0.0-0.2 N NUCLEATED RBC # (test code = 0.03 x10 3/uL 0.0-0.1 N NRBC#) MANUAL DIFF REQUIRED (test code NO = MDIFF) POC ARTERIAL BLOOD [id number] 04:36:00 Test Item Value Reference Range Interpretation Comments POC ARTERIAL BLOOD GAS PH (test 7.436 7.35-7.45 N code = POCPHA) POC ARTERIAL BLOOD GAS PCO2 (test 35.8 mmHg 35.0-45 N code = [id number]) POC TCO2 ARTERIAL (test code = 25.2 POCTCO2) POC ARTERIAL BLOOD GAS PO2 (test 79.5 mmHg 80-100.0 L code = XCOGB3W) POC HCO3 ARTERIAL (test code = 24.1 MMOL/L 22.0-26.0 N EAGISV1X) POC BASE EXCESS (test code = -0.1 MMOL/L -4.0-4.0 N POCBEA) POC O2 SATURATION (test code = 96.1 % 90-100 N POCO2S) FIO2 (test code = FIO2A) 100 % PaO2/FiO2 (test code = [id number]) 79.50 mm/Hg ABG DELIVERY (test code = GRAEME) BiPAP ABG PEEP (test code = PEEPA) 6 cmH2O ABG PRESSURE SUPPORT (test code = 12 cmH2O PSABG) ABG TEMPERATURE (test code = 98.6 F TEMPA) ABG SITE (test code = SITEA) Art Line SALVATORE'S TEST (test code = ALLENS) N/A BASIC METABOLIC [id number] 04:36:00 Test Item Value Reference Range Interpretation Comments SODIUM (test code = NA/ABG) 143 mmol/L 134-147 N POTASSIUM (test code = K/ABG) 3.8 mmol/L 3.4-5.0 N CHLORIDE (test code = CL/ABG) 106 mmol/L 100-108 N CREATININE ABG (test code = 0.9 mg/dL 0.6-1.0 N CREAABG) POC IONIZED CALCIUM (test code = 1.15 MMOL/L 1.12-1.32 N POCCA) POC GLUCOSE (test code = POCGLU) 198 MG/DL 70-110 H HEMOGLOBIN [id number] 04:36:00 Test Item Value Reference Range Interpretation Comments HEMOGLOBIN ABG (test code = 12.2 G/DL 11.0-15.0 N HGB/ABG) [id number] 04:36:00 Test Item Value Reference Range Interpretation Comments HEMATOCRIT (test code = HCT/ABG) 36 % 33.0-45.0 N POC LACTIC [id number] 04:36:00 Test Item Value Reference Range Interpretation Comments POC LACTIC ACID (test code = 1.3 mmol/l 0.9-1.7 N POCLAC) BASIC METABOLIC [id number] 01:18:00 Test Item Value Reference Range Interpretation Comments SODIUM (test code = 142 mEq/L 134-147 N NA) POTASSIUM (test code 3.7 mEq/L 3.4-5.0 N = K) CHLORIDE (test code 109 mEq/L 100-108 H = CL) CARBON DIOXIDE (test 24 mEq/l 21-33 N code = CO2) ANION GAP (test code 13 0-20 N = GAP) GLUCOSE (test code = 202 mg/dL 70-110 H GLU) BLOOD UREA NITROGEN 12 mg/dL 7-18 N (test code = BUN) GLOMERULAR 76.0 90-95 L The Glomerular FILTRATION RATE Filtration R ate is a (test code = GFR) calculated parameterbased on serum Creatinine, pat ient age and sex. GFR va luesless than 60 mL/min/ 1.73 square meters a re indicative ofCh ronic Kidney Disease. Values less than 15 mL/min/1.73squa re meters indicate Kidney failure. The calculation forGFR is based on the CKD-EPI (2020) calculat ion. This formulais race indifferent and is the recommended for jerel for GFRby the Natio nal Kidney Foundati on for Adults.The GFR will not calculate if th e sex is unknown or if thepatient's ag e is <18 years. CREATININE (test 0.9 mg/dL 0.6-1.3 N code = CREAT) CALCIUM (test code = 8.5 mg/dL 8.0-10.5 N CA) [id number] 01:18:00 Test Item Value Reference Range Interpretation Comments PHOSPHOROUS (test code = PHOS) 2.7 MG/DL 2.5-4.9 N [id number] 01:18:00 Test Item Value Reference Range Interpretation Comments MAGNESIUM (test code = MAG) 1.68 mg/dL 1.80-2.40 L CALCIUM [id number] 01:18:00 Test Item Value Reference Range Interpretation Comments CALCIUM IONIZED (test code = HOLLI) 1.11 MMOL/L 1.09-1.30 N POC ARTERIAL BLOOD [id number] 01:11:00 Test Item Value Reference Range Interpretation Comments POC ARTERIAL BLOOD GAS PH (test 7.424 7.35-7.45 N code = POCPHA) POC ARTERIAL BLOOD GAS PCO2 (test 36.9 mmHg 35.0-45 N code = JZLDQC5W) POC TCO2 ARTERIAL (test code = 25.3 POCTCO2) POC ARTERIAL BLOOD GAS PO2 (test 53.3 mmHg 80-100.0 L code = NLAHY2J) POC HCO3 ARTERIAL (test code = 24.2 MMOL/L 22.0-26.0 N SWHRIQ8O) POC BASE EXCESS (test code = -0.3 MMOL/L -4.0-4.0 N POCBEA) POC O2 SATURATION (test code = 88.1 % 90-100 L POCO2S) FIO2 (test code = FIO2A) 100 % PaO2/FiO2 (test code = [id number]) 53.30 mm/Hg ABG TEMPERATURE (test code = 98.6 F TEMPA) ABG SITE (test code = SITEA) Art Line SALVATORE'S TEST (test code = ALLENS) N/A BASIC METABOLIC [id number] 01:11:00 Test Item Value Reference Range Interpretation Comments SODIUM (test code = NA/ABG) 143 mmol/L 134-147 N POTASSIUM (test code = K/ABG) 3.6 mmol/L 3.4-5.0 N CHLORIDE (test code = CL/ABG) 106 mmol/L 100-108 N CREATININE ABG (test code = 0.8 mg/dL 0.6-1.0 N CREAABG) POC IONIZED CALCIUM (test code = 1.17 MMOL/L 1.12-1.32 N POCCA) POC GLUCOSE (test code = POCGLU) 215 MG/DL 70-110 H HEMOGLOBIN [id number] 01:11:00 Test Item Value Reference Range Interpretation Comments HEMOGLOBIN ABG (test code = 11.2 G/DL 11.0-15.0 N HGB/ABG) [id number] 01:11:00 Test Item Value Reference Range Interpretation Comments HEMATOCRIT (test code = HCT/ABG) 33 % 33.0-45.0 N POC LACTIC [id number] 01:11:00 Test Item Value Reference Range Interpretation Comments POC LACTIC ACID (test code = 1.3 mmol/l 0.9-1.7 N POCLAC) CBC W/AUTO [id number] 01:04:00 Test Item Value Reference Range Interpretation Comments WHITE BLOOD CELL (test code = 9.3 x10 3/uL 4.5-11.0 N WBC) RED BLOOD CELL (test code = 3.78 x10 6/uL 3.54-5.02 N RBC) HEMOGLOBIN (test code = HGB) 11.3 g/dL 11.0-15.0 HEMATOCRIT (test code = HCT) 31.4 % 33.0-45.0 L MEAN CELL VOLUME (test code = 83.1 fL 81.0-99.0 N MCV) MEAN CELL HGB (test code = MCH) 29.9 pg 27.0-33.0 N MEAN CELL HGB CONCETRATION 36.0 g/dL 33.0-37.0 N (test code = MCHC) RED CELL DISTRIBUTION WIDTH CV 16.1 % 11.5-14.5 H (test code = RDW) RED CELL DISTRIBUTION WIDTH SD 47.9 fL 37.0-54.0 N (test code = RDW-SD) PLATELET COUNT (test code = 144 x10 3/uL 150-400 L PLT) MEAN PLATELET VOLUME (test code 9.7 fL 7.0-9.0 H = MPV) NEUTROPHIL % (test code = NT%) 82.1 % 56.0-77.0 H IMMATURE GRANULOCYTE % (test 0.3 % 0.0-2.0 N code = IG%) LYMPHOCYTE % (test code = LY%) 11.6 % 14.0-32.0 L MONOCYTE % (test code = MO%) 5.8 % 4.8-9.0 N EOSINOPHIL % (test code = EO%) 0.0 % 0.3-3.7 L BASOPHIL % (test code = BA%) 0.2 % 0.0-2.0 N NUCLEATED RBC % (test code = 0.4 % 0-0 H NRBC%) NEUTROPHIL # (test code = NT#) 7.60 x10 3/uL 2.0-7.6 N IMMATURE GRANULOCYTE # (test 0.03 x10 3/uL 0.00-0.03 N code = IG#) LYMPHOCYTE # (test code = LY#) 1.07 x10 3/uL 1.0-3.8 N MONOCYTE # (test code = MO#) 0.54 x10 3/uL 0.1-0.8 N EOSINOPHIL # (test code = EO#) 0.00 x10 3/uL 0.0-0.2 N BASOPHIL # (test code = BA#) 0.02 x10 3/uL 0.0-0.2 N NUCLEATED RBC # (test code = 0.04 x10 3/uL 0.0-0.1 N NRBC#) MANUAL DIFF REQUIRED (test code NO = MDIFF) - XR ABDOMEN 1V ([facility])2022-04-11 00:00:00 [facility] : 1965 Sex: F FAX: Meredith Pozo [phone] [place]: St: ADM FAX: Eddie Bravo MD [phone] FAX: Yakov Nagy Name: ABBE CORONADO [facility] : 1965 Age/S: 56/F [address] [place] [address] Unit #: [id number] Loc: G.3304 [place] [address] Phys: Eddie Bravo MD Acct: [id number] Dis Date: Status: ADM IN PHONE #: [phone] Exam Date: 04/11/2022 0700 FAX #: [phone] Reason: POSSIBLE ILEUS NAUSEA EXAMS: CPT CODE: [id number] XR ABDOMEN 1V (KUB) [id number] PROCEDURE INFORMATION: Exam: XR Abdomen Exam date andtime: 04/11/2022 5:42 AM Age: 56 years old Clinical indication: Other: Possible ileus nausea TECHNIQUE: Imaging protocol: Radiologic exam of the abdomen. Views: Frontal supine view of the abdomen. 1 View. COMPARISON: CR XR ABDOMEN AP 1 V 04/10/2022 7:52 PM FINDINGS: Multiple tubings are again seen overlying the right abdomen extending up to the partially visualized chest. A line is again seen overlying the right pelvic bone. Gastrointestinal tract: Nonspecific and nonobstructive bowel gas pattern is seen. Bones/joints: No gross acute findings. IMPRESSION: Nonobstructive bowel gas pattern. at 4703 Reported and signed by: Jackie Mosquera D.O. CC: Meredith Zamarripa MD; Eddie Bravo MD; Yakov Poon MD Technologist: Xiomara Snyder, RT(R) Trninrd Date/Time/By: 04/11/2022 (0732) : By: [email or web address] Orig Print D/T: S: 04/11/2022 (0733) PAGE 1 Signed Report- XR CHEST 1 [id number] 00:00:00 [facility] 1965 Sex: F FAX: Meredith Pozo [phone] [place]: St: ADM FAX: Yakov Nagy Name: ABBE CORONADO [facility] : 1965 Age/S: 56/F [address] [place] [address] Unit #: [id number] Loc: G.3304 [place] [address] Phys:Meredith Zamarripa MD Acct: [id number] Dis Date: Status: ADM IN PHONE #: [phone] Exam Date:04/11/2022 0700 FAX #: [phone] Reason: Cardiac Surgery Post Op EXAMS: CPT CODE: [id number] XR CHEST 1 V [id number] PROCEDURE INFORMATION: Exam: XR Chest Exam date and time: 04/11/2022 5:42 AM Age: 56 years old Clinical indication: Other: Cardiac surgery post op TECHNIQUE: Imaging protocol: Radiologic exam of the chest. Views: 1 view. COMPARISON: 1. CT CHEST W/O CONTRAST 04/11/2022 12:07 AM 2. CR XR CHEST 1V 04/10/2022 7:39 PM FINDINGS: Tubes, catheters and devices: Mediastinal/pericardial and left thoracostomy drains in place. Right internal jugular Greenwood-Tadeo catheter sheath in place. EKG leads overlie the chest. Lungs: Lung volumes are low. There are ill-defined opacities in the mid and lower lung zones with central lung zone predominance. Airspace disease in the right lung is radiographically increased and corresponding to extensive consolidation on correlation with CT. Left basilar opacity is radiographically improved with improved definition of the hemidiaphragm. Pleural spaces: There is no pn eumothorax or gross pleural effusion. Heart/Mediastinum: Mild prominence of the cardiomediastinal silhouette magnified by projection without significant change. The pulmonary vasculature is indistinct.Bones/joints: Sternotomy wires are intact. IMPRESSION: 1. Bilateral pulmonary opacities with increased airspace disease in the right lung corresponding to consolidation by CT. Edema, pneumonia in the differential. 2. Improved aeration left base. 3. Otherwise stable postoperative chest. at 0842 Reported and signed by: Bjorn Lockwood M.D. CC: Meredith Zamarripa MD; Yakov Poon MD Technologist: Xiomara Snyder, RT(R) Trnscrd Date/Time/By: 04/11/2022 (841) : By: Elizabeth Orig Print D/T: S: 04/11/2022 (841) PAGE 1 Signed Report- CT CHEST W/O [id number] 00:00:00 [facility] : 1965 Sex: F Name:ABBE CORONADO [facility] Ziyad Guerrero : 1965 Age/S: 56 / F [address] [place] [address] Unit #: [id number] Loc: [place] [address] Phys: Latricia Stanton APRNNP Acct: [id number] Dis Date: Status: ADM IN PHONE #: [phone] Exam Date: 04/10/2022 2330 FAX #: [phone] Reason: s/p pericardial window EXAMS: CPT CODE: [id number] CT CHEST W/O CONTRAST 19022 PROCEDURE INFORMATION: Exam: CT Chest Without Contrast; Diagnostic Exam date and time: 04/11/2022 12:07 AM Age: 56 years old Clinical indication: Condition or disease; Other: S/P pericardial window TECHNIQUE: Imaging protocol: Diagnostic computed tomography of the chest without contrast. Radiation optimization: All CT scans at this facility use at l east one of these dose optimization techniques: automated exposure control; mA and/or kV adjustment per patient size (includes targeted exams where dose is matched to clinical indication); or iterativereconstruction. COMPARISON: CR XR CHEST 1V 04/10/2022 7:39 PM FINDINGS: Lungs: Dense bilateral lowerlobe consolidation with air bronchograms. Pleural spaces: Unremarkable. No pneumothorax. No pleural effusion. Heart: Unremarkable. No cardiomegaly. Two pericardial drains, left-sided chest tube noted. Small volume residual anterior hyperdense pericardial fluid/blood. Post midline sternotomy.. Lymph nodes: Unremarkable. No enlarged lymph nodes. Vasculature: Unremarkable. No aortic aneurysm. Liver: No acute abnormality. Bones/joints: Unremarkable. No acute fracture. Soft tissues: Hyperdense perisplenic fluid. Spleen is incompletely evaluated by noncontrast CT hyperdense material within the gallbladder lumen consistent with biliary excretion of contrast. IMPRESSION: 1. Adequate positioning of anterior and posterior pericardial drains and left-sided chest tube. Small volume residual hyperdense pericardial fluid/blood anteriorly. 2. Dense bibasilar consolidation with air bronchograms, consistent withpneumonia. 3. Hyperdense perisplenic fluid suggesting blood products. This could be postoperative inetiology, splenic hemorrhage or contusion can not be excluded by noncontrast CT. Suggest CT abdomen pelvis with contrast for further evaluation. PAGE 1 Signed Report (CONTINUED) Name: ABBE CORONADO [facility] [place] : 1965 Age/S: 56 / F [address] [place] [address] Unit #: [id number] Loc: [place] [address] Phys: Latricia Stanton Acct: [id number] Dis Date: Status: ADM IN PHONE #: [phone] Exam Date: 04/10/2022 2330 FAX #: [phone] Reason: s/p pericardial window EXAMS: CPT CODE: [id number] CT CHEST W/O CONTRAST 58418 (Continued) at 0103 Reported and signed by: Francisco Gallo M.D. CC: Latricia Stanton; Meredith Zamarripa MD; Yakov Poon MD Technologist:Eliot Austin, RT(R)(CT) CTDI: DLP:Trnscb Date/Time: 04/11/2022 (102) Hanna Orig Print D/T: S: 04/11/2022 (103) PAGE 2 Signed ReportPROTHROMBIN [id number] 23:12:00 Test Item Value Reference Range Interpretation Comments PROTHROMBIN TIME 14.6 SECONDS 9.3-12.9 H PATIENT (test code = PTP) INTERNATIONAL NORMAL 1.3 0.8-1.2 H TARGET INR BY RATIO (test code = INDICATIO N Indication INR) INR1. Prophylax is of venous thrombos is 2.0 - 3.0 (orthoped ic surgery), Proph ylaxis of venous throm bosis (other than hig h-risk surgery), Treat ment of Deep Vein Thrombosis/Pulm onary Embolism, Preve ntion of systemic emb olism - Tissue heart va lves, Acute Myocardia l Infarction (to prevent systemic emboli sm), Valvular heart disease, Atrial Fibrillation, Bileaflet mecha nical valve in aortic position.2. [facility] hanical prosthetic valv es (high risk), 2. 5 - 3.5 Presence of Lup us Anticoagulant o r Antiphospholipi d Antibodies, Pre vention of systemic emb olism - Acute Myocardia l Infarction (to prevent recurrent infar ct). POC ARTERIAL BLOOD [id number] 22:55:00 Test Item Value Reference Range Interpretation Comments POC ARTERIAL BLOOD GAS PH (test 7.448 7.35-7.45 N code = POCPHA) POC ARTERIAL BLOOD GAS PCO2 (test 33.7 mmHg 35.0-45 L code = [id number]) POC TCO2 ARTERIAL (test code = 24.4 POCTCO2) POC ARTERIAL BLOOD GAS PO2 (test 52.8 mmHg 80-100.0 L code = [id number]) POC HCO3 ARTERIAL (test code = 23.3 MMOL/L 22.0-26.0 N [id number]) POC BASE EXCESS (test code = -0.7 MMOL/L -4.0-4.0 N POCBEA) POC O2 SATURATION (test code = 88.7 % 90-100 L POCO2S) FIO2 (test code = FIO2A) 100 % PaO2/FiO2 (test code = [id number]) 52.80 mm/Hg ABG DELIVERY (test code = GRAEME) Vapotherm ABG TEMPERATURE (test code = 98.6 F TEMPA) ABG SITE (test code = SITEA) Art Line SALVATORE'S TEST (test code = ALLENS) N/A BASIC METABOLIC [id number] 22:55:00 Test Item Value Reference Range Interpretation Comments SODIUM (test code = NA/ABG) 143 mmol/L 134-147 N POTASSIUM (test code = K/ABG) 3.8 mmol/L 3.4-5.0 N CHLORIDE (test code = CL/ABG) 107 mmol/L 100-108 N CREATININE ABG (test code = 1.0 mg/dL 0.6-1.0 CREAABG) POC IONIZED CALCIUM (test code = 1.17 MMOL/L 1.12-1.32 N POCCA) POC GLUCOSE (test code = POCGLU) 217 MG/DL 70-110 H HEMOGLOBIN [id number] 22:55:00 Test Item Value Reference Range Interpretation Comments HEMOGLOBIN ABG (test code = 11.0 G/DL 11.0-15.0 N HGB/ABG) [id number] 22:55:00 Test Item Value Reference Range Interpretation Comments HEMATOCRIT (test code = HCT/ABG) 32 % 33.0-45.0 L POC LACTIC [id number] 22:55:00 Test Item Value Reference Range Interpretation Comments POC LACTIC ACID (test code = 1.6 mmol/l 0.9-1.7 N POCLAC) GLUCOSE [id number] 22:24:00 Test Item Value Reference Range Interpretation Comments GLUCOSE BEDSIDE (test 190 MG/DL 70-110 H Perfor med by certified code = GLUBED) 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 [facility] POC ARTERIAL BLOOD [id number] 19:47:00 Test Item Value Reference Range Interpretation Comments POC ARTERIAL BLOOD GAS PH (test 7.440 7.35-7.45 N code = POCPHA) POC ARTERIAL BLOOD GAS PCO2 (test 33.8 mmHg 35.0-45 L code = [id number]) POC TCO2 ARTERIAL (test code = 24.0 POCTCO2) POC ARTERIAL BLOOD GAS PO2 (test 50.5 mmHg 80-100.0 L code = RCHQT1E) POC HCO3 ARTERIAL (test code = 22.9 MMOL/L 22.0-26.0 N [id number]) POC BASE EXCESS (test code = -1.2 MMOL/L -4.0-4.0 N POCBEA) POC O2 SATURATION (test code = 86.7 % 90-100 L POCO2S) ABG TEMPERATURE (test code = 99 F TEMPA) ABG SITE (test code = SITEA) Art Line SALVATORE'S TEST (test code = ALLENS) N/A BASIC METABOLIC [id number] 19:47:00 Test Item Value Reference Range Interpretation Comments SODIUM (test code = NA/ABG) 145 mmol/L 134-147 N POTASSIUM (test code = K/ABG) 3.8 mmol/L 3.4-5.0 N CHLORIDE (test code = CL/ABG) 109 mmol/L 100-108 H CREATININE ABG (test code = 0.8 mg/dL 0.6-1.0 N CREAABG) POC IONIZED CALCIUM (test code = 1.23 MMOL/L 1.12-1.32 N POCCA) POC GLUCOSE (test code = POCGLU) 190 MG/DL 70-110 H HEMOGLOBIN [id number] 19:47:00 Test Item Value Reference Range Interpretation Comments HEMOGLOBIN ABG (test code = HGB/ABG) 9.0 G/DL 11.0-15.0 L [id number] 19:47:00 Test Item Value Reference Range Interpretation Comments HEMATOCRIT (test code = HCT/ABG) 26 % 33.0-45.0 L POC LACTIC [id number] 19:47:00 Test Item Value Reference Range Interpretation Comments POC LACTIC ACID (test code = 1.6 mmol/l 0.9-1.7 N POCLAC) CBC W/AUTO [id number] 19:19:00 Test Item Value Reference Range Interpretation Comments WHITE BLOOD CELL (test code = 8.3 x10 3/uL 4.5-11.0 N WBC) RED BLOOD CELL (test code = 2.61 x10 6/uL 3.54-5.02 L RBC) HEMOGLOBIN (test code = HGB) 7.8 g/dL 11.0-15.0 L HEMATOCRIT (test code = HCT) 22.3 % 33.0-45.0 L MEAN CELL VOLUME (test code = 85.4 fL 81.0-99.0 N MCV) MEAN CELL HGB (test code = MCH) 29.9 pg 27.0-33.0 N MEAN CELL HGB CONCETRATION 35.0 g/dL 33.0-37.0 N (test code = MCHC) RED CELL DISTRIBUTION WIDTH CV 17.1 % 11.5-14.5 H (test code = RDW) RED CELL DISTRIBUTION WIDTH SD 52.6 fL 37.0-54.0 N (test code = RDW-SD) PLATELET COUNT (test code = 155 x10 3/uL 150-400 N PLT) MEAN PLATELET VOLUME (test code 10.3 fL 7.0-9.0 H = MPV) NEUTROPHIL % (test code = NT%) 82.5 % 56.0-77.0 H IMMATURE GRANULOCYTE % (test 0.4 % 0.0-2.0 N code = IG%) LYMPHOCYTE % (test code = LY%) 9.7 % 14.0-32.0 L MONOCYTE % (test code = MO%) 7.3 % 4.8-9.0 N EOSINOPHIL % (test code = EO%) 0.0 % 0.3-3.7 L BASOPHIL % (test code = BA%) 0.1 % 0.0-2.0 N NUCLEATED RBC % (test code = 0.0 % 0-0 N NRBC%) NEUTROPHIL # (test code = NT#) 6.88 x10 3/uL 2.0-7.6 N IMMATURE GRANULOCYTE # (test 0.03 x10 3/uL 0.00-0.03 N code = IG#) LYMPHOCYTE # (test code = LY#) 0.81 x10 3/uL 1.0-3.8 L MONOCYTE # (test code = MO#) 0.61 x10 3/uL 0.1-0.8 N EOSINOPHIL # (test code = EO#) 0.00 x10 3/uL 0.0-0.2 N BASOPHIL # (test code = BA#) 0.01 x10 3/uL 0.0-0.2 N NUCLEATED RBC # (test code = 0.00 x10 3/uL 0.0-0.1 N NRBC#) MANUAL DIFF REQUIRED (test code NO = MDIFF) PROTHROMBIN [id number] 19:05:00 Test Item Value Reference Range Interpretation Comments PROTHROMBIN TIME 14.1 SECONDS 9.3-12.9 H PATIENT (test code = PTP) INTERNATIONAL NORMAL 1.3 0.8-1.2 H TARGET INR BY RATIO (test code = INDICATIO N Indication INR) INR1. Prophylax is of venous thrombos is 2.0 - 3.0 (orthoped ic surgery), Proph ylaxis of venous throm bosis (other than hig h-risk surgery), Treat ment of Deep Vein Thrombosis/Pulm onary Embolism, Preve ntion of systemic emb olism - Tissue heart va lves, Acute Myocardia l Infarction (to prevent systemic emboli sm), Valvular heart disease, Atrial Fibrillation, Bileaflet mecha nical valve in aortic position.2. Mec hanical prosthetic valv es (high risk), 2. 5 - 3.5 Presence of Lup us Anticoagulant o r Antiphospholipi d Antibodies, Pre vention of systemic emb olism - Acute Myocardia l Infarction (to prevent recurrent infar ct). 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 [facility] BASIC METABOLIC [id number] 14:50:00 Test Item Value Reference Range Interpretation Comments SODIUM (test code = 148 mEq/L 134-147 H NA) POTASSIUM (test code 3.6 mEq/L 3.4-5.0 N = K) CHLORIDE (test code 112 mEq/L 100-108 H = CL) CARBON DIOXIDE (test 24 mEq/l 21-33 N code = CO2) ANION GAP (test code 15 0-20 N = GAP) GLUCOSE (test code = 191 mg/dL 70-110 H GLU) BLOOD UREA NITROGEN 13 mg/dL 7-18 N (test code = BUN) GLOMERULAR 76.0 90-95 L The Glomerular FILTRATION RATE Filtration R ate is a (test code = GFR) calculated parameterbased on serum Creatinine, pat ient age and sex. GFR va luesless than 60 mL/min/ 1.73 square meters a re indicative ofCh ronic Kidney Disease. Values less than 15 mL/min/1.73squa re meters indicate Kidney failure. The calculation forGFR is based on the CKD-EPI (2020) calculat ion. This formulais race indifferent and is the recommended for jerel for GFRby the [facility] on for Adults.The GFR will not calculate if th e sex is unknown or if thepatient's ag e is <18 years. CREATININE (test 0.9 mg/dL 0.6-1.3 N code = CREAT) CALCIUM (test code = 9.5 mg/dL 8.0-10.5 N CA) [id number] 14:50:00 Test Item Value Reference Range Interpretation Comments PHOSPHOROUS (test code = PHOS) 3.5 MG/DL 2.5-4.9 N [id number] 14:50:00 Test Item Value Reference Range Interpretation Comments MAGNESIUM (test code = MAG) 2.03 mg/dL 1.80-2.40 N CALCIUM [id number] 14:50:00 Test Item Value Reference Range Interpretation Comments CALCIUM IONIZED (test code = HOLLI) 1.25 MMOL/L 1.09-1.30 N PROTHROMBIN [id number] 14:36:00 Test Item Value Reference Range Interpretation Comments PROTHROMBIN TIME 14.3 SECONDS 9.3-12.9 H PATIENT (test code = PTP) INTERNATIONAL NORMAL 1.3 0.8-1.2 H TARGE T INR BY RATIO (test code = INDICATIO N Indication INR) INR1. Prophylax is of venous thrombos is 2.0 - 3.0 (orthoped ic surgery), Proph ylaxis of venous throm bosis (other than hig h-risk surgery), Treat ment of Deep Vein Thrombosis/Pulm onary Embolism, Preve ntion of systemic emb olism - Tissue heart va lves, Acute Myocardia l Infarction (to prevent systemic emboli sm), Valvular heart disease, Atrial Fibrillation, Bileaflet mecha nical valve in aortic position.2. Mec hanical prosthetic valv es (high risk), 2. 5 - 3.5 Presence of Lup us Anticoagulant o r Antiphospholipi d Antibodies, Pre vention of systemic emb olism - Acute Myocardia l Infarction (to prevent recurrent infar ct). THROMBOPLASTIN TIME [id number] 14:36:00 Test Item Value Reference Range Interpretation Comments THROMBOPLASTIN TIME 25.5 Seconds 25.0-39.5 N Therape utic Range: PARTIAL (test code = 50.4 - 88.3 Seconds PTT) Effective 08/25/2018 CBC W/AUTO [id number] 14:22:00 Test Item Value Reference Range Interpretation Comments WHITE BLOOD CELL (test 7.9 x10 3/uL 4.5-11.0 N code = WBC) RED BLOOD CELL (test 1.76 x10 6/uL 3.54-5.02 L code = RBC) HEMOGLOBIN (test code 5.3 g/dL 11.0-15.0 LL Critic al result = HGB) called to ISAMAR RODAS RNby [id number] at 142 0 04/10/22Nurse r ead back resut and tech confirmed it's correct? Y ES HEMATOCRIT (test code 15.2 % 33.0-45.0 LL Critic al result = HCT) called to ISAMAR RODAS RNcharmaine [id number] at 142 1 04/10/22Nurse r ead back result and tech confirmed it's correct? Y ES MEAN CELL VOLUME (test 86.4 fL 81.0-99.0 N code = MCV) MEAN CELL HGB (test 30.1 pg 27.0-33.0 N code = MCH) MEAN CELL HGB 34.9 g/dL 33.0-37.0 N CONCETRATION (test code = MCHC) RED CELL DISTRIBUTION 19.4 % 11.5-14.5 H WIDTH CV (test code = RDW) RED CELL DISTRIBUTION 58.1 fL 37.0-54.0 H WIDTH SD (test code = RDW-SD) PLATELET COUNT (test 167 x10 3/uL 150-400 N code = PLT) MEAN PLATELET VOLUME 10.0 fL 7.0-9.0 H (test code = MPV) NEUTROPHIL % (test 82.9 % 56.0-77.0 H code = NT%) IMMATURE GRANULOCYTE % 0.3 % 0.0-2.0 N (test code = IG%) LYMPHOCYTE % (test 8.1 % 14.0-32.0 L code = LY%) MONOCYTE % (test code 8.7 % 4.8-9.0 N = MO%) EOSINOPHIL % (test 0.0 % 0.3-3.7 L code = EO%) BASOPHIL % (test code 0.0 % 0.0-2.0 N = BA%) NUCLEATED RBC % (test 0.0 % 0-0 N code = NRBC%) NEUTROPHIL # (test 6.58 x10 3/uL 2.0-7.6 N code = NT#) IMMATURE GRANULOCYTE # 0.02 x10 3/uL 0.00-0.03 N (test code = IG#) LYMPHOCYTE # (test 0.64 x10 3/uL 1.0-3.8 L code = LY#) MONOCYTE # (test code 0.69 x10 3/uL 0.1-0.8 N = MO#) EOSINOPHIL # (test 0.00 x10 3/uL 0.0-0.2 N code = EO#) BASOPHIL # (test code 0.00 x10 3/uL 0.0-0.2 N = BA#) NUCLEATED RBC # (test 0.00 x10 3/uL 0.0-0.1 N code = NRBC#) MANUAL DIFF REQUIRED NO (test code = MDIFF) CBC W/AUTO [id number] 13:21:00 Test Item Value Reference Range Interpretation Comments WHITE BLOOD CELL (test 7.2 x10 3/uL 4.5-11.0 N code = WBC) RED BLOOD CELL (test 1.82 x10 6/uL 3.54-5.02 L code = RBC) HEMOGLOBIN (test code 5.4 g/dL 11.0-15.0 LL Critic al result = HGB) called to FLY IBANEZ RN.by [id number] at 1320 04/10/22Nu rse read back resut and tech confir med it's correct? Y ES HEMATOCRIT (test code 15.6 % 33.0-45.0 LL Critic al result = HCT) called to Susan LARSEN [id number] at 13 04/10/22Nurse r ead back result and tech confirmed it's correct? Y ES MEAN CELL VOLUME (test 85.7 fL 81.0-99.0 N code = MCV) MEAN CELL HGB (test 29.7 pg 27.0-33.0 N code = MCH) MEAN CELL HGB 34.6 g/dL 33.0-37.0 N CONCETRATION (test code = MCHC) RED CELL DISTRIBUTION 19.0 % 11.5-14.5 H WIDTH CV (test code = RDW) RED CELL DISTRIBUTION 57.1 fL 37.0-54.0 H WIDTH SD (test code = RDW-SD) PLATELET COUNT (test 124 x10 3/uL 150-400 L code = PLT) MEAN PLATELET VOLUME 10.9 fL 7.0-9.0 H (test code = MPV) NEUTROPHIL % (test 82.0 % 56.0-77.0 H code = NT%) IMMATURE GRANULOCYTE % 0.3 % 0.0-2.0 N (test code = IG%) LYMPHOCYTE % (test 8.8 % 14.0-32.0 L code = LY%) MONOCYTE % (test code 8.9 % 4.8-9.0 N = MO%) EOSINOPHIL % (test 0.0 % 0.3-3.7 L code = EO%) BASOPHIL % (test code 0.0 % 0.0-2.0 N = BA%) NUCLEATED RBC % (test 0.0 % 0-0 N code = NRBC%) NEUTROPHIL # (test 5.90 x10 3/uL 2.0-7.6 N code = NT#) IMMATURE GRANULOCYTE # 0.02 x10 3/uL 0.00-0.03 N (test code = IG#) LYMPHOCYTE # (test 0.63 x10 3/uL 1.0-3.8 L code = LY#) MONOCYTE # (test code 0.64 x10 3/uL 0.1-0.8 N = MO#) EOSINOPHIL # (test 0.00 x10 3/uL 0.0-0.2 N code = EO#) BASOPHIL # (test code 0.00 x10 3/uL 0.0-0.2 N = BA#) NUCLEATED RBC # (test 0.00 x10 3/uL 0.0-0.1 N code = NRBC#) MANUAL DIFF REQUIRED NO (test code = MDIFF) BASIC METABOLIC [id number] 13:13:00 Test Item Value Reference Range Interpretation Comments SODIUM (test code = 149 mEq/L 134-147 H NA) POTASSIUM (test code 3.7 mEq/L 3.4-5.0 N = K) CHLORIDE (test code 113 mEq/L 100-108 H = CL) CARBON DIOXIDE (test 24 mEq/l 21-33 N code = CO2) ANION GAP (test code 16 0-20 N = GAP) GLUCOSE (test code = 184 mg/dL 70-110 H GLU) BLOOD UREA NITROGEN 13 mg/dL 7-18 N (test code = BUN) GLOMERULAR 76.0 90-95 L The Glomerular FILTRATION RATE Filtration R ate is a (test code = GFR) calculated parameterbased on serum Creatinine, pat ient age and sex. GFR va luesless than 60 mL/min/ 1.73 square meters a re indicative ofCh ronic Kidney Disease. Values less than 15 mL/min/1.73squa re meters indicate Kidney failure. The calculation forGFR is based on the CKD-EPI (2020) calculat ion. This formulais race indifferent and is the recommended for jerel for GFRby the [facility] on for Adults.The GFR will not calculate if th e sex is unknown or if thepatient's ag e is <18 years. 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 [facility] POC ARTERIAL BLOOD [id number] 11:12:00 Test Item Value Reference Range Interpretation Comments POC ARTERIAL BLOOD GAS PH (test 7.431 7.35-7.45 N code = POCPHA) POC ARTERIAL BLOOD GAS PCO2 (test 31.7 mmHg 35.0-45 L code = [id number]) POC TCO2 ARTERIAL (test code = 22.0 POCTCO2) POC ARTERIAL BLOOD GAS PO2 (test 79.8 mmHg 80-100.0 L code = ZLSDD1E) POC HCO3 ARTERIAL (test code = 21.1 MMOL/L 22.0-26.0 L [id number]) POC BASE EXCESS (test code = -3.2 MMOL/L -4.0-4.0 N POCBEA) POC O2 SATURATION (test code = 96.2 % 90-100 N POCO2S) BASIC METABOLIC [id number] 11:12:00 Test Item Value Reference Range Interpretation Comments SODIUM (test code = NA/ABG) 148 mmol/L 134-147 H POTASSIUM (test code = K/ABG) 3.5 mmol/L 3.4-5.0 N CHLORIDE (test code = CL/ABG) 114 mmol/L 100-108 H CREATININE ABG (test code = 1.0 mg/dL 0.6-1.0 CREAABG) POC IONIZED CALCIUM (test code = 1.32 MMOL/L 1.12-1.32 N POCCA) POC GLUCOSE (test code = POCGLU) 168 MG/DL 70-110 H HEMOGLOBIN [id number] 11:12:00 Test Item Value Reference Range Interpretation Comments HEMOGLOBIN ABG (test code = HGB/ABG) 5.3 G/DL 11.0-15.0 L [id number] 11:12:00 Test Item Value Reference Range Interpretation Comments HEMATOCRIT (test code = HCT/ABG) 16 % 33.0-45.0 L POC LACTIC [id number] 11:12:00 Test Item Value Reference Range Interpretation Comments POC LACTIC ACID (test code = 1.7 mmol/l 0.9-1.7 N POCLAC) LACTIC ACID [id number] 09:20:00 Test Item Value Reference Range Interpretation Comments LACTIC ACID REPEAT (test code = 1.5 mmol/l 0.4-1.9 N LACTR) GLUCOSE [id number] 08:57:00 Test Item Value Reference Range Interpretation Comments GLUCOSE BEDSIDE (test 112 MG/DL 70-110 H Perfor med by certified code = GLUBED) 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 [facility] BASIC METABOLIC [id number] 06:36:00 Test Item Value Reference Range Interpretation Comments SODIUM (test code = 153 mEq/L 134-147 H NA) POTASSIUM (test code 3.8 mEq/L 3.4-5.0 N = K) CHLORIDE (test code 121 mEq/L 100-108 H = CL) CARBON DIOXIDE (test 24 mEq/l 21-33 N code = CO2) ANION GAP (test code 12 0-20 N = GAP) GLUCOSE (test code = 146 mg/dL 70-110 H GLU) BLOOD UREA NITROGEN 13 mg/dL 7-18 (test code = BUN) GLOMERULAR 87.5 90-95 L The Glomerular FILTRATION RATE Filtration R ate is a (test code = GFR) calculated parameterbased on serum Creatinine, pat ient age and sex. GFR va luesless than 60 mL/min/ 1.73 square meters a re indicative ofCh ronic Kidney Disease. Values less than 15 mL/min/1.73squa re meters indicate Kidney failure. The calculation for GFR is based on the CK D-EPI (2020) calculat ion. This formulais race indifferent and is the recommended for jerel for GFRby the [facility] Kidney Foundati on for Adults.The GFR will not calculate if th e sex is unknown or if thepatient's ag e is <18 years. CREATININE (test 0.8 mg/dL 0.6-1.3 N code = CREAT) CALCIUM (test code = 10.5 mg/dL 8.0-10.5 N CA) HEPATIC FUNCTION [id number] 06:36:00 Test Item Value Reference Range Interpretation Comments TOTAL PROTEIN (test code = PROT) 4.9 g/dL 6.4-8.2 L ALBUMIN (test code = ALB) 3.50 g/dL 3.4-5.0 N BILIRUBIN TOTAL (test code = BILT) 0.80 mg/dL 0.0-1.0 N BILIRUBIN DIRECT (test code = 0.40 MG/DL 0.0-0.30 H BILD) BILIRUBIN INDIRECT (test code = 0.40 MG/DL BILIND) SGOT/AST (test code = AST) 28 IUnit/L 15-37 N SGPT/ALT (test code = ALT) 26 IUnit/L 30-65 L ALKALINE PHOSPHATASE TOTAL (test 25 IUnit/L 20-125 N code = ALKP) [id number] 06:36:00 Test Item Value Reference Range Interpretation Comments MAGNESIUM (test code = MAG) 1.85 mg/dL 1.80-2.40 N POC ARTERIAL BLOOD [id number] 06:24:00 Test Item Value Reference Range Interpretation Comments POC ARTERIAL BLOOD GAS PH (test 7.464 7.35-7.45 H code = POCPHA) POC ARTERIAL BLOOD GAS PCO2 30.5 mmHg 35.0-45 L (test code = [id number]) POC TCO2 ARTERIAL (test code = 23.0 POCTCO2) POC ARTERIAL BLOOD GAS PO2 (test 153.1 mmHg 80-100.0 H code = VVRQV1F) POC HCO3 ARTERIAL (test code = 22.1 MMOL/L 22.0-26.0 N [id number]) POC BASE EXCESS (test code = -1.9 MMOL/L -4.0-4.0 N POCBEA) POC O2 SATURATION (test code = 99.5 % 90-100 N POCO2S) FIO2 (test code = FIO2A) 40 % PaO2/FiO2 (test code = [id number]) 382.75 mm/Hg ABG DELIVERY (test code = GRAEME) Adult Vent ABG VENT MODE (test code = AC MODEA) ABG VENT RESP RATE (test code = 10 /MIN RRA) ABG TIDAL VOLUME (test code = 450 ml TVA) ABG PEEP (test code = PEEPA) 5 cmH2O ABG TEMPERATURE (test code = 97.4 F TEMPA) BASIC METABOLIC [id number] 06:24:00 Test Item Value Reference Range Interpretation Comments SODIUM (test code = NA/ABG) 151 mmol/L 134-147 H POTASSIUM (test code = K/ABG) 3.6 mmol/L 3.4-5.0 N CHLORIDE (test code = CL/ABG) 117 mmol/L 100-108 H CREATININE ABG (test code = 0.8 mg/dL 0.6-1.0 N CREAABG) POC IONIZED CALCIUM (test code = 1.63 MMOL/L 1.12-1.32 HH POCCA) POC GLUCOSE (test code = POCGLU) 133 MG/DL 70-110 H HEMOGLOBIN [id number] 06:24:00 Test Item Value Reference Range Interpretation Comments HEMOGLOBIN ABG (test code = HGB/ABG) 7.6 G/DL 11.0-15.0 L [id number] 06:24:00 Test Item Value Reference Range Interpretation Comments HEMATOCRIT (test code = HCT/ABG) 22 % 33.0-45.0 L POC LACTIC [id number] 06:24:00 Test Item Value Reference Range Interpretation Comments POC LACTIC ACID (test code = 2.6 mmol/l 0.9-1.7 H POCLAC) LACTIC [id number] 06:18:00 Test Item Value Reference Range Interpretation Comments LACTIC ACID (test code = LACT) 2.8 mmol/L 0.4-1.9 H GLUCOSE [id number] 06:15:00 Test Item Value Reference Range Interpretation Comments GLUCOSE BEDSIDE (test 126 MG/DL 70-110 H Perfor med by certified code = GLUBED) 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 [facility] GLUCOSE [id number] 06:15:00 Test Item Value Reference Range Interpretation Comments GLUCOSE BEDSIDE (test 262 MG/DL 70-110 H Perfor med by certified code = GLUBED) 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 Prophylax is of venous thrombos is 2.0 - 3.0 (orthoped ic surgery), Proph ylaxis of venous throm bosis (other than hig h-risk surgery), Treat ment of Deep Vein Thrombosis/Pulm onary Embolism, Preve ntion of systemic emb olism - Tissue heart va lves, Acute Myocardia l Infarction (to prevent systemic emboli sm), Valvular heart disease, Atrial Fibrillation, Bileaflet mecha nical valve in aortic position.2. Mec hanical prosthetic valv es (high risk), 2. 5 - 3.5 Presence of Lup us Anticoagulant o r Antiphospholipi d Antibodies, Pre vention of systemic emb olism - Acute Myocardia l Infarction (to prevent recurrent infar ct). [id number] 06:06:00 Test Item Value Reference Range Interpretation Comments HGBA1C% (test code = HGBA1C%) 5.8 %A1C 4.8-6.0 N [id number] 05:59:00 Test Item Value Reference Range Interpretation Comments FIBRINOGEN (test 162 MG/DL 160-450 N Excess admi nistration of code = FIB) anticoagulants and/or FibrinDegradati on Products may af fect Fibrinogen valu e. CBC W/AUTO [id number] 05:49:00 Test Item Value Reference Range Interpretation Comments WHITE BLOOD CELL (test code = 8.4 x10 3/uL 4.5-11.0 N WBC) RED BLOOD CELL (test code = 2.87 x10 6/uL 3.54-5.02 L RBC) HEMOGLOBIN (test code = HGB) 8.3 g/dL 11.0-15.0 L HEMATOCRIT (test code = HCT) 24.1 % 33.0-45.0 L MEAN CELL VOLUME (test code = 84.0 fL 81.0-99.0 MCV) MEAN CELL HGB (test code = MCH) 28.9 pg 27.0-33.0 N MEAN CELL HGB CONCETRATION 34.4 g/dL 33.0-37.0 N (test code = MCHC) RED CELL DISTRIBUTION WIDTH CV 18.3 % 11.5-14.5 H (test code = RDW) RED CELL DISTRIBUTION WIDTH SD 55.7 fL 37.0-54.0 H (test code = RDW-SD) PLATELET COUNT (test code = 84 x10 3/uL 150-400 L PLT) MEAN PLATELET VOLUME (test code 10.2 fL 7.0-9.0 H = MPV) NEUTROPHIL % (test code = NT%) 88.1 % 56.0-77.0 H IMMATURE GRANULOCYTE % (test 0.5 % 0.0-2.0 N code = IG%) LYMPHOCYTE % (test code = LY%) 5.5 % 14.0-32.0 L MONOCYTE % (test code = MO%) 5.8 % 4.8-9.0 N EOSINOPHIL % (test code = EO%) 0.0 % 0.3-3.7 L BASOPHIL % (test code = BA%) 0.1 % 0.0-2.0 N NUCLEATED RBC % (test code = 0.0 % 0-0 N NRBC%) NEUTROPHIL # (test code = NT#) 7.40 x10 3/uL 2.0-7.6 N IMMATURE GRANULOCYTE # (test 0.04 x10 3/uL 0.00-0.03 H code = IG#) LYMPHOCYTE # (test code = LY#) 0.46 x10 3/uL 1.0-3.8 L MONOCYTE # (test code = MO#) 0.49 x10 3/uL 0.1-0.8 N EOSINOPHIL # (test code = EO#) 0.00 x10 3/uL 0.0-0.2 N BASOPHIL # (test code = BA#) 0.01 x10 3/uL 0.0-0.2 N NUCLEATED RBC # (test code = 0.00 x10 3/uL 0.0-0.1 N NRBC#) MANUAL DIFF REQUIRED (test code NO = MDIFF) PLT [id number] 05:49:00 Test Item Value Reference Range Interpretation Comments PLATELET ESTIMATE (test code 88-110 THOUSAND ADEQUATE = PLTEST) LACTIC ACID 2ND [id number] 04:33:00 Test Item Value Reference Range Interpretation Comments LACTIC ACID 2ND REPEAT (test code 4.4 mmol/L 0.4-1.9 HH = LACT2) POC ARTERIAL BLOOD [id number] 02:30:00 Test Item Value Reference Range Interpretation Comments POC ARTERIAL BLOOD GAS PH (test 7.411 7.35-7.45 N code = POCPHA) POC ARTERIAL BLOOD GAS PCO2 31.1 mmHg 35.0-45 L (test code = SZCFXL3H) POC TCO2 ARTERIAL (test code = 20.7 POCTCO2) POC ARTERIAL BLOOD GAS PO2 (test 88.9 mmHg 80-100.0 N code = DVSYM3X) POC HCO3 ARTERIAL (test code = 19.7 MMOL/L 22.0-26.0 L [id number]) POC BASE EXCESS (test code = -4.9 MMOL/L -4.0-4.0 L POCBEA) POC O2 SATURATION (test code = 97.1 % 90-100 N POCO2S) FIO2 (test code = FIO2A) 40 % PaO2/FiO2 (test code = [id number]) 222.25 mm/Hg ABG DELIVERY (test code = GRAEME) Adult Vent ABG VENT MODE (test code = AC MODEA) ABG VENT RESP RATE (test code = 10 /MIN RRA) ABG TIDAL VOLUME (test code = 450 ml TVA) ABG PEEP (test code = PEEPA) 5 cmH2O ABG SITE (test code = SITEA) Art Line SALVATORE'S TEST (test code = N/A ALLENS) BASIC METABOLIC [id number] 02:30:00 Test Item Value Reference Range Interpretation Comments SODIUM (test code = NA/ABG) 153 mmol/L 134-147 H POTASSIUM (test code = K/ABG) 3.1 mmol/L 3.4-5.0 L CHLORIDE (test code = CL/ABG) 118 mmol/L 100-108 H CREATININE ABG (test code = 0.7 mg/dL 0.6-1.0 N CREAABG) POC IONIZED CALCIUM (test code = 1.12 MMOL/L 1.12-1.32 N POCCA) POC GLUCOSE (test code = POCGLU) 249 MG/DL 70-110 H HEMOGLOBIN [id number] 02:30:00 Test Item Value Reference Range Interpretation Comments HEMOGLOBIN ABG (test code = HGB/ABG) 7.4 G/DL 11.0-15.0 L [id number] 02:30:00 Test Item Value Reference Range Interpretation Comments HEMATOCRIT (test code = HCT/ABG) 22 % 33.0-45.0 L POC LACTIC [id number] 02:30:00 Test Item Value Reference Range Interpretation Comments POC LACTIC ACID (test code = 6.0 mmol/l 0.9-1.7 HH POCLAC) LACTIC ACID [id number] 01:05:00 Test Item Value Reference Range Interpretation Comments LACTIC ACID REPEAT (test code = 5.3 mmol/l 0.4-1.9 HH LACTR) CBC W/AUTO [id number] 00:44:00 Test Item Value Reference Range Interpretation Comments WHITE BLOOD CELL (test code = 10.2 x10 3/uL 4.5-11.0 N WBC) RED BLOOD CELL (test code = 2.56 x10 6/uL 3.54-5.02 L RBC) HEMOGLOBIN (test code = HGB) 8.0 g/dL 11.0-15.0 L HEMATOCRIT (test code = HCT) 23.8 % 33.0-45.0 L MEAN CELL VOLUME (test code = 93.0 fL 81.0-99.0 N MCV) MEAN CELL HGB (test code = MCH) 31.3 pg 27.0-33.0 N MEAN CELL HGB CONCETRATION 33.6 g/dL 33.0-37.0 N (test code = MCHC) RED CELL DISTRIBUTION WIDTH CV 14.5 % 11.5-14.5 N (test code = RDW) RED CELL DISTRIBUTION WIDTH SD 49.3 fL 37.0-54.0 N (test code = RDW-SD) PLATELET COUNT (test code = 133 x10 3/uL 150-400 L PLT) MEAN PLATELET VOLUME (test code 10.2 fL 7.0-9.0 H = MPV) NEUTROPHIL % (test code = NT%) 86.5 % 56.0-77.0 H IMMATURE GRANULOCYTE % (test 0.5 % 0.0-2.0 N code = IG%) LYMPHOCYTE % (test code = LY%) 7.7 % 14.0-32.0 L MONOCYTE % (test code = MO%) 5.1 % 4.8-9.0 N EOSINOPHIL % (test code = EO%) 0.1 % 0.3-3.7 L BASOPHIL % (test code = BA%) 0.1 % 0.0-2.0 N NUCLEATED RBC % (test code = 0.0 % 0-0 N NRBC%) NEUTROPHIL # (test code = NT#) 8.82 x10 3/uL 2.0-7.6 H IMMATURE GRANULOCYTE # (test 0.05 x10 3/uL 0.00-0.03 H code = IG#) LYMPHOCYTE # (test code = LY#) 0.78 x10 3/uL 1.0-3.8 L MONOCYTE # (test code = MO#) 0.52 x10 3/uL 0.1-0.8 N EOSINOPHIL # (test code = EO#) 0.01 x10 3/uL 0.0-0.2 N BASOPHIL # (test code = BA#) 0.01 x10 3/uL 0.0-0.2 N NUCLEATED RBC # (test code = 0.00 x10 3/uL 0.0-0.1 N NRBC#) MANUAL DIFF REQUIRED (test code NO = MDIFF) POC ARTERIAL BLOOD [id number] 00:26:00 Test Item Value Reference Range Interpretation Comments POC ARTERIAL BLOOD GAS PH (test 7.271 7.35-7.45 LL code = POCPHA) POC ARTERIAL BLOOD GAS PCO2 33.1 mmHg 35.0-45 L (test code = GCVOHQ7H) POC TCO2 ARTERIAL (test code = 16.5 POCTCO2) POC ARTERIAL BLOOD GAS PO2 (test 114.5 mmHg 80-100.0 H code = IKQPN6Q) POC HCO3 ARTERIAL (test code = 15.4 MMOL/L 22.0-26.0 LL JAIHGX5N) POC BASE EXCESS (test code = -11.7 MMOL/L -4.0-4.0 L POCBEA) POC O2 SATURATION (test code = 98.1 % 90-100 N POCO2S) FIO2 (test code = FIO2A) 45 % PaO2/FiO2 (test code = [id number]) 254.44 mm/Hg ABG DELIVERY (test code = GRAEME) Adult Vent ABG VENT MODE (test code = AC MODEA) ABG VENT RESP RATE (test code = 10 /MIN RRA) ABG TIDAL VOLUME (test code = 450 ml TVA) ABG PEEP (test code = PEEPA) 5 cmH2O ABG TEMPERATURE (test code = 97.1 F TEMPA) ABG SITE (test code = SITEA) Art Line SALVATORE'S TEST (test code = N/A MAGGIE) BASIC METABOLIC [id number] 00:26:00 Test Item Value Reference Range Interpretation Comments SODIUM (test code = NA/ABG) 148 mmol/L 134-147 H POTASSIUM (test code = K/ABG) 3.1 mmol/L 3.4-5.0 L CHLORIDE (test code = CL/ABG) 117 mmol/L 100-108 H CREATININE ABG (test code = 0.8 mg/dL 0.6-1.0 N CREAABG) POC IONIZED CALCIUM (test code = 1.14 MMOL/L 1.12-1.32 N POCCA) POC GLUCOSE (test code = POCGLU) 330 MG/DL 70-110 H HEMOGLOBIN [id number] 00:26:00 Test Item Value Reference Range Interpretation Comments HEMOGLOBIN ABG (test code = HGB/ABG) 7.7 G/DL 11.0-15.0 L [id number] 00:26:00 Test Item Value Reference Range Interpretation Comments HEMATOCRIT (test code = HCT/ABG) 23 % 33.0-45.0 L POC LACTIC [id number] 00:26:00 Test Item Value Reference Range Interpretation Comments POC LACTIC ACID (test code = 4.4 mmol/l 0.9-1.7 HH POCLAC) - XR ABDOMEN 1V (KUB)2022-04-10 00:00:00 [facility] 1965 Sex: F FAX: Meredith Pozo [phone] [place]: St: ADM FAX: Eddie Bravo MD [phone] FAX: Yakov Nayg M Name: ABBE CORONADO [facility] : 1965 Age/S: 56/F [address] [place] [address] Unit #: [id number] Loc: G.3304 [place] [address] Phys: Eddie Bravo MD Acct: [id number] Dis Date: Status: ADM IN PHONE #: [phone] Exam Date: 04/10/20221951 FAX #: [phone] Reason: N/V EXAMS: CPT CODE: [id number] ABDOMEN 1V (KUB) [id number] PROCEDURE INFORMATION: Exam: XR Abdomen Exam date and time: 04/10/2022 7:52 PM Age: 56 years old Clinical indication: Nausea and vomiting; Additional info: N/v TECHNIQUE: Imaging protocol: Radiologic exam of the abdomen. Views: Frontal supine view of the abdomen. 1 View. COMPARISON: CR XR CHEST 1V 04/10/2022 7:39 PM FINDINGS: Gastrointestinal tract: The bowel gas pattern is nonspecific and nonobstructive. Bones/joints: Unremarkable. IMPRESSION: No acute abdominal finding. at 2027 Reported and signed by:Luis Carlos De Anda M.D. CC: Meredith Zamarripa MD; Eddie Bravo MD; Yaokv Poon MD Technologist: RT Celia(R) Trnscrd Date/Time/By: 04/10/2022 (2027) : By: [email or web address] Orig Print D/T: S: 04/10/2022 (2027) PAGE 1 Signed Report- XR CHEST 1 [id number] 00:00:00 [facility] 1965 Sex: F FAX: Meredith Pozo [phone] [place]: St: ADM FAX: Eddie Bravo MD [phone] FAX: Yakov Nagy Name: ABBE CORONADO [facility] [place] : 1965 Age/S: 56/F [address] [place] [address] Unit #: [id number] Loc: G.3304 [place] [address] Phys: Eddie Bravo MD Acct: [id number] Dis Date: Status: ADM IN PHONE #: [phone] Exam Date: 04/10/20221944 FAX #: [phone] Reason: chest tube, chest pain EXAMS: CPT CODE: [id number] XR CHEST 1 V [id number] PROCEDURE INFORMATION: Exam: XR Chest Exam date and time: 04/10/2022 7:39 PM Age: 56 years old Clinical indication: Device placement; Chest tube; Additional info: Chest tube, chest pain TECHNIQUE: Imaging protocol: Radiologic exam of the chest. Views: 1 view. COMPARISON: CR XR CHEST 1V 04/10/2022 2:37 PM FINDINGS: Tubes, catheters and devices: Mediastinal/pericardial and left thoracostomy drains in place. Right internal jugular Greenwood-Tadeo catheter sheath inplace. Lungs: Lung volumes are low. Indistinct perihilar and infrahilar opacities are grossly stable. Retrocardiac opacity obscuring the left hemidiaphragm. Pleural spaces: There is no pneumothorax. The left costophrenic angle is obscured and the right is indistinct, unchanged. Heart/Mediastinum: The cardiomediastinal silhouette is stable. The pulmonary vasculature is indistinct. Bones/joints: Sternotomy wires are intact. IMPRESSION: 1. Stable postoperative chest. 2. Ill-defined pulmonary opacities may reflect combination of edema and atelectasis. 3. Stable left basilar pleuroparenchymal disease and possible small right pleural effusion. at 2031 Reported and signed by: Bjorn Lockwood M.D. CC: Meredith Zamarripa MD; Eddie Bravo MD; Yakov Poon MD Technologist: ISMA Yang) Trnjudyrd Date/Time/By: 04/10/2022 (2031) : By: [email or web address] Orig Print D/T: S: 04/10/2022 (2032) PAGE 1 Signed Report- XR CHEST 1 [id number] 00:00:00 [facility] : 1965 Sex: F FAX:Latricia Stanton [place]: St: ADM FAX: Meredith Pozo [phone] FAX: Yakov Nagy Name: ABBE CORONADO [facility] Ziyad Guerrero : 1965 Age/S: 56/F [address] [place] [address] Unit #: [id number] Loc: .[address] [place] [address] Phys: Latricia Stanton Acct: [id number] Dis Date: Status: ADM IN PHONE #: [phone] Exam Date: 04/10/2022 151 FAX #: [phone] Reason: s/p pericardial window EXAMS:CPT CODE: [id number] XR CHEST 1 V [id number] PROCEDURE INFORMATION: Exam: XR Chest Exam date and time: 04/10/2022 2:37 PM Age: 56 years old Clinical indication: Other: S/P pericardial window TECHNIQUE: Imaging protocol: Radiologic exam of the chest. Views: 1 view. COMPARISON: CR XR CHEST 1V 04/10/2022 6:22AM FINDINGS: Tubes, catheters and devices: Mediastinal drain and left chest tube in place. Right IJ CVC is seen with tip projecting near the confluence with the SVC. Lungs: Low lung volumes. Persistentleft basilar airspace disease. Pleural spaces: No pleural effusion. No pneumothorax. Heart/Mediastinum: Unchanged. Bones/joints: Median sternotomy changes. IMPRESSION: 1. Persistent left basilar airspace disease. 2. Lines and tubes, as above. at 1538 Reported and signed by: Kyle Michaels M.D. CC: Latricia Stanton; Meredith Zamarripa MD; Yakov Poon MD Technologist: RT Isaak(R) Trnscrd Date/Time/By: 04/10/2022 (9055) : By: [email or web address] Orig Print D/T: S: 04/10/2022 (3789) PAGE 1 Signed Report- XR CHEST 1 [id number] 00:00:00 [facility] 1965 Sex: F FAX: Meredith Pozo [phone] [place]: St: [facility] FAX: Yakov Nagy Name: ABBE CORONADO [facility] : 1965 Age/S: 56/F [address] [place] [address] Unit #: [id number] Loc: G.3304 [place] [address] Phys: Meredith Zamarripa MD Acct: [id number] Dis Date: Status: ADM IN PHONE #: [phone] Exam Date: 04/10/2022 0651 FAX #: [phone] Reason: Cardiac Surgery Post Op EXAMS: CPT CODE: [id number] XR CHEST 1 V [id number] PROCEDURE INFORMATION: Exam: XR Chest Exam date and time: 04/10/2022 6:22 AM Age: 56 years old Clinical indication: Other: Cardiac surgery post op TECHNIQUE: Imaging protocol: Radiologicexam of the chest. Views: 1 view. COMPARISON: CR XR CHEST 1V 04/09/2022 9:59 PM FINDINGS: Tubes, catheters and devices: The endotracheal tube tip terminates approximately 3.5 cm above the manuel. The nasogastric tube terminates below the diaphragm and the tip is not included in the film. Stable mediastinal drain and left large bore chest tube. The right IJ central venous catheter tip projects at the level of the mid/upper SVC. Lungs: Decreased lung volumes with increased bilateral central and retrocardiac pulmonary opacities. Pleural spaces: No visible pneumothorax line is seen. No pleural fluid. He art/Mediastinum: Enlarged cardiac silhouette with median sternotomy changes in keeping with recent surgical history. Bones/joints: No destructive bone lesions. IMPRESSION: 1. Decreased lung volumes with increased bilateral central and retrocardiac pulmonary opacities, probably representing atelectasis, secretions and or central edema. 2. Line and tube positions as described. 3. Otherwise grossly stable postoperative mediastinum. at 0748 Reported and signed by: August Dailey M.D. CC: Meredith Zamarripa MD; Yakov Poon MD Technologist: RT [place](R) Trnscrd Date/Time/By: 04/10/2022 (0748) : By: [email or web address] Orig Print D/T: S: 04/10/2022 (0748) PAGE 1 [facility] ART[facility] BLO[facility] [id number] 22:12:00 Test Item Value Reference Range Interpretation Comments POC ARTERIAL BLOOD GAS PH (test 7.344 7.35-7.45 L code = POCPHA) POC ARTERIAL BLOOD GAS PCO2 34.3 mmHg 35.0-45 L (test code = FLLGWL0C) POC TCO2 ARTERIAL (test code = 19.9 POCTCO2) POC ARTERIAL BLOOD GAS PO2 (test 171.6 mmHg 80-100.0 H code = FTNBO3Q) POC HCO3 ARTERIAL (test code = 18.8 MMOL/L 22.0-26.0 L HLXRNI5C) POC BASE EXCESS (test code = -7.0 MMOL/L -4.0-4.0 L POCBEA) POC O2 SATURATION (test code = 99.5 % 90-100 N POCO2S) FIO2 (test code = FIO2A) 60 % PaO2/FiO2 (test code = [id number]) 286.00 mm/Hg ABG DELIVERY (test code = GRAEME) Adult Vent ABG VENT MODE (test code = AC MODEA) ABG VENT RESP RATE (test code = 10 /MIN RRA) ABG TIDAL VOLUME (test code = 450 ml TVA) ABG PEEP (test code = PEEPA) 5 cmH2O ABG TEMPERATURE (test code = 97.1 F TEMPA) BASIC METABOLIC [id number] 22:12:00 Test Item Value Reference Range Interpretation Comments SODIUM (test code = NA/ABG) 146 mmol/L 134-147 N POTASSIUM (test code = K/ABG) 4.1 mmol/L 3.4-5.0 N CHLORIDE (test code = CL/ABG) 113 mmol/L 100-108 H CREATININE ABG (test code = 0.8 mg/dL 0.6-1.0 N CREAABG) POC IONIZED CALCIUM (test code = 1.29 MMOL/L 1.12-1.32 N POCCA) POC GLUCOSE (test code = POCGLU) 294 MG/DL 70-110 H HEMOGLOBIN [id number] 22:12:00 Test Item Value Reference Range Interpretation Comments HEMOGLOBIN ABG (test code = 11.0 G/DL 11.0-15.0 N HGB/ABG) [id number] 22:12:00 Test Item Value Reference Range Interpretation Comments HEMATOCRIT (test code = HCT/ABG) 32 % 33.0-45.0 L POC LACTIC [id number] 22:12:00 Test Item Value Reference Range Interpretation Comments POC LACTIC ACID (test code = 2.4 mmol/l 0.9-1.7 H POCLAC) PROTHROMBIN [id number] 22:11:00 Test Item Value Reference Range Interpretation Comments PROTHROMBIN TIME 17.5 SECONDS 9.3-12.9 H PATIENT (test code = PTP) INTERNATIONAL NORMAL 1.6 0.8-1.2 H TARGE T INR BY RATIO (test code = INDICATIO N Indication INR) INR1. Prophylax is of venous thrombos is 2.0 - 3.0 (orthoped ic surgery), Proph ylaxis of venous throm bosis (other than hig h-risk surgery), Treat ment of Deep Vein Thrombosis/Pulm onary Embolism, Preve ntion of systemic emb olism - Tissue heart va lves, Acute Myocardia l Infarction (to prevent systemic emboli sm), Valvular heart disease, Atrial Fibrillation, Bileaflet mecha nical valve in aortic position.2. Mec hanical prosthetic valv es (high risk), 2. 5 - 3.5 Presence of Lup us Anticoagulant o r Antiphospholipi d Antibodies, Pre vention of systemic emb olism - Acute Myocardia l Infarction (to prevent recurrent infar ct). COMMENTS: On arrivalTHROMBOPLASTIN TIME [id number] 22:11:00 Test Item Value Reference Range Interpretation Comments THROMBOPLASTIN TIME 30.0 Seconds 25.0-39.5 N Therape utic Range: PARTIAL (test code = 50.4 - 88.3 Seconds PTT) Effective 08/25/2018 COMMENTS: On arrivalBASIC METABOLIC [id number] 22:03:00 Test Item Value Reference Range Interpretation Comments SODIUM (test code = 145 mEq/L 134-147 N NA) POTASSIUM (test code 4.2 mEq/L 3.4-5.0 N = K) CHLORIDE (test code 113 mEq/L 100-108 H = CL) CARBON DIOXIDE (test 22 mEq/l 21-33 N code = CO2) ANION GAP (test code 15 0-20 N = GAP) GLUCOSE (test code = 302 mg/dL 70-110 H GLU) BLOOD UREA NITROGEN 10 mg/dL 7-18 N (test code = BUN) GLOMERULAR 76.0 90-95 L The Glomerular FILTRATION RATE Filtration R ate is a (test code = GFR) calculated parameterbased on serum Creatinine, pat ient age and sex. GFR va luesless than 60 mL/min/ 1.73 square meters a re indicative ofCh ronic Kidney Disease. Values less than 15 mL/min/1.73squa re meters indicate Kidney failure. The calculation forGFR is based on the CKD-EPI (2020) calculat ion. This formulais race indifferent and is the recommended for jerel for GFRby the [facility] Kidney Foundati on for Adults.The GFR will not calculate if th e sex is unknown or if thepatient's ag e is <18 years. CREATININE (test 0.9 mg/dL 0.6-1.3 N code = CREAT) CALCIUM (test code = 9.4 mg/dL 8.0-10.5 N CA) COMMENTS: On [id number] 22:03:00 Test Item Value Reference Range Interpretation Comments MAGNESIUM (test code = MAG) 1.93 mg/dL 1.80-2.40 N COMMENTS: On arrivalLACTIC [id number] 22:00:00 Test Item Value Reference Range Interpretation Comments LACTIC ACID (test code = LACT) 2.4 mmol/L 0.4-1.9 H CBC W/AUTO [id number] 21:51:00 Test Item Value Reference Range Interpretation Comments WHITE BLOOD CELL (test code = 12.5 x10 3/uL 4.5-11.0 H WBC) RED BLOOD CELL (test code = 3.65 x10 6/uL 3.54-5.02 N RBC) HEMOGLOBIN (test code = HGB) 11.3 g/dL 11.0-15.0 N HEMATOCRIT (test code = HCT) 33.0 % 33.0-45.0 N MEAN CELL VOLUME (test code = 90.4 fL 81.0-99.0 N MCV) MEAN CELL HGB (test code = 31.0 pg 27.0-33.0 N MCH) MEAN CELL HGB CONCETRATION 34.2 g/dL 33.0-37.0 N (test code = MCHC) RED CELL DISTRIBUTION WIDTH CV 14.1 % 11.5-14.5 N (test code = RDW) RED CELL DISTRIBUTION WIDTH SD 47.0 fL 37.0-54.0 N (test code = RDW-SD) PLATELET COUNT (test code = 149 x10 3/uL 150-400 L PLT) MEAN PLATELET VOLUME (test 9.9 fL 7.0-9.0 H code = MPV) NEUTROPHIL % (test code = NT%) 84.6 % 56.0-77.0 H IMMATURE GRANULOCYTE % (test 0.7 % 0.0-2.0 N code = IG%) LYMPHOCYTE % (test code = LY%) 8.1 % 14.0-32.0 L MONOCYTE % (test code = MO%) 6.2 % 4.8-9.0 N EOSINOPHIL % (test code = EO%) 0.2 % 0.3-3.7 L BASOPHIL % (test code = BA%) 0.2 % 0.0-2.0 N NUCLEATED RBC % (test code = 0.0 % 0-0 N NRBC%) NEUTROPHIL # (test code = NT#) 10.55 x10 3/uL 2.0-7.6 H IMMATURE GRANULOCYTE # (test 0.09 x10 3/uL 0.00-0.03 H code = IG#) LYMPHOCYTE # (test code = LY#) 1.01 x10 3/uL 1.0-3.8 N MONOCYTE # (test code = MO#) 0.77 x10 3/uL 0.1-0.8 N EOSINOPHIL # (test code = EO#) 0.02 x10 3/uL 0.0-0.2 N BASOPHIL # (test code = BA#) 0.03 x10 3/uL 0.0-0.2 N NUCLEATED RBC # (test code = 0.00 x10 3/uL 0.0-0.1 N NRBC#) MANUAL DIFF REQUIRED (test NO code = MDIFF) COMMENTS: On [id number] 20:45:00 Test Item Value Reference Range Interpretation Comments ACT-ISTAT (test code 86 SEC 74-137 N Perform ed by certified = ACTI) 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 [facility] POC ARTERIAL BLOOD [id number] 20:45:00 Test Item Value Reference Range Interpretation Comments POC ARTERIAL BLOOD GAS PH (test 7.294 7.35-7.45 LL code = POCPHA) POC ARTERIAL BLOOD GAS PCO2 (test 33.5 mmHg 35.0-45 L code = CHRIEO5J) POC TCO2 ARTERIAL (test code = 17.3 POCTCO2) POC ARTERIAL BLOOD GAS PO2 (test 320.8 mmHg 80-100.0 HH code = RGYES9O) POC HCO3 ARTERIAL (test code = 16.3 MMOL/L 22.0-26.0 LL [id number]) POC BASE EXCESS (test code = -9.3 MMOL/L -4.0-4.0 L POCBEA) POC O2 SATURATION (test code = 99.9 % 90-100 N POCO2S) BASIC METABOLIC [id number] 20:45:00 Test Item Value Reference Range Interpretation Comments SODIUM (test code = NA/ABG) 149 mmol/L 134-147 H POTASSIUM (test code = K/ABG) 3.5 mmol/L 3.4-5.0 N CHLORIDE (test code = CL/ABG) 120 mmol/L 100-108 H CREATININE ABG (test code = 0.7 mg/dL 0.6-1.0 N CREAABG) POC IONIZED CALCIUM (test code = 1.18 MMOL/L 1.12-1.32 N POCCA) POC GLUCOSE (test code = POCGLU) 245 MG/DL 70-110 H HEMOGLOBIN [id number] 20:45:00 Test Item Value Reference Range Interpretation Comments HEMOGLOBIN ABG (test code = 11.3 G/DL 11.0-15.0 N HGB/ABG) [id number] 20:45:00 Test Item Value Reference Range Interpretation Comments HEMATOCRIT (test code = HCT/ABG) 33 % 33.0-45.0 N POC LACTIC [id number] 20:45:00 Test Item Value Reference Range Interpretation Comments POC LACTIC ACID (test code = 2.2 mmol/l 0.9-1.7 H POCLAC) [id number] 20:17:00 Test Item Value Reference Range Interpretation Comments ACT-ISTAT (test code 115 SEC 74-137 N Perform ed by certified = ACTI) 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 [facility] POC ARTERIAL BLOOD [id number] 20:10:00 Test Item Value Reference Range Interpretation Comments POC ARTERIAL BLOOD GAS PH (test 7.289 7.35-7.45 LL code = POCPHA) POC ARTERIAL BLOOD GAS PCO2 (test 41.7 mmHg 35.0-45 N code = DUBRYF6L) POC TCO2 ARTERIAL (test code = 21.3 POCTCO2) POC ARTERIAL BLOOD GAS PO2 (test 332.6 mmHg 80-100.0 HH code = QEPQV6P) POC HCO3 ARTERIAL (test code = 20.0 MMOL/L 22.0-26.0 L [id number]) POC BASE EXCESS (test code = -6.3 MMOL/L -4.0-4.0 L POCBEA) POC O2 SATURATION (test code = 99.9 % 90-100 N POCO2S) BASIC METABOLIC [id number] 20:10:00 Test Item Value Reference Range Interpretation Comments SODIUM (test code = NA/ABG) 145 mmol/L 134-147 N POTASSIUM (test code = K/ABG) 4.6 mmol/L 3.4-5.0 N CHLORIDE (test code = CL/ABG) 114 mmol/L 100-108 H CREATININE ABG (test code = 0.7 mg/dL 0.6-1.0 CREAABG) POC IONIZED CALCIUM (test code = 1.33 MMOL/L 1.12-1.32 H POCCA) POC GLUCOSE (test code = POCGLU) 316 MG/DL 70-110 H HEMOGLOBIN [id number] 20:10:00 Test Item Value Reference Range Interpretation Comments HEMOGLOBIN ABG (test code = 10.6 G/DL 11.0-15.0 L HGB/ABG) [id number] 20:10:00 Test Item Value Reference Range Interpretation Comments HEMATOCRIT (test code = HCT/ABG) 31 % 33.0-45.0 L POC LACTIC [id number] 20:10:00 Test Item Value Reference Range Interpretation Comments POC LACTIC ACID (test code = 3.2 mmol/l 0.9-1.7 H POCLAC) [id number] 19:57:00 Test Item Value Reference Range Interpretation Comments ACT-ISTAT (test code 115 SEC 74-137 N Perform ed by certified = ACTI) 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 [facility] POC ARTERIAL BLOOD [id number] 19:48:00 Test Item Value Reference Range Interpretation Comments POC ARTERIAL BLOOD GAS PH (test 7.238 7.35-7.45 LL code = POCPHA) POC ARTERIAL BLOOD GAS PCO2 (test 46.1 mmHg 35.0-45 H code = [id number]) POC TCO2 ARTERIAL (test code = 21.1 POCTCO2) POC ARTERIAL BLOOD GAS PO2 (test 455.8 mmHg 80-100.0 HH code = [id number]) POC HCO3 ARTERIAL (test code = 19.7 MMOL/L 22.0-26.0 L [id number]) POC BASE EXCESS (test code = -7.5 MMOL/L -4.0-4.0 L POCBEA) POC O2 SATURATION (test code = 100.0 % 90-100 N POCO2S) BASIC METABOLIC [id number] 19:48:00 Test Item Value Reference Range Interpretation Comments SODIUM (test code = NA/ABG) 143 mmol/L 134-147 N POTASSIUM (test code = K/ABG) 4.9 mmol/L 3.4-5.0 N CHLORIDE (test code = CL/ABG) 111 mmol/L 100-108 H CREATININE ABG (test code = 0.9 mg/dL 0.6-1.0 N CREAABG) POC IONIZED CALCIUM (test code = 1.04 MMOL/L 1.12-1.32 L POCCA) POC GLUCOSE (test code = POCGLU) 363 MG/DL 70-110 H HEMOGLOBIN [id number] 19:48:00 Test Item Value Reference Range Interpretation Comments HEMOGLOBIN ABG (test code = 10.7 G/DL 11.0-15.0 L HGB/ABG) [id number] 19:48:00 Test Item Value Reference Range Interpretation Comments HEMATOCRIT (test code = HCT/ABG) 32 % 33.0-45.0 L POC LACTIC [id number] 19:48:00 Test Item Value Reference Range Interpretation Comments POC LACTIC ACID (test code = 4.0 mmol/l 0.9-1.7 H POCLAC) [id number] 19:21:00 Test Item Value Reference Range Interpretation Comments ACT-ISTAT (test code 150 SEC 74-137 H Perform ed by certified = ACTI) 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 [facility] POC ARTERIAL BLOOD [id number] 19:11:00 Test Item Value Reference Range Interpretation Comments POC ARTERIAL BLOOD GAS PH (test 7.082 7.35-7.45 LL code = POCPHA) POC ARTERIAL BLOOD GAS PCO2 38.2 mmHg 35.0-45 N (test code = [id number]) POC TCO2 ARTERIAL (test code = 12.5 POCTCO2) POC ARTERIAL BLOOD GAS PO2 (test 199.4 mmHg 80-100.0 H code = [id number]) POC HCO3 ARTERIAL (test code = 11.4 MMOL/L 22.0-26.0 LL [id number]) POC BASE EXCESS (test code = -17.7 MMOL/L -4.0-4.0 L POCBEA) POC O2 SATURATION (test code = 99.3 % 90-100 N POCO2S) BASIC METABOLIC [id number] 19:11:00 Test Item Value Reference Range Interpretation Comments SODIUM (test code = NA/ABG) 139 mmol/L 134-147 N POTASSIUM (test code = K/ABG) 4.4 mmol/L 3.4-5.0 N CHLORIDE (test code = CL/ABG) 114 mmol/L 100-108 H CREATININE ABG (test code = 0.8 mg/dL 0.6-1.0 N CREAABG) POC IONIZED CALCIUM (test code = 0.94 MMOL/L 1.12-1.32 L POCCA) POC GLUCOSE (test code = POCGLU) 448 MG/DL 70-110 H HEMOGLOBIN [id number] 19:11:00 Test Item Value Reference Range Interpretation Comments HEMOGLOBIN ABG (test code = 11.3 G/DL 11.0-15.0 N HGB/ABG) [id number] 19:11:00 Test Item Value Reference Range Interpretation Comments HEMATOCRIT (test code = HCT/ABG) 33 % 33.0-45.0 N POC LACTIC [id number] 19:11:00 Test Item Value Reference Range Interpretation Comments POC LACTIC ACID (test code = 5.8 mmol/l 0.9-1.7 HH POCLAC) - XR CHEST 1 [id number] 00:00:00 [facility] : 1965 Sex: F FAX:Meredith Pozo [phone] [place]: St: [facility] FAX: Yakov Nagy Name: ABBE CORONADO [facility] [place] :1965 Age/S: 56/F [address] [place] [address] Unit #: [id number] Loc: [address] [place] [address] Phys: Meredith Zamarripa MD Acct: [id number] Dis Date: Status: ADM IN PHONE #: [phone] Exam Date: 04/09/20222219 FAX #: [phone] Reason: Cardiac Surgery Post Op EXAMS: CPT CODE: [id number] XR CHEST 1 V 73245 PROCEDURE INFORMATION: Exam: XR Chest Exam date and time: 04/09/2022 9:59 PM Age: 56 years old Clinical indication: Other: Cardiac surgery post op TECHNIQUE: Imaging protocol: Radiologicexam of the chest. Views: 1 view. COMPARISON: CR XR CHEST 1V 04/09/2022 7:52 PM FINDINGS: Tubes, catheters and devices: Endotracheal tube tip 3.2 cm above the manuel. Feeding tube extends into the stomach. Mediastinal tubes. Likely right internal jugular vein line with the catheter tip at the superiorvena cava region. Lungs: Mildly prominent interstitial lung markings bilaterally, which may represent interstitial edema or atelectasis. Pleural spaces: No pleural effusion. No pneumothorax. Heart/Mediastinum: Cardiac and mediastinal contours within normal limits. Bones/joints: Midline sternotomy wires. IMPRESSION: 1. Support tubes as described above 2. Mildly prominent interstitial lung markings bilaterally, which may represent interstitial edema or atelectasis. at 223 Reported and signed by: Ochoa Mosquera M.D. CC: Meredith Zamarripa MD; Yakov Poon MD Technologist: RT Justine(R) Trnscrd Date/Time/By: 04/09/2022 (2231) :By: [email or web address] Orig Print D/T: S: 04/09/2022 (2231) PAGE 1 Signed Report- XR CHEST 1 [id number] 00:00:00[facility] : 1965 Sex: F FAX: Meredith Pozo [phone] [place]: St: [facility] FAX: Yakov Nagy Name: ABBE CORONADO [facility] : 1965 Age/S: 56/F [address] [place] [address] Unit #: [id number] Loc: G.[address] [place] [address] Phys:Meredith Zamarripa MD Acct: [id number] Dis Date: Status: ADM IN PHONE #: [phone] Exam Date: 04/09/20222028 FAX #: [phone] Reason: EMERGENT SURGERY / SURGICAL COUNT Report Has Been Amended EXAMS: CPT CODE: [id number] XR CHEST 1 V 28670 Addendum - 04/09/2022 SIGNED 04/09/2022 ADDENDUM: [id number] RAD/CXR1 No radiopaque foreign body seen to suggest retained sponge. ElectronicallySigned by Stacia Mosquera on 04/09/2022 at 2055 Reported and signed by: Ochoa Mosquera M.D. ReportPROCEDURE INFORMATION: Exam: XR Chest Exam date and time: 04/09/2022 7:52 PM Age: 56 years old Clinical indication: Device placement; Emergent surgery / surgical count TECHNIQUE: Imaging protocol: Radio logic exam of the chest. Views: 1 view. COMPARISON: No relevant prior studies available. FINDINGS: Tubes, catheters and devices: Endotracheal tube tip 4.5 cm above the manuel. Additional tubing overlying the midline chest and visualized upper abdomen. Lungs: Mildly prominent interstitial lung markings, which may represent interstitial edema or atelectasis. Pleural spaces: No pleural effusion or pneumothorax. Heart/Mediastinum: Cardiac and mediastinal contours within normal limits. Bones/joints: Midline sternotomy wires. IMPRESSION: Mildly prominent interstitial lung markings, which may represent interstitial edema or atelectasis. at 2048 Reported and signed by: Ochoa Mosquera M.D. PAGE 1 Signed Report (CONTINUED) FAX: Meredith Pozo [phone] [place]: St: ADM FAX: Yakov Nagy Name: ABBE CORONADO [facility] : 1965 Age/S: 56/F [address] [place] [address] Unit #: [id number] Loc: G.[facility] [place] [address] Phys: Meredith Zamarripa MD Acct: [id number] Dis Date: Status: ADM IN PHONE #: [phone] Exam Date: 04/09/20222028 FAX #: [phone] Reason: EMERGENT SURGERY / SURGICAL COUNT Report Has Been Amended EXAMS: CPT CODE: [id number] XR CHEST 1 V 50489 (Continued) CC: Meredith Zamarripa MD; Yakov Poon MD Technologist: Shannon Gray RT(R); RT Celia(R) [facility] Date/Time/By: 04/09/2022 (2048) : By: [email or web address] Orig Print D/T: S: 04/09/2022 (2048) PAGE 2 Signed ReportANA (ANTI-NUCLEAR AB) WITH REFLEX [id number] 00:00:00 Test Item Value Reference Range Interpretation Comments ANTI-NUCLEAR ANTIBODIES (test NEGATIVE code = 3506) ARLINE PATTERN (REPORTED SEE BELOW TITER) (test code = 08245) HOMOGENEOUS (test code = NEGATIVE TITER 22387) SPECKLED (test code = 662781) NEGATIVE TITER DENSE FINE SPECKLED (test code NEGATIVE TITER = 13830) CENTROMERE (test code = NEGATIVE TITER 716829) COARSE SPECKLED (test code = NEGATIVE TITER 217836) DISCRETE NUCLEAR DOTS (test NEGATIVE TITER code = 988154) NUCLEOLAR (test code = 667686) NEGATIVE TITER NUCLEAR MEMBRANE (test code = NEGATIVE TITER 686447) CYTO. RETICULAR (INDER) (test NEGATIVE code = 177747) COMMENTS (test code = 713314) NONE METHOD (test code = 87368) (NOTE) ARLINE (ANTI-NUCLEAR AB) WITH REFLEX [id number] 00:00:00 Test Item Value Reference Range Interpretation Comments ANTI-NUCLEAR ANTIBODIES (test NEGATIVE code = 3506) ARLINE PATTERN (REPORTED SEE BELOW TITER) (test code = 95288) HOMOGENEOUS (test code = NEGATIVE TITER 54066) SPECKLED (test code = 220636) NEGATIVE TITER DENSE FINE SPECKLED (test code NEGATIVE TITER = 17479) CENTROMERE (test code = NEGATIVE TITER 664392) COARSE SPECKLED (test code = NEGATIVE TITER 090637) DISCRETE NUCLEAR DOTS (test NEGATIVE TITER code = 802758) NUCLEOLAR (test code = 731295) NEGATIVE TITER NUCLEAR MEMBRANE (test code = NEGATIVE TITER 628310) CYTO. RETICULAR (INDER) (test NEGATIVE code = 234827) COMMENTS (test code = 637351) NONE METHOD (test code = 52505) (NOTE) HEMOGLOBIN [id number] 00:00:00 Test Item Value Reference Range Interpretation Comments HEMOGLOBIN A1c (test code = 52373) 7.8 % HEMOGLOBIN [id number] 00:00:00 Test Item Value Reference Range Interpretation Comments HEMOGLOBIN A1c (test code = 16400) 7.8 % HEMOGLOBIN [id number] 00:00:00 Test Item Value Reference Range Interpretation Comments HEMOGLOBIN A1c (test code = 18142) 7.8 % LIPID [id number] 00:00:00 Test Item Value Reference Range Interpretation Comments CHOLESTEROL (test code = 2210) 204 MG/DL TRIGLYCERIDES (test code = 2232) 121 MG/DL HDL CHOLESTEROL (test code = 2220) 41 MG/DL CALC LDL CHOL (test code = 2237) 139 MG/DL RISK RATIO LDL/HDL (test code = 3.39 RATIO 2238) LIPID [id number] 00:00:00 Test Item Value Reference Range Interpretation Comments CHOLESTEROL (test code = 2210) 204 MG/DL TRIGLYCERIDES (test code = 2232) 121 MG/DL HDL CHOLESTEROL (test code = 2220) 41 MG/DL CALC LDL CHOL (test code = 2237) 139 MG/DL RISK RATIO LDL/HDL (test code = 3.39 RATIO 2238) COMPREHENSIVE METABOLIC [id number] 00:00:00 Test Item Value Reference Range Interpretation Comments GLUCOSE (test code = 2217) 181 MG/DL BUN (test code = 2208) 14 MG/DL CREATININE (test code = 2214) 0.85 MG/DL eGFR (2020 CKD-EPI) (test code 81 ML/MIN/1.73 = 68834) CALC BUN/CREAT (test code = 16 RATIO 2235) SODIUM (test code = 2231) 141 MEQ/L POTASSIUM (test code = 2228) 4.7 MEQ/L CHLORIDE (test code = 2215) 102 MEQ/L CARBON DIOXIDE (test code = 23 MEQ/L 2205) CALCIUM (test code = 2209) 10.4 MG/DL PROTEIN, TOTAL (test code = 7.7 G/DL 2228) ALBUMIN (test code = 2201) 4.7 G/DL CALC GLOBULIN (test code = 3.0 G/DL 2239) CALC A/G RATIO (test code = 1.6 RATIO 223) BILIRUBIN, TOTAL (test code = 0.3 MG/DL 2206) ALKALINE PHOSPHATASE (test 82 U/L code = 2204) AST (test code = 2218) 13 U/L ALT (test code = 2219) 18 U/L COMPREHENSIVE METABOLIC [id number] 00:00:00 Test Item Value Reference Range Interpretation Comments GLUCOSE (test code = 2217) 181 MG/DL BUN (test code = 2208) 14 MG/DL CREATININE (test code = 2214) 0.85 MG/DL eGFR (2020 CKD-EPI) (test code 81 ML/MIN/1.73 = 42006) CALC BUN/CREAT (test code = 16 RATIO 5) SODIUM (test code = 2231) 141 MEQ/L POTASSIUM (test code = 2228) 4.7 MEQ/L CHLORIDE (test code = 2215) 102 MEQ/L CARBON DIOXIDE (test code = 23 MEQ/L 2205) CALCIUM (test code = 2209) 10.4 MG/DL PROTEIN, TOTAL (test code = 7.7 G/DL 2228) ALBUMIN (test code = 220) 4.7 G/DL CALC GLOBULIN (test code = 3.0 G/DL 2239) CALC A/G RATIO (test code = 1.6 RATIO 2233) BILIRUBIN, TOTAL (test code = 0.3 MG/DL 2206) ALKALINE PHOSPHATASE (test 82 U/L code = 2204) AST (test code = 2218) 13 U/L ALT (test code = 2219) 18 U/L TSH, THIRD [id number] 00:00:00 Test Item Value Reference Range Interpretation Comments TSH, THIRD GENERATION (test code 4.160 UIU/ML = 2821) TSH, THIRD [id number] 00:00:00 Test Item Value Reference Range Interpretation Comments TSH, THIRD GENERATION (test code 4.160 UIU/ML = 2821) TSH, THIRD [id number] 00:00:00 Test Item Value Reference Range Interpretation Comments TSH, THIRD GENERATION (test code 4.160 UIU/ML = 2821) [id number] 00:00:00 Test Item Value Reference Range Interpretation Comments SJOGREN'S SS-A ANTIBODY (test code = <0.2 AI 17239) SJOGREN'S SS-B ANTIBODY (test code = <0.2 AI 01774) [id number] 00:00:00 Test Item Value Reference Range Interpretation Comments SJOGREN'S SS-A ANTIBODY (test code = <0.2 AI 57756) SJOGREN'S SS-B ANTIBODY (test code = <0.2 AI 60173) VAGINAL PATHOGENS DNA [id number] 14:45:16 Test Item Value Reference Range Interpretation Comments SYD SPECIES (test NEGATIVE NEGATIVE code = 21025) G. VAGINALIS (test POSITIVE NEGATIVE A code = 91375) T. VAGINALIS (test NEGATIVE NEGATIVE UNLESS O THERWISE code = 03738) INDICATED, ALL TESTING PERFORMED [facility] PATHOLOGY LAB[facility]ITALLeanStream Media, INC[employer] [address] [place] [address] 4 LABORATORY DIRE CTOR: MEHDI GUERIN M.D. CLIA NUMBER [id number] [facility]. [id number] VAGINAL PATHOGENS DNA [id number] 00:00:00 Test Item Value Reference Range Interpretation Comments SYD SPECIES (test code = 16464) NEGATIVE G. VAGINALIS (test code = 52107) POSITIVE T. VAGINALIS (test code = 48728) NEGATIVE VAGINAL PATHOGENS DNA [id number] 00:00:00 Test Item Value Reference Range Interpretation Comments SYD SPECIES (test code = 96141) NEGATIVE G. VAGINALIS (test code = 50549) POSITIVE T. VAGINALIS (test code = 13191) NEGATIVE VAGINAL PATHOGENS DNA [id number] 00:00:00 Test Item Value Reference Range Interpretation Comments SYD SPECIES (test code = 81577) NEGATIVE G. VAGINALIS (test code = 55543) POSITIVE T. VAGINALIS (test code = 30174) NEGATIVE VAGINAL PATHOGENS DNA [id number] 00:00:00 Test Item Value Reference Range Interpretation Comments SYD SPECIES (test code = 41623) NEGATIVE G. VAGINALIS (test code = 60668) POSITIVE T. VAGINALIS (test code = 51204) NEGATIVE VAGINAL PATHOGENS DNA [id number] 10:29:25 Test Item Value Reference Range Interpretation Comments SYD SPECIES TEST NOT PERFORMED NEGATIVE NO SP ECIMEN (test code = 29439) RECEIVED FOR TESTING. CHARGE S DELETED. G. VAGINALIS (test TEST NOT PERFORMED NEGATIVE NO SPECIMEN code = 47376) RECEIVED FOR TESTING. CHARGE S DELETED. T. VAGINALIS (test TEST NOT PERFORMED NEGATIVE NO SPECIMEN code = 25784) RECEIVED FOR TESTING. CHARGE S DELETED. HEMOGLOBIN [id number] 05:36:58 Test Item Value Reference Range Interpretation Comments HEMOGLOBIN A1c (test 7.2 % 4.2-5.6 H [employer]ES code = 28797) ASSOCIATION IDELINES FOR HGB A1C: PREDIABETES/INC REASED [...] TESTING OR LABORATORY C ONSULTATION. TSH, THIRD [id number] 05:29:05 Test Item Value Reference Range Interpretation Comments TSH, THIRD GENERATION (test code 2.930 UIU/ML 0.400-4.100 = 2821) CBC W/AUTO DIFF WITH [id number] 05:22:43 Test Item Value Reference Range Interpretation [...] message] code = 1065) WBC'S The system [employer] generated this result transmitted ref erence range: [...] 0.00-0.11 UNLESS O THERWISE (test code = 81391) INDICATE D, ALL TESTING PERFORM ED ATCLINICAL PATH [facility], [facility]. [address] [place], [place] [address] [place] [address] DIRECTOR: MEHDI HARDWICK M.D. CLIA NUMBER [id number] CAP ACCREDITATION N O. [id number] COMPREHENSIVE METABOLIC [id number] 04:13:37 Test Item Value Reference Range Interpretation Comments GLUCOSE (test code = 151 MG/DL 70-99 H 2216) BUN (test code = 16 MG/DL 6-20 2207) CREATININE (test 0.84 MG/DL 0.60-1.30 code = 2214) eGFR (2020 CKD-EPI) 83 ML/MIN/1.73 >60 (test code = 87269) CALC BUN/CREAT (test 19 RATIO 6-28 code = 2235) SODIUM (test code = 140 MEQ/L 073-467 6582) POTASSIUM (test code 4.7 MEQ/L 3.5-5.4 = 2227) CHLORIDE (test code 104 MEQ/L 95-107 = 2215) CARBON DIOXIDE (test 23 MEQ/L 19-31 code [...] code = 16 U/L 5-40 2218) LIPID [id number] 04:13:37 Test Item Value Reference Range Interpretation [...] MOREINFORMATION , SEE CLIENT ANNOUNCE MENT AT [email or web address] RISK RATIO LDL/HDL 3.08 RATIO <3.22 (test code = 2238) COMPREHENSIVE METABOLIC [id number] 00:00:00 Test Item Value Reference Range Interpretation Comments GLUCOSE (test code = 2217) 151 MG/DL BUN (test code = 2208) 16 MG/DL CREATININE (test code = 2214) 0.84 MG/DL eGFR (2020 CKD-EPI) (test code 83 ML/MIN/1.73 = 78469) CALC BUN/CREAT (test code = 19 RATIO 2235) SODIUM (test code = 223) 140 MEQ/L POTASSIUM (test code = 2228) 4.7 MEQ/L CHLORIDE (test code = 2215) 104 MEQ/L CARBON DIOXIDE (test code = 23 MEQ/L 2205) CALCIUM (test code = 220) 9.3 MG/DL PROTEIN, TOTAL (test code = 7.1 G/DL 2228) ALBUMIN (test code = 220) 4.5 G/DL CALC GLOBULIN (test code = 2.6 G/DL 2240) CALC A/G RATIO (test code = 1.7 RATIO 2234) BILIRUBIN, TOTAL (test code = 0.3 MG/DL 2207) ALKALINE PHOSPHATASE (test 71 U/L code = 2204) AST (test code = 2218) 15 U/L ALT (test code = 2219) 16 U/L COMPREHENSIVE METABOLIC [id number] 00:00:00 Test Item Value Reference Range Interpretation Comments GLUCOSE (test code = 2217) 151 MG/DL BUN (test code = 2208) 16 MG/DL CREATININE (test code = 2214) 0.84 MG/DL eGFR (2020 CKD-EPI) (test code 83 ML/MIN/1.73 = 52545) CALC BUN/CREAT (test code = 19 RATIO [...] = 2219) 16 U/L VAGINAL PATHOGENS DNA [id number] 00:00:00 Test Item Value Reference Range Interpretation Comments SYD SPECIES (test code TEST NOT PERFORMED = ) G. VAGINALIS (test code = TEST NOT PERFORMED ) T. VAGINALIS (test code = TEST NOT PERFORMED ) VAGINAL PATHOGENS DNA [id number] 00:00:00 Test Item Value Reference Range Interpretation Comments SYD SPECIES (test code TEST NOT PERFORMED = ) G. VAGINALIS (test code = TEST NOT PERFORMED ) T. VAGINALIS (test code = TEST NOT PERFORMED ) LIPID [id number] 00:00:00 Test Item Value Reference Range Interpretation Comments CHOLESTEROL (test code = 2210) 177 MG/DL TRIGLYCERIDES (test code = 2232) 179 MG/DL HDL CHOLESTEROL (test code = 2220) 36 MG/DL CALC LDL CHOL (test code = 2237) 111 MG/DL RISK RATIO LDL/HDL (test code = 3.08 RATIO 2238) LIPID [id number] 00:00:00 Test Item Value Reference Range Interpretation Comments CHOLESTEROL (test code = 2210) 177 MG/DL TRIGLYCERIDES (test code = 2232) 179 MG/DL HDL CHOLESTEROL (test code = 2220) 36 MG/DL CALC LDL CHOL (test code = 2237) 111 MG/DL RISK RATIO LDL/HDL (test code = 3.08 RATIO 2238) TSH, THIRD [id number] 00:00:00 Test Item Value Reference Range Interpretation Comments TSH, THIRD GENERATION (test code 2.930 UIU/ML = 2821) TSH, THIRD [id number] 00:00:00 Test Item Value Reference Range Interpretation Comments TSH, THIRD GENERATION (test code 2.930 UIU/ML = 2821) TSH, THIRD [id number] 00:00:00 Test Item Value Reference Range Interpretation Comments TSH, THIRD GENERATION (test code 2.930 UIU/ML = 2821) HEMOGLOBIN [id number] 00:00:00 Test Item Value Reference Range Interpretation Comments HEMOGLOBIN A1c (test code = 88027) 7.2 % HEMOGLOBIN [id number] 00:00:00 Test Item Value Reference Range Interpretation Comments HEMOGLOBIN A1c (test code = 48363) 7.2 % HEMOGLOBIN [id number] 00:00:00 Test Item Value Reference Range Interpretation Comments HEMOGLOBIN A1c (test code = 70486) 7.2 % CBC W/AUTO [id number] 00:00:00 Test Item Value Reference Range Interpretation [...] NUCLEATED RBCS (test code = 0.00 K/UL 95523) CBC W/AUTO [id number] 00:00:00 Test Item Value Reference Range Interpretation [...] NUCLEATED RBCS (test code = 0.00 K/UL 28320) CBC W/AUTO [id number] 00:00:00 Test Item Value Reference Range Interpretation [...] NUCLEATED RBCS (test code = 0.00 K/UL 36115) VAGINAL PATHOGENS DNA [id number] 00:00:00 Test Item Value Reference Range Interpretation Comments SYD SPECIES (test code TEST NOT PERFORMED = ) G. VAGINALIS (test code = TEST NOT PERFORMED ) T. VAGINALIS (test code = TEST NOT PERFORMED ) COMPREHENSIVE METABOLIC [id number] 00:00:00 Test Item Value Reference Range Interpretation Comments GLUCOSE (test code = 2217) 151 MG/DL BUN (test code = 2208) 16 MG/DL CREATININE (test code = 2214) 0.84 MG/DL eGFR (2020 CKD-EPI) (test code 83 ML/MIN/1.73 = 84820) CALC BUN/CREAT (test code = 19 RATIO [...] = 2219) 16 U/L VAGINAL PATHOGENS DNA [id number] 00:00:00 Test Item Value Reference Range Interpretation Comments SYD SPECIES (test code TEST NOT PERFORMED = ) G. VAGINALIS (test code = TEST NOT PERFORMED ) T. VAGINALIS (test code = TEST NOT PERFORMED ) COMPREHENSIVE METABOLIC [id number] 00:00:00 Test Item Value Reference Range Interpretation Comments GLUCOSE (test code = 2217) 151 MG/DL BUN (test code = 2208) 16 MG/DL CREATININE (test code = 2214) 0.84 MG/DL eGFR (2020 CKD-EPI) (test code 83 ML/MIN/1.73 = 59736) CALC BUN/CREAT (test code = 19 RATIO [...] (test code = 2219) 16 U/L LIPID [id number] 00:00:00 Test Item Value Reference Range Interpretation Comments CHOLESTEROL (test code = 2210) 177 MG/DL TRIGLYCERIDES (test code = 2232) 179 MG/DL HDL CHOLESTEROL (test code = 2220) 36 MG/DL CALC LDL CHOL (test code = 2237) 111 MG/DL RISK RATIO LDL/HDL (test code = 3.08 RATIO 2238) LIPID [id number] 00:00:00 Test Item Value Reference Range Interpretation Comments CHOLESTEROL (test code = 2210) 177 MG/DL TRIGLYCERIDES (test code = 2232) 179 MG/DL HDL CHOLESTEROL (test code = 2220) 36 MG/DL CALC LDL CHOL (test code = 2237) 111 MG/DL RISK RATIO LDL/HDL (test code = 3.08 RATIO 2238) TSH, THIRD [id number] 00:00:00 Test Item Value Reference Range Interpretation Comments TSH, THIRD GENERATION (test code 2.930 UIU/ML = 2821) TSH, THIRD [id number] 00:00:00 Test Item Value Reference Range Interpretation Comments TSH, THIRD GENERATION (test code 2.930 UIU/ML = 2821) TSH, THIRD [id number] 00:00:00 Test Item Value Reference Range Interpretation Comments TSH, THIRD GENERATION (test code 2.930 UIU/ML = 2821) HEMOGLOBIN [id number] 00:00:00 Test Item Value Reference Range Interpretation Comments HEMOGLOBIN A1c (test code = 84865) 7.2 % HEMOGLOBIN [id number] 00:00:00 Test Item Value Reference Range Interpretation Comments HEMOGLOBIN A1c (test code = 42209) 7.2 % HEMOGLOBIN [id number] 00:00:00 Test Item Value Reference Range Interpretation Comments HEMOGLOBIN A1c (test code = 09761) 7.2 % CBC W/AUTO [id number] 00:00:00 Test Item Value Reference Range Interpretation [...] NUCLEATED RBCS (test code = 0.00 K/UL 98343) CBC W/AUTO [id number] 00:00:00 Test Item Value Reference Range Interpretation [...] NUCLEATED RBCS (test code = 0.00 K/UL 88757) CBC W/AUTO [id number] 00:00:00 Test Item Value Reference Range Interpretation [...] NUCLEATED RBCS (test code = 0.00 K/UL 51491) VAGINAL PATHOGENS DNA [id number] 00:00:00 Test Item Value Reference Range Interpretation Comments SYD SPECIES (test code TEST NOT PERFORMED = ) G. VAGINALIS (test code = TEST NOT PERFORMED ) T. VAGINALIS (test code = TEST NOT PERFORMED ) VAGINAL PATHOGENS DNA [id number] 00:00:00 Test Item Value Reference Range Interpretation Comments SYD SPECIES (test code TEST NOT PERFORMED = ) G. VAGINALIS (test code = TEST NOT PERFORMED ) T. VAGINALIS (test code = TEST NOT PERFORMED ) COMPREHENSIVE METABOLIC [id number] 00:00:00 Test Item Value Reference Range Interpretation Comments GLUCOSE (test code = 2217) 151 MG/DL BUN (test code = 2208) 16 MG/DL CREATININE (test code = 2214) 0.84 MG/DL eGFR (2020 CKD-EPI) (test code 83 ML/MIN/1.73 = 05435) CALC BUN/CREAT (test code = 19 RATIO [...] CALC GLOBULIN (test code = 2.6 G/DL 0) CALC A/G RATIO (test code = 1.7 RATIO 4) BILIRUBIN, TOTAL (test code = 0.3 MG/DL 2206) ALKALINE PHOSPHATASE (test 71 U/L code = 2204) AST (test code = 2218) 15 U/L ALT (test code = 2219) 16 U/L COMPREHENSIVE METABOLIC [id number] 00:00:00 Test Item Value Reference Range Interpretation Comments GLUCOSE (test code = 2217) 151 MG/DL BUN (test code = 2208) 16 MG/DL CREATININE (test code = 2214) 0.84 MG/DL eGFR (2020 CKD-EPI) (test code 83 ML/MIN/1.73 = 08631) CALC BUN/CREAT (test code = 19 RATIO [...] CALC GLOBULIN (test code = 2.6 G/DL 0) CALC A/G RATIO (test code = 1.7 RATIO 2234) BILIRUBIN, TOTAL (test code = 0.3 MG/DL 2206) ALKALINE PHOSPHATASE (test 71 U/L code = 2204) AST (test code = 2218) 15 U/L ALT (test code = 2219) 16 U/L LIPID [id number] 00:00:00 Test Item Value Reference Range Interpretation Comments CHOLESTEROL (test code = 2210) 177 MG/DL TRIGLYCERIDES (test code = 2232) 179 MG/DL HDL CHOLESTEROL (test code = 2220) 36 MG/DL CALC LDL CHOL (test code = 2237) 111 MG/DL RISK RATIO LDL/HDL (test code = 3.08 RATIO 2238) LIPID [id number] 00:00:00 Test Item Value Reference Range Interpretation Comments CHOLESTEROL (test code = 2210) 177 MG/DL TRIGLYCERIDES (test code = 2232) 179 MG/DL HDL CHOLESTEROL (test code = 2220) 36 MG/DL CALC LDL CHOL (test code = 2237) 111 MG/DL RISK RATIO LDL/HDL (test code = 3.08 RATIO 2238) TSH, THIRD [id number] 00:00:00 Test Item Value Reference Range Interpretation Comments TSH, THIRD GENERATION (test code 2.930 UIU/ML = 2821) TSH, THIRD [id number] 00:00:00 Test Item Value Reference Range Interpretation Comments TSH, THIRD GENERATION (test code 2.930 UIU/ML = 2821) TSH, THIRD [id number] 00:00:00 Test Item Value Reference Range Interpretation Comments TSH, THIRD GENERATION (test code 2.930 UIU/ML = 2821) HEMOGLOBIN [id number] 00:00:00 Test Item Value Reference Range Interpretation Comments HEMOGLOBIN A1c (test code = 25699) 7.2 % HEMOGLOBIN [id number] 00:00:00 Test Item Value Reference Range Interpretation Comments HEMOGLOBIN A1c (test code = 86105) 7.2 % HEMOGLOBIN [id number] 00:00:00 Test Item Value Reference Range Interpretation Comments HEMOGLOBIN A1c (test code = 29607) 7.2 % CBC W/AUTO [id number] 00:00:00 Test Item Value Reference Range Interpretation [...] NUCLEATED RBCS (test code = 0.00 K/UL 81859) CBC W/AUTO [id number] 00:00:00 Test Item Value Reference Range Interpretation [...] NUCLEATED RBCS (test code = 0.00 K/UL 48705) CBC W/AUTO [id number] 00:00:00 Test Item Value Reference Range Interpretation [...] NUCLEATED RBCS (test code = 0.00 K/UL 68909) PAP TEST, THINPREP, [id number] 09:17:47 Test Item Value Reference Range Interpretation Comments SOURCE: (test Cervical/Endo code = 8001) cervical SLIDES: (test 1 code = 8011) LMP: (test code = 09/09/2021 8021) SPECIMEN (NOTE) Satisfactory f or ADEQUACY: (test evaluation. Endocervical code = 89474) cells/transfor mation zone component present. INTERPRETATION: NILM/NO (test code = EPITH. --------- 37767) ABNORMALITY;S -------- EE BELOW NEGATIVE FO R INTRAEPITHELIAL LESION OR MALIGNANCY ( NILM) --------- --------- --------- - OTHER COMMENTS: (NOTE) Partially ob scuring (test code = inflammation is present. 8081) PRINT LINE TAILER: Joey (test code = DENILSON Miranda( 8101) CP) IAC LOCATION: (test (NOTE) Specimens pr ocessed and code = 87885) [facility] [address] [facility] [place] [address], , CLIA: [id number] CPT: (test code = (NOTE) 86092 UNLE SS OTHERWISE 8140) INDICATED, COMP UTER AIDED AND [...] consolidated pr ior Pap history is noman chaudhari as applicable. HPV HIGH RISK WITH GENOTYPE, [id number] 09:09:37 Test Item Value Reference Range Interpretation Comments HPV HIGH RISK INTERP NEGATIVE NEGATIVE (test code = 48208) HPV 16 (test code = NEGATIVE 90153) HPV 18 (test code = NEGATIVE 37417) HPV, HR, OTHER NEGATIVE Testing meth odology is GENOTYPES (test code real-ti me PCR utilizing = 13903) hydrolysis prob es with the [email or web address] [place] [address]. [address] te st individually de tects genotypes 16 an d [...] TESTING PERFORM ED ATCLINICAL PATH [facility], [facility]. [address] [place] [address] LABORATORY DIRE CTOR: MEHDI GUERIN M.D. CLIA NUMBER [id number] [facility] [id number] CT/NG, TMA, [id number] 07:43:15 Test Item Value Reference Range Interpretation Comments GONORRHEA, TMA NEGATIVE NEGATIVE Assay method ology is (test code = nucleic acid am plification 70328) by transcriptio n mediated amplification ( TMA) utilizing the A ptima Combo 2 Assay. CHLAMYDIA, TMA NEGATIVE NEGATIVE Assay method ology is (test code = nucleic acid am plification 19470) by transcriptio n mediated amplification ( TMA) utilizing the A ptima Combo 2 Assay. GC AND CHLAMYDIA AMPLIFIED, [id number] 00:00:00 Test Item Value Reference Range Interpretation Comments GONORRHEA, TMA (test code = 86825) NEGATIVE CHLAMYDIA, TMA (test code = 61813) NEGATIVE GC AND CHLAMYDIA AMPLIFIED, [id number] 00:00:00 Test Item Value Reference Range Interpretation Comments GONORRHEA, TMA (test code = 54046) NEGATIVE CHLAMYDIA, TMA (test code = 15682) NEGATIVE PAP TEST, THINPREP, [id number] 00:00:00 Test Item Value Reference Range Interpretation Comments SOURCE: (test code = Cervical/Endocervical 8001) SLIDES: (test code = 1 8011) LMP: (test code = 8021) 09/09/2021 SPECIMEN ADEQUACY: (test (NOTE) code = 43711) INTERPRETATION: (test NILM/NO EPITH. code = 10685) ABNORMALITY;SEE BELOW OTHER COMMENTS: (test (NOTE) code = 8081) PRINT LINE TAILER: (test Malek code = 8101) RuthCT(ASCP) IAC LOCATION: (test code = (NOTE) 27821) CPT: (test code = 8140) (NOTE) PAP TEST, THINPREP, [id number] 00:00:00 Test Item Value Reference Range Interpretation Comments SOURCE: (test code = Cervical/Endocervical 8001) SLIDES: (test code = 1 8011) LMP: (test code = 8021) 09/09/2021 SPECIMEN ADEQUACY: (test (NOTE) code = 80981) INTERPRETATION: (test NILM/NO EPITH. code = 27803) ABNORMALITY;SEE BELOW OTHER COMMENTS: (test (NOTE) code = 8081) PRINT LINE TAILER: (test Malek code = 8101) RuthCT(ASCP) IAC LOCATION: (test code = (NOTE) 20016) CPT: (test code = 8140) (NOTE) HPV HIGH RISK WITH GENOTYPE, [id number] 00:00:00 Test Item Value Reference Range Interpretation Comments HPV HIGH RISK INTERP (test code = NEGATIVE 68063) HPV 16 (test code = 79974) NEGATIVE HPV 18 (test code = 77633) NEGATIVE HPV, HR, OTHER GENOTYPES (test code NEGATIVE = 36977) HPV HIGH RISK WITH GENOTYPE, [id number] 00:00:00 Test Item Value Reference Range Interpretation Comments HPV HIGH RISK INTERP (test code = NEGATIVE 33357) HPV 16 (test code = 60397) NEGATIVE HPV 18 (test code = 01772) NEGATIVE HPV, HR, OTHER GENOTYPES (test code NEGATIVE = 15320) GC AND CHLAMYDIA AMPLIFIED, [id number] 00:00:00 Test Item Value Reference Range Interpretation Comments GONORRHEA, TMA (test code = 80752) NEGATIVE CHLAMYDIA, TMA (test code = 11268) NEGATIVE GC AND CHLAMYDIA AMPLIFIED, [id number] 00:00:00 Test Item Value Reference Range Interpretation Comments GONORRHEA, TMA (test code = 16100) NEGATIVE CHLAMYDIA, TMA (test code = 96604) NEGATIVE PAP TEST, THINPREP, [id number] 00:00:00 Test Item Value Reference Range Interpretation Comments SOURCE: (test code = Cervical/Endocervical 8001) SLIDES: (test code = 1 8011) LMP: (test code = 8021) 09/09/2021 SPECIMEN ADEQUACY: (test (NOTE) code = 16928) INTERPRETATION: (test NILM/NO EPITH. 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: (test Malek code = 8101) DENILSON Miranda(ASCP) IAC LOCATION: (test code = (NOTE) 62759) CPT: (test code = 8140) (NOTE) HPV HIGH RISK WITH GENOTYPE, [id number] 00:00:00 Test Item Value Reference Range Interpretation Comments HPV HIGH RISK INTERP (test code = NEGATIVE 33115) HPV 16 (test code = 73161) NEGATIVE HPV 18 (test code = 66315) NEGATIVE HPV, HR, OTHER GENOTYPES (test code NEGATIVE = 42830) HPV HIGH RISK WITH GENOTYPE, [id number] 00:00:00 Test Item Value Reference Range Interpretation Comments HPV HIGH RISK INTERP (test code = NEGATIVE 34178) HPV 16 (test code = 69694) NEGATIVE HPV 18 (test code = 19139) NEGATIVE HPV, HR, OTHER GENOTYPES (test code NEGATIVE = 08044) GC AND CHLAMYDIA AMPLIFIED, [id number] 00:00:00 Test Item Value Reference Range Interpretation Comments GONORRHEA, TMA (test code = 93930) NEGATIVE CHLAMYDIA, TMA (test code = 27728) NEGATIVE GC AND CHLAMYDIA AMPLIFIED, [id number] 00:00:00 Test Item Value Reference Range Interpretation Comments GONORRHEA, TMA (test code = 56378) NEGATIVE CHLAMYDIA, TMA (test code = 15618) NEGATIVE PAP TEST, THINPREP, [id number] 00:00:00 Test Item Value Reference Range Interpretation Comments SOURCE: (test code = Cervical/Endocervical 8001) SLIDES: (test code = 1 8011) LMP: (test code = 8021) 09/09/2021 SPECIMEN ADEQUACY: (test (NOTE) code = 78231) INTERPRETATION: (test NILM/NO EPITH. code = 82420) ABNORMALITY;SEE BELOW OTHER COMMENTS: (test (NOTE) code = 8081) PRINT LINE TAILER: (test Malek code = 8101) RuthCT(ASCP) IAC LOCATION: (test code = (NOTE) 73198) CPT: (test code = 8140) (NOTE) PAP TEST, THINPREP, [id number] 00:00:00 Test Item Value Reference Range Interpretation Comments SOURCE: (test code = Cervical/Endocervical 8001) SLIDES: (test code = 1 8011) LMP: (test code = 8021) 09/09/2021 SPECIMEN ADEQUACY: (test (NOTE) code = 16045) INTERPRETATION: (test NILM/NO EPITH. code = 06630) ABNORMALITY;SEE BELOW OTHER COMMENTS: (test (NOTE) code = 8081) PRINT LINE TAILER: (test Malek code = 8101) RuthCT(ASCP) IAC LOCATION: (test code = (NOTE) 73180) CPT: (test code = 8140) (NOTE) HPV HIGH RISK WITH GENOTYPE, [id number] 00:00:00 Test Item Value Reference Range Interpretation Comments HPV HIGH RISK INTERP (test code = NEGATIVE 22571) HPV 16 (test code = 19386) NEGATIVE HPV 18 (test code = 08983) NEGATIVE HPV, HR, OTHER GENOTYPES (test code NEGATIVE = 49769) HPV HIGH RISK WITH GENOTYPE, [id number] 00:00:00 Test Item Value Reference Range Interpretation Comments HPV HIGH RISK INTERP (test code = NEGATIVE 42421) HPV 16 (test code = 83467) NEGATIVE HPV 18 (test code = 50645) NEGATIVE HPV, HR, OTHER GENOTYPES (test code NEGATIVE = 73906) GC AND CHLAMYDIA AMPLIFIED, [id number] 00:00:00 Test Item Value Reference Range Interpretation Comments GONORRHEA, TMA (test code = 48227) NEGATIVE CHLAMYDIA, TMA (test code = 87990) NEGATIVE GC AND CHLAMYDIA AMPLIFIED, [id number] 00:00:00 Test Item Value Reference Range Interpretation Comments GONORRHEA, TMA (test code = 94737) NEGATIVE CHLAMYDIA, TMA (test code = 94593) NEGATIVE PAP TEST, THINPREP, [id number] 00:00:00 Test Item Value Reference Range Interpretation Comments SOURCE: (test code = Cervical/Endocervical 800) SLIDES: (test code = 1 8011) LMP: (test code = 8021) 09/09/2021 SPECIMEN ADEQUACY: (test (NOTE) code = 42422) INTERPRETATION: (test NILM/NO EPITH. code = 47709) ABNORMALITY;SEE BELOW OTHER COMMENTS: (test (NOTE) code = 8081) PRINT LINE TAILER: (test Malek code = 8101) DENILSON Miranda(ASCP) IAC LOCATION: (test code = (NOTE) 16908) CPT: (test code = 8140) (NOTE) PAP TEST, THINPREP, [id number] 00:00:00 Test Item Value Reference Range Interpretation Comments SOURCE: (test code = Cervical/Endocervical 8001) SLIDES: (test code = 1 8011) LMP: (test code = 8021) 09/09/2021 SPECIMEN ADEQUACY: (test (NOTE) code = 64255) INTERPRETATION: (test NILM/NO EPITH. code = 40352) ABNORMALITY;SEE BELOW OTHER COMMENTS: (test (NOTE) code = 8081) PRINT LINE TAILER: (test Malek code = 8101) DENILSON Miranda(ASCP) IAC LOCATION: (test code = (NOTE) 65832) CPT: (test code = 8140) (NOTE) HPV HIGH RISK WITH GENOTYPE, [id number] 00:00:00 Test Item Value Reference Range Interpretation Comments HPV HIGH RISK INTERP (test code = NEGATIVE 05194) HPV 16 (test code = 66824) NEGATIVE HPV 18 (test code = 10777) NEGATIVE HPV, HR, OTHER GENOTYPES (test code NEGATIVE = 66550) HPV HIGH RISK WITH GENOTYPE, [id number] 00:00:00 Test Item Value Reference Range Interpretation Comments HPV HIGH RISK INTERP (test code = NEGATIVE 79302) HPV 16 (test code = 02081) NEGATIVE HPV 18 (test code = 75671) NEGATIVE HPV, HR, OTHER GENOTYPES (test code NEGATIVE = 39283) [id number] 22:56:31 Test Item Value Reference Range Interpretation Comments RPR RESULT (test NON-REACTIVE NON-REACTIVE code = 3501) RPR TITER (test NOT INDIC. NOT INDIC. UNLESS OTHE RWISE code = 3500) TITER INDICATED, ALL TESTING PERFORMED [facility] [address] [place] [address] 4 LABORATORY DIRE CTOR: MEHDI GUERIN M.D. CLIA NUMBER [id number] [facility] [id number] 00:00:00 Test Item Value Reference Range Interpretation Comments RPR RESULT (test code = NON-REACTIVE 3501) RPR TITER (test code = 3500) NOT INDIC. TITER [id number] 00:00:00 Test Item Value Reference Range Interpretation Comments RPR RESULT (test code = NON-REACTIVE 3501) RPR TITER (test code = 3500) NOT INDIC. TITER [id number] 00:00:00 Test Item Value Reference Range Interpretation Comments RPR RESULT (test code = NON-REACTIVE 3501) RPR TITER (test code = 3500) NOT INDIC. TITER [id number] 00:00:00 Test Item Value Reference Range Interpretation Comments RPR RESULT (test code = NON-REACTIVE 3501) RPR TITER (test code = 3500) NOT INDIC. TITER [id number] 00:00:00 Test Item Value Reference Range Interpretation Comments RPR RESULT (test code = NON-REACTIVE 3501) RPR TITER (test code = 3500) NOT INDIC. TITER [id number] 00:00:00 Test Item Value Reference Range Interpretation Comments RPR RESULT (test code = NON-REACTIVE 3501) RPR TITER (test code = 3500) NOT INDIC. TITER [id number] 00:00:00 Test Item Value Reference Range Interpretation Comments RPR RESULT (test code = NON-REACTIVE 3501) RPR TITER (test code = 3500) NOT INDIC. TITER [id number] 00:00:00 Test Item Value Reference Range Interpretation Comments RPR RESULT (test code = NON-REACTIVE 3501) RPR TITER (test code = 3500) NOT INDIC. TITER [id number] 00:00:00 Test Item Value Reference Range Interpretation Comments RPR RESULT (test code = NON-REACTIVE 3501) RPR TITER (test code = 3500) NOT INDIC. TITER HIV 1/2 4TH GEN, RFLX [id number] 06:04:15 Test Item Value Reference Range Interpretation Comments HIV 1/2 4TH GEN, RFLX CONF (test NON-REACTIVE NON-REACTIVE code = 3514) HEPATITIS PANEL, [id number] 06:04:15 Test Item Value Reference Range Interpretation Comments HEPATITIS A IgM (test NON-REACTIVE NON-REACTIVE code = 38368) HEPATITIS B CORE IgM NON-REACTIVE NON-REACTIVE (test code = 4644) HEPATITIS B SURF AG NON-REACTIVE NON-REACTIVE (test code = 2739) HEPATITIS C ANTIBODY NON-REACTIVE NON-REACTIVE (test code = 4675) INTERPRETATION (NOTE) Hepatitis A HEPATITIS A: (test code sero logy shows no = 2552) evidence of acu te hepatitis A. INTERPRETATION (NOTE) Hepatitis B HEPATITIS B: (test code sero logy shows no = 21836) evidence of acu te hepatitis B and no indication of exposure to hepatitis B vir us in the previous ashley eight months. INTERPRETATION (NOTE) Hepatitis C HEPATITIS C: (test code sero logy shows no = 93890) evidence of exposure to hepatitisC viru s at this time. I t can take up to 12 months after exposure tothe hepatitis C vir us for antibodies to become detectab le in the blood in certain patient s. HIV 1/2 4TH GEN, RFLX [id number] 00:00:00 Test Item Value Reference Range Interpretation Comments HIV 1/2 4TH GEN, RFLX CONF (test NON-REACTIVE code = 3514) HIV 1/2 4TH GEN, RFLX [id number] 00:00:00 Test Item Value Reference Range Interpretation Comments HIV 1/2 4TH GEN, RFLX CONF (test NON-REACTIVE code = 3514) ACUTE HEPATITIS [id number] 00:00:00 Test Item Value Reference Range Interpretation Comments HEPATITIS A IgM (test code = NON-REACTIVE 98753) HEPATITIS B CORE IgM (test code NON-REACTIVE = 4644) HEPATITIS B SURF AG (test code = NON-REACTIVE 2739) HEPATITIS C ANTIBODY (test code NON-REACTIVE = 4675) INTERPRETATION HEPATITIS A: (NOTE) (test code = 2552) INTERPRETATION HEPATITIS B: (NOTE) (test code = 26186) INTERPRETATION HEPATITIS C: (NOTE) (test code = 42043) ACUTE HEPATITIS [id number] 00:00:00 Test Item Value Reference Range Interpretation Comments HEPATITIS A IgM (test code = NON-REACTIVE 02384) HEPATITIS B CORE IgM (test code NON-REACTIVE = 4644) HEPATITIS B SURF AG (test code = NON-REACTIVE 2739) HEPATITIS C ANTIBODY (test code NON-REACTIVE = 4675) INTERPRETATION HEPATITIS A: (NOTE) (test code = 2552) INTERPRETATION HEPATITIS B: (NOTE) (test code = 47073) INTERPRETATION HEPATITIS C: (NOTE) (test code = 26086) HIV 1/2 4TH GEN, RFLX [id number] 00:00:00 Test Item Value Reference Range Interpretation Comments HIV 1/2 4TH GEN, RFLX CONF (test NON-REACTIVE code = 3514) HIV 1/2 4TH GEN, RFLX [id number] 00:00:00 Test Item Value Reference Range Interpretation Comments HIV 1/2 4TH GEN, RFLX CONF (test NON-REACTIVE code = 3514) ACUTE HEPATITIS [id number] 00:00:00 Test Item Value Reference Range Interpretation Comments HEPATITIS A IgM (test code = NON-REACTIVE 92842) HEPATITIS B CORE IgM (test code NON-REACTIVE = 4644) HEPATITIS B SURF AG (test code = NON-REACTIVE 2739) HEPATITIS C ANTIBODY (test code NON-REACTIVE = 4675) INTERPRETATION HEPATITIS A: (NOTE) (test code = 2552) INTERPRETATION HEPATITIS B: (NOTE) (test code = 18538) INTERPRETATION HEPATITIS C: (NOTE) (test code = 75361) ACUTE HEPATITIS [id number] 00:00:00 Test Item Value Reference Range Interpretation Comments HEPATITIS A IgM (test code = NON-REACTIVE 52346) HEPATITIS B CORE IgM (test code NON-REACTIVE = 4644) HEPATITIS B SURF AG (test code = NON-REACTIVE 2739) HEPATITIS C ANTIBODY (test code NON-REACTIVE = 4675) INTERPRETATION HEPATITIS A: (NOTE) (test code = 2552) INTERPRETATION HEPATITIS B: (NOTE) (test code = 15230) INTERPRETATION HEPATITIS C: (NOTE) (test code = 73142) HIV 1/2 4TH GEN, RFLX [id number] 00:00:00 Test Item Value Reference Range Interpretation Comments HIV 1/2 4TH GEN, RFLX CONF (test NON-REACTIVE code = 3514) HIV 1/2 4TH GEN, RFLX [id number] 00:00:00 Test Item Value Reference Range Interpretation Comments HIV 1/2 4TH GEN, RFLX CONF (test NON-REACTIVE code = 3514) ACUTE HEPATITIS [id number] 00:00:00 Test Item Value Reference Range Interpretation Comments HEPATITIS A IgM (test code = NON-REACTIVE 65818) HEPATITIS B CORE IgM (test code NON-REACTIVE = 4644) HEPATITIS B SURF AG (test code = NON-REACTIVE 2739) HEPATITIS C ANTIBODY (test code NON-REACTIVE = 4675) INTERPRETATION HEPATITIS A: (NOTE) (test code = 2552) INTERPRETATION HEPATITIS B: (NOTE) (test code = 50667) INTERPRETATION HEPATITIS C: (NOTE) (test code = 82290) ACUTE HEPATITIS [id number] 00:00:00 Test Item Value Reference Range Interpretation Comments HEPATITIS A IgM (test code = NON-REACTIVE 30494) HEPATITIS B CORE IgM (test code NON-REACTIVE = 4644) HEPATITIS B SURF AG (test code = NON-REACTIVE 2739) HEPATITIS C ANTIBODY (test code NON-REACTIVE = 4675) INTERPRETATION HEPATITIS A: (NOTE) (test code = 2552) INTERPRETATION HEPATITIS B: (NOTE) (test code = 96058) INTERPRETATION HEPATITIS C: (NOTE) (test code = 06460) GLUCOSE BEDSIDE [id number] 08:47:00 Test Item Value Reference Range Interpretation Comments GLUCOSE BEDSIDE TESTING (test code 175 mg/dL 70-110 H = GLUBED) BASIC METABOLIC [id number] 07:29:00 Test Item Value Reference Range Interpretation [...] CA) 9.0 MG/DL 8.5-10.1 N CBC W/AUTO [id number] 07:06:00 Test Item Value Reference Range Interpretation [...] NO DIFF/SCN CRITERIA = MDIFF) GLUCOSE BEDSIDE [id number] 20:57:00 Test Item Value Reference Range Interpretation Comments GLUCOSE BEDSIDE TESTING (test code 208 mg/dL 70-110 H = GLUBED) GLUCOSE BEDSIDE [id number] 16:58:00 Test Item Value Reference Range Interpretation Comments GLUCOSE BEDSIDE TESTING (test code 269 mg/dL 70-110 H = GLUBED) GLUCOSE BEDSIDE [id number] 12:06:00 Test Item Value Reference Range Interpretation Comments GLUCOSE BEDSIDE TESTING (test code 204 mg/dL 70-110 H = GLUBED) GLUCOSE BEDSIDE [id number] 08:48:00 Test Item Value Reference Range Interpretation Comments GLUCOSE BEDSIDE TESTING (test code 148 mg/dL 70-110 H = GLUBED) BASIC METABOLIC [id number] 06:51:00 Test Item Value Reference Range Interpretation [...] CA) 8.7 MG/DL 8.5-10.1 N CBC W/AUTO [id number] 06:30:00 Test Item Value Reference Range Interpretation [...] code NO DIFF/SCN CRITERIA = MDIFF) LACTIC [id number] 23:28:00 Test Item Value Reference Range Interpretation Comments LACTIC ACID (test code = LACT) 1.5 mmol/L 0.4-2.0 N GLUCOSE BEDSIDE [id number] 21:02:00 Test Item Value Reference Range Interpretation Comments GLUCOSE BEDSIDE TESTING (test code 218 mg/dL 70-110 H = GLUBED) LACTIC [id number] 19:06:00 Test Item Value Reference Range Interpretation Comments LACTIC ACID (test code = LACT) 2.2 mmol/L 0.4-2.0 H ARTERIAL BLOOD [id number] 16:22:00 Test Item Value Reference Range Interpretation [...] (test Yes Circ.CHK POSITIVE code = MODALL) [id number]/[id number] 16:22:00 Test Item Value Reference Range Interpretation Comments PaO2/FiO2 (test code = [id number]) mm/Hg >200 ARTERIAL BLOOD [id number] 16:22:00 Test Item Value Reference Range Interpretation [...] (test Yes Circ.CHK POSITIVE code = MODALL) [id number]/[id number] 16:22:00 Test Item Value Reference Range Interpretation Comments PaO2/FiO2 (test code = [id number]) 366.7 mm/Hg >200 GLUCOSE BEDSIDE [id number] 15:47:00 Test Item Value Reference Range Interpretation Comments GLUCOSE BEDSIDE TESTING (test code 185 mg/dL 70-110 H = GLUBED) [id number] 15:22:00 Test Item Value Reference Range Interpretation Comments D-DIMER (test code = DDIMER) 567 ng/mLFEU 215-500 HH COMPREHENSIVE METABOLIC [id number] 15:22:00 Test Item Value Reference Range Interpretation [...] N code = ALKP) Completed by Nursing: [id number] 15:22:00 Test Item Value Reference Range Interpretation Comments PHOSPHOROUS (test code = PHOS) 2.7 MG/DL 2.5-4.9 N Completed by Nursing: [id number] 15:22:00 Test Item Value Reference Range Interpretation Comments MAGNESIUM (test code = MAG) 2.0 MG/DL 1.8-2.4 N Completed by Nursing: [id number] 15:22:00 Test Item Value Reference Range Interpretation [...] yby method. Completed by Nursing: NOCBC W/AUTO [id number] 14:54:00 Test Item Value Reference Range Interpretation [...] CRITERIA = MDIFF) - CTA CHEST FOR [id number] 14:33:00 [facility] 09/23/1959 Sex: F Name: ABBE CORONADO [facility] : 09/23/1959 Age/S: 60 / F [address] Unit #: [id number] Loc: [place] [address] Phys: Claudette Asencio Acct: [id number] Dis Date: Status: ADM IN PHONE #: [phone] Exam Date: 05/05/2020 3919 FAX #: Reason: shortness of breath, tachycardia EXAMS: CPT: [id number] [place] [address] EXAM: CTA CHEST WITH CONTRAST. INDICATION: SHORTNESS [...] bibasilar atelectasis. LOCATION: B2 This CT exam wasperformed according to our departmental dose optimization program, which includes automated exposurecontrol, adjustment of the mA and or kV according to patient size and/or use of iterative reconstruction technique. at 1433 Reported and signed by: Connie Finley M.D. PAGE 1 Signed Report (CONTINUED) Name: ABBE CORONADO [facility] : 09/23/1959 Age/S: 60 / F [address] Unit #: [id number] Loc: [place] [address] Phys:Claudette Asencio Acct: [id number] Dis Date: Status: ADM IN PHONE #: [phone] Exam Date: 05/05/2020 1425 FAX #: Reason: shortness of breath, tachycardia EXAMS: CPT: [id number] [place] [address] (Continued) CC: Claudette GARDUNO; Florencio Tejeda MD Technologist:Bryce Moreno, RT(R)(CT); Kri CTDI: DLP: Trnscb Date/Time: 05/05/2020 (1433) [id number] Orig Print D/T: S: 05/05/2020 (1436) PAGE 2 Signed Report- CT HEAD/BRAIN W/O [id number] 14:23:00 [facility] 09/23/1959 Sex: F Name: ABBE CORONADO : 09/23/1959 Age/S: 60 / F [address] Unit #: [id number] Loc: [place] [address] Phys: Claudette Asencio Acct: [id number] Dis Date: Status: ADM IN PHONE #: [phone] Exam Date: 05/05/2020 1410 FAX #: Reason: NUMBNESS EXAMS: CPT: [id number] CT HEAD/BRAIN W/O CONT 10638 EXAM: CT BRAIN WITHOUT CONTRAST INDICATION: NUMBNESS COMPARISON: MRI dated May 04, 2020 TECHNIQUE: Routine axial CT images of the brain were obtained without venous contrast. IV contrast: None DLP: 925.86 mGy-cm FINDINGS: No intra-axial or extra-axial fluid collections were identified. Noacute intracranial hemorrhage. There is normal differentiation of the navarro-white matter. The ventricles and sulci are normal in size and shape with no midline shift or mass effect. The basal cisterns are patent. The posterior fossa and 4th ventricle are normal. No calvarial lesions are identified. The paranasal sinuses and mastoid air cells are clear. The orbits and globes are unremarkable. IMPRESSI ON: No acute intracranial abnormality. No intracranial hemorrhage. LOCATION: B2 This CT exam was performed according to our departmental dose optimization program, which includes automated exposure control, adjustment of the mA and or kV according to patient size and/or use of iterative reconstructiontechnique. at 1423 Reported and signed by: Connie Finley M.D. CC: Claudette GARDUNO; Florencio Tejeda MD Technologist:RT Genny(R)(CT) CTDI: DLP: Trnscb Date/Time: 05/05/2020 (1423) [id number] Orig Print D/T: S: 05/05/2020 (1282) PAGE 1 Signed Report GLUCOSE BEDSIDE [id number] 12:01:00 Test Item Value Reference Range Interpretation Comments GLUCOSE BEDSIDE TESTING (test code 202 mg/dL 70-110 H = GLUBED) GLUCOSE BEDSIDE [id number] 12:01:00 Test Item Value Reference Range Interpretation Comments GLUCOSE BEDSIDE TESTING (test code 155 mg/dL 70-110 H = GLUBED) BASIC METABOLIC [id number] 07:35:00 Test Item Value Reference Range Interpretation [...] CA) 8.7 MG/DL 8.5-10.1 N CBC W/AUTO [id number] 07:28:00 Test Item Value Reference Range Interpretation [...] NO DIFF/SCN CRITERIA = MDIFF) GLUCOSE BEDSIDE [id number] 20:39:00 Test Item Value Reference Range Interpretation Comments GLUCOSE BEDSIDE TESTING (test code 212 mg/dL 70-110 H = GLUBED) GLUCOSE BEDSIDE [id number] 15:41:00 Test Item Value Reference Range Interpretation Comments GLUCOSE BEDSIDE TESTING (test code 166 mg/dL 70-110 H = GLUBED) CREATINE KINASE (CK)2020-05-04 15:16:00 Test Item Value Reference Range Interpretation Comments CREATINE KINASE (CK) (test code = 94 Unit/L 26-192 N CK) Completed by Nursing: [id number] 15:16:00 Test Item Value Reference Range Interpretation [...] method. Completed by Nursing: NO- CT ANGIO [id number] 14:49:00 [facility] 09/23/1959 Sex: F Name: ABBE CORONADO [facility] : 09/23/1959 Age/S: 60 / F [id number] Unit #: [id number] Loc: [place] [address] Phys: Claudette Asencio Acct: [id number] Dis Date: Status: ADM IN PHONE #: [phone] Exam Date: 05/04/2020 1432 FAX #: Reason: severe headache, bilateral extremity numbness EXAMS: CPT: [id number] CT ANGIO NECK 15580 EXAM: CTA BRAIN EXAM: CTA NECK INDICATION: [...] artery origins are patent bilaterally. Carotid arteries: Thecommon carotid arteries and cervical internal carotid arteries [...] PAGE 1 Signed Report (CONTINUED) Name: [facility] 09/23/1959 Age/S: 60 / F [id number] Unit #: [id number] Loc: [place] [address] Phys: Claudette Asencio Acct: [id number] Dis Date: Status: ADM IN PHONE #: [phone] Exam Date: 05/04/2020 1432 FAX #: Reason: severe headache, bilateral extremity numbness EXAMS: CPT: [id number] CT ANGIO NECK 67181 (Continued) There is no aneurysm or vascular malformation. The deepcerebral veins and major venous sinuses are normal. [...] M.D. CC: Claudette GARDUNO; Florencio Tejeda MD Technologist:Rdaha Herrera RT(R)(CT)(MRI) CTDI: DLP: Trnscb Date/Time: 05/04/2020 (7331) valeriano [email or web address] Orig Print D/T: S: 05/04/2020 (1733) PAGE 2 Signed Report- CT ANGIO [id number] 14:49:00 [facility] : 09/23/1959 Sex: F Name: ABBE CORONADO [facility] : 09/23/1959 Age/S: 60 / F [id number] Unit #: [id number] Loc: [place] [address] Phys: Claudette Asencio Acct: [id number] Dis Date: Status: ADM IN PHONE #: [phone] Exam Date: 05/04/2020 1426 FAX #: Reason: severe headache, bilateral extremity numbness EXAMS:CPT: [id number] CT ANGIO HEAD 28962 EXAM: CTA BRAIN EXAM: CTA NECK INDICATION: [...] normal. The external carotid arteries are normal. Thereis no evidence of vascular injury. Vertebral arteries: The vertebral arteries have a normal course, caliber and contour. The vertebral arteries are codominant. The soft tissues of the neck and other incidental structures are normal. BRAIN CTA: The cervical, petrous, cavernous and supraclinoid internalcarotid arteries are widely patent. The middle and anterior cerebral arteries are normal with no foca l stenosis. The anterior and posterior communicating arteries are patent. The vertebral arteries arenormal. The vertebrobasilar junction and basilar artery are normal. The posterior cerebral and superior cerebellar arteries are patent. Both PICAs are opacified. PAGE 1 Signed Report (CONTINUED) Name: ABBE CORONADO : 09/23/1959 Age/S: 60 / F [address] Unit #: [id number] Loc: [place] [address] Phys: Claudette Asencio Acct: [id number] Dis Date: Status: ADM IN PHONE #: [phone] Exam Date: 05/04/2020 1426 FAX #: Reason: severe headache, bilateral extremity numbness EXAMS:CPT: [id number] CT ANGIO HEAD 57405 (Continued) There is no aneurysm or vascular [...] Herrera, RT(R)(CT)(MRI) CTDI: DLP: Trnscb Date/Time: 05/04/2020 (6102) 16 Orig Print D/T: S: 05/04/2020 (1005) PAGE 2 Signed Report- MRI BRAIN W WO [id number] 14:20:00 [facility] : 09/23/1959 Sex: F FAX: Claudette Asencio [phone] Camps: PM St: ADM FAX: Florencio Rubio MD Name: ABBE CORONADO [facility] : 09/23/1959 Age/S: 60/F [address] [facility] [address] Unit #: [id number] Loc: [address] [place] [address] Phys: Claudette Asencio Acct: [id number] Dis Date: Status: ADM IN PHONE #: [phone] Exam Date: 05/04/2020 1400 FAX #: Reason: severe headache, bilateral extremity numbness EXAMS: CPT: [id number] MRI BRAIN W WO CONT 29655 B2 - MRI BRAIN W WO CONT [...] within normal limits. No abnormal brain parenchymal or leptomeningeal enhancement. IMPRESSION: Minimal white matter microvascular disease. No significant intracranial abnormalities. at 1420 Reported and signed by: Jun Mendez M.D. CC: Claudette GARDUNO; Florencio Tejeda MD Technologist: Asa Lora, RT(R)(MR) Transcribed Date/Time/By: 05/04/2020 (0984) :[email or web address] Print D/T: S: 05/04/2020 (7408) PAGE 1 Signed Report [id number] 12:18:00 Test Item Value Reference Range Interpretation Comments D-DIMER (test code = DDIMER) 958 ng/mLFEU 215-500 COMPREHENSIVE METABOLIC [id number] 12:11:00 Test Item Value Reference Range Interpretation [...] Unit/L 26-192 N CK) NT PRO-BRAIN NATRIURETIC [id number] 12:11:00 Test Item Value Reference Range Interpretation [...] Ratio 1.48-3.22 Avg N Completed by Nursing: [id number] 12:11:00 Test Item Value Reference Range Interpretation Comments PHOSPHOROUS (test code = PHOS) 2.1 MG/DL 2.5-4.9 L Completed by Nursing: [id number] 12:11:00 Test Item Value Reference Range Interpretation Comments MAGNESIUM (test code = MAG) 2.1 MG/DL 1.8-2.4 N Completed by Nursing: NOTHYROID STIMULATING [id number] 12:11:00 Test Item Value Reference Range Interpretation Comments THYROID STIMULATING HORMONE 4.790 mcIU/ML 0.340-4.820 N (test code = TSH) Completed by Nursing: [id number] 12:11:00 Test Item Value Reference Range Interpretation [...] yby method. Completed by Nursing: NOGLYCOSYLATED HEMOGLOBIN [id number] 11:55:00 Test Item Value Reference Range Interpretation Comments GLYCOSYLATED HEMOGLOBIN (HA1C) 7.2 % A1C 0.0-5.7 H (test code = GLYHGB) ESTIMATED AVERAGE GLUCOSE (test 160 MG/DLest code = EAG) CBC W/AUTO [id number] 11:38:00 Test Item Value Reference Range Interpretation [...] DIFF/SCN CRITERIA = MDIFF) POCT HEMOGLOBIN A1C [id number] 18:00:00 Test Item Value Reference Range Interpretation Comments POCT HBA1C (test code = 4548-4) 7.4 % 4-6 A Lab Interpretation (test code = Abnormal 27387-1) [facility] [id number] 18:00:00 Test Item Value Reference Range Interpretation Comments POCT HBA1C (test code = 4548-4) 7.4 % 4-6 A Lab Interpretation (test code = Abnormal 04207-4) [facility]
[2022-04-27 12:53] LABS: Absolute Lymphocytes (CBC) 1.4 K/uL (0.7-4.9); Hematocrit 37.4 % (36.0-45.0); MPV 7.8 fL (7.6-11.3)
[2022-04-27 12:57] LABS: Protime INR 1.09
[2022-04-27 13:06] LABS: Albumin 3.6 g/dL (3.4-5.0); Potassium 3.5 mmol/L (3.5-5.1)
[2022-04-27 13:16] LABS: Bilirubin Direct 0.1 mg/dL (0-0.2); Bilirubin Total 0.4 mg/dL (0.2-1.0); Protein, Total 7.9 g/dL (6.4-8.2); Troponin High Sensitivity 7.4 pg/mL (<58.9)
[2022-04-27] MEDS ORDERED: FENTANYL CITR 100 MCG/2 ML ONE (13:44)
--- NOTE | 2022-04-27 13:57 | RAD REPORT ---
EXAM DESCRIPTION: CT - Chest For Pe Angio - 04/27/2022 1:46 pm CLINICAL HISTORY: Chest pain COMPARISON: None. TECHNIQUE: Dynamically enhanced axial 3 mm thick images of the chest were obtained during administra tion of <100> mL Isovue 370 IV contrast. Coronal and oblique reconstruction images were generated and reviewed. Exam utilizes a protocol for optimal evaluation of pulmonary arterial tree. Maximum intensity projections 3D imaging was utilized All CT scans are performed using dose optimization technique as appropriate and may include automated exposure control or mA/KV adjustment according to patient size. FINDINGS: A pulmonary embolus is not seen. A thoracic aortic aneurysm is not noted. A pleural effusion is not seen. Mild left lower lobe atelectasis. A few areas of sub segmental atelectasis within the lungs Postsurgical changes involve the chest with small amount of fluid within superior mediastinum and min imal pericardial effusion. IMPRESSION: Negative for a pulmonary embolism.
--- NOTE | 2022-04-27 13:58 | RAD REPORT ---
EXAM DESCRIPTION: Saad Single View04/27/2022 1:16 pm CLINICAL HISTORY: Chest pain COMPARISON: March 2022 FINDINGS: A few areas of subsegmental atelectasis lung bases The remainder of the lungs appear clear of acute infiltrate. The heart is normal size Postsurgical changes involve the chest
[2022-04-27] MEDS ORDERED: ONDANSETRON 4 MG/2 ML VIAL ONE (14:36)
[2022-04-27] MEDS ORDERED: HYDROMORPHONE HCL 1 MG/ML INJ ONE (14:36)
[2022-04-27] MEDS ORDERED: PROMETHAZINE INJ 25 MG/ML AMP ONE (15:39)
--- NOTE | 2022-04-27 16:09 | EDPHYS ---
Physician Documentation [facility] Name: Ivonne Anderson Age: 56 yrs Sex: Female : 1965 Arrival Date: 04/27/2022 Time: 12:25 Bed 2 Private MD: ED Physician Royer Figueroa HPI: 04/27 12:53 This 56 yrs old Female presents to ER via Ambulatory with complaints of Chest rn Pain, Back Pain. 12:53 The patient or guardian reports chest pain that is located primarily in the anterior rn chest wall, left. 12:53 Onset: last night. The pain radiates to left back. Associated signs and symptoms: rn Pertinent positives: shortness of breath, Pertinent negatives: abdominal pain, cough, diaphoresis, headache, lower extremity swelling. The chest pain is described as sharp, stabbing. Duration: The patient or guardian reports a single episode, that is still ongoing. Modifying factors: The symptoms are alleviated by nothing. the symptoms are aggravated by deep breath, movement. Severity of pain: At its worst the pain was moderate in the emergency department the pain is unchanged. The patient has experienced a previous episode. The patient has been recently seen by a physician:. Pt s/p open heart surgery after cardiac cath complication, reports was doing ok but last night began to have left sided sharp chest pain that radiates to left back. No trauma. No hemoptysis. Takes plavix. No fever or cough. . PSYCHOLOGY FELLOW: 15:51 LMP N/A - Pre-menarche db Historical: - Allergies: 12:42 Morphine; ph 12:42 PENICILLINS; ph 12:42 Trulicity; ph - PMHx: 12:42 Diabetes - NIDDM; Hyperlipidemia; Hypertension; ph - PSHx: 12:42 ; hernia; hysterectomy; ph - Immunization history:: Adult Immunizations unknown. - Social history:: Smoking status: Patient denies any tobacco usage or history of. - Family history:: not pertinent. - Hospitalizations: : Patient was recently seen at. ROS: 12:53 Constitutional: Negative for fever, chills, and weight loss, Eyes: Negative for injury, rn pain, redness, and discharge, Neck: Negative for injury, pain, and swelling, Cardiovascular: Negative for palpitations, and edema, Respiratory: Negative for cough, wheezing Abdomen/GI: Negative for nausea, vomiting, diarrhea, and constipation, Back: Negative for injury MS/Extremity: Negative for injury and deformity, Skin: Negative for injury, rash, and discoloration, Neuro: Negative for headache, weakness, numbness, tingling, and seizure. Exam: 12:53 Constitutional: This is a well developed, well nourished patient who is awake, alert, rn holding left chest Head/Face: Normocephalic, atraumatic. Cardiovascular: Regular rate and rhythm. No pulse deficits. Respiratory: Speaking full sentences, unlabored. No increased work of breathing, no retractions or nasal flaring. Abdomen/GI: Soft, non-tender Skin: Warm, dry MS/ Extremity: Pulses equal, no cyanosis. Neuro: Awake and alert, GCS 15 13:04 ECG was reviewed by the Attending Physician. rn Vital Signs: 12:39 BP 132 / 88; Pulse 93; Resp 18; Temp 97.7; Pulse Ox 99% on R/A; Weight 66.68 kg; Height ph 5 ft. 0 in. (152.40 cm); 13:15 BP 117 / 79; Pulse 85; Resp 16; Pulse Ox 97% on R/A; db 14:30 BP 118 / 83; Pulse 79; Resp 16; Pulse Ox 95% ; Pain 8/10; db 15:35 BP 117 / 78; Pulse 85; Resp 14; Pulse Ox 96% on R/A; Pain 4/10; db 16:59 BP 97 / 80; Pulse 84; Resp 16; Temp 98.5; Pulse Ox 95% ; Pain 0/10; db 12:39 Body Mass Index 28.71 (66.68 kg, 152.40 cm) ph MDM: 12:25 Patient medically screened. rn 15:34 Differential diagnosis: acute myocardial infarction, acute pericarditis, anxiety, rn costochondritis, gastroesophageal reflux disease (GERD), pleurisy, pneumonia, pneumothorax, pulmonary embolus, thoracic aortic disection. Data reviewed: vital signs, nurses notes, lab test result(s), EKG, radiologic studies, CT scan, and as a result, I will discharge patient. Counseling: I had a detailed discussion with the patient and/or guardian regarding: the historical points, exam findings, and any diagnostic results supporting the discharge/admit diagnosis, lab results, radiology results, the need for outpatient follow up, to return to the emergency department if symptoms worsen or persist or if there are any questions or concerns that arise at home. 15:36 Response to treatment: the patient's symptoms have markedly improved after treatment, rn and as a result, I will discharge patient. Special discussion: Based on the patient's history, exam, and Dx evaluation, there is no indication for emergent intervention or inpatient Tx. It is understood by the patient/guardian that if the Sx's persist or worsen they need to return immediately for re-evaluation. I discussed with the patient/guardian in detail that at this point there is no indication for admission to the hospital. It is understood, however, that if the symptoms persist or worsen the patient needs to return immediately for re-evaluation. ED course: NO acute findings on ct chest, stable vitals, w/u shows atelectasis, expected after thoracic surgery and explains painful inspiration. Will dc home. Has incentive spirometer at home, return precautions given, will prescribe pain meds as she states only has tylenol. . 04/27 12:32 Order name: Basic Metabolic Panel; Complete Time: 13:32 rn 04/27 12:32 Order name: CBC with Diff; Complete Time: 13:32 rn 04/27 12:32 Order name: LFT's; Complete Time: 13:32 rn 04/27 12:32 Order name: NT PRO-BNP; Complete Time: 13:32 rn 04/27 12:32 Order name: PT-INR; Complete Time: 13:32 rn 04/27 12:32 Order name: Troponin HS; Complete Time: 13:32 rn 04/27 12:32 Order name: XRAY Chest (1 view); Complete Time: 14:02 rn 04/27 12:32 Order name: EKG; Complete Time: 12:33 rn 04/27 12:32 Order name: CT Chest For PE Angio; Complete Time: 14:02 rn 04/27 12:32 Order name: Cardiac monitoring; Complete Time: 12:47 rn 04/27 12:32 Order name: EKG - Nurse/Tech; Complete Time: 12:47 rn 04/27 12:32 Order name: IV Saline Lock; Complete Time: 12:47 rn 04/27 12:32 Order name: Labs collected and sent; Complete Time: 12:47 rn 04/27 12:32 Order name: O2 Per Protocol; Complete Time: 12:47 rn 04/27 12:32 Order name: O2 Sat Monitoring; Complete Time: 12:47 rn EC:04 Rate is 88 beats/min. Rhythm is regular. QRS [place] is Normal. SD interval is normal. QRS rn interval is normal. QT interval is normal. No Q waves. T waves are Normal. No ST changes noted. Clinical impression: NSR w/ Non-specific ST/T Changes. Interpreted by me. Reviewed by me. Administered Medications: 13:58 Drug: fentaNYL (PF) 50 mcg Route: IVP; Site: right antecubital; db 14:47 Follow up: Response: No adverse reaction db 14:47 Drug: Dilaudid (HYDROmorphone) 1 mg Route: IVP; Site: right antecubital; db 16:10 Follow up: Response: No adverse reaction db 14:47 Drug: Zofran (Ondansetron) 4 mg Route: IVP; Site: right antecubital; db 16:10 Follow up: Response: No adverse reaction db 15:36 CANCELLED (Duplicate Order): Dilaudid (HYDROmorphone) 1 mg IVP once rn 15:43 Drug: Phenergan (promethazine) 12.5 mg Route: IVP; Site: right antecubital; db 16:10 Follow up: Response: No adverse reaction db Disposition Summary: 04/27/22 16:09 Discharge Ordered Location: Home rn Problem: new rn Symptoms: have improved rn Condition: Stable rn Diagnosis - Chest pain, unspecified rn - Atelectasis rn Followup: rn - With: Private Physician - When: As needed - Reason: Recheck today's complaints, Re-evaluation by your physician Discharge Instructions: - Discharge Summary Sheet rn - Atelectasis, Adult rn - Nonspecific Chest Pain, Adult rn - Pleurisy rn Forms: - Medication Reconciliation Form rn - Thank You Letter rn - Antibiotic corporate legal intern - Prescription Opioid Use rn Prescriptions: - Tramadol 50 mg Oral Tablet - take 1 tablet by ORAL route every 8 hours as needed; 15 tablet; Refills: 0, rn Product Selection Permitted - ondansetron 4 mg Oral tablet,disintegrating - place 1 tablet by TRANSLINGUAL route every 8-10 hours As needed; 15 tablet; rn Refills: 0, Product Selection Permitted Signatures: Dispatcher [employer] Royer Gambino MD MD rn Hall, Patricia, RN RN Michelle Jay RN RN db Corrections: (The following items were deleted from the chart) 15:36 15:35 Dilaudid (HYDROmorphone) 1 mg IVP once ordered. rn rn
--- NOTE | 2022-04-27 16:09 | ER ---
Nurse's Notes [facility] Name: Ivonne Anderson Age: 56 yrs Sex: Female : 1965 Arrival Date: 04/27/2022 Time: 12:25 Bed 2 Private MD: Diagnosis: Chest pain, unspecified;Atelectasis Presentation: 04/27 12:39 Chief complaint: Patient states: Had open heart sx on 04/09 due to a complication from cardiac cath, c/o sharp L sided chest pain that started last night, radiates to back, also reports SOB r/t pain, and pain in surgical site to upper abdomen. Coronavirus screen: Vaccine status: Patient reports receiving the 2nd dose of the covid vaccine. Ebola Screen: No symptoms or risks identified at this time. Initial Sepsis Screen: Does the patient meet any 2 criteria? No. Patient's initial sepsis screen is negative. Does the patient have a suspected source of infection? No. Patient's initial sepsis screen is negative. Risk Assessment: Do you want to hurt yourself or someone else? Patient reports no desire to harm self or others. Onset of symptoms was April 27, 2022. 12:39 Method Of Arrival: Ambulatory ph 12:39 Acuity: HANNA 2 ph Triage Assessment: 12:42 General: Appears in no apparent distress. uncomfortable, well groomed, Behavior is ph calm, cooperative, appropriate for age. Pain: Complains of pain in anterior aspect of left upper chest and left breast Pain radiates to back. Pain: Complains of pain in right upper quadrant. Cardiovascular: Reports chest pain, nausea, shortness of breath. RN RELIEF CHARGE: 15:51 LMP N/A - Pre-menarche db Historical: - Allergies: 12:42 Morphine; ph 12:42 PENICILLINS; ph 12:42 Trulicity; ph - PMHx: 12:42 Diabetes - NIDDM; Hyperlipidemia; Hypertension; ph - PSHx: 12:42 ; hernia; hysterectomy; ph - Immunization history:: Adult Immunizations unknown. - Social history:: Smoking status: Patient denies any tobacco usage or history of. - Family history:: not pertinent. - Hospitalizations: : Patient was recently seen at. Screenin:49 [facility] ED Fall Risk Assessment (Adult) History of falling in the last 3 months, db including since admission Confusion or Disorientation No (0 pts) Intoxicated or Sedated No (0 pts) Impaired Gait No (0 pts) Mobility Assist Device Used No (0 pt) Altered Elimination No (0 pt) Score/Fall Risk Level 0 - 2 = Low Risk Oriented to surroundings. Abuse screen: Denies threats or abuse. Denies injuries from another. Nutritional screening: No deficits noted. Tuberculosis screening: No symptoms or risk factors identified. Fall Risk No fall in past 12 months (0 pts). No secondary diagnosis (0 pts). IV access (20 points). Ambulatory Aid- None/Bed Rest/Nurse Assist (0 pts). Gait- Normal/Bed Rest/Wheelchair (0 pts) Mental Status- Oriented to own ability (0 pts). Total Bradley Fall Scale indicates No Risk (0-24 pts). Assessment: 12:48 Reassessment: Patient appears in no apparent distress at this time. Patient is alert, db oriented x 3, equal unlabored respirations, skin warm/dry/pink. chest pain started this AM. recent open heart surgery. General: Appears in no apparent distress. uncomfortable, Behavior is calm, cooperative, appropriate for age, quiet. Pain: Complains of pain in chest Pain began suddenly. Neuro: No deficits noted. Level of Consciousness is awake, alert, obeys commands, Oriented to person, place, time, situation, Appropriate for age Speech is normal. Cardiovascular: Reports chest pain, Patient's skin is warm and dry. Respiratory: Airway is patent Respiratory effort is even, unlabored, Respiratory pattern is regular, symmetrical. 13:43 Reassessment: PATIENT IN CT. db 14:40 Reassessment: Patient appears in no apparent distress at this time. Patient and/or db family updated on plan of care and expected duration. Pain level reassessed. Patient is alert, oriented x 3, equal unlabored respirations, skin warm/dry/pink. patient assisted to the restroom via wheelchair. states had increased chest pain radiating to arm and back with moving to use restroom. See MAR for medication administration. Pain: Complains of pain in chest and left breast Pain currently is 10 out of 10 on a pain scale. Quality of pain is described as shooting, Is intermittent, Aggravated by increased activity. 16:09 Reassessment: Patient appears in no apparent distress at this time. Patient and/or db family updated on plan of care and expected duration. Pain level reassessed. patient is resting. No complaints now Patient states feeling better. Patient states symptoms have improved. Vital Signs: 12:39 BP 132 / 88; Pulse 93; Resp 18; Temp 97.7; Pulse Ox 99% on R/A; Weight 66.68 kg; Height ph 5 ft. 0 in. (152.40 cm); 13:15 BP 117 / 79; Pulse 85; Resp 16; Pulse Ox 97% on R/A; db 14:30 BP 118 / 83; Pulse 79; Resp 16; Pulse Ox 95% ; Pain 8/10; db 15:35 BP 117 / 78; Pulse 85; Resp 14; Pulse Ox 96% on R/A; Pain 4/10; db 16:59 BP 97 / 80; Pulse 84; Resp 16; Temp 98.5; Pulse Ox 95% ; Pain 0/10; db 12:39 Body Mass Index 28.71 (66.68 kg, 152.40 cm) ph ED Course: 12:25 Patient arrived in ED. rg4 12:25 Royer Figueroa MD is Attending Physician. rn 12:34 Michelle Levin, REBEKAH is Primary Nurse. db 12:42 Triage completed. ph 12:43 Arm band placed on Patient placed in an exam room, on a stretcher, on compliance monitor, ph on pulse oximetry. 12:45 Inserted saline lock: 20 gauge in right antecubital area, using aseptic technique. db Blood collected. 12:47 Patient has correct armband on for positive identification. Placed in gown. Bed in low db position. Call light in reach. Side rails up X2. Client placed on continuous cardiac and pulse oximetry monitoring. NIBP monitoring applied. Warm blanket given. 12:47 Patient maintains SpO2 saturation greater than 95% on room air. db 13:17 XRAY Chest (1 view) In Process Unspecified. EDMS 13:48 CT Chest For PE Angio In Process Unspecified. EDMS 16:59 No provider procedures requiring assistance completed. IV discontinued, intact, db bleeding controlled, No redness/swelling at site. Administered Medications: 13:58 Drug: fentaNYL (PF) 50 mcg Route: IVP; Site: right antecubital; db 14:47 Follow up: Response: No adverse reaction db 14:47 Drug: Dilaudid (HYDROmorphone) 1 mg Route: IVP; Site: right antecubital; db 16:10 Follow up: Response: No adverse reaction db 14:47 Drug: Zofran (Ondansetron) 4 mg Route: IVP; Site: right antecubital; db 16:10 Follow up: Response: No adverse reaction db 15:36 CANCELLED (Duplicate Order): Dilaudid (HYDROmorphone) 1 mg IVP once rn 15:43 Drug: Phenergan (promethazine) 12.5 mg Route: IVP; Site: right antecubital; db 16:10 Follow up: Response: No adverse reaction db Medication: 13:43 VIS not applicable for this client. db Outcome: 16:09 Discharge ordered by . rn 16:59 Discharged to home via wheelchair. db 16:59 Discharged to home via wheelchair, with family. 16:59 Condition: stable 16:59 Discharge instructions given to patient, significant other, Instructed on discharge instructions, follow up and referral plans. Prescriptions given X 2. 17:01 Patient left the ED. db Signatures: Dispatcher [employer] EDMS Royer Figueroa MD MD rn Hall, Patricia, RN RN ph Garcia, Rubi rg4 Benton, Danielle, RN RN db
[2022-04-27 17:11] VITALS: BP 97/80; TEMP 98.5; O2SAT 95
--- NOTE | 2022-04-30 15:20 | EKG ---
Test Date: 2022-04-27 Test Time: 12:45:04 Latent Print Examiner: AD MEASUREMENT RESULTS: Intervals: Rate: 88 MT: 126 QRSD: 86 QT: 360 QTc: 435 Jackson: P: 47 MT: 126 QRS: 55 T: 58 INTERPRETIVE STATEMENTS: Normal sinus rhythm Nonspecific T wave abnormality Abnormal ECG Compared to ECG 04/09/2022 11:02:48 T-wave abnormality now present Sinus tachycardia no longer present ST (T wave) deviation no longer present Electronically Signed On 04-30-22 15:16:50 MANAGEMENT TRAINER by Diego Licona
== END 2022-04-27 17:01 | disposition home or self-care (01) ==
LOC: ER 12:23
DX: R07.89 Other chest pain (principal); J98.11 Atelectasis; I10 Essential (primary) hypertension; Z98.890 Other specified postprocedural states; Z88.0 Allergy status to penicillin; Z88.5 Allergy status to narcotic agent; Z88.8 Allergy status to other drugs, medicaments and biological substances
CPT/HCPCS: 85025; 80048; 36415; 85610; 80076; 84484; 83880; 71275; 71045; Q9967; J2550; J3010; J1170; J2405; 93005; 96374; 96375; 99284

== ENCOUNTER 2023-12-22 14:22 | Observation (INO) | payer OTHER, SELFPAY ==
[2023-12-22 14:59] LABS: Absolute Eosinophils 0.1 K/uL (0-0.5); Absolute Lymphocytes (CBC) 1.3 K/uL (0.7-4.9); Absolute Monocytes 0.4 K/uL (0.1-1.3); Absolute Neutrophil 2.5 K/uL (1.8-8.0); Basophils % 0.5 % (0-1.3); Eosinophils % 1.2 % (0-4.4); Hemoglobin 13.3 g/dL (12.0-15.0); Lymphocytes % 30.4 % (15.3-44.8); MCH 31.2 pg (27.0-35.0); MCHC 33.1 g/dL (32.0-36.0); MCV 94.2 fL (80-100); MPV 8.8 fL (7.6-11.3); Monocytes % 9.2 % (3.3-12.3); Neutrophils % 58.7 % (41.7-73.7); Nucleated Red Blood Cells % 0.1 % (0-0); Platelets 180 thou/uL (152-406); RBC Red Blood Cell Count 4.25 M/uL (3.86-4.86); Red Cell Distribution Width 14.1 % (12.1-15.2)
[2023-12-22 15:01] LABS: PT Prothrombin Time 12.1 SECONDS (9.4-12.5); Protime INR 1.08
[2023-12-22 15:13] LABS: ALT/SGPT 37 U/L (13-56); AST/SGOT 18 U/L (15-37); Albumin/Globulin Ratio 1.1 (1.1-1.8); Alkaline Phosphatase 80 U/L (45-117); Anion Gap 12.4 mEq/L (5.0-15.0); BUN Blood Urea Nitrogen 12 mg/dL (7-18); Bicarbonate 20 mEq/L (21-32); Bilirubin Total 0.4 mg/dL (0.2-1.0); Creatine Phosphokinase 80 U/L (26-192); Globulin 3.8 g/dL (2.3-3.5); Glomerular Filtration Rate 65 ml/min (=/>90); Glucose Level 132 mg/dL (74-106); NT PRO-BNP 54 pg/mL (<125); Potassium 3.4 mEq/L (3.5-5.1); Protein, Total 7.8 g/dL (6.4-8.2); Sodium Level 136 mEq/L (136-145); Troponin High Sensitivity 3.4 pg/mL (<58.9)
[2023-12-22 15:16] LABS: Bilirubin Direct < 0.2 mg/dL (0-0.2); Bilirubin Indirect, Calculated 0.2 mg/dL (0.2-0.8)
--- NOTE | 2023-12-22 15:34 | RAD REPORT ---
EXAM DESCRIPTION: Saad Single View12/22/2023 3:16 pm CLINICAL HISTORY: Palpitations/shortness of breath COMPARISON: 2021 FINDINGS: The lungs appear clear of acute infiltrate. The heart is normal size. Postsurgical change s involve the chest IMPRESSION: No acute abnormalities displayed
[2023-12-22] MEDS ORDERED: FENTANYL CITR 100 MCG/2 ML ONE (15:42)
--- NOTE | 2023-12-22 16:54 | RAD REPORT ---
EXAM DESCRIPTION: CT - Abdomen W Contrast - 12/22/2023 4:27 pm CLINICAL HISTORY: Abdominal pain COMPARISON: 2014 TECHNIQUE: Computed axial tomography from the diaphragm to the iliac crest was obtained. Oral contra st was given. 100 cc Isovue-[address] scans are performed using dose optimization technique as appropriate and may include automated exposure control or mA/KV adjustment according to patient size. FINDINGS: The liver, spleen, adrenals, pancreas and kidneys appear grossly normal. No ascites is seen. The visualized bowel caliber and wall thickness is normal Normal appendix Possible small gallstone IMPRESSION: Possible small gallstone
--- NOTE | 2023-12-22 18:13 | EDPHYS ---
Physician Documentation [facility] Name: Ivonne Anderson Age: 58 yrs Sex: Female : 1965 Arrival Date: 12/22/2023 Time: 14:22 Bed 4 Private MD: ED Physician Huey Guzman HPI: 12/21 18:17 This 58 yrs old Female presents to ER via EMS with complaints of Chest rt Pressure. 18:17 Patient presents to the ED with an acute onset of chest pain, palpitations. Patient rt states this occurred after he had numbing drops put to her eye. She denies other acute complaints. Patient states that she has had vaginal bleeding for about a month and some pain to the abdomen. Denies other acute complaints at this time, symptoms are moderate in severity, no other aggravating or elevating factors.. Historical: - Allergies: 14:29 Morphine; rs5 14:29 PENICILLINS; rs5 14:29 Trulicity; rs5 - PMHx: 14:29 Hyperlipidemia; Diabetes - NIDDM; Hypertension; Hypercholesterolemia; Arthritis; rs5 Hyperthyroidism; - PSHx: 14:29 ; hysterectomy; hernia; rs5 - Immunization history:: Adult Immunizations up to date. - Infectious Disease History:: Denies. - Social history:: Smoking status: Patient denies any tobacco usage or history of. - Family history:: not pertinent. ROS: 18:17 Constitutional: Negative for fever, chills, and weight loss, Respiratory: Negative for rt shortness of breath, cough, wheezing, and pleuritic chest pain, MS/Extremity: Negative for injury and deformity, Skin: Negative for injury, rash, and discoloration, Psych: Negative for depression, anxiety, suicide ideation, homicidal ideation, and hallucinations, 18:17 Cardiovascular: Positive for chest pain, palpitations, 18:17 Abdomen/GI: Positive for abdominal pain, Negative for nausea and vomiting, Exam: 18:17 Constitutional: This is a well developed, well nourished patient who is awake, alert, rt and in no acute distress. Head/Face: Normocephalic, atraumatic. Chest/axilla: Normal chest wall appearance and motion. Nontender with no deformity. No lesions are appreciated. Cardiovascular: Regular rate and rhythm with a normal S1 and S2. No gallops, murmurs, or rubs. Normal PMI, no JVD. No pulse deficits. Respiratory: Lungs have equal breath sounds bilaterally, clear to auscultation and percussion. No rales, rhonchi or wheezes noted. No increased work of breathing, no retractions or nasal flaring. Abdomen/GI: Soft, non-tender, with normal bowel sounds. No distension or tympany. No guarding or rebound. No evidence of tenderness throughout. Skin: Warm, dry with normal turgor. Normal color with no rashes, no lesions, and no evidence of cellulitis. MS/ Extremity: Pulses equal, no cyanosis. Neurovascular intact. Full, normal range of motion. Neuro: Awake and alert, GCS 15, oriented to person, place, time, and situation. Cranial nerves II-XII grossly intact. Motor strength 5/5 in all extremities. Sensory grossly intact. Cerebellar exam normal. Normal gait. 18:17 ECG was reviewed by the Attending Physician. Vital Signs: 14:26 BP 155 / 94; Pulse 110; Resp 19; Pulse Ox 98% on R/A; rs5 15:35 BP 143 / 90; Pulse 95; Resp 18; Pulse Ox 98% on R/A; rs5 15:48 BP 120 / 85; Pulse 105; Resp 18; Temp 97.8(O); Pulse Ox 98% on R/A; rs5 16:59 BP 145 / 98; Pulse 92; Resp 18; Pulse Ox 98% on R/A; rs5 MDM: 14:30 Medical screening is not applicable. rt 18:17 Differential diagnosis: Palpitations, dysrhythmia, ACS, anxiety disorder. Data rt reviewed: vital signs, nurses notes, lab test result(s), EKG, radiologic studies. Consideration of Admission/Observation Patient was admitted/placed on observation. Management of patient was discussed with the following: Hospitalist: Agrees to admit. I considered the following discharge prescriptions or medication management in the emergency department Medications were administered in the Emergency Department. See MAR. Independent interpretation of the following test(s) in the Emergency Department X-Ray: My interpretation is No pneumonia seen on interpretation x-ray images. Care significantly affected by the following chronic conditions: Diabetes, Hypertension. Counseling: I had a detailed discussion with the patient and/or guardian regarding the historical points, exam findings, and any diagnostic results supporting the discharge/admit diagnosis, lab results, radiology results, the need for further work-up and treatment in the hospital. Response to treatment: the patient's symptoms have markedly improved after treatment. 12/21 14:31 Order name: Basic Metabolic Panel; Complete Time: 15:29 rt 12/21 14:31 Order name: CBC with Diff; Complete Time: 15:29 rt 12/21 14:31 Order name: LFT's; Complete Time: 15:29 rt 12/21 14:31 Order name: Magnesium; Complete Time: 15:29 rt 12/21 14:31 Order name: NT PRO-BNP; Complete Time: 15:29 rt 12/21 14:31 Order name: PT-INR; Complete Time: 15:29 rt 12/21 14:31 Order name: Troponin HS; Complete Time: 15:29 rt 12/21 14:31 Order name: TSH; Complete Time: 15:29 rt 08 14:31 Order name: CPK; Complete Time: 15:29 rt 08 14:32 Order name: Test, Serum rt 12/21 18:48 Order name: Urinalysis w/ reflexes EDFL 12/21 18:48 Order name: CBC with Automated Diff EDFL 12/21 18:48 Order name: CBC with Automated Diff EDFL 12/21 18:48 Order name: Comprehensive Metabolic Panel EDFL 12/21 18:48 Order name: Comprehensive Metabolic Panel EDFL 12/21 18:48 Order name: Magnesium EDFL 12/21 18:48 Order name: Magnesium EDFL 12/21 18:48 Order name: NT PRO-BNP EDFL 12/21 18:48 Order name: NT PRO-BNP EDMS 12/21 18:48 Order name: Troponin High Sensitivity EDMS 12/21 18:48 Order name: Troponin High Sensitivity EDMS 12/21 18:48 Order name: Troponin High Sensitivity EDMS 12/21 18:48 Order name: Troponin High Sensitivity EDMS 12/21 18:51 Order name: Hemoglobin A1c EDMS 12/21 18:51 Order name: Hemoglobin A1c EDFL 12/21 18:51 Order name: Lipid Profile EDMS 12/21 18:51 Order name: Lipid Profile EDFL 12/21 14:31 Order name: XRAY Chest (1 view); Complete Time: 15:38 rt 12/21 15:31 Order name: CT Abdomen - IV Contrast Only; Complete Time: 17:07 rt 12/21 14:31 Order name: EKG; Complete Time: 14:32 rt 12/21 18:46 Order name: CONS Physician Consult EDMS 12/21 18:51 Order name: EKG Electrocardiogram EDMS 12/21 18:51 Order name: EKG Electrocardiogram EDMS 12/21 14:31 Order name: Cardiac monitoring; Complete Time: 15:34 rt 12/21 14:31 Order name: EKG - Nurse/Tech; Complete Time: 15:34 rt 12/21 14:31 Order name: IV Saline Lock; Complete Time: 15:34 rt 08 14:31 Order name: Labs collected and sent; Complete Time: 15:34 rt 08 14:31 Order name: O2 Per Protocol; Complete Time: 15:34 rt 08 14:31 Order name: O2 Sat Monitoring; Complete Time: 15:34 rt EC:17 Rate is 91 beats/min. Rhythm is regular, Normal Sinus Rhythm with No ectopy. QRS [place] rt is Normal. PA interval is normal. QRS interval is normal. QT interval is normal. No Q waves. T waves are Normal. No ST changes noted. Administered Medications: 15:40 Drug: fentaNYL (PF) IVP 50 mcg IVP once Route: IVP; Site: right antecubital; rs5 16:01 Follow up: Response: No adverse reaction; Pain is decreased rs5 Disposition Summary: 12/22/23 18:12 Hospitalization Ordered Notes: Hospitalization Status: Observation rt Provider: Richie Figueroa rt Location: Telemetry/MedSurg (observation) rt Condition: Stable rt Problem: new rt Symptoms: have improved rt Bed/Room Type: Standard rt Room Assignment: 213(12/22/23 18:55) eb Diagnosis - Chest pain, unspecified rt - Palpitations rt Forms: - Medication Reconciliation Form rt - SBAR form rt - Leadership Thank You Letter rt Signatures: Dispatcher [employer] EDMS Michelle Foster Ryan, MD MD rt Teja Hopper, REBEKAH RN rs5 Corrections: (The following items were deleted from the chart) 15:34 15:34 Abdomen W/ Con+CT.RAD.BRZ ordered. EDFL EDFL 18:55 18:12 rt eb
--- NOTE | 2023-12-22 18:13 | ER ---
Nurse's Notes [facility] Name: Ivonne Anderson Age: 58 yrs Sex: Female : 1965 Arrival Date: 12/22/2023 Time: 14:22 Bed 4 Private MD: Diagnosis: Chest pain, unspecified;Palpitations Presentation: 12/21 14:26 Chief complaint: EMS states: Was at the [employer] [facility], became SOB, began rs5 experiencing chest discomfort and generalized weakness after eye drop solution was placed in eyes. Denies blurry vision. Coronavirus screen: At this time, the client does not indicate any symptoms associated with coronavirus-19. Ebola Screen: No symptoms or risks identified at this time. Initial Sepsis Screen: Does the patient meet any 2 criteria? HR > 90 bpm. Yes Does the patient have a suspected source of infection? No. Patient's initial sepsis screen is negative. Initial Sepsis Screen: Does the patient meet any 2 criteria?. Risk Assessment: Do you want to hurt yourself or someone else? Patient reports no desire to harm self or others. Onset of symptoms was December 22, 2023. 14:26 Method Of Arrival: EMS: [facility] rs5 14:26 Acuity: HANNA 3 rs5 Historical: - Allergies: 14:29 Morphine; rs5 14:29 PENICILLINS; rs5 14:29 Trulicity; rs5 - PMHx: 14:29 Hyperlipidemia; Diabetes - NIDDM; Hypertension; Hypercholesterolemia; Arthritis; rs5 Hyperthyroidism; - PSHx: 14:29 ; hysterectomy; hernia; rs5 - Immunization history:: Adult Immunizations up to date. - Infectious Disease History:: Denies. - Social history:: Smoking status: Patient denies any tobacco usage or history of. - Family history:: not pertinent. Screenin:30 [facility] ED Fall Risk Assessment (Adult) History of falling in the last 3 months, rs5 including since admission No falls in past 3 months (0 pts) Confusion or Disorientation No (0 pts) Intoxicated or Sedated No (0 pts) Impaired Gait No (0 pts) Mobility Assist Device Used No (0 pt) Altered Elimination No (0 pt) Score/Fall Risk Level 0 - 2 = Low Risk Oriented to surroundings, Maintained a safe environment. Abuse screen: Denies threats or abuse. Nutritional screening: No deficits noted. Tuberculosis screening: No symptoms or risk factors identified. Assessment: 14:30 General: Appears distressed, uncomfortable, Behavior is cooperative, anxious. Pain: rs5 Complains of pain in chest and pelvis Pain currently is 3 out of 10 on a pain scale. Quality of pain is described as aching, Is continuous. Neuro: Level of Consciousness is awake, alert, obeys commands, Oriented to person, place, time, situation. Cardiovascular: Patient's skin is warm and dry. Respiratory: Reports shortness of breath Airway is patent Respiratory effort is even, unlabored, Respiratory pattern is regular, symmetrical. 14:30 GI: Abdomen is round non-distended, Abd is soft and non tender X 4 quads. : Reports rs5 vaginal bleeding that is light flow. EENT: No signs and/or symptoms were reported regarding the EENT system. Derm: Skin is intact, Skin is pink, warm \T\ dry. Musculoskeletal: Range of motion: intact in all extremities. 15:20 Pain: Complains of pain in pelvis and chest Pain currently is 8 out of 10 on a pain rs5 scale. Quality of pain is described as aching, Is continuous. 15:20 Reassessment: provider notified pt is experiencing pain. rs5 16:33 Reassessment: Patient and/or family updated on plan of care and expected duration. Pain rs5 level reassessed. Patient is alert, oriented x 3, equal unlabored respirations, skin warm/dry/pink. Patient states feeling better. 16:59 Reassessment: Patient appears in no apparent distress at this time. rs5 Vital Signs: 14:26 BP 155 / 94; Pulse 110; Resp 19; Pulse Ox 98% on R/A; rs5 15:35 BP 143 / 90; Pulse 95; Resp 18; Pulse Ox 98% on R/A; rs5 15:48 BP 120 / 85; Pulse 105; Resp 18; Temp 97.8(O); Pulse Ox 98% on R/A; rs5 16:59 BP 145 / 98; Pulse 92; Resp 18; Pulse Ox 98% on R/A; rs5 ED Course: 14:26 Patient arrived in ED. rs5 14:29 Triage completed. rs5 14:30 Huey Guzman MD is Attending Physician. rt 14:30 Patient has correct armband on for positive identification. Placed in gown. Bed in low rs5 position. Call light in reach. Side rails up X2. 14:35 No provider procedures requiring assistance completed. Inserted saline lock: 20 gauge rs5 in right antecubital area, using aseptic technique. 15:18 XRAY Chest (1 view) In Process Unspecified. EDMS 15:26 Teja Hopper, RN is Primary Nurse. rs5 16:29 CT Abdomen - IV Contrast Only In Process Unspecified. EDMS 18:11 Richie Figueroa MD is Hospitalizing Provider. rt Administered Medications: 15:40 Drug: fentaNYL (PF) IVP 50 mcg IVP once Route: IVP; Site: right antecubital; rs5 16:01 Follow up: Response: No adverse reaction; Pain is decreased rs5 Medication: 15:35 VIS not applicable for this client. rs5 Outcome: 18:12 Decision to Hospitalize by Provider. rt 20:36 Patient left the ED. jb4 Signatures: Dispatcher [employer] EDAlejandro Lange RN RN jb4 Huey Guzman MD MD rt Teja Hopper, RN RN rs5 Corrections: (The following items were deleted from the chart) 15:48 15:48 BP 120 / 85; Pulse 105bpm; Resp 18bpm; Pulse Ox 98% RA; rs5 rs5
--- NOTE | 2023-12-22 18:43 | P.HP ---
Certification for Inpatient Patient admitted to: Observation With expected LOS: <2 Midnights Practitioner: I am a practitioner with admitting privileges, knowledge of patient current condition, hospital course, and medical plan of care. 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 She report being at the [employer] [facility] today, having her eyes dilated, she reported a side effect of the medication to dilate her eyes caused her to have chest pain. She reported mild bilateral upper extremity tingling. No reported shortness of breath, dizziness, edema. Plan to admit for observation until chest pain rule out AR. Cardiology to evaluate. Blood pressure BP 155 / 94; Pulse 110; Resp 19; Pulse Ox 98% on R/A; EKG Rate is 91 beats/min. Rhythm is regular, Normal Sinus Rhythm with No ectopy. QRS [place] is Normal. [place] interval is normal. QRS interval is normal. QT interval is normal. No Q waves. T waves are Normal. No ST changes noted Allergies dulaglutide [From [facility]] Allergy (Verified 12/22/23 20:57) Shortness of breath morphine Adverse Reaction (Mild, Verified 12/22/23 20:57) Hives Home Medications: Amlodipine [Norvasc] 5 mg PO DAILY 12/22/23 Aspirin 81 mg PO DAILY 12/22/23 Clopidogrel Bisulfate [Plavix*] 75 mg PO DAILY 12/22/23 Gabapentin 100 mg PO BID 12/22/23 Ibuprofen 800 mg PO BID 12/22/23 Levothyroxine [Synthroid] 75 mcg PO [id number] 12/22/23 Losartan/Hydrochlorothiazide [Losartan-Hctz 100-25 mg Tab] 1 tab PO BEDTIME 12/22/23 Metformin HCl 500 mg PO DAILY 12/22/23 Rosuvastatin Calcium 10 mg PO BEDTIME 12/22/23 Tirzepatide [Mounjaro] 7.5 mg SQ EVERY 7TH DAY 12/22/23 - Past Medical/Surgical History Diabetic: Yes -: DM -: HTN -: Arthritis on back -: CAB 04/04 -: Hysterectomy -: Abd hernia Repair -: -: 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 - Social History Alcohol use: Yes CD- Drugs: No Caffeine use: Yes Review of Systems Per HPI Physical Examination - Physical Exam General: Alert, In no apparent distress, Oriented x3 HEENT: Atraumatic, Normocephalic Neck: 2+ carotid pulse no bruit, JVD not distended Respiratory: Clear to auscultation bilaterally, Normal air movement Cardiovascular: Normal pulses, Regular rate/rhythm, Normal S1 S2 Gastrointestinal: Normal bowel sounds, Soft and benign Musculoskeletal: No swelling, No contractures Integumentary: No breakdown, No significant lesion Neurological: Normal speech, Normal strength at 5/5 x4 extr, Cranial nerves 3-12 intact - Studies Laboratory Data (last 24 hrs) 12/22/23 12/22/23 12/22/23 14:39 14:39 14:39 WBC 4.30 Hgb 13.3 Hct 40.0 Plt Count 180 PT 12.1 INR 1.08 Sodium 136 Potassium 3.4 L BUN 12 Creatinine 1.01 Glucose 132 H Magnesium 2.0 Total Bilirubin 0.4 AST 18 ALT 37 Alkaline Phosphatase 80 Assessment and Plan - Plan Assessment plan Chest pain rule out AR CAD history of CABG Cardiology consult, telemetry, Trend troponins, resume home meds resented to the emergency room with chest pain. She report being at the [facility] today, having her eyes dilated, she reported a side effect of the medication to dilate her eyes caused her to have chest pain. She reported mild bilateral upper extremity tingling. No reported shortness of breath, dizziness, edema. Plan to admit for observation until chest pain rule out AR. Cardiology to evaluate. Blood pressure BP 155 / 94; Pulse 110; Resp 19; Pulse Ox 98% on R/A; EKG Rate is 91 beats/min. Rhythm is regular, Normal Sinus Rhythm with No ectopy. QRS [place] is Normal. [place] interval is normal. QRS interval is normal. QT interval is normal. No Q waves. T waves are Normal. No ST changes noted Diabetes Accu-Cheks, Sliding scale insulin hyperlipidemia Hypertension Hypercholesterolemia Arthritis Hyperthyroidism Resume appropriate home Full code DVT Diet n.p.o. until cardiology eval Disposition Home independent prior Discharge Plan: Home - Advance Directives Does patient have a Living Will: No Does patient have a Durable POA for Healthcare: No - Code Status/Comfort Care Code Status: Full Code Critical Care: No Time Spent Managing Pts Care (In Minutes): 55
[2023-12-22] MEDS ORDERED: ALPRAZOLAM 0.25 MG TABLET PO PRN (18:44)
[2023-12-22] MEDS ORDERED: ONDANSETRON 4 MG/2 ML VIAL IV PRN (18:44)
[2023-12-22] MEDS ORDERED: ACETAMINOPHEN 500 MG TAB PO PRN (18:44)
[2023-12-22] MEDS: INSULIN REGULAR (HUMAN) 100 UNIT/ML SQ SCH (21:00)
[2023-12-22 21:06] VITALS: BMI 29.0
[2023-12-22 21:10] VITALS: O2SAT 98
[2023-12-22] MEDS: FAMOTIDINE 20 MG TAB PO SCH (21:49)
[2023-12-22] MEDS: FENTANYL CITR 100 MCG/2 ML IV PRN (21:49)
[2023-12-22] MEDS: NA CHLORIDE 0.9% 1,000 ML IV SCH (21:51)
[2023-12-23 05:48] LABS: Absolute Eosinophils 0.1 K/uL (0-0.5); Absolute Lymphocytes (CBC) 1.8 K/uL (0.7-4.9); Absolute Monocytes 0.5 K/uL (0.1-1.3); Absolute Neutrophil 3.5 K/uL (1.8-8.0); Basophils % 0.6 % (0-1.3); Eosinophils % 1.8 % (0-4.4); Hematocrit 38.6 % (36.0-45.0); Hemoglobin 13.2 g/dL (12.0-15.0); Lymphocytes % 30.7 % (15.3-44.8); MCHC 34.2 g/dL (32.0-36.0); MCV 93.6 fL (80-100); MPV 8.6 fL (7.6-11.3); Monocytes % 8.8 % (3.3-12.3); Neutrophils % 58.1 % (41.7-73.7); Nucleated Red Blood Cells % 0.2 % (0-0); Platelets 203 thou/uL (152-406); RBC Red Blood Cell Count 4.13 M/uL (3.86-4.86); Red Cell Distribution Width 14.1 % (12.1-15.2)
[2023-12-23 06:10] LABS: Albumin 3.5 g/dL (3.4-5.0); Anion Gap 12.6 mEq/L (5.0-15.0); Bilirubin Total 0.5 mg/dL (0.2-1.0); Globulin 3.5 g/dL (2.3-3.5); Magnesium 2.4 mg/dL (1.6-2.4); Potassium 3.6 mEq/L (3.5-5.1)
[2023-12-23] MEDS ORDERED: ASPIRIN 325 MG TAB PO SCH (09:00)
[2023-12-23] MEDS: POTASSIUM 25 MEQ EFFERV TAB PO ONE (09:51)
[2023-12-23] MEDS: GABAPENTIN 100 MG CAP PO SCH (09:52)
[2023-12-23] MEDS: ASPIRIN 81 MG CHEWABLE TABLET PO SCH (09:52)
[2023-12-23] MEDS: CLOPIDOGREL 75 MG TABLET PO SCH (09:52)
[2023-12-23] MEDS: AMLODIPINE 5 MG TAB PO SCH (09:52)
[2023-12-23] MEDS: METFORMIN HCL 500 MG TAB PO SCH (09:53)
[2023-12-23] MEDS: HYDROCODONE/APAP 7.5/325 MG TAB PO PRN (11:43)
--- NOTE | 2023-12-23 12:09 | P.CNS ---
Date of Consult: 12/23/23 Chief Complaint: Chest pain History of Present Illness: Patient with PMH of CAD, CABG presented with generalized numbness, chest [facility], pal[facility]ations and high BP, symptoms resolved now. [facility]ergies [facility] Allergy (Verified 12/22/23 20:57) Shortness of breath morphine Adverse Reaction (Mild, Verified 12/22/23 20:57) Hives Home Medications: Amlodipine [Norvasc] 5 mg PO DAILY 12/22/23 Aspirin 81 mg PO DAILY 12/22/23 Clopidogrel Bisulfate [Plavix*] 75 mg PO DAILY 12/22/23 Gabapentin 100 mg PO BID 12/22/23 Ibuprofen 800 mg PO BID 12/22/23 Levothyroxine [Synthroid] 75 mcg PO [id number] 12/22/23 Losartan/Hydrochlorothiazide [Losartan-Hctz 100-25 mg Tab] 1 tab PO BEDTIME 12/22/23 Metformin HCl 500 mg PO DAILY 12/22/23 Rosuvastatin Calcium 10 mg PO BEDTIME 12/22/23 Tirzepatide [Mounjaro] 7.5 mg SQ EVERY 7TH DAY 12/22/23 - Past Medical/Surgical History Diabetic: Yes -: DM -: HTN -: Arthritis on back -: CAB 04/04 -: Hysterectomy -: Abd hernia Repair -: -: 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 moist/pink, EOMI, Sclerae nonicteric Neck: Supple, 2+ carotid pulse no bruit, No LAD, Without JVD or thyroid abnormality Respiratory: Clear to auscultation bilaterally, Normal air movement Cardiovascular: Regular rate/rhythm, Normal S1 S2 Gastrointestinal: Normal bowel sounds, No tenderness Musculoskeletal: No tenderness Integumentary: No rashes Neurological: Normal gait, Normal speech, Normal tone, Normal affect Lymphatics: No axilla or inguinal lymphadenopathy Laboratory Data (last 24 hrs) 12/22/23 12/22/23 12/22/23 14:39 14:39 14:39 WBC 4.30 Hgb 13.3 Hct 40.0 Plt Count 180 PT 12.1 INR 1.08 Sodium 136 Potassium 3.4 L BUN 12 Creatinine 1.01 Glucose 132 H Magnesium 2.0 Total Bilirubin 0.4 AST 18 ALT 37 Alkaline Phosphatase 80 - Problems (1) Chest pain Current Visit: Yes Status: Acute Plan: atypical, enzymes are negative, most likely secondary to palpitations as side ef fects from dental injection medications no further cardiac work up needed. follow up as outpatient for stress test and echo (2) HTN (hypertension) Current Visit: Yes Status: Acute Plan: continue patient home medications (3) HLD (hyperlipidemia) Current Visit: Yes Status: Acute Plan: continue crestor.
[2023-12-23 12:40] VITALS: BP 104/71; TEMP 98.4
--- NOTE | 2023-12-23 13:01 | P.DS ---
Admission Date: 12/22/23 Discharge Date: 12/23/23 Disposition: ROUTINE DISCHARGE Discharge Condition: GOOD Reason for Admission: Chest pain Consultations: Cardiology-Dr. 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 She report being at the [employer] today, having her eyes dilated, she reported a side effect of the medication to dilate her eyes caused her to have chest pain. She reported mild bilateral upper extremity tingling. No reported shortness of breath, dizziness, edema. Plan to admit for observation until chest pain rule out IN. Cardiology to evaluate. Blood pressure BP 155 / 94; Pulse 110; Resp 19; Pulse Ox 98% on R/A; EKG Rate is 91 beats/min. Rhythm is regular, Normal Sinus Rhythm with No ectopy. QRS [place] is Normal. OK interval is normal. QRS interval is normal. QT interval is normal. No Q waves. T waves are Normal. No ST changes noted Hospital Course: Chest pain rule out IN CAD history of CABG Diabetes hyperlipidemia Hypertension Hypercholesterolemia Arthritis Hyperthyroidism Patient was admitted to the hospital for chest pain. Cardiac enzymes were trended and negative, she was monitored on telemetry with no significant arrhythmias. Cardiology evaluated patient and recommends further evaluation as an outpatient for stress test. Patient symptoms improved and stable for discharge at this time. Please continue your home medications as previously prescribed Follow up with your primary care provider in the next 1-2 weeks Also follow up with cardiology in 1-2 weeks. Vital Signs/Physical Exam: Temp Pulse Resp BP Pulse Ox 98.4 F 75 16 104/71 98 12/23/23 12:00 12/23/23 12:00 12/23/23 12:00 12/23/23 12:12/23/23 12:00 General: Alert, In no apparent distress, Oriented x3 HEENT: Atraumatic, PERRLA, EOMI Neck: Supple, JVD not distended Respiratory: Clear to auscultation bilaterally, Normal air movement Cardiovascular: Regular rate/rhythm, Normal S1 S2 Gastrointestinal: Normal bowel sounds, No tenderness Musculoskeletal: No tenderness Integumentary: No rashes Neurological: Normal speech, Normal tone, Normal affect Lymphatics: No axilla or inguinal lymphadenopathy Laboratory Data at Discharge: WBC 6.00 thou/uL (4.3-10.9) 12/23/23 04:29 Hgb 13.2 g/dL (12.0-15.0) 12/23/23 04:29 Hct 38.6 % (36.0-45.0) 12/23/23 04:29 Plt Count 203 thou/uL (152-406) 12/23/23 04:29 PT 12.1 SECONDS (9.4-12.5) 12/22/23 14:39 INR 1.08 12/22/23 14:39 Sodium 139 mEq/L (136-145) 12/23/23 04:29 Potassium 3.6 mEq/L (3.5-5.1) 12/23/23 04:29 BUN 14 mg/dL (7-18) 12/23/23 04:29 Creatinine 0.83 mg/dL (0.55-1.02) 12/23/23 04:29 Glucose 104 mg/dL (74-106) 12/23/23 04:29 Magnesium 2.4 mg/dL (1.6-2.4) 12/23/23 04:29 Total Bilirubin 0.5 mg/dL (0.2-1.0) 12/23/23 04:29 AST 26 U/L (15-37) 12/23/23 04:29 ALT 38 U/L (13-56) 12/23/23 04:29 Alkaline Phosphatase 65 U/L (45-117) 12/23/23 04:29 Triglycerides 103 mg/dL (<150) 12/23/23 04:29 Cholesterol 133 mg/dL (<200) 12/23/23 04:29 HDL Cholesterol 42 mg/dL (40-60) 12/23/23 04:29 Cholesterol/HDL Ratio 3.17 12/23/23 04:29 Home Medications: Amlodipine [Norvasc*] 5 mg PO DAILY 12/22/23 Aspirin 81 mg PO DAILY 12/22/23 Clopidogrel Bisulfate [Plavix*] 75 mg PO DAILY 12/22/23 Gabapentin 100 mg PO BID 12/22/23 Levothyroxine [Synthroid*] 75 mcg PO [id number] 12/22/23 Losartan/Hydrochlorothiazide [Losartan-Hctz 100-25 mg Tab] 1 tab PO BEDTIME 12/22/23 Metformin HCl 500 mg PO DAILY 12/22/23 Rosuvastatin Calcium 10 mg PO BEDTIME 12/22/23 Tirzepatide [Mounjaro] 7.5 mg SQ EVERY 7TH DAY 12/22/23 Physician Discharge Instructions: Patient was admitted to the hospital for chest pain. Cardiac enzymes were trended and negative, she was monitored on telemetry with no significant arrhythmias. Cardiology evaluated patient and recommends further evaluation as an outpatient for stress test. Patient symptoms improved and stable for discharge at this time. Please continue your home medications as previously prescribed Follow up with your primary care provider in the next 1-2 weeks Also follow up with cardiology in 1-2 weeks. Diet: AHA Activity: Ad jessica Followup: Augusta Liz NP [Primary Care Provider] - 1-2 Weeks Time spent managing pt's care (in minutes): 35
[2023-12-23] MEDS ORDERED: ROSUVASTATIN 10 MG TAB PO SCH (21:00)
[2023-12-24] MEDS ORDERED: LEVOTHYROXINE SOD 0.075 MG TAB PO SCH (06:00)
== END 2023-12-23 13:42 | disposition home or self-care (01) ==
LOC: ER 14:22 → ERHOLD 18:43 → 2ND 19:51
PROVIDERS: ADMIT Hospitalist; ATTEND Internal Medicine
DX: R07.9 Chest pain, unspecified (principal); R00.2 Palpitations; E11.9 Type 2 diabetes mellitus without complications; E78.5 Hyperlipidemia, unspecified; E78.00 Pure hypercholesterolemia, unspecified; E05.90 Thyrotoxicosis, unspecified without thyrotoxic crisis or storm; M19.90 Unspecified osteoarthritis, unspecified site; I25.10 Atherosclerotic heart disease of native coronary artery without angina pectoris; Z95.1 Presence of aortocoronary bypass graft; Z88.5 Allergy status to narcotic agent; Z88.8 Allergy status to other drugs, medicaments and biological substances; Z79.82 Long term (current) use of aspirin
CPT/HCPCS: 93005; 85025 ×2; 80048; 36415; 83735 ×2; 82550; 85610; 80061; 82947 ×3; 80076; 84443; 83036; 84484 ×3; 80053; 83880 ×2; 74160; 71045; 96374; 99284; Q9967; J3010 ×3; J7030; G0378